=== PATIENT | female | born 1945 | race Caucasian/White ===

== ENCOUNTER 2017-01-12 13:24 | Inpatient (IN) | payer BC ==
--- NOTE | 2017-01-12 14:11 | PDOC ---
History of Present Illness - General History Source: Patient Exam Limitations: No Limitations - History of Present Illness Initial Comments: 01/12/17 14:18 The patient is a 71 year old female, who walked into the ER, with a significant past medical history of NIDDM, hypothyroid, gout, HTN, RA,afib, anemia, who presents to the emergency department with dizziness for about a week. She reports her dizziness is often made worse when she stands up and often alleviated when she is lying down and remaining still. She reports having an upper endoscopy 2 weeks ago with prep for colonoscopy and taking one laxative. Denies having these symptoms in the past. She denies recent fevers, chills, or headache. She denies recent nausea, vomit, diarrhea or constipation. Allergies: NKA Past surgical history: See HPI Social history: Nonsmoker. Denies EtOH use and drug use. PCP: Dr. Gamboa <Aldo Nelson - Last Filed: 01/12/17 15:02> <Isabelle Dobson - Last Filed: 01/12/17 15:27> - General Chief Complaint: Lightheaded Stated Complaint: DIZZY Time Seen by Provider: 01/12/17 13:25 Past History <Aldo Nelson - Last Filed: 01/12/17 15:02> - Past Medical History Anemia: No Asthma: No Cancer: Yes (skin cancer chin - removed last march 2013) Cardiac Disorders: No CVA: No COPD: No CHF: No Dementia: No Diabetes: Yes (TYPE II) GI Disorders: No Disorders: No HTN: Yes Hypercholesterolemia: No Liver Disease: No Seizures: No Thyroid Disease: Yes (hypo) - Surgical History Abdominal Surgery: No Appendectomy: No Cardiac Surgery: No Cholecystectomy: No Lung Surgery: No Neurologic Surgery: No Orthopedic Surgery: (BUNION / HAMMER TOE SX; BROKEN ANKLE (R)) - Immunization History Immunization Up to Date: Yes - Psycho/Social/Smoking Cessation Hx Anxiety: No Suicidal Ideation: No Smoking History: Unknown if ever smoked Have you smoked in the past 12 months: No If you are a former smoker, when did you quit?: 37 YEARS AGO Information on smoking cessation initiated: No Hx Alcohol Use: No Drug/Substance Use Hx: No Substance Use Type: None Hx Substance Use Treatment: No <Isabelle Dobson - Last Filed: 01/12/17 15:27> - Past Medical History Allergies/Adverse Reactions: Allergies Allergy/AdvReac Type Severity Reaction Status Date / Time No Known Allergies Allergy Verified 06/23/14 18:25 Home Medications: Ambulatory Orders Calcium Carbonate [Calcium] 600 mg PO DAILY 01/12/17 Folic Acid 1 mg PO DAILY 01/12/17 Furosemide [Lasix -] 40 mg PO DAILY 01/12/17 Levothyroxine [Synthroid -] 112 mcg PO DAILY 01/12/17 Losartan/Hydrochlorothiazide [Losartan-Hctz 100-25 mg Tab] 1 each PO DAILY 01/12 Metformin HCl [Metformin HCl ER] 1,000 mg PO BID 01/12/17 Methotrexate [Mexate -] 12.5 mg PO Q7D 01/12/17 Metoprolol Tartrate [Lopressor] 100 mg PO BID 01/12/17 Prednisone [Deltasone -] 2.5 mg PO ASDIR 01/12/17 Warfarin Sodium [Coumadin] 2.5 mg PO DAILY 01/12/17 Review of Systems - Review of Systems Able to Perform ROS?: Yes Constitutional: No: Symptoms Reported HEENTM: No: Symptoms Reported Respiratory: No: Symptoms reported Cardiac (ROS): No: Symptoms Reported ABD/GI: No: Symptoms Reported : No: Symptoms Reported Musculoskeletal: No: Symptoms Reported Integumentary: No: Symptoms Reported Neurological: Yes: Dizziness. No: Headache, Tingling, Tremors, Weakness, Ataxia Psychiatric: No: Anxiety, Depression <Aldo Nelson - Last Filed: 01/12/17 15:02> *Physical Exam - Vital Signs Last Vital Signs Temp Pulse Resp BP Pulse Ox 98 F 64 20 97/76 100 01/12/17 13:24 01/12/17 13:24 01/12/17 13:24 01/12/17 13:24 01/12/17 13:24 - Physical Exam General Appearance: Yes: Nourished, Appropriately Dressed HEENT: positive: EOMI, SHANIQUA, Normal ENT Inspection, Normal Voice, TMs Normal Neck: positive: Supple. negative: Tender Respiratory/Chest: positive: Lungs Clear, Normal Breath Sounds. negative: Respiratory Distress Cardiovascular: positive: Regular Rhythm, Regular Rate, Tachycardia Rectal Exam: positive: normal exam, normal rectal tone, other (+brown stool. ) Musculoskeletal: positive: Normal Inspection Extremity: positive: Normal Capillary Refill, Normal Inspection, Normal Range of Motion Integumentary: positive: Normal Color, Dry, Warm Neurologic: positive: platen builder up II-XII NML intact, Fully Oriented, Alert, Normal Mood/ Affect, Normal Response, Motor Strength 5/5 <Aldo Nelson - Last Filed: 01/12/17 15:02> - Vital Signs Last Vital Signs Temp Pulse Resp BP Pulse Ox 98 F 64 20 97/76 100 01/12/17 13:24 01/12/17 13:24 01/12/17 13:24 01/12/17 13:24 01/12/17 13:24 <Isabelle Dobson S - Last Filed: 01/12/17 15:27> Heart Score/ECG Review #1 ECG reviewed & interpreted by me at: 13:45 Atrial fibrillation at 140 bpm Lateral wall ischemia #2 ECG reviewed & interpreted by me at: 14:55 (EKG after 25mg IV push cardizem) Atrial fibrillation at 112 heart rate Improvement of the lateral wall ischemia <Aldo Nelson - Last Filed: 01/12/17 15:02> ED Treatment Course - LABORATORY CBC & Chemistry Diagram: 01/12/17 13:42 01/12/17 13:42 <Aldo Nelson - Last Filed: 01/12/17 15:02> - LABORATORY CBC & Chemistry Diagram: 01/12/17 13:42 01/12/17 13:42 - RADIOLOGY Radiology Studies Ordered: Category Date Time Status KEIRA [CHEST X-RAY PORTABLE*] [RAD] Stat Radiology 01/12/17 13:40 Ordered <Isabelle Dobson S - Last Filed: 01/12/17 15:27> Medical Decision Making - Critical Care Time Total Critical Care Time (minutes): 30 Critical Care Statement: The care of this patient involved high complexity decision making to prevent further life threatening deterioration of the patient 's condition and/or to evalute & treat vital organ system(s) failure or risk of failure. <Aldo Nelson - Last Filed: 01/12/17 15:02> *DC/Admit/Observation/Transfer - Attestations Scribe Attestion: 01/12/17 14:20 Documentation prepared by Aldo Nelson, acting as center medical director for Isabelle Dobson MD. <Aldo Nelson - Last Filed: 01/12/17 15:02> - Discharge Dispostion Admit: Yes <Isabelle Dobson - Last Filed: 01/12/17 15:27> Diagnosis at time of Disposition: Atrial fibrillation with rapid ventricular response, Postural lightheadedness
[2017-01-12 14:16] LABS: ALBUMIN 3.5 g/dl (3.5-5.0); BILIRUBIN,TOTAL 0.9 mg/dl (0.2-1.0); CALCIUM 8.9 mg/dl (8.4-10.2); CREATININE 3.3 mg/dl (0.6-1.3); TOT PROT 6.7 g/dl (6.4-8.3)
[2017-01-12] MEDS ORDERED: dilTIAZem HCL 50 MG/10 ML - 10 ML VIAL ONE (14:32)
[2017-01-12 14:33] LABS: NEUTROPHILS 78.1 % (42.8-82.8)
[2017-01-12 14:39] LABS: BASOPHIL 1.1 % (0-2.0); EOSINOPHIL 0.4 % (0-4.5); MCH 25.9 pg (25.7-33.7); MCHC 31.6 g/dl (32.0-36.0); MEAN CELL VOLUME 81.9 fl (80-96); MEAN PLT VOLUME 11.1 fl (7.5-11.1); PLATELET COUNT 225 K/MM3 (134-434); RDW 23.8 % (11.6-15.6); WHITE BLOOD COUNT 10.5 K/mm3 (4.0-10.0)
[2017-01-12 14:45] LABS: INR 1.21 (0.82-1.09); PROTHROMBIN TIME (PATIENT) 13.5 SEC (10.2-13.0)
[2017-01-12] MEDS ORDERED: dilTIAZem HCL 50 MG/10 ML - 10 ML VIAL IVPUSH ONE (14:47)
[2017-01-12] MEDS ORDERED: SODIUM CHLORIDE 500 ML IV STA (14:48)
[2017-01-12] MEDS ORDERED: dilTIAZem HCL 30 MG TABLET (FP) PO ONE ×2 (15:03→22:46)
[2017-01-12] MEDS ORDERED: METOPROLOL TARTRATE 25 MG TABLET (FP) PO ONE (15:04)
[2017-01-12] MEDS ORDERED: dilTIAZem HCL 30 MG TABLET (FP) ONE (15:13)
[2017-01-12] MEDS ORDERED: METOPROLOL SUCCINATE 25 MG TAB.SR.24H (FP) ONE (15:13)
[2017-01-12 15:14] LABS: TROPONIN I (DFP) 0.29 ng/ml (0.03-0.50)
[2017-01-12] MEDS ORDERED: ONDANSETRON 4 MG/2 ML VIAL IVPB PRN (15:29)
[2017-01-12] MEDS ORDERED: SODIUM CHLORIDE 1,000 ML IV SCH (15:30)
[2017-01-12] MEDS ORDERED: predniSONE 2.5 MG TABLET PO SCH (15:30)
[2017-01-12] MEDS ORDERED: SODIUM CHLORIDE 0.9% 1000 ML INFUS.BAG IV ONE (15:54)
[2017-01-12] MEDS ORDERED: HEPARIN NA (PORCINE) 5,000 UNITS/ML 1ML VIAL IVPUSH PRN ×2 (16:17)
[2017-01-12] MEDS ORDERED: HEPARIN INFUSION - 500 ML IVPB SCH (16:30)
[2017-01-12] MEDS ORDERED: ENOXAPARIN NA (PORCINE) 80 MG/0.8 ML DISP.SYRIN SQ SCH (16:30)
--- NOTE | 2017-01-12 17:28 | CON.CARD ---
Consult Consult Specialty:: Cardiology Referred by:: Dr. Dobson Reason for Consultation:: Rapid atrial fibrillation - History of Present Illness Chief Complaint: Dizziness and palpitations History of Present Illness: 71 yo female with DM type 2, hypothyroidism, HTN, chronic atrial fibrillation, who presented with ~ 1 week history of dizziness with changes in position and palpitations. Patient reports that was undergoing a prep for a pending colonoscopy ~ 4 days ago and was not drinking adequate fluids per son's report, but she was not taking her furosemide. In the ED, she was found to be in rapid atrial fibrillation with HR 140s and ST-T abnormalities in V3-6 which improved with rate control with IV push of diltiazem. Currently without symptoms. Patient was also found to be in acute renal failure with Cr 3.3. Patient's security system analyst is Dr. Flex Macario in the [place]. 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) Cardio/Vascular: Yes: AFIB, HTN Rheumatology: Yes: Rheumatoid Arthritis Endocrine: Yes: Diabetes Mellitus, Hypothyroidism - Past Surgical History Additional Surgical History: Left hip replacement - Alcohol/Substance Use Hx Alcohol Use: No - Smoking History Smoking history: Former smoker Have you smoked in the past 12 months: No Home Medications - Allergies Allergies/Adverse Reactions: Allergies Allergy/AdvReac Type Severity Reaction Status Date / Time No Known Allergies Allergy Verified 06/23/14 18:25 - Home Medications Home Medications: Ambulatory Orders Calcium Carbonate [Calcium] 600 mg PO DAILY 01/12/17 D3-2000 1,000 PO DAILY 01/12/17 Folic Acid 1 mg PO DAILY 01/12/17 Furosemide [Lasix -] 40 mg PO DAILY 01/12/17 Levothyroxine [Synthroid -] 112 mcg PO DAILY 01/12/17 Losartan Potassium 100 mg PO 01/12/17 Metformin HCl [Metformin HCl ER] 1,000 mg PO BID 01/12/17 Methotrexate [Mexate -] 12.5 mg PO Q7D 01/12/17 Metoprolol Tartrate [Lopressor] 100 mg PO BID 01/12/17 Prednisone [Deltasone -] 2.5 mg PO ASDIR 01/12/17 Warfarin Sodium [Coumadin] 2.5 mg PO DAILY 01/12/17 Family Disease History - Family Disease History Family History: Denies (No premature CAD or sudden cardiac ) Review of Systems - Review of Systems Constitutional: reports: No Symptoms Eyes: reports: No Symptoms HENT: reports: No Symptoms Neck: reports: No Symptoms Cardiovascular: reports: Palpitations. denies: Shortness of Breath Respiratory: reports: No Symptoms Gastrointestinal: reports: No Symptoms Genitourinary: reports: No Symptoms Musculoskeletal: reports: No Symptoms Neurological: reports: Dizziness Endocrine: reports: No Symptoms Hematology/Lymphatic: reports: No Symptoms Psychiatric: reports: No Symptoms Vital Signs: Vital Signs Temperature 98.3 F 01/12/17 15:20 Pulse Rate 103 H 01/12/17 15:27 Respiratory Rate 18 01/12/17 15:20 Blood Pressure 90/59 01/12/17 15:27 O2 Sat by Pulse Oximetry (%) 97 01/12/17 15:20 Constitutional: Yes: Well Nourished, No Distress Eyes: Yes: Conjunctiva Clear, EOM Intact HENT: Yes: Atraumatic, Normocephalic Respiratory: Yes: CTA Bilaterally Gastrointestinal: Yes: Normal Bowel Sounds, Soft. No: Tenderness Cardiovascular: Yes: Pulse Irregular JVD: No Carotid Bruit: No Heart Sounds: Yes: S1, S2 Murmur: No: Systolic Murmur Edema: No Peripheral Pulses WNL: Yes Neurological: Yes: Alert, Oriented ...Motor Strength: WNL Psychiatric: Yes: WNL - Other Data Labs, Other Data: INR, PTT INR 1.21 (0.82-1.09) 01/12/17 13:42 01/12/17 Imaging - Results Chest X-ray: Report Reviewed, Image Reviewed (01/12/17: No effusions) Assessment/Plan 71 yo female with DM type 2, hypothyroidism, HTN, chronic atrial fibrillation, who presented with ~ 1 week history of dizziness with changes in position and palpitations. She was admitted with rapid atrial fibrillation and acute renal failure. Suspect that her rapid afib and acute renal failure were exacerbated by dehydration from her colon prep and prior use of diuretic. RECS: Continue metoprolol tartrate 100 mg po bid. Add Cardizem CD 120 mg po daily for addition HR control as HR 100-110s currently. Patient to resume her coumadin as her colonoscopy will likely need to be rescheduled. Heparin gtt is unnecessary and will be discontinued. Monitor INR, goal INR 2-3. Monitor renal function with IV fluid hydration. If no improvement in renal function, would consider renal consultation. If patient remains rate controlled, she may be discharged tomorrow with follow- up with her security system analyst, Dr. Macario. Will follow. Please call with questions.
[2017-01-12] MEDS ORDERED: dilTIAZem HCL 30 MG TABLET (FP) PO SCH (18:00)
--- NOTE | 2017-01-12 18:35 | EKG ---
Test Reason : Blood Pressure : / mmHG Vent. Rate : 140 BPM Atrial Rate : 131 BPM P-R Int : 000 ms QRS Dur : 082 ms QT Int : 316 ms P-R-T Axes : 000 084 -88 degrees QTc Int : 482 ms ATRIAL FIBRILLATION WITH RAPID VENTRICULAR RESPONSE LOW VOLTAGE QRS ABNORMAL ECG WHEN COMPARED WITH ECG OF 24-JUN-2014 08:36, ATRIAL FIBRILLATION HAS REPLACED SINUS RHYTHM VENT. RATE HAS INCREASED BY [address] depression are now present In V4-6 Confirmed by TORY BUSCH MD ([id number]) on 01/12/2017 6:34:25 PM Referred By: DR WEBSTER Confirmed By:TORY BUSCH MD
[2017-01-12 20:28] LABS: PLATELET ESTIMATE ADEQUATE (NORMAL)
[2017-01-12 20:29] LABS: ANISOCYTOSIS 3+
[2017-01-12 20:30] LABS: ACANTHOCYTES 1+; BURR CELLS 2+; OVALOCYTES 2+; SPHEROCYTE 1+; TEAR DROP CELLS 2+
[2017-01-12 20:41] LABS: CALCIUM 8.3 mg/dl (8.4-10.2); CREATININE 3.3 mg/dl (0.6-1.3)
[2017-01-12] MEDS: METOPROLOL TARTRATE 50 MG TABLET (FP) PO SCH (21:40)
[2017-01-12] MEDS ORDERED: PATIENT'S OWN MEDICATION (NON-FORMULARY) (Metformin Hcl [Metformin Hcl Er] 1,000 MG) PO SCH (22:00)
[2017-01-12 22:32] LABS: TROPONIN I (DFP) 0.51 ng/ml (0.03-0.50)
--- NOTE | 2017-01-12 23:34 | HP ---
CHIEF COMPLAINT: Dizziness PCP: Dr. Gamboa HISTORY OF PRESENT ILLNESS: Pt. is a 71 y/o female with a PMH of Afib on warfarin, NIDDM, hypothyroidism, HTN, RA, and anemia, who presented to the ED today complaining of dizziness. Pt. states that she went to take a shower this morning when she felt very lightheaded and dizzy. She thought sitting down would help the dizziness. After resting she felt palpitations and " an odd sensation in my chest, but it wasn't pain". Pt. admits to lack of appetite and poor fluid intake. She states that she had a recent endoscopy which showed "an infection in her stomach." and she hasn't been hungry because of it. Pt. denies SOB, dyspnea, fainting, edema. Denies recent travel or sick contacts. ER course was notable for: (1) EKG findings: Afib with a rate of 140; ST depression V3-V6. (2) Na 126, Cl 96, BUN 38, Cr 3.3 (3) INR level sub-therapeutic Recent Travel: Denies 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) Bunion/hammer toe repair Social History: Smoking: Non-smoker (never smoked) Alcohol: Denies Drugs: Denies Allergies No Known Allergies Allergy (Verified 06/23/14 18:25) HOME MEDICATIONS: Home Medications Medication Instructions Recorded Calcium Carbonate [Calcium] 600 mg PO DAILY 01/12/17 D3-2000 1,000 PO DAILY 01/12/17 Folic Acid 1 mg PO DAILY 01/12/17 Furosemide [Lasix -] 40 mg PO DAILY 01/12/17 Levothyroxine [Synthroid -] 112 mcg PO DAILY 01/12/17 Losartan Potassium 100 mg PO 01/12/17 Metformin HCl [Metformin HCl ER] 1,000 mg PO BID 01/12/17 Methotrexate [Mexate -] 12.5 mg PO Q7D 01/12/17 Metoprolol Tartrate [Lopressor] 100 mg PO BID 01/12/17 Prednisone [Deltasone -] 2.5 mg PO ASDIR 01/12/17 Warfarin Sodium [Coumadin] 2.5 mg PO DAILY 01/12/17 REVIEW OF SYSTEMS CONSTITUTIONAL: Positive: loss of appetite Absent: fever, chills, diaphoresis, generalized weakness, malaise weight change HEENT: Absent: rhinorrhea, nasal congestion, throat pain, throat swelling, difficulty swallowing, mouth swelling, ear pain, eye pain, visual changes CARDIOVASCULAR: Positive: "odd sensation in my chest", palpitations, irregular heart rate, lightheadedness Absent: chest pain, syncope, palpitations, irregular heart rate, lightheadedness , peripheral edema RESPIRATORY: Absent: cough, shortness of breath, dyspnea with exertion, orthopnea, wheezing, stridor, hemoptysis GASTROINTESTINAL: Absent: abdominal pain, abdominal distension, nausea, vomiting, diarrhea, constipation, melena, hematochezia GENITOURINARY: Absent: dysuria, frequency, urgency, hesitancy, hematuria, flank pain, genital pain MUSCULOSKELETAL: Absent: myalgia, arthralgia, joint swelling, back pain, neck pain SKIN: Absent: rash, itching, pallor HEMATOLOGIC/IMMUNOLOGIC: Absent: easy bleeding, easy bruising, lymphadenopathy, frequent infections ENDOCRINE: Absent: unexplained weight gain, unexplained weight loss, heat intolerance, cold intolerance NEUROLOGIC: Positive: Dizziness Absent: headache, focal weakness or paresthesias, unsteady gait, seizure, mental status changes, bladder or bowel incontinence PSYCHIATRIC: Absent: anxiety, depression, suicidal or homicidal ideation, hallucinations. PHYSICAL EXAMINATION Vital Signs - 24 hr 01/12/17 01/12/17 01/12/17 17:19 17:20 19:49 Temperature 97.5 F L 97.5 F L Pulse Rate 98 H 98 H Respiratory 18 18 18 Rate Blood Pressure 92/64 92/64 O2 Sat by Pulse 97 97 97 Oximetry (%) 01/12/17 01/12/17 22:07 22:52 Temperature 97.8 F Pulse Rate 112 H 115 H Respiratory 19 18 Rate Blood Pressure 99/58 104/62 O2 Sat by Pulse 98 95 Oximetry (%) GENERAL: Awake, alert, fully oriented to person place and time, in no acute distress. Not using accessory muscles to breathe HEAD: Normal with no signs of trauma. EYES: Pupils equal, round and reactive to light, extraocular movements intact, sclera anicteric, conjunctiva clear. No lid lag. EARS, NOSE, THROAT: Ears normal, nares patent, oropharynx clear without exudates. Moist mucous membranes. NECK: Normal range of motion, supple without lymphadenopathy, JVD, or masses. LUNGS: Breath sounds equal, clear to auscultation bilaterally. No wheezes, and no crackles. No accessory muscle use. HEART: Irregular rate and rhythm, normal S1 and S2 without murmur, rub or gallop. ABDOMEN: Soft, nontender, not distended, normoactive bowel sounds, no guarding, no rebound, no masses. No hepatomegaly or splenomegaly. MUSCULOSKELETAL: Normal range of motion at all joints. No bony deformities or tenderness. No CVA tenderness. UPPER EXTREMITIES: 2+ pulses, warm, well-perfused. No cyanosis. No clubbing. Cap refill <2 seconds. No peripheral edema. LOWER EXTREMITIES: 2+ pulses, warm, well-perfused. No calf tenderness. No peripheral edema. NEUROLOGICAL: Cranial nerves II-XII intact. Normal speech. Normal gait. PSYCHIATRIC: Cooperative. Good eye contact. Appropriate mood and affect. SKIN: Warm, dry, normal turgor, no rashes or lesions noted. Laboratory Results - last 24 hr 3 01/12/17 01/12/17 01/12/17 01/12/17 13:42 13:42 13:42 14:53 WBC 10.5 H RBC 4.06 Hgb 10.5 L Hct 33.2 MCV 81.9 MCHC 31.6 L RDW 23.8 H Plt Count 225 MPV 11.1 Neutrophils % 78.1 Lymphocytes % 15.2 Monocytes % 5.2 Eosinophils % 0.4 Basophils % 1.1 Platelet Estimate Adequate Anisocytosis 3+ Macrocytosis 2+ Spherocytes 1+ Tear Drop Cells 2+ Ovalocytes 2+ Aldrich Cells 2+ Acanthocytes (Spur) 1+ Fragmented RBCs Y INR 1.21 Sodium 126 L Potassium 4.3 Chloride 95 L Carbon Dioxide 18 L Anion Gap 13 BUN 37 H Creatinine 3.3 H Creat Clearance w eGFR 13.70 Random Glucose 140 H Calcium 8.9 Total Bilirubin 0.9 AST 28 ALT 15 Alkaline Phosphatase 59 Creatine Kinase 49 Troponin I 0.29 Total Protein 6.7 Albumin 3.5 TSH 0.85 Urine Color Urine Appearance Urine pH Ur Specific [place] Urine Protein Urine Glucose (UA) Urine Ketones Urine Blood Urine Nitrite Urine Bilirubin Urine Urobilinogen Ur Leukocyte Esterase Ur Random Sodium Ur Random Potassium Ur Random Chloride Stool Occult Blood Blood Type Antibody Screen Spec Expiration Date 3 01/12/17 01/12/17 01/12/17 15:15 18:55 18:55 WBC RBC Hgb Hct MCV MCHC RDW Plt Count MPV Neutrophils % Lymphocytes % Monocytes % Eosinophils % Basophils % Platelet Estimate Anisocytosis Macrocytosis Spherocytes Tear Drop Cells Ovalocytes Noel Cells Acanthocytes (Spur) Fragmented RBCs INR Sodium 126 L Potassium 4.4 Chloride 96 L Carbon Dioxide 18 L Anion Gap 12 BUN 38 H Creatinine 3.3 H Creat Clearance w eGFR Random Glucose 116 H Calcium 8.3 L Total Bilirubin AST ALT Alkaline Phosphatase Creatine Kinase 48 Troponin I 0.51 H* Total Protein Albumin TSH Urine Color Urine Appearance Urine pH Ur Specific [place] Urine Protein Urine Glucose (UA) Urine Ketones Urine Blood Urine Nitrite Urine Bilirubin Urine Urobilinogen Ur Leukocyte Esterase Ur Random Sodium Ur Random Potassium Ur Random Chloride Stool Occult Blood Blood Type O POSITIVE Antibody Screen Negative Spec Expiration Date EKG findings: Afib with a rate of 140; ST depression V3-V6. Repeat EKG (#2) shows Afib with a rate of 117. ST depressions in V3-V6 have resolved, flattened T waves. Repeat EKG (#3) shows Afib with a rate of 124. Non-specific ST-T wave abnormalities in V3-V6. CXR: Obscured left heart boarder with increased lung markings, concerning for infectious process in the distribution of the inferior segment of lingula, or medial segment of the left lower lobe. No evidence of pneumothorax. No large pleural effusion is seen. Renal US: No hydronephrosis with a 2cm L cortial cyst ASSESSMENT/PLAN: Pt. is a 71 y/o female PMH of Afib on warfarin, NIDDM, hypothyroidism, HTN, RA, and anemia, who was found in Afib with a rate in the 140's, DUARTE, hyponatremia and hypochoremia. She is now placed in observation for management of her emergent condition. Problem List - Problem (1) Atrial fibrillation with rapid ventricular response Assessment/Plan: - Afib with a rate of 140's in the ED. Diltiazem 25mg IV push, Diltiazem 30mg PO , Metoprolol 25mg PO given in the ED. Rate control into the 100's-110's. - Sub-therapeutic INR: Heparin drip started in the ED. As recommended by cardiology, heparin drip d/c'd and increase warfarin to 4mg daily. - Cardiology consult appreciated; Start Dilitazem CD 120mg PO daily. - 2nd troponin elevated 0.51, demand ischemia vs ACS; third troponin ordered for 01:00. - Cardiology re-consulted. Still holding heparin drip given Cr. and lack of chest pain. Will re-evaluate after 3rd troponin - An additional dose of Dilitazem 30mg given for rate creeping upwards, 120s- 140s - Tele bed - Monitor HR; call for HR >120 - Low fat diet Code(s): I48.91 - UNSPECIFIED ATRIAL FIBRILLATION (2) DUARTE (acute kidney injury) Assessment/Plan: - Cr 3.3, baseline ~1.1 - IV fluids - Hold home lasix. - Renal consult Code(s): N17.9 - ACUTE KIDNEY FAILURE, UNSPECIFIED (3) Hyponatremia Assessment/Plan: - IV fluids NS @ rate of 75ml/hr - Renal consult Code(s): E87.1 - HYPO-OSMOLALITY AND HYPONATREMIA (4) Hypochloremia Assessment/Plan: - IV fluids NS @ rate of 75ml/hr - Renal consult Code(s): E87.8 - OTH DISORDERS OF ELECTROLYTE AND FLUID BALANCE, NEC (5) DM (diabetes mellitus) Assessment/Plan: - Hold home Metformin - Finger sticks with SSI as needed Code(s): E11.9 - TYPE 2 DIABETES MELLITUS WITHOUT COMPLICATIONS Qualifiers: Diabetes mellitus type: type 2 Diabetes mellitus complication status: without complication Diabetes mellitus snf insulin use: without snf use Qualified Code(s): E11.9 - Type 2 diabetes mellitus without complications (6) Hypothyroidism Assessment/Plan: - Continue home medication; Levothyroxine 112mcg daily Code(s): E03.9 - HYPOTHYROIDISM, UNSPECIFIED Qualifiers: Hypothyroidism type: unspecified Qualified Code(s): E03.9 - Hypothyroidism, unspecified (7) HTN (hypertension) Assessment/Plan: - Hold Hyzaar; Cr 3.3 - Continue Lopressor 100mg BID Code(s): I10 - ESSENTIAL (PRIMARY) HYPERTENSION Qualifiers: Hypertension type: essential hypertension Qualified Code(s): I10 - Essential (primary) hypertension (8) Rheumatoid arthritis Assessment/Plan: - Continue with Methotrexate 12.5mg Q Wednesdays - Continue Prednisone 2.5mg Q Tuesday and Code(s): M06.9 - RHEUMATOID ARTHRITIS, UNSPECIFIED Qualifiers: Rheumatoid arthritis location: hand Rheumatoid factor presence: unspecified presence Laterality: unspecified laterality Qualified Code(s): M06.9 - Rheumatoid arthritis, unspecified (9) Anemia Assessment/Plan: - Monitor; no home meds. Code(s): D64.9 - ANEMIA, UNSPECIFIED Qualifiers: Anemia type: unspecified type Qualified Code(s): D64.9 - Anemia, unspecified (10) DVT prophylaxis Assessment/Plan: Pt. is low risk for DVT as pt. is in obs. Continue with warfarin. Code(s): [id number] - Visit type - Emergency Visit Emergency Visit: Yes ED Registration Date: 01/12/17 Care time: The patient presented to the Emergency Department on the above date and was hospitalized for further evaluation of their emergent condition. - New Patient This patient is new to me today: Yes Date on this admission: 01/13/17 - Critical Care Critical Care patient: No
[2017-01-13] MEDS: SODIUM CHLORIDE 1,000 ML IV SCH (01:30)
[2017-01-13 02:40] LABS: URINE APPEARANCE CLEAR; URINE BILIRUBIN NEGATIVE (NEGATIVE); URINE BLOOD NEGATIVE (NEGATIVE); URINE COLOR LTYELLOW; URINE GLUCOSE (UA) 1+ (NEGATIVE); URINE KETONE NEGATIVE (NEGATIVE); URINE LEUK ESTERASE NEGATIVE (NEGATIVE); URINE NITRITE NEGATIVE (NEGATIVE); URINE PROTEIN NEGATIVE (NEGATIVE); URINE UROBILINOGEN NEGATIVE E.U./dl (0.2-1.0)
[2017-01-13 02:49] LABS: CHLORIDE,RANDOM URINE < 10 MMOL/L; SODIUM,RANDOM URINE 9 MMOL/L
[2017-01-13 02:59] LABS: TROPONIN I 0.25 ng/ml (0.00-0.05)
[2017-01-13] MEDS ORDERED: WARFARIN NA 2 MG TABLET (UD) PO ONE (03:11)
[2017-01-13] MEDS: LEVOTHYROXINE NA 112 MCG TABLET (FP) PO SCH (06:50)
--- NOTE | 2017-01-13 07:32 | PN ---
[id number] of breath at 1250 patient developed syncopal episode with chest pressure and shortness of breath OBJECTIVE:71 yo female with DM type 2, hypothyroidism, HTN, chronic atrial fibrillation and copd. patient was admitted from the emergency department for A. fib with RVR and history of present illness Vital Signs Period Temp Pulse Resp BP Sys/Angeles Pulse Ox Last 24 Hr 97.5 F-97.8 F 61-115 18-19 92-107/46-64 95-98 GENERAL: The patient is awake, alert, and fully oriented, in no acute distress. HEAD: Normal with no signs of trauma. EYES: PERRL, extraocular movements intact, sclera anicteric, conjunctiva clear. No ptosis. ENT: Ears normal, nares patent, oropharynx clear without exudates, moist mucous membranes. NECK: Trachea midline, full range of motion, supple. LUNGS: Breath sounds equal, clear to auscultation bilaterally, no wheezes, no crackles, no accessory muscle use. HEART: Regular rate and rhythm, S1, S2 without murmur, rub or gallop. ABDOMEN: Soft, nontender, nondistended, normoactive bowel sounds, no guarding, no rebound, no hepatosplenomegaly, no masses. EXTREMITIES: 2+ pulses, warm, well-perfused, no edema. NEUROLOGICAL: Cranial nerves II through XII grossly intact. Normal speech, gait not observed. PSYCH: Normal mood, normal affect. SKIN: Warm, dry, normal turgor, no rashes or lesions noted Laboratory Results - last 24 hr CBC WBC 11.0 K/mm3 (4.0-10.0) H 01/13/17 07:35 RBC 3.61 M/mm3 (3.60-5.2) 01/13/17 07:35 Hgb 9.1 GM/dl (10.7-15.3) L D 01/13/17 07:35 Hct 28.8 % (32.4-45.2) L 01/13/17 07:35 MCV 79.9 fl (80-96) L 01/13/17 07:35 MCHC 31.4 g/dl (32.0-36.0) L 01/13/17 07:35 RDW 23.3 % (11.6-15.6) H 01/13/17 07:35 Plt Count 182 K/MM3 (134-434) 01/13/17 07:35 MPV 11.0 fl (7.5-11.1) 01/13/17 07:35 Neutrophils % 79.8 % (42.8-82.8) 01/13/17 07:35 Lymphocytes % 11.6 % (8-40) D 01/13/17 07:35 Monocytes % 8.0 % (3.8-10.2) 01/13/17 07:35 Eosinophils % 0.2 % (0-4.5) 01/13/17 07:35 Basophils % 0.4 % (0-2.0) 01/13/17 07:35 Platelet Estimate Adequate (NORMAL) 01/12/17 13:42 Anisocytosis 3+ 01/12/17 13:42 Macrocytosis 2+ 01/12/17 13:42 Spherocytes 1+ 01/12/17 13:42 Tear Drop Cells 2+ 01/12/17 13:42 Ovalocytes 2+ 01/12/17 13:42 Noel Cells 2+ 01/12/17 13:42 Acanthocytes (Spur) 1+ 01/12/17 13:42 Fragmented RBCs Y 01/12/17 13:42 CMP Sodium 128 mmol/L (136-145) L 01/13/17 07:35 Potassium 4.5 mmol/L (3.5-5.1) 01/13/17 07:35 Chloride 91 mmol/L (98-107) L 01/13/17 07:35 Carbon Dioxide 17 mmol/L (22-28) L 01/13/17 07:35 Anion Gap 20 (8-16) H 01/13/17 07:35 BUN 42 mg/dl (7-18) H 01/13/17 07:35 Creatinine 3.3 mg/dl (0.6-1.3) H 01/13/17 07:35 Creat Clearance w eGFR 13.70 (>60) 01/13/17 07:35 POC Glucometer 203 UNITS (()) 01/13/17 13:00 Random Glucose 134 mg/dl (74-106) H 01/13/17 07:35 Calcium 8.5 mg/dl (8.4-10.2) 01/13/17 07:35 Magnesium 1.6 mg/dL (1.8-2.4) L 01/13/17 07:35 Total Bilirubin 0.9 mg/dl (0.2-1.0) 01/13/17 07:35 AST 24 U/L (10-42) 01/13/17 07:35 ALT 15 U/L (10-40) 01/13/17 07:35 Alkaline Phosphatase 58 U/L (32-92) 01/13/17 07:35 Creatine Kinase 56 IU/L (26-140) 01/13/17 07:35 Troponin I 0.59 ng/ml (0.03-0.50) H* 01/13/17 07:35 B-Natriuretic Peptide Cancelled 01/13/17 Unknown Total Protein 5.7 g/dl (6.4-8.3) L 01/13/17 07:35 Albumin 3.0 g/dl (3.5-5.0) L 01/13/17 07:35 TSH 0.85 uIU/ml (0.358-3.74) 01/12/17 14:53 Active Medications Generic Name Dose Route Start Last Admin Trade Name Freq PRN Reason Stop Dose Admin Acetaminophen 650 mg 01/12/17 15:29 Tylenol - PO Q6H PRN FEVER OR PAIN Calcium Carbonate 500 mg 01/13/17 10:00 Os-Serg 500mg - PO DAILY [facility] Diltiazem HCl 120 mg 01/12/17 17:30 01/12/17 17:53 Cardizem Cd - PO 120 mg DAILY [facility] Administration Folic Acid 1 mg 01/13/17 10:00 Folic Acid - PO DAILY [facility] Sodium Chloride 1,000 mls @ 75 mls/hr 01/13/17 01:30 01/13/17 01:30 Normal Saline - IV 75 mls/hr ASDIR BARBARA Administration Levothyroxine Sodium 112 mcg 01/13/17 07:00 01/13/17 06:50 Synthroid - PO 112 mcg DAILY@0700 [facility] Administration Methotrexate 12.5 mg 01/13/17 03:15 Mexate - PO Q7D [facility] Metoprolol Tartrate 100 mg 01/12/17 22:00 01/12/17 21:40 Lopressor - PO 100 mg BID BARBAR[facility] Administration Ondansetron HCl 4 mg 01/12/17 15:29 Zofran Injection IVPB Q6H PRN NAUSEA Prednisone 2.5 mg 01/13/17 03:03 Deltasone - PO ASDIR [facility]BAR[facility] Warfarin Sodium 4 mg 01/13/17 18:00 Coumadin - PO DAILY@1800 [facility] ASSESSMENT/PLAN: EKG findings: Afib with a rate of 140; ST depression V3-V6. Repeat EKG (#2) shows Afib with a rate of 117. ST depressions in V3-V6 have resolved, flattened T waves. Repeat EKG (#3) shows Afib with a rate of 124. Non-specific ST-T wave abnormalities in V3-V6. CXR: Obscured left heart boarder with increased lung markings, concerning for infectious process in the distribution of the inferior segment of lingula, or medial segment of the left lower lobe. No evidence of pneumothorax. No large pleural effusion is seen. Renal US: No hydronephrosis with a 2cm L cortial cyst chest xray ( 01/13/2017). no infiltrates and effusions noted ASSESSMENT/PLAN: 1) card: atrial fibrillation with RVR - Syncopal episode noted at 4 AM. troponin noted to be elevated EKG repeated patient in normal sinus rhythm. Elevated troponin likely secondary to demand ischemia, restart heparin drip, - 2nd syncopal episode at 1255, repeat EKG ordered sinus joleen, prolonged QT, nonspecific ST, no ischemic changes - Cardizem Lopressor on hold -case discussed with Dr Ojeda, cardiology, ill evaluate patient today 2) nephrology: DUARTE - Creatinine 3.3 unknown baseline, patient denies any history of kidney disease - duarte likely secondary to dehyration w/lasix use, pt does report starting colonscopy prep prior to admission. - Ultrasound of kidneys reviewed no hydronephrosis noted - Appreciate nephrology input 3) Endo nIDDM - continue to hold metformin fingersticks before meals and at bedtime with regular insulin coverage, pending hemoglobin A1c hypothyroidism - tSH WNL, continue levothyroxine f/e/n - ivf - low-sodium diet - Hypomagnesemia, replete magnesium ppx - on heparin gtt - zantac dispo: Case discussed with ntensivist , transfer patient to ICU at [facility] for closer monitoring family daughter (lc freire) regisitered nurse at [facility] made aware and agrees with plan Visit type - Emergency Visit Emergency Visit: Yes ED Registration Date: 01/14/17 Care time: The patient presented to the Emergency Department on the above date and was hospitalized for further evaluation of their emergent condition. - New Patient This patient is new to me today: No - Critical Care Critical Care patient: No - Discharge Referral Referred to [facility] Med P.C.: No
[2017-01-13 09:26] LABS: BASOPHIL 0.4 % (0-2.0); EOSINOPHIL 0.2 % (0-4.5); MCH 25.1 pg (25.7-33.7); MCHC 31.4 g/dl (32.0-36.0); MEAN CELL VOLUME 79.9 fl (80-96); NEUTROPHILS 79.8 % (42.8-82.8); PLATELET COUNT 182 K/MM3 (134-434); RDW 23.3 % (11.6-15.6)
[2017-01-13 09:36] LABS: INR 1.48 (0.82-1.09); PROTHROMBIN TIME (PATIENT) 16.4 SEC (10.2-13.0)
[2017-01-13] MEDS: FOLIC ACID 1 MG TABLET (FP) PO SCH (09:53)
[2017-01-13] MEDS: METOPROLOL TARTRATE 50 MG TABLET (FP) PO SCH (09:53)
[2017-01-13] MEDS: CALCIUM (OYSTER SHELL) 500 MG TABLET (FP) PO SCH (09:53)
[2017-01-13] MEDS ORDERED: WARFARIN NA 2.5 MG TABLET (FP) PO SCH (10:00)
[2017-01-13 10:55] LABS: TROPONIN I (DFP) 0.59 ng/ml (0.03-0.50)
[2017-01-13 11:06] LABS: BILIRUBIN,TOTAL 0.9 mg/dl (0.2-1.0); CALCIUM 8.5 mg/dl (8.4-10.2); CREATININE 3.3 mg/dl (0.6-1.3); MAGNESIUM 1.6 mg/dL (1.8-2.4); TOT PROT 5.7 g/dl (6.4-8.3)
[2017-01-13] MEDS ORDERED: MAGNESIUM SULFATE 2 GM in SODIUM CHLORIDE 100 ML IVPB ONE (11:07)
[2017-01-13] MEDS ORDERED: HEPARIN INFUSION - 500 ML IVPB SCH (11:15)
[2017-01-13] MEDS ORDERED: MAGNESIUM SULF 50% (8.12 MEQ/2 ML-1 GM VIAL) IVPB ONE (12:00)
[2017-01-13] MEDS ORDERED: SODIUM CHLORIDE 1,000 ML IV STA (13:23)
[2017-01-13] MEDS ORDERED: ALBUTEROL SO4 0.083% IH SOL 2.5 MG/3 ML VIAL.NEB. NEB PRN (13:57)
--- NOTE | 2017-01-13 14:03 | EKG ---
Test Reason : Blood Pressure : / mmHG Vent. Rate : 059 BPM Atrial Rate : 059 BPM P-R Int : 178 ms QRS Dur : 072 ms QT Int : 514 ms P-R-T Axes : 059 055 061 degrees QTc Int : 508 ms SINUS BRADYCARDIA with APCs IN A PATTERN OF BIGEMINY LOW VOLTAGE QRS NONSPECIFIC ST AND T WAVE ABNORMALITY PROLONGED QT WHEN COMPARED WITH ECG OF 13-JAN-2017 10:16, NO SIGNIFICANT CHANGE WAS FOUND Confirmed by MD RICHY, MAX ([id number]) on 01/13/2017 2:02:53 PM Referred By: JUAN WHITFIELD Confirmed By:MAX LOCKHART MD
--- NOTE | 2017-01-13 14:04 | EKG ---
Test Reason : Blood Pressure : / mmHG Vent. Rate : 065 BPM Atrial Rate : 065 BPM P-R Int : 172 ms QRS Dur : 070 ms QT Int : 464 ms P-R-T Axes : 086 073 075 degrees QTc Int : 482 ms NORMAL SINUS RHYTHM LOW VOLTAGE QRS NONSPECIFIC T WAVE ABNORMALITY PROLONGED QT WHEN COMPARED WITH ECG OF 12-JAN-2017 21:41, SINUS RHYTHM HAS REPLACED ATRIAL FIBRILLATION VENT. RATE HAS DECREASED BY 59 BPM Confirmed by MD LOCKHART MARJORY ([id number]) on 01/13/2017 2:04:01 PM Referred By: Confirmed By:MAX LOCKHART MD
--- NOTE | 2017-01-13 14:07 | EKG ---
Test Reason : Blood Pressure : / mmHG Vent. Rate : 124 BPM Atrial Rate : 122 BPM P-R Int : 000 ms QRS Dur : 074 ms QT Int : 354 ms P-R-T Axes : 000 058 -71 degrees QTc Int : 508 ms POOR DATA QUALITY, INTERPRETATION MAY BE ADVERSELY AFFECTED ATRIAL FIBRILLATION WITH RAPID VENTRICULAR RESPONSE LOW VOLTAGE QRS NONSPECIFIC ST AND T WAVE ABNORMALITY WHEN COMPARED WITH ECG OF 12-JAN-2017 14:52, COMPARED TO EKG NO SIGNIFICANT CHANGE IS FOUND Confirmed by MD RICHY, MAX ([id number]) on 01/13/2017 2:06:47 PM Referred By: Confirmed By:MAX LOCKHART MD
--- NOTE | 2017-01-13 14:07 | EKG ---
Test Reason : Blood Pressure : / mmHG Vent. Rate : 112 BPM Atrial Rate : 125 BPM P-R Int : 000 ms QRS Dur : 080 ms QT Int : 326 ms P-R-T Axes : 000 066 -60 degrees QTc Int : 444 ms ATRIAL FIBRILLATION WITH RAPID VENTRICULAR RESPONSE LOW VOLTAGE QRS NONSPECIFIC ST AND T WAVE ABNORMALITY WHEN COMPARED WITH ECG OF 12-JAN-2017 13:40, NONSPECIFIC T WAVE ABNORMALITY HAS REPLACED INVERTED T WAVES IN LATERAL LEADS Confirmed by MD RICHY, MAX ([id number]) on 01/13/2017 2:07:15 PM Referred By: DR WEBSTER Confirmed By:MAX LOCKHART MD
[2017-01-13] MEDS: RANITIDINE HCL 150 MG TABLET (FP) PO SCH (14:16)
[2017-01-13 14:39] LABS: CALCIUM 8.5 mg/dl (8.4-10.2); CREATININE 3.5 mg/dl (0.6-1.3)
[2017-01-13 14:49] LABS: TROPONIN I (DFP) 0.52 ng/ml (0.03-0.50)
--- NOTE | 2017-01-13 16:06 | PN ---
Progress Note, Physician History of Present Illness: Patient with syncopal episode early this AM (5AM) when she converted to SR She then had the AM cardizem and BB Later this AM, she had another episode -. was joleen to the 30s and had BP down to 70s -. spontaneously went up Transferred to ICU for closer monitoring Pt had no CP with the above episodes, but her trop have been checked many times- . have been fluctuating and daughter at bedside - Current Medication List Current Medications: Active Medications Acetaminophen (Tylenol -) 650 mg PO Q6H PRN PRN Reason: FEVER OR PAIN Albuterol Sulfate (Ventolin 0.083% Nebulizer Soln -) 1 amp NEB Q4H PRN PRN Reason: SHORT OF BREATH/WHEEZING Calcium Carbonate (Os-Serg 500mg -) 500 mg PO DAILY [facility] Last Admin: 01/13/17 09:53 Dose: 500 mg Diltiazem HCl (Cardizem Cd -) 120 mg PO DAILY [facility] Last Admin: 01/13/17 09:53 Dose: 120 mg Folic Acid (Folic Acid -) 1 mg PO DAILY [facility] Last Admin: 01/13/17 09:53 Dose: 1 mg Sodium Chloride (Normal Saline -) 1,000 mls @ 75 mls/hr IV ASDIR [facility] Last Admin: 01/13/17 01:30 Dose: 75 mls/hr Heparin Sodium/Dextrose (Heparin Infusion -) 500 mls @ 16 mls/hr IVPB TITR BARBARA ; 800 UNITS/HR PRN Reason: Protocol Last Admin: 01/13/17 11:49 Dose: 16 mls/hr Insulin Aspart (Novolog Vial Sliding Scale -) 1 vial SQ ACHS [facility] PRN Reason: Protocol Levothyroxine Sodium (Synthroid -) 112 mcg PO DAILY@0700 [facility] Last Admin: 01/13/17 06:50 Dose: 112 mcg Methotrexate (Mexate -) 12.5 mg PO Q7D [facility] Ondansetron HCl (Zofran Injection) 4 mg IVPB Q6H PRN PRN Reason: NAUSEA Prednisone (Deltasone -) 2.5 mg PO MoTh@1000 [facility] Ranitidine HCl (Zantac -) 150 mg PO DAILY [facility] Last Admin: 01/13/17 14:16 Dose: 150 mg Warfarin Sodium (Coumadin -) 4 mg PO DAILY@1800 [facility] - Objective Vital Signs: Vital Signs Temperature 97.8 F 01/13/17 13:20 Pulse Rate 62 01/13/17 13:20 Respiratory Rate 17 01/13/17 13:20 Blood Pressure 81/55 01/13/17 13:20 O2 Sat by Pulse Oximetry (%) 100 01/13/17 15:51 Constitutional: Yes: Obese Eyes: Yes: Conjunctiva Clear HENT: Yes: Atraumatic Neck: Yes: Supple Cardiovascular: Yes: Regular Rate and Rhythm, Murmur Respiratory: Yes: CTA Bilaterally. No: Rales, Rhonchi Gastrointestinal: Yes: Normal Bowel Sounds, Soft, Abdomen, Obese. No: Tenderness Extremities: Yes: Other (warm) Edema: No Peripheral Pulses WNL: Yes Neurological: Yes: Alert, Oriented Psychiatric: Yes: Alert, Oriented Labs: CBC, BMP 01/13/17 07:35 01/13/17 13:50 INR, PTT INR 1.48 (0.82-1.09) H 01/13/17 07:35 Assessment/Plan 71 yo female with DM type 2, hypothyroidism, HTN, chronic atrial fibrillation, who presented with ~ 1 week history of dizziness with changes in position and palpitations. She was admitted with rapid atrial fibrillation and acute renal failure. Suspected that her rapid afib and acute renal failure were exacerbated by dehydration from her colon prep and prior use of diuretic. Metoprolol tartrate 100 mg po bid and Cardizem CD 120 mg po daily added S/p syncopal episode while converting to SR Subsequent episode may have been because of both BB and CCB as she has had been in SR since 5 AM or so TSH normal Pt's INR was low, because she had been off the coumadin for a colonoscopy which was cancelled because of the snow Trop I have been fluctuating from 0.29 -> 0.51 -> 0.25 -> 0.59 -> 0.52 Above in the setting of BUN/CR of 37/33 on admission and 43/3.5 today Pt w/o CP and EKG w/o ischemic changes -> I doubt acute SD Echo this AM -. nl EF, mod DD, mod MR Rec: Hold BB and cardizem for now -. follow HR -. will add lower dose of BB as tolerated (based on HR) Cont IV heparin for now Cont coumadin -> monitor INR, goal INR 2-3. Monitor renal function with IV fluid hydration -. awaiting renal eval D/w pt and family at bedside
--- NOTE | 2017-01-13 16:39 | CONSULT ---
Consultation: REQUESTING PROVIDER: CONSULT REQUEST: We have been asked to medically evaluate this patient for ( specify). HISTORY OF PRESENT ILLNESS: 71 y/o F with past medical h/o NIDDM, Hypothyroid, HTN, RA, Afib on warfarin, Anemia sent from [facility] for syncope, afbi, subtheraputic inr, hyponatremia. Patient was admiteed in [place] on 2016 for syncopal episode and found to have a fib. Patient received Diltiazem 25mg IV push, Diltiazem 30mg PO, Metoprolol 25mg PO given in the ED. Patient gain had syncopal episode early this AM (5AM) when she converted to SR, She then had the AM cardizem and BB. Later this AM, she had another episode -. was joleen to the 30s and had BP down to 70s -. spontaneously went up. Transferred to [facility] for closer monitoring. Patient stopped her coumadin on 01/06/17 for colonoscopy. Patient also states she was not eating and drinking properly from 2 week. 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) Bunion/hammer toe repair Social History: Smoking: Non-smoker (never smoked) Alcohol: Denies Drugs: Denies REVIEW OF SYSTEMS: CONSTITUTIONAL: Absent: fever, chills, diaphoresis, generalized weakness, malaise, loss of appetite, weight change HEENT: Absent: rhinorrhea, nasal congestion, throat pain, throat swelling, difficulty swallowing, mouth swelling, ear pain, eye pain, visual changes CARDIOVASCULAR: Absent: chest pain, syncope, palpitations, irregular heart rate, lightheadedness , peripheral edema RESPIRATORY: Absent: cough, shortness of breath, dyspnea with exertion, orthopnea, wheezing, stridor, hemoptysis GASTROINTESTINAL: Absent: abdominal pain, abdominal distension, nausea, vomiting, diarrhea, constipation, melena, hematochezia GENITOURINARY: Absent: dysuria, frequency, urgency, hesitancy, hematuria, flank pain, genital pain MUSCULOSKELETAL: Absent: myalgia, arthralgia, back pain, neck pain SKIN: Absent: rash, itching, pallor HEMATOLOGIC/IMMUNOLOGIC: Absent: easy bleeding, easy bruising, lymphadenopathy, frequent infections ENDOCRINE: Absent: unexplained weight gain, unexplained weight loss, heat intolerance, cold intolerance NEUROLOGIC: Absent: headache, focal weakness or paresthesias, PSYCHIATRIC: Absent: anxiety, depression, PHYSICAL EXAMINATION Vital Signs - 24 hr 01/12/17 01/12/17 01/12/17 17:19 17:20 19:49 Temperature 97.5 F L 97.5 F L Pulse Rate 98 H 98 H Respiratory 18 18 18 Rate Blood Pressure 92/64 92/64 O2 Sat by Pulse 97 97 97 Oximetry (%) 01/12/17 01/12/17 01/12/17 22:07 22:52 23:24 Temperature 97.8 F Pulse Rate 112 H 115 H 106 H Respiratory 19 18 18 Rate Blood Pressure 99/58 104/62 95/61 O2 Sat by Pulse 98 95 95 Oximetry (%) 01/13/17 01/13/17 01/13/17 03:00 04:40 04:50 Temperature 97.6 F Pulse Rate 63 65 61 Respiratory 18 Rate Blood Pressure 95/46 107/56 95/46 O2 Sat by Pulse Oximetry (%) 01/13/17 01/13/17 01/13/17 05:00 06:00 06:02 Temperature Pulse Rate 61 63 Respiratory Rate Blood Pressure 94/46 95/46 O2 Sat by Pulse 95 Oximetry (%) 01/13/17 01/13/17 01/13/17 06:54 09:30 11:15 Temperature 97.8 F Pulse Rate 68 64 Respiratory 18 18 17 Rate Blood Pressure 122/60 110/50 O2 Sat by Pulse 95 Oximetry (%) 01/13/17 01/13/17 01/13/17 12:55 13:05 13:20 Temperature 97.8 F 97.8 F 97.8 F Pulse Rate 57 L 57 L 62 Respiratory 18 17 17 Rate Blood Pressure 117/50 117/50 81/55 O2 Sat by Pulse Oximetry (%) 01/13/17 15:51 Temperature Pulse Rate Respiratory Rate Blood Pressure O2 Sat by Pulse 100 Oximetry (%) GENERAL: Awake, alert, and fully oriented, in no acute distress. HEAD: Normal with no signs of trauma. EYES: Pupils equal, round and reactive to light, EARS, NOSE, THROAT: Ears normal, nares patent, oropharynx clear without exudates. dry mucous membranes. NECK: Normal range of motion, JVD, or masses. LUNGS: Breath sounds equal, clear to auscultation bilaterally. No wheezes, and no crackles. No accessory muscle use. HEART: s1s2 normal irregular ABDOMEN: Soft, nontender, not distended, normoactive bowel sounds, no guarding, no rebound, no masses. MUSCULOSKELETAL: Normal range of motion at all joints. No bony deformities or tenderness. No CVA tenderness. UPPER EXTREMITIES: 2+ pulses, warm, well-perfused. No cyanosis. No clubbing. Cap refill <2 seconds. No peripheral edema. LOWER EXTREMITIES: 2+ pulses, warm, well-perfused. No calf tenderness. No peripheral edema. NEUROLOGICAL: Cranial nerves II-XII intact. Normal speech. PSYCHIATRIC: Cooperative. Good eye contact. Appropriate mood and affect. SKIN: Warm, dry, normal turgor, Laboratory Results - last 24 hr 01/12/17 01/12/17 01/13/17 18:55 18:55 00:40 WBC RBC Hgb Hct MCV MCHC RDW Plt Count MPV Neutrophils % Lymphocytes % Monocytes % Eosinophils % Basophils % INR Sodium 126 L Potassium 4.4 Chloride 96 L Carbon Dioxide 18 L Anion Gap 12 BUN 38 H Creatinine 3.3 H Creat Clearance w eGFR POC Glucometer Random Glucose 116 H Calcium 8.3 L Magnesium Total Bilirubin AST ALT Alkaline Phosphatase Creatine Kinase 48 Troponin I 0.51 H* B-Natriuretic Peptide Total Protein Albumin Urine Color Ltyellow Urine Appearance Clear Urine pH 6.0 Ur Specific [place] 1.010 Urine Protein Negative Urine Glucose (UA) 1+ H Urine Ketones Negative Urine Blood Negative Urine Nitrite Negative Urine Bilirubin Negative Urine Urobilinogen Negative Ur Leukocyte Esterase Negative Ur Random Sodium Ur Random Potassium Ur Random Chloride 01/13/17 01/13/17 01/13/17 00:40 01:00 07:35 WBC 11.0 H RBC 3.61 Hgb 9.1 L D Hct 28.8 L MCV 79.9 L MCHC 31.4 L RDW 23.3 H Plt Count 182 MPV 11.0 Neutrophils % 79.8 Lymphocytes % 11.6 D Monocytes % 8.0 Eosinophils % 0.2 Basophils % 0.4 INR Sodium Potassium Chloride Carbon Dioxide Anion Gap BUN Creatinine Creat Clearance w eGFR POC Glucometer Random Glucose Calcium Magnesium Total Bilirubin AST ALT Alkaline Phosphatase Creatine Kinase 61 Troponin I 0.25 H B-Natriuretic Peptide 4530.29 H Total Protein Albumin Urine Color Urine Appearance Urine pH Ur Specific [place] Urine Protein Urine Glucose (UA) Urine Ketones Urine Blood Urine Nitrite Urine Bilirubin Urine Urobilinogen Ur Leukocyte Esterase Ur Random Sodium 9 Ur Random Potassium 33.0 Ur Random Chloride < 10 01/13/17 01/13/17 01/13/17 07:35 07:35 07:35 WBC RBC Hgb Hct MCV MCHC RDW Plt Count MPV Neutrophils % Lymphocytes % Monocytes % Eosinophils % Basophils % INR 1.48 H Sodium 128 L Potassium 4.5 Chloride 91 L Carbon Dioxide 17 L Anion Gap 20 H BUN 42 H Creatinine 3.3 H Creat Clearance w eGFR 13.70 POC Glucometer Random Glucose 134 H Calcium 8.5 Magnesium 1.6 L Total Bilirubin 0.9 AST 24 ALT 15 Alkaline Phosphatase 58 Creatine Kinase Cancelled 56 Troponin I Cancelled 0.59 H* B-Natriuretic Peptide Total Protein 5.7 L Albumin 3.0 L Urine Color Urine Appearance Urine pH Ur Specific [place] Urine Protein Urine Glucose (UA) Urine Ketones Urine Blood Urine Nitrite Urine Bilirubin Urine Urobilinogen Ur Leukocyte Esterase Ur Random Sodium Ur Random Potassium Ur Random Chloride 01/13/17 01/13/17 01/13/17 13:00 13:50 13:50 WBC RBC Hgb Hct MCV MCHC RDW Plt Count MPV Neutrophils % Lymphocytes % Monocytes % Eosinophils % Basophils % INR Sodium 129 L Potassium 4.6 Chloride 90 L Carbon Dioxide 16 L Anion Gap 23 H BUN 43 H Creatinine 3.5 H Creat Clearance w eGFR POC Glucometer 203 Random Glucose 191 H D Calcium 8.5 Magnesium Total Bilirubin AST ALT Alkaline Phosphatase Creatine Kinase 60 Troponin I 0.52 H* B-Natriuretic Peptide Total Protein Albumin Urine Color Urine Appearance Urine pH Ur Specific [place] Urine Protein Urine Glucose (UA) Urine Ketones Urine Blood Urine Nitrite Urine Bilirubin Urine Urobilinogen Ur Leukocyte Esterase Ur Random Sodium Ur Random Potassium Ur Random Chloride 01/13/17 Unknown WBC RBC Hgb Hct MCV MCHC RDW Plt Count MPV Neutrophils % Lymphocytes % Monocytes % Eosinophils % Basophils % INR Sodium Potassium Chloride Carbon Dioxide Anion Gap BUN Creatinine Creat Clearance w eGFR POC Glucometer Random Glucose Calcium Magnesium Total Bilirubin AST ALT Alkaline Phosphatase Creatine Kinase Troponin I B-Natriuretic Peptide Cancelled Total Protein Albumin Urine Color Urine Appearance Urine pH Ur Specific [place] Urine Protein Urine Glucose (UA) Urine Ketones Urine Blood Urine Nitrite Urine Bilirubin Urine Urobilinogen Ur Leukocyte Esterase Ur Random Sodium Ur Random Potassium Ur Random Chloride Active Medications Generic Name Dose Route Start Last Admin Trade Name Freq PRN Reason Stop Dose Admin Acetaminophen 650 mg 01/12/17 15:29 Tylenol - PO Q6H PRN FEVER OR PAIN Albuterol Sulfate 1 amp 01/13/17 13:57 Ventolin 0.083% Nebulizer Soln - NEB Q4H PRN SHORT OF BREATH/WHEEZING Calcium Carbonate 500 mg 01/13/17 10:00 01/13/17 09:53 Os-Serg 500mg - PO 500 mg DAILY BARBARA Administration Diltiazem HCl 120 mg 01/12/17 17:30 01/13/17 09:53 Cardizem Cd - PO 120 mg DAILY [facility] Administration Folic Acid 1 mg 01/13/17 10:00 01/13/17 09:53 Folic Acid - PO 1 mg DAILY BARBARA Administration Sodium Chloride 1,000 mls @ 75 mls/hr 01/13/17 01:30 01/13/17 01:30 Normal Saline - IV 75 mls/hr ASDIR [facility] Administration Heparin Sodium/Dextrose 500 mls @ 16 mls/hr 01/13/17 11:15 01/13/17 11:49 Heparin Infusion - IVPB 16 mls/hr TITR [facility]BARA Administration Protocol 800 UNITS/HR Insulin Aspart 1 vial 01/13/17 16:30 Novolog Vial Sliding Scale - SQ ACHS [facility] Protocol Levothyroxine Sodium 112 mcg 01/13/17 07:00 01/13/17 06:50 Synthroid - PO 112 mcg DAILY@0700 [facility] Administration Methotrexate 12.5 mg 01/19/17 10:00 Mexate - PO Q7D [facility] Ondansetron HCl 4 mg 01/12/17 15:29 Zofran Injection IVPB Q6H PRN NAUSEA Prednisone 2.5 mg 01/17/17 10:00 Deltasone - PO MoTh@1000 [facility] Ranitidine HCl 150 mg 01/13/17 14:00 01/13/17 14:16 Zantac - PO 150 mg DAILY [facility] Administration Warfarin Sodium 4 mg 01/13/17 18:00 Coumadin - PO DAILY@1800 [facility] ASSESSMENT/PLAN: 1) atrial fibrillation with syncope with elevated trop i - patient had syncope and found to have sinus joleen, so B # and cardiazem is on hold - monitor heart rate, if need beta ilene start with low dose - tropi can be elevated because of stress ischemia, patient is on heparin drip - subtherapeutic inr due to patoent was not taking it fro 01/06/17, patient coumadin increased from 2.5 to 4 and is on iv heparin, goal INR 2-3 - syncope could be due to dehydration, a fib, joleen. Patient on IV fluid, monitor vitals. - monitor intake out put - fall precautions - ECHO reviewed 2) DUARTE: probably pre renal. - Creatinine 3.3 - Ultrasound of kidneys reviewed no hydronephrosis noted - monitor cr - avoud nephro toxic drugs - iv fluid 75ml/hr 3 nIDDM - continue to hold metformin fingersticks before meals and at bedtime with regular insulin coverage, pending hemoglobin A1c hypothyroidism - tSH WNL, continue levothyroxine 4 Hyponatremia monitor Na on IV ns 75 ml/hr goal increase .5 to 1 meq/hr not more than 12 meq in 24 hour -Fluid ivf NS 75 ml/hr -electrolyte ; hyponatremia nutrition : regular diet ppx - on heparin gtt - zantac dispo: in icu Visit type - Emergency Visit Emergency Visit: Yes ED Registration Date: 01/12/17 Care time: The patient presented to the Emergency Department on the above date and was hospitalized for further evaluation of their emergent condition. - New Patient This patient is new to me today: Yes Date on this admission: 01/13/17 - Critical Care Critical Care patient: Yes Total Critical Care Time (in minutes): 45 Critical Care Statement: The care of this patient involved high complexity decision making to prevent further life threatening deterioration of the patient 's condition and/or to evalute & treat vital organ system(s) failure or risk of failure.
[2017-01-13 17:54] LABS: PH,URINE 5.5 (5.0-8.0); URINE APPEARANCE SL CLOUDY; URINE BILIRUBIN NEGATIVE (NEGATIVE); URINE COLOR YELLOW; URINE GLUCOSE (UA) TRACE (NEGATIVE); URINE KETONE NEGATIVE (NEGATIVE); URINE LEUK ESTERASE NEGATIVE (NEGATIVE); URINE NITRITE NEGATIVE (NEGATIVE); URINE PROTEIN TRACE (NEGATIVE); URINE UROBILINOGEN 0.2 E.U/dl E.U./dl (0.2-1.0)
[2017-01-13 17:55] LABS: URINE BLOOD 2+ (NEGATIVE)
[2017-01-13 18:04] LABS: URINE BACTERIA FEW /hpf (NONE SEEN); URINE MUCUS FEW
[2017-01-13 18:11] VITALS: BMI 31.6
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
[2017-01-13] MEDS: INSULIN SLIDING SCALE (NOVOLOG) 1 VIAL SQ SCH ×2 (18:21→22:19)
[2017-01-13] MEDS: WARFARIN NA 2 MG TABLET (UD) PO SCH (18:25)
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
[2017-01-13] MEDS: CHLORHEXIDINE GLUCONATE 4% CLEANSER FOR DECOLONIZATION TP SCH (22:17)
[2017-01-13] MEDS: MUPIROCIN 2% TOPICAL OINTMENT FOR DECOLONIZATION NS SCH (22:17)
[2017-01-14] MEDS: SODIUM CHLORIDE 1,000 ML IV SCH (01:45)
[2017-01-14] MEDS ORDERED: HEPARIN NA (PORCINE) 5,000 UNITS/ML 1ML VIAL ONE (03:43)
[2017-01-14 05:37] LABS: BASOPHIL 0.6 % (0-2.0); EOSINOPHIL 0.3 % (0-4.5); MCH 25.7 pg (25.7-33.7); MCHC 31.9 g/dl (32.0-36.0); MEAN CELL VOLUME 80.6 fl (80-96); MEAN PLT VOLUME 9.6 fl (7.5-11.1); NEUTROPHILS 84.7 % (42.8-82.8); PLATELET COUNT 198 K/MM3 (134-434); WHITE BLOOD COUNT 10.1 K/mm3 (4.0-10.0)
[2017-01-14 05:46] LABS: INR 2.03 (0.82-1.09); PROTHROMBIN TIME (PATIENT) 22.6 SEC (9.98-11.88)
[2017-01-14 05:48] LABS: ACTIVATED PTT 37.1 SECONDS (26.9-34.4)
[2017-01-14 06:00] LABS: ALBUMIN 2.8 g/dl (3.4-5.0); CALCIUM 7.8 mg/dL (8.5-10.1); CREATININE 3.2 mg/dL (0.55-1.02); MAGNESIUM 2.3 mg/dL (1.8-2.4); PHOSPHOROUS 5.3 mg/dL (2.5-4.9)
[2017-01-14 06:02] LABS: BILIRUBIN,TOTAL 0.7 mg/dL (0.2-1.0); TOT PROT 5.7 g/dl (6.4-8.2)
[2017-01-14] MEDS ORDERED: PT OWN MED DRAWER 7, Y5N ONE ×2 (06:33→09:50)
[2017-01-14] MEDS: INSULIN SLIDING SCALE (NOVOLOG) 1 VIAL SQ SCH ×4 (07:13→21:04)
[2017-01-14] MEDS ORDERED: BENZOCAINE/MENTH/CETYLPYRD CL 1 EACH LOZENGE MM PRN (08:16)
[2017-01-14] MEDS: LEVOTHYROXINE NA 112 MCG TABLET (FP) PO SCH (08:18)
[2017-01-14] MEDS ORDERED: SODIUM CHLORIDE 1,000 ML IV SCH ×3 (09:15→20:30)
[2017-01-14] MEDS ORDERED: HEPARIN NA (PORCINE) 5,000 UNITS/ML 1ML VIAL IVPUSH PRN ×2 (09:36)
[2017-01-14] MEDS: RANITIDINE HCL 150 MG TABLET (FP) PO SCH (10:00)
[2017-01-14] MEDS: FOLIC ACID 1 MG TABLET (FP) PO SCH (10:00)
--- NOTE | 2017-01-14 10:28 | PN ---
Progress Note, Physician History of Present Illness: Renal f/u Urine output since am about 100 cc/hr x2 Serum Cr beginning to improve and is now 3.2 No c/o CP, Dyspnea, palpitations or orthopnea No recurrence of dizziness or syncope Results of echocardiogram noted which showed normal LVEF with some diastolic dysfunction along with atrial enlargements and mild TR and Last TNI down to 0.52 Blood and UC pending - Current Medication List Current Medications: Active Medications Acetaminophen (Tylenol -) 650 mg PO Q6H PRN PRN Reason: FEVER OR PAIN Albuterol Sulfate (Ventolin 0.083% Nebulizer Soln -) 1 amp NEB Q4H PRN PRN Reason: SHORT OF BREATH/WHEEZING Benzocaine/Menthol (Cepacol Lozenge -) 1 each MM Q4H PRN PRN Reason: SORE THROAT Last Admin: 01/14/17 10:03 Dose: 1 each Calcium Carbonate (Os-Serg 500mg -) 500 mg PO DAILY [facility] Last Admin: 01/13/17 09:53 Dose: 500 mg Chlorhexidine Gluconate (Hibiclens For Decolonization -) 1 applic TP HS [facility] Last Admin: 01/13/17 22:17 Dose: 1 applic Diltiazem HCl (Cardizem Cd -) 120 mg PO DAILY [facility] Last Admin: 01/14/17 10:00 Dose: Not Given Folic Acid (Folic Acid -) 1 mg PO DAILY [facility] Last Admin: 01/14/17 10:00 Dose: 1 mg Heparin Sodium (Porcine) (Heparin -) 5,000 unit IVPUSH PRN PRN Heparin Sodium (Porcine) (Heparin -) 1,000 unit IVPUSH PRN PRN Heparin Sodium/Dextrose (Heparin Infusion -) 500 mls @ 16 mls/hr IVPB TITR [facility] ; 800 UNITS/HR PRN Reason: Protocol Last Admin: 01/13/17 11:49 Dose: 16 mls/hr Sodium Chloride (Normal Saline -) 1,000 mls @ 125 mls/hr IV ASDIR [facility] Last Admin: 01/14/17 10:01 Dose: 125 mls/hr Insulin Aspart (Novolog Vial Sliding Scale -) 1 vial SQ ACHS [facility] PRN Reason: Protocol Last Admin: 01/14/17 07:13 Dose: Not Given Levothyroxine Sodium (Synthroid -) 112 mcg PO DAILY@0700 [facility] Last Admin: 03/17/17 08:18 Dose: 112 mcg Methotrexate (Mexate -) 12.5 mg PO Q7D [facility] Mupirocin (Bactroban Ointment (For Decolonization) -) 1 applic NS BID [facility] Stop: 01/18/17 21:59 Last Admin: 01/13/17 22:17 Dose: 1 applic Ondansetron HCl (Zofran Injection) 4 mg IVPB Q6H PRN PRN Reason: NAUSEA Prednisone (Deltasone -) 2.5 mg PO MoTh@1000 [facility] Ranitidine HCl (Zantac -) 150 mg PO DAILY [facility] Last Admin: 01/14/17 10:00 Dose: 150 mg Warfarin Sodium (Coumadin -) 4 mg PO DAILY@1800 [facility] Last Admin: 01/13/17 18:25 Dose: 4 mg - Objective Vital Signs: Vital Signs Temperature 97.8 F 01/14/17 05:00 Pulse Rate 66 01/14/17 08:00 Respiratory Rate 18 01/14/17 09:00 Blood Pressure 116/58 01/14/17 08:00 O2 Sat by Pulse Oximetry (%) 97 01/14/17 09:00 Constitutional: Yes: No Distress Cardiovascular: Yes: Pulse Irregular, S1, S2 Respiratory: Yes: CTA Bilaterally Gastrointestinal: Yes: Soft. 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
[2017-01-14] MEDS: CALCIUM (OYSTER SHELL) 500 MG TABLET (FP) PO SCH (11:00)
[2017-01-14] MEDS: MUPIROCIN 2% TOPICAL OINTMENT FOR DECOLONIZATION NS SCH ×2 (11:00→21:03)
--- NOTE | 2017-01-14 11:13 | PN ---
Addendum entered and electronically signed by Lucius Douglas RES 01/14/17 11:30 : need to be seen by urology for the septated cyst, can be done outpatient Original Note: Physical Exam: SUBJECTIVE: Patient seen and examined, patient feels better. denies sob, chest pain, lightheadedness. Denies nausea, vomiting. No episode of syncope over night. Denies diarrhoea. Patient accepting orally. PAST MEDICAL HISTORY: NIDDM Hypothyroid HTN RA Afib on warfarin Anemia OBJECTIVE: GENERAL: Awake, alert, and fully oriented, in no acute distress. EARS, NOSE, THROAT: Ears normal, nares patent, oropharynx clear without exudates. dry mucous membranes. NECK: Normal range of motion, JVD, or masses. LUNGS: Breath sounds equal, clear to auscultation bilaterally. No wheezes, and no crackles. No accessory muscle use. HEART: s1s2 normal, irregular ABDOMEN: Soft, nontender, not distended, normoactive bowel sounds, no guarding, no rebound, no masses. MUSCULOSKELETAL: Normal range of motion at all joints. No bony deformities or tenderness. No CVA tenderness. UPPER EXTREMITIES: 2+ pulses, warm, well-perfused. No cyanosis. No clubbing. Cap refill <2 seconds. No peripheral edema. LOWER EXTREMITIES: 2+ pulses, warm, well-perfused. No calf tenderness. No peripheral edema. NEUROLOGICAL: Cranial nerves II-XII intact. Normal speech. PSYCHIATRIC: Cooperative. Good eye contact. Appropriate mood and affect. SKIN: Warm, dry, normal turgor, Active Medications Generic Name Dose Route Start Last Admin Trade Name Freq PRN Reason Stop Dose Admin Acetaminophen 650 mg 01/12/17 15:29 Tylenol - PO Q6H PRN FEVER OR PAIN Albuterol Sulfate 1 amp 01/13/17 13:57 Ventolin 0.083% Nebulizer Soln - NEB Q4H PRN SHORT OF BREATH/WHEEZING Benzocaine/Menthol 1 each 01/14/17 08:16 01/14/17 10:03 Cepacol Lozenge - MM 1 each Q4H PRN Administration SORE THROAT Calcium Carbonate 500 mg 01/13/17 10:00 01/13/17 09:53 Os-Serg 500mg - PO 500 mg DAILY [facility] Administration Chlorhexidine Gluconate 1 applic 01/13/17 22:00 01/13/17 22:17 Hibiclens For Decolonization - TP 1 applic HS [facility] Administration Diltiazem HCl 120 mg 01/12/17 17:30 01/14/17 10:00 Cardizem Cd - PO Not Given DAILY [facility] Folic Acid 1 mg 01/13/17 10:00 01/14/17 10:00 Folic Acid - PO 1 mg DAILY [facility] Administration Sodium Chloride 1,000 mls @ 125 mls/hr 01/14/17 10:34 Normal Saline - IV 01/14/17 20:30 ASDIR [facility] Sodium Chloride 1,000 mls @ 75 mls/hr 01/14/17 20:30 Normal Saline - IV ASDIR [facility] Insulin Aspart 1 vial 01/13/17 16:30 01/14/17 07:13 Novolog Vial Sliding Scale - SQ Not Given ACHS [facility] Protocol Levothyroxine Sodium 112 mcg 01/13/17 07:00 01/14/17 08:18 Synthroid - PO 112 mcg DAILY@0700 [facility] Administration Methotrexate 12.5 mg 01/19/17 10:00 Mexate - PO Q7D [facility] Mupirocin 1 applic 01/13/17 22:00 01/13/17 22:17 Bactroban Ointment (For Decolonization) - NS 01/18/17 21:59 1 applic BID [facility] Administration Ondansetron HCl 4 mg 01/12/17 15:29 Zofran Injection IVPB Q6H PRN NAUSEA Prednisone 2.5 mg 01/17/17 10:00 Deltasone - PO MoTh@1000 [facility] Ranitidine HCl 150 mg 01/13/17 14:00 01/14/17 10:00 Zantac - PO 150 mg DAILY [facility] Administration Warfarin Sodium 4 mg 01/13/17 18:00 01/13/17 18:25 Coumadin - PO 4 mg DAILY@1800 [facility] Administration CBCD WBC 10.1 K/mm3 (4.0-10.0) H D 01/14/17 05:10 RBC 3.66 M/mm3 (3.60-5.2) 01/14/17 05:10 Hgb 9.4 GM/dL (10.7-15.3) L D 01/14/17 05:10 Hct 29.5 % (32.4-45.2) L 01/14/17 05:10 MCV 80.6 fl (80-96) 01/14/17 05:10 MCHC 31.9 g/dl (32.0-36.0) L 01/14/17 05:10 RDW 24.0 % (11.6-15.6) H D 01/14/17 05:10 Plt Count 198 K/MM3 (134-434) 01/14/17 05:10 MPV 9.6 fl (7.5-11.1) D 01/14/17 05:10 CMP Sodium 130 mmol/L (136-145) L 01/14/17 05:10 Potassium 3.9 mmol/L (3.5-5.1) 01/14/17 05:10 Chloride 96 mmol/L (98-107) L 01/14/17 05:10 Carbon Dioxide 21 mmol/L (21-32) 01/14/17 05:10 Anion Gap 13 (8-16) 01/14/17 05:10 BUN 44 mg/dL (7-18) H D 01/14/17 05:10 Creatinine 3.2 mg/dL (0.55-1.02) H D 01/14/17 05:10 Creat Clearance w eGFR 14.20 (>60) 01/14/17 05:10 Random Glucose 130 mg/dL (74-106) H 01/14/17 05:10 Calcium 7.8 mg/dL (8.5-10.1) L D 01/14/17 05:10 Total Bilirubin 0.7 mg/dL (0.2-1.0) D 01/14/17 05:10 AST 21 U/L (15-37) D 01/14/17 05:10 ALT 15 U/L (12-78) D 01/14/17 05:10 Alkaline Phosphatase 71 U/L (45-117) 01/14/17 05:10 Total Protein 5.7 g/dl (6.4-8.2) L 01/14/17 05:10 Albumin 2.8 g/dl (3.4-5.0) L 01/14/17 05:10 CARDIAC ENZYMES Creatine Kinase 60 IU/L (26-140) 01/13/17 13:50 Troponin I 0.52 ng/ml (0.03-0.50) H* 01/13/17 13:50 ASSESSMENT/PLAN: 1) atrial fibrillation with syncope with elevated trop i - beta ilene and cardiazem are on hold as patient had joleen. Monitor HR - tropi can be elevated because of stress ischemia, trending down. - Heparin Drip stopped, INR 2.03, continue with coumadin INR goal: 2-3 -continue with IV fluid 125 ml/hr - monitor intake out put - fall precautions - repeat ekg - ECHO reviewed - cardiac monitoring - cardiology on case 2) DUARTE: probably pre renal. - Creatinine decreased to 3.2 - Ultrasound of kidneys reviewed no hydronephrosis noted - monitor cr - avoud nephro toxic drugs - iv fluid increased from 75ml/hr to 125 ml/hr - nephrology consult appreciated 3 NIDDM - diabetic diet - bgm - insulin sliding scale 4 hypothyroidism - tSH WNL, - continue levothyroxine 5 Hyponatremia improving on IV ns 125 ml/hr goal increase .5 to 1 meq/hr not more than 12 meq in 24 hour 6 RA on methotraxate and prednisone -Fluid ivf NS 125 ml/hr -electrolyte ; hyponatremia improving, monitor na nutrition : regular diet ppx - on heparin gtt - zantac dispo: transfer to tele Visit type - Emergency Visit Emergency Visit: Yes ED Registration Date: 01/14/17 Care time: The patient presented to the Emergency Department on the above date and was hospitalized for further evaluation of their emergent condition. - New Patient This patient is new to me today: No - Critical Care Critical Care patient: Yes Total Critical Care Time (in minutes): 45 Critical Care Statement: The care of this patient involved high complexity decision making to prevent further life threatening deterioration of the patient 's condition and/or to evalute & treat vital organ system(s) failure or risk of failure.
[2017-01-14] MEDS ORDERED: HEMOQUE TEST 1 EACH EACH ONE (11:33)
--- NOTE | 2017-01-14 11:45 | PN ---
Teaching Attending Note Name of Resident: Lucius Douglas ATTENDING PHYSICIAN STATEMENT I saw and evaluated the patient. I reviewed the resident's note and discussed the case with the resident. I agree with the resident's findings and plan as documented. SUBJECTIVE: Pt seen and examined in the ICU. No further syncopal episodes. No shortness of breath or chest pain. OBJECTIVE: Last Vital Signs Temp Pulse Resp BP Pulse Ox 97.8 F 66 18 116/58 97 01/14/17 05:00 01/14/17 08:00 01/14/17 09:00 01/14/17 08:00 01/14/17 09:00 Intake & Output 01/11/17 01/12/17 01/13/17 01/14/17 23:59 23:59 23:59 23:59 Intake Total 400 1840 743 Output Total 300 340 500 Balance 100 1500 243 Weight 166 lb 0.6 oz 172 lb 9.6 oz 172 lb 9 oz Gen: NAD at rest Heart: RRR Lung: decreased breath sounds at the bases Abd: soft, nontender Ext: no edema CBC, BMP 01/14/17 05:10 01/14/17 05:10 Active Medications Acetaminophen (Tylenol -) 650 mg PO Q6H PRN PRN Reason: FEVER OR PAIN Albuterol Sulfate (Ventolin 0.083% Nebulizer Soln -) 1 amp NEB Q4H PRN PRN Reason: SHORT OF BREATH/WHEEZING Benzocaine/Menthol (Cepacol Lozenge -) 1 each MM Q4H PRN PRN Reason: SORE THROAT Last Admin: 01/14/17 10:03 Dose: 1 each Calcium Carbonate (Os-Serg 500mg -) 500 mg PO DAILY [facility] Last Admin: 01/13/17 09:53 Dose: 500 mg Chlorhexidine Gluconate (Hibiclens For Decolonization -) 1 applic TP HS [facility] Last Admin: 01/13/17 22:17 Dose: 1 applic Diltiazem HCl (Cardizem Cd -) 120 mg PO DAILY [facility] Last Admin: 01/14/17 10:00 Dose: Not Given Folic Acid (Folic Acid -) 1 mg PO DAILY [facility] Last Admin: 01/14/17 10:00 Dose: 1 mg Sodium Chloride (Normal Saline -) 1,000 mls @ 125 mls/hr IV ASDIR [facility] Stop: 01/14/17 20:30 Sodium Chloride (Normal Saline -) 1,000 mls @ 75 mls/hr IV ASDIR [facility] Insulin Aspart (Novolog Vial Sliding Scale -) 1 vial SQ ACHS [facility] PRN Reason: Protocol Last Admin: 01/14/17 07:13 Dose: Not Given Levothyroxine Sodium (Synthroid -) 112 mcg PO DAILY@0700 [facility] Last Admin: 01/14/17 08:18 Dose: 112 mcg Methotrexate (Mexate -) 12.5 mg PO Q7D [facility] Mupirocin (Bactroban Ointment (For Decolonization) -) 1 applic NS BID [facility] Stop: 01/18/17 21:59 Last Admin: 01/13/17 22:17 Dose: 1 applic Ondansetron HCl (Zofran Injection) 4 mg IVPB Q6H PRN PRN Reason: NAUSEA Prednisone (Deltasone -) 2.5 mg PO MoTh@1000 [facility] Ranitidine HCl (Zantac -) 150 mg PO DAILY [facility] Last Admin: 01/14/17 10:00 Dose: 150 mg Warfarin Sodium (Coumadin -) 4 mg PO DAILY@1800 [facility] Last Admin: 01/13/17 18:25 Dose: 4 mg ASSESSMENT AND PLAN: Syncope Paroxysmal Atrial Fibrillation with RVR +Troponins Acute Kidney Injury HTN DM Hypothyroidism Rheumatoid Arthritis - resume rate controlling agents per cardiology - continue anticoagulation - IVF - monitor urine output, creatinine - cardiology, renal f/u - PO as tolerated - can monitor on telemetry
--- NOTE | 2017-01-14 16:32 | PN ---
Progress Note, Physician History of Present Illness: No new complaints. Feels better Ambulated - Current Medication List Current Medications: Active Medications Acetaminophen (Tylenol -) 650 mg PO Q6H PRN PRN Reason: FEVER OR PAIN Albuterol Sulfate (Ventolin 0.083% Nebulizer Soln -) 1 amp NEB Q4H PRN PRN Reason: SHORT OF BREATH/WHEEZING Benzocaine/Menthol (Cepacol Lozenge -) 1 each MM Q4H PRN PRN Reason: SORE THROAT Last Admin: 01/14/17 10:03 Dose: 1 each Calcium Carbonate (Os-Serg 500mg -) 500 mg PO DAILY [facility] Last Admin: 01/13/17 09:53 Dose: 500 mg Chlorhexidine Gluconate (Hibiclens For Decolonization -) 1 applic TP HS [facility] Last Admin: 01/13/17 22:17 Dose: 1 applic Diltiazem HCl (Cardizem Cd -) 120 mg PO DAILY [facility] Last Admin: 01/14/17 10:00 Dose: Not Given Folic Acid (Folic Acid -) 1 mg PO DAILY [facility] Last Admin: 01/14/17 10:00 Dose: 1 mg Sodium Chloride (Normal Saline -) 1,000 mls @ 125 mls/hr IV ASDIR [facility] Stop: 01/14/17 20:30 Sodium Chloride (Normal Saline -) 1,000 mls @ 75 mls/hr IV [facility] Insulin Aspart (Novolog Vial Sliding Scale -) 1 vial SQ ACHS [facility] PRN Reason: Protocol Last Admin: 01/14/17 07:13 Dose: Not Given Levothyroxine Sodium (Synthroid -) 112 mcg PO DAILY@0700 [facility] Last Admin: 01/14/17 08:18 Dose: 112 mcg Methotrexate (Mexate -) 12.5 mg PO Q7D [facility] Mupirocin (Bactroban Ointment (For Decolonization) -) 1 applic NS BID [facility] Stop: 01/18/17 21:59 Last Admin: 01/13/17 22:17 Dose: 1 applic Ondansetron HCl (Zofran Injection) 4 mg IVPB Q6H PRN PRN Reason: NAUSEA Prednisone (Deltasone -) 2.5 mg PO MoTh@1000 [facility] Ranitidine HCl (Zantac -) 150 mg PO DAILY [facility] Last Admin: 01/14/17 10:00 Dose: 150 mg Warfarin Sodium (Coumadin -) 4 mg PO DAILY@1800 [facility] Last Admin: 01/13/17 18:25 Dose: 4 mg - Objective Vital Signs: Vital Signs Temperature 97 F L 01/14/17 14:00 Pulse Rate 85 01/14/17 14:00 Respiratory Rate 17 01/14/17 14:00 Blood Pressure 133/59 01/14/17 14:00 O2 Sat by Pulse Oximetry (%) 99 01/14/17 14:05 Constitutional: Yes: No Distress Eyes: Yes: Conjunctiva Clear HENT: Yes: Atraumatic Neck: Yes: Supple Cardiovascular: Yes: Regular Rate and Rhythm, Pulse Irregular (ectopy) Respiratory: No: Rales, Rhonchi, Wheezes Gastrointestinal: Yes: Normal Bowel Sounds, Abdomen, Obese. No: Tenderness Extremities: Yes: Other (warm) Edema: No Peripheral Pulses WNL: Yes Neurological: Yes: Alert, Oriented Psychiatric: Yes: Alert, Oriented Labs: INR, PTT INR 2.03 (0.82-1.09) H 01/14/17 05:10 Assessment/Plan 71 yo female with DM type 2, hypothyroidism, HTN, chronic atrial fibrillation, who presented with ~ 1 week history of dizziness with changes in position and palpitations. She was admitted with rapid atrial fibrillation and acute renal failure. Suspected that her rapid afib and acute renal failure were exacerbated by dehydration from her colon prep and prior use of diuretic. Metoprolol tartrate 100 mg po bid and Cardizem CD 120 mg po daily added S/p syncopal episode while converting to SR Subsequent episode may have been because of both BB and CCB as she has had been in SR since 5 AM or so TSH normal Pt's INR was low, because she had been off the coumadin for a colonoscopy which was cancelled because of the snow Trop I have been fluctuating from 0.29 -> 0.51 -> 0.25 -> 0.59 -> 0.52 Above in the setting of BUN/CR of 37/33 on admission and 43/3.5 today Pt w/o CP and EKG w/o ischemic changes -> I doubt acute SC Echo yesterday AM -. nl EF, mod DD, mod MR No further events. Hr better 60-80s -. with short runs of afib Rec: Cont holding BB and cardizem for now -. follow HR -. consider adding low dose lopressor in AM D/c IV heparin . INR 2.03 Cont coumadin -> monitor INR, goal INR 2-3. Monitor renal function with IV fluid hydration Per IM/renal In future, will need outpt stress test and holter, depending on course Ok to transfer to tele D/w pt and family at bedside
--- NOTE | 2017-01-14 17:17 | PN ---
Physical Exam: SUBJECTIVE: Patient seen and examined in the ICU. Her family was at the bedside. Patient was sitting in chair, complaining of some neck pain. Denies chest pain or further dizziness. She was able to ambulate with PT without dizziness. now sitting in chair, about to eat her dinner c/o of "neck stiffness" OBJECTIVE: Vital Signs Period Temp Pulse Resp BP Sys/[place] Pulse Ox Last 24 Hr 97 F 71-85 17-18 110-133/55-62 99 GENERAL: The patient is awake, alert, and fully oriented, in no acute distress. HEAD: Normal with no signs of trauma. EYES: PERRL, extraocular movements intact, sclera anicteric, conjunctiva clear. No ptosis. ENT: Ears normal, nares patent, oropharynx clear without exudates, moist mucous membranes. NECK: Trachea midline, full range of motion, supple. LUNGS: Breath sounds diminished/equal, clear to auscultation bilaterally, no wheezes, no crackles, no accessory muscle use. HEART: Regular rate and rhythm, S1, S2 without murmur, rub or gallop. ABDOMEN: Soft, nontender, nondistended, normoactive bowel sounds, no guarding, no rebound, no hepatosplenomegaly, no masses. EXTREMITIES: 2+ pulses, warm, well-perfused, no edema. NEUROLOGICAL: Normal speech, ambulated with PT PSYCH: Normal mood, normal affect. SKIN: Warm, dry, normal turgor, no rashes or lesions noted Active Medications Generic Name Dose Route Start Last Admin Trade Name Freq PRN Reason Stop Dose Admin Acetaminophen 650 mg 01/12/17 15:29 Tylenol - PO Q6H PRN FEVER OR PAIN Albuterol Sulfate 1 amp 01/13/17 13:57 Ventolin 0.083% Nebulizer Soln - NEB Q4H PRN SHORT OF BREATH/WHEEZING Benzocaine/Menthol 1 each 01/14/17 08:16 01/14/17 10:03 Cepacol Lozenge - MM 1 each Q4H PRN Administration SORE THROAT Calcium Carbonate 500 mg 01/13/17 10:00 01/13/17 09:53 Os-Serg 500mg - PO 500 mg DAILY [facility] Administration Chlorhexidine Gluconate 1 applic 01/13/17 22:00 01/13/17 22:17 Hibiclens For Decolonization - TP 1 applic HS [facility] Administration Diltiazem HCl 120 mg 01/12/17 17:30 01/14/17 10:00 Cardizem Cd - PO Not Given DAILY [facility] Folic Acid 1 mg 01/13/17 10:00 01/14/17 10:00 Folic Acid - PO 1 mg DAILY [facility] Administration Sodium Chloride 1,000 mls @ 125 mls/hr 01/14/17 10:34 Normal Saline - IV 01/14/17 20:30 ASDIR [facility] Sodium Chloride 1,000 mls @ 75 mls/hr 01/14/17 20:30 Normal Saline - IV ASDIR [facility] Insulin Aspart 1 vial 01/13/17 16:30 01/14/17 07:13 Novolog Vial Sliding Scale - SQ Not Given ACHS [facility] Protocol Levothyroxine Sodium 112 mcg 01/13/17 07:00 01/14/17 08:18 Synthroid - PO 112 mcg DAILY@0700 [facility] Administration Methotrexate 12.5 mg 01/19/17 10:00 Mexate - PO Q7D [facility] Mupirocin 1 applic 01/13/17 22:00 01/13/17 22:17 Bactroban Ointment (For Decolonization) - NS 01/18/17 21:59 1 applic BID [facility] Administration Ondansetron HCl 4 mg 01/12/17 15:29 Zofran Injection IVPB Q6H PRN [facility] Prednisone 2.5 mg 01/17/17 10:00 Deltasone - PO MoTh@1000 [facility] Ranitidine HCl 150 mg 01/13/17 14:00 01/14/17 10:00 Zantac - PO 150 mg DAILY [facility] Administration Warfarin Sodium 4 mg 01/13/17 18:00 01/13/17 18:25 Coumadin - PO 4 mg DAILY@1800 [facility] Administration ASSESSMENT/PLAN: Patient is a 71 year old female with a past medical history of atrial fibrillation on Coumadin, NIDDM, hypothyroidism, hypertension, rheumatoid arthritis, and anemia. She presented to the ED on 01/12/2017 complaining of dizziness. On admission, patient reports episodes of lightheadedness and dizziness while showerin and aftger resting, felt heart palpitation. Denies recent travel or sick contacts. In ER EKG showed atrial fib with a rate of 140; ST depression V3-V6, hyponatrema (126), BUN/Creat (38/3.3) and subtherapeutic INR. Imaging: Chest Xray 01/13/2017: no acute infiltrates or pleural eff have developed, slight increase in int. markings, likely chronic. possible of mild degree of acute congestion cannot be excluded. Renal ultrasound 01/12/2017 - no hydronephrosis - kidneys unremarkable - 2cm left cortical cyst EKG 01/13/2017 - Sinus joleen @59 Cardiology: Atrial fibrillation with syncope Assessment/Plan: Troponins 0.29> 0.51> 0.25> 0.59> 0.52 On beta ilene and cardizem, currently holding secondary to bradycardia s/p heparin drip, bridged to coumadin, INR. 2.04 (target 2-3) Coumadin 4mg daily Monitor for further episodes of syncope, is walking with PT w/o dizziness, episodes of palpitations or lightheadness Fall Risk : Acute Kidney Injury Assessment/Plan: Creatinine improving, now 3.2/baseline 1.1 On NS @ 125cc/hr Renal ultrasound 01/12/2017 - no hydronephrosis - kidneys unremarkable - 2cm left cortical cyst BMP in a.m., trend creat. Nephrology consulted Endocrine: diabetes mellitus - chronic Assessment/Plan: On Novolog sliding scale diabetic diet Hypothyroidism - chronic Assessment/Plan: On Levothyroxine Rheumatoid Arthritis - chronic Assessment/Plan: On Prednisone and Methotrexate F.E.N. Fuids: NS @ 125/cc/hr Electrolytes: hyponatremia improving Nutrition: diabetic diet Prophylaxis: GI: Zantac daily DVT: Coumadin s/p heparin drip Disposition: Seen in the ICU, will be transferred to tele-monitoring. Full Code. Visit type - Emergency Visit Emergency Visit: Yes ED Registration Date: 01/14/17 Care time: The patient presented to the Emergency Department on the above date and was hospitalized for further evaluation of their emergent condition. - New Patient This patient is new to me today: Yes Date on this admission: 02/18/17 - Critical Care Critical Care patient: No - Discharge Referral Referred to [facility] No
[2017-01-14] MEDS ORDERED: LIDOCAINE 5% TOPICAL PATCH TP ONE (17:43)
[2017-01-14] MEDS ORDERED: INSULIN (NOVOLOG) ASPART 100 UNITS/ML 10ML VIAL ONE (17:56)
[2017-01-14] MEDS: WARFARIN NA 2 MG TABLET (UD) PO SCH (17:57)
[2017-01-14] MEDS: CHLORHEXIDINE GLUCONATE 4% CLEANSER FOR DECOLONIZATION TP SCH (21:04)
[2017-01-14] MEDS: ACETAMINOPHEN 325 MG TABLET (FP) PO PRN (22:43)
--- NOTE | 2017-01-15 01:39 | HOSP ---
Subjective - Review of Symptoms Subjective: 01/14/2017 10:30pm Nurse informed Dr. Luong that that patient was in SVT and heart rate was around 220's. Went to assess the patient with Dr. Luong. Patient complained of palpitation but no chest pain, sob, cough or any other symptoms. Physical Examination Vitals: BP-128/70mmHg; HR-220-232 bpm, T-98 F; Spo2- 97 % in 2L General: Elderly female, awake, alert, fully oriented, in no acute distress. HEENT: EOM intact, no pallor Chest: B/L lungs clear CVS: Tachycardic, S1, S2, no murmur Ext: No peripheral edema A/P Patient is a 71 year old female with a past medical history of atrial fibrillation on Coumadin, NIDDM, hypothyroidism, hypertension, rheumatoid arthritis, and anemia admitted for the evaluation of dizziness. # SVT After carotid massage, patient heart rate dropped to 105-110 bpm. Patient hadn't received PO cardizem 120mg all day, hence cardizem PO was given Heart rate improved Plan of care explained to the patient. Case seen and discussed with Dr. Luong. Physical Examination Vital Signs: Vital Signs Temperature 98.5 F 01/14/17 22:00 Pulse Rate 84 01/14/17 22:00 Respiratory Rate 25 H 01/14/17 22:00 Blood Pressure 129/67 01/14/17 22:00 O2 Sat by Pulse Oximetry (%) 98 01/14/17 22:00 Visit type - Emergency Visit Emergency Visit: Yes ED Registration Date: 01/14/17 Care time: The patient presented to the Emergency Department on the above date and was hospitalized for further evaluation of their emergent condition. - New Patient This patient is new to me today: Yes Date on this admission: 01/14/17 - Critical Care Critical Care patient: No
[2017-01-15] MEDS: INSULIN SLIDING SCALE (NOVOLOG) 1 VIAL SQ SCH ×4 (06:07→21:27)
[2017-01-15] MEDS: LEVOTHYROXINE NA 112 MCG TABLET (FP) PO SCH (06:09)
[2017-01-15] MEDS: ACETAMINOPHEN 325 MG TABLET (FP) PO PRN (06:09)
[2017-01-15] MEDS ORDERED: LIDOCAINE 5% TOPICAL PATCH TP ONE (06:30)
[2017-01-15 07:11] LABS: BASOPHIL 0.3 % (0-2.0); EOSINOPHIL 0.4 % (0-4.5); MCHC 32.7 g/dl (32.0-36.0); MEAN CELL VOLUME 79.7 fl (80-96); MEAN PLT VOLUME 9.2 fl (7.5-11.1); NEUTROPHILS 89.8 % (42.8-82.8); PLATELET COUNT 157 K/MM3 (134-434); RDW 23.2 % (11.6-15.6); WHITE BLOOD COUNT 7.9 K/mm3 (4.0-10.0)
[2017-01-15 07:27] LABS: INR 3.04 (0.82-1.09); PROTHROMBIN TIME (PATIENT) 34.2 SEC (9.98-11.88)
[2017-01-15] MEDS ORDERED: PT OWN MED DRAWER 7, Y5N ONE (09:18)
[2017-01-15 09:22] LABS: ALBUMIN 2.6 g/dl (3.4-5.0); CALCIUM 7.4 mg/dL (8.5-10.1); MAGNESIUM 1.9 mg/dL (1.8-2.4)
[2017-01-15 09:25] LABS: BILIRUBIN,TOTAL 0.8 mg/dL (0.2-1.0); CREATININE 2.2 mg/dL (0.55-1.02); PHOSPHOROUS 3.5 mg/dL (2.5-4.9); TOT PROT 5.5 g/dl (6.4-8.2)
[2017-01-15] MEDS: MUPIROCIN 2% TOPICAL OINTMENT FOR DECOLONIZATION NS SCH ×2 (09:44→21:25)
[2017-01-15] MEDS: CALCIUM (OYSTER SHELL) 500 MG TABLET (FP) PO SCH (09:45)
[2017-01-15] MEDS: RANITIDINE HCL 150 MG TABLET (FP) PO SCH (09:45)
[2017-01-15] MEDS: FOLIC ACID 1 MG TABLET (FP) PO SCH (09:45)
[2017-01-15] MEDS: KCL 10 MEQ IVPB 100 ML IVPB SCH ×3 (10:15→12:40)
--- NOTE | 2017-01-15 11:58 | PN ---
Progress Note, Physician History of Present Illness: Renal f/u Pt had some SVT treated with CCB since yesterday She is now out of the ICU C/O some weakness of the arms with pain in the shoulder for which lidoderm patches have been applied Serum Cr and serum Na continue to improve Hypokalemia present and so being given IV KCL Blood and UC no growth - Current Medication List Current Medications: Active Medications Acetaminophen (Tylenol -) 650 mg PO Q6H PRN PRN Reason: FEVER OR PAIN Last Admin: 01/15/17 06:09 Dose: 650 mg Albuterol Sulfate (Ventolin 0.083% Nebulizer Soln -) 1 amp NEB Q4H PRN PRN Reason: SHORT OF BREATH/WHEEZING Benzocaine/Menthol (Cepacol Lozenge -) 1 each MM Q4H PRN PRN Reason: SORE THROAT Last Admin: 01/14/17 10:03 Dose: 1 each Calcium Carbonate (Os-Serg 500mg -) 500 mg PO DAILY [facility] Last Admin: 01/15/17 09:45 Dose: 500 mg Chlorhexidine Gluconate (Hibiclens For Decolonization -) 1 applic TP HS [facility] Last Admin: 01/14/17 21:04 Dose: Not Given Diltiazem HCl (Cardizem Cd -) 120 mg PO DAILY [facility] Last Admin: 01/15/17 09:45 Dose: 120 mg Folic Acid (Folic Acid -) 1 mg PO DAILY [facility] Last Admin: 01/15/17 09:45 Dose: 1 mg Sodium Chloride (Normal Saline -) 1,000 mls @ 75 mls/hr IV ASDIR [facility] Last Admin: 01/14/17 21:02 Dose: 75 mls/hr Potassium Chloride (Potassium Chloride 10 Meq Premix Ivpb -) 100 mls @ 100 mls/ hr IVPB Q60M [facility] Stop: 01/15/17 12:59 Last Admin: 01/15/17 10:15 Dose: 100 mls/hr Insulin Aspart (Novolog Vial Sliding Scale -) 1 vial SQ ACHS [facility] PRN Reason: Protocol Last Admin: 01/15/17 06:07 Dose: Not Given Levothyroxine Sodium (Synthroid -) 112 mcg PO DAILY@0700 [facility] Last Admin: 01/15/17 06:09 Dose: 112 mcg Methotrexate (Mexate -) 12.5 mg PO Q7D [facility] Mupirocin (Bactroban Ointment (For Decolonization) -) 1 applic NS BID [facility] Stop: 01/18/17 21:59 Last Admin: 01/15/17 09:44 Dose: Not Given Ondansetron HCl (Zofran Injection) 4 mg IVPB Q6H PRN PRN Reason: NAUSEA Prednisone (Deltasone -) 2.5 mg PO MoTh@1000 [facility] Ranitidine HCl (Zantac -) 150 mg PO DAILY [facility] Last Admin: 01/15/17 09:45 Dose: 150 mg Warfarin Sodium (Coumadin -) 4 mg PO DAILY@1800 [facility] Last Admin: 01/14/17 17:57 Dose: 4 mg - Objective Vital Signs: Vital Signs Temperature 97.8 F 01/15/17 09:41 Pulse Rate 92 H 01/15/17 09:41 Respiratory Rate 20 01/15/17 09:41 Blood Pressure 135/68 01/15/17 09:41 O2 Sat by Pulse Oximetry (%) 99 01/15/17 09:00 Constitutional: Yes: Calm Cardiovascular: Yes: Pulse Irregular, S1, S2. No: JVD Respiratory: Yes: CTA Bilaterally Gastrointestinal: Yes: Abdomen, Obese. No: Tenderness, Rebound Edema: No Labs: CBC, BMP 01/15/17 05:20 01/15/17 05:20 INR, PTT INR 3.04 (0.82-1.09) H D 01/15/17 05:20 Assessment/Plan Impression DUARTE and hyponatremia improving with IVF Hypokalemia Hematuria with castellano and septated cyst in the left Kidney S/P Syncope X3 A Fib NIDDM Hypothyroid, HTN RA Anemia worsening with hydration Plan Taper off the IVF D/C Castellano Evaluation for the pain of the shoulders and decreased ROM in this pt with RA as per primary care Consider Rheumatology evaluation Continue to hold the ARB and Furosemide Rpt labs in am Cardiology F/U She will need to be seen by urology for the septated cyst as an out patient once stabilized-can be done as an outpatient Once castellano out to repeat UA Dr Casanova
[2017-01-15] MEDS: SODIUM CHLORIDE 1,000 ML IV SCH (12:15)
--- NOTE | 2017-01-15 13:12 | CONSULT ---
Consult - text type - Consultation Consultation Note: CARDIOLOGY. NO CHEST PAIN. NO PALPITATIONS NOW. NO SYNCOPE. MEDICATIONS REVIEWED. APPEARS WELL AWAKE, ALERT HERAT RATE 88/MINUTE BLOOD PRESSURE 130/78. CLEAR LUNG THORNTON. S1 AND S2 NORMAL IRREGULAR RHYTHM. NO MURMUR/GALLOP AUDIBLE. TELEMETRY:TECHNICALLY LIMITED ATRIAL FIB VENTRICULAR RESPONSE 888/MINUTE. REPORT OF 01/14 SVT RATE 220/MINUTE. RHYTHM STRIPS NOT AVAILABLE FOR REVIEW. INR 3 WORKING DX: PAROXYSMAL ATRIAL FIBRILLATION DUE TO HYPERTENSIVE-PROBABLE ATHEROSCLEROTIC HEART DISEASE. ?UNDERLYING SICK SINUS TACHY-SABINO SYNDROME. DOUBT ACUTE MYOCARDIAL ISCHEMIA. ELEVATED "[id number]" SCORE INDICATIVE OF INCREASED RISK SYSTEMIC/CEREBRAL EMBOLI PRESENT THERAPY WILL BE IN-ADEQUTE TO CONTROL THE VENTRICULAR RESPONSE. PERMANENT PACEMAKER WOULD BE REQUIRED FOR HIGH DEGREE AV BLOCK/SYMPTOMATIC BRADYCARDIA OR IF REQUIRED FOR SAFE ADMINISTRATION OF A-V JAVAN BLOCKING AGENTS. REC: RE-START BETA BLOCKERS LOPRESSOR 25 MG BID WITH FURTHER DOSE ADJUST DICTATED BY TOLERANCE/RESPONSE. COUMADIN DOSE ADJUST REQUIRED TO TARGET INR 2-3. EVENT RECORDER/IMPLANTABLE LOOP RECORDER OUT PATIENT. NON INVASIVE ISCHEMIA EVALUATION OUT PATIENT. DIRECTED BY IM/RENAL.
[2017-01-15 14:19] LABS: SMUDGE CELLS FEW
[2017-01-15 14:20] LABS: ANISOCYTOSIS 2+; HYPOCHROMIA 2+; MICROCYTOSIS 2+; PLATELET COMMENT2 NO CLOTTING DETECTED; PLATELET ESTIMATE ADEQUATE (NORMAL); POIKILOCYTOSIS 1+; POLYCHROMASIA 1+
--- NOTE | 2017-01-15 15:01 | PN ---
Physical Exam: SUBJECTIVE: Patient seen and examined. Overnights events reviewed - Had cartotid massage and given cardizem when she went into SVT OBJECTIVE: As per cardiology recommendations, will start patient on Lopressor 25mg BID Also will adjust Coumadin to 2mg from 4mg, pt INR is at goal (2-3) Potassium repleted with 3 K riders Vital Signs Period Temp Pulse Resp BP Sys/[place] Pulse Ox Last 24 Hr 97.6 F-98.9 F 72-92 20-25 106-157/51-68 98-99 GENERAL: The patient is awake, alert, and fully oriented, in no acute distress. HEAD: Normal with no signs of trauma. EYES: PERRL, extraocular movements intact, sclera anicteric, conjunctiva clear. No ptosis. ENT: Ears normal, nares patent, oropharynx clear without exudates, moist mucous membranes. NECK: Trachea midline, full range of motion, supple. LUNGS: Breath sounds diminished/equal, clear to auscultation bilaterally, no wheezes, no crackles, no accessory muscle use. ABDOMEN: Soft, nontender, nondistended, normoactive bowel sounds, no guarding, no rebound, no hepatosplenomegaly, no masses. EXTREMITIES: 2+ pulses, warm, well-perfused, no edema. NEUROLOGICAL: Normal speech, ambulated with PT PSYCH: Normal mood, normal affect. SKIN: Warm, dry, normal turgor, no rashes or lesions noted Laboratory Results - last 24 hr 01/14/17 01/14/17 01/14/17 11:41 17:32 21:00 WBC RBC Hgb Hct MCV MCHC RDW Plt Count MPV Neutrophils % Lymphocytes % Monocytes % Eosinophils % Basophils % Nucleated RBCs Smudge Cells Platelet Estimate Platelet Comment Polychromasia Hypochromic-Microcytic Poikilocytosis Anisocytosis Microcytosis INR Sodium Potassium Chloride Carbon Dioxide Anion Gap BUN Creatinine Creat Clearance w eGFR POC Glucometer [phone] Random Glucose Calcium Phosphorus Magnesium Total Bilirubin AST ALT Alkaline Phosphatase Total Protein Albumin 01/15/17 01/15/17 01/15/17 05:20 05:20 05:20 WBC 7.9 RBC 3.23 L Hgb 8.4 L D Hct 25.8 L MCV 79.7 L MCHC 32.7 RDW 23.2 H Plt Count 157 D MPV 9.2 Neutrophils % 89.8 H Lymphocytes % 8.2 D Monocytes % 1.3 L Eosinophils % 0.4 Basophils % 0.3 Nucleated RBCs 1 H Smudge Cells Few Platelet Estimate Adequate Platelet Comment No clotting detected Polychromasia 1+ Hypochromic-Microcytic 2+ Poikilocytosis 1+ Anisocytosis 2+ Microcytosis 2+ INR 3.04 H D Sodium 134 L Potassium 3.2 L Chloride 100 Carbon Dioxide 19 L Anion Gap 15 BUN 30 H D Creatinine 2.2 H D Creat Clearance w eGFR 21.88 POC Glucometer Random Glucose 120 H Calcium 7.4 L Phosphorus 3.5 D Magnesium 1.9 Total Bilirubin 0.8 AST 19 ALT 14 Alkaline Phosphatase 77 Total Protein 5.5 L Albumin 2.6 L 01/15/17 01/15/17 06:00 12:06 WBC RBC Hgb Hct MCV MCHC RDW Plt Count MPV Neutrophils % Lymphocytes % Monocytes % Eosinophils % Basophils % Nucleated RBCs Smudge Cells Platelet Estimate Platelet Comment Polychromasia Hypochromic-Microcytic Poikilocytosis Anisocytosis Microcytosis INR Sodium Potassium Chloride Carbon Dioxide Anion Gap BUN Creatinine Creat Clearance w eGFR POC Glucometer 134 177 Random Glucose Calcium Phosphorus Magnesium Total Bilirubin AST ALT Alkaline Phosphatase Total Protein Albumin Active Medications Generic Name Dose Route Start Last Admin Trade Name Freq PRN Reason Stop Dose Admin Acetaminophen 650 mg 01/12/17 15:29 01/15/17 06:09 Tylenol - PO 650 mg Q6H PRN Administration FEVER OR PAIN Albuterol Sulfate 1 amp 01/13/17 13:57 Ventolin 0.083% Nebulizer Soln - NEB Q4H PRN SHORT OF BREATH/WHEEZING Benzocaine/Menthol 1 each 01/14/17 08:16 01/14/17 10:03 Cepacol Lozenge - MM 1 each Q4H PRN Administration SORE THROAT Calcium Carbonate 500 mg 01/13/17 10:00 01/15/17 09:45 Os-Serg 500mg - PO 500 mg DAILY [facility] Administration Chlorhexidine Gluconate 1 applic 01/13/17 22:00 01/14/17 21:04 Hibiclens For Decolonization - TP Not Given HS [facility] Diltiazem HCl 120 mg 01/12/17 17:30 01/15/17 09:45 Cardizem Cd - PO 120 mg DAILY [facility] Administration Folic Acid 1 mg 01/13/17 10:00 01/15/17 09:45 Folic Acid - PO 1 mg DAILY [facility] Administration Sodium Chloride 1,000 mls @ 40 mls/hr 01/15/17 12:02 Normal Saline - IV ASDIR [facility] Insulin Aspart 1 vial 01/13/17 16:30 01/15/17 06:07 Novolog Vial Sliding Scale - SQ Not Given ACHS [facility] Protocol Levothyroxine Sodium 112 mcg 01/13/17 07:00 01/15/17 06:09 Synthroid - PO 112 mcg DAILY@0700 [facility] Administration Methotrexate 12.5 mg 01/19/17 10:00 Mexate - PO Q7D [facility] Metoprolol Tartrate 25 mg 01/15/17 15:00 Lopressor - PO BID [facility] Mupirocin 1 applic 01/13/17 22:00 01/15/17 09:44 Bactroban Ointment (For Decolonization) - NS 01/18/17 21:59 Not Given BID [facility] Ondansetron HCl 4 mg 01/12/17 15:29 Zofran Injection IVPB Q6H PRN NAUSEA Prednisone 2.5 mg 01/17/17 10:00 Deltasone - PO MoTh@1000 [facility] Ranitidine HCl 150 mg 01/13/17 14:00 01/15/17 09:45 Zantac - PO 150 mg DAILY [facility] Administration Warfarin Sodium 2 mg 01/15/17 18:00 Coumadin - PO DAILY@1800 [facility] ASSESSMENT/PLAN: Patient is a 71 year old female with a past medical history of atrial fibrillation on Coumadin, NIDDM, hypothyroidism, hypertension, rheumatoid arthritis, and anemia. She presented to the ED on 01/12/2017 complaining of dizziness. On admission, patient reports episodes of lightheadedness and dizziness while showerin and aftger resting, felt heart palpitation. Denies recent travel or sick contacts. In ER EKG showed atrial fib with a rate of 140; ST depression V3-V6, hyponatrema (126), BUN/Creat (38/3.3) and subtherapeutic INR. Imaging: Chest Xray 01/13/2017: no acute infiltrates or pleural eff have developed, slight increase in int. markings, likely chronic. possible of mild degree of acute congestion cannot be excluded. Renal ultrasound 01/12/2017 - no hydronephrosis - kidneys unremarkable - 2cm left cortical cyst EKG 01/13/2017 - Sinus joleen @59 Cardiology: Atrial fibrillation with syncope Assessment/Plan: Troponins 0.29> 0.51> 0.25> 0.59> 0.52 Run of SVT overnight: carotid massage and Cardizem 120mg given by night MD. As per cardiology consult will start on Atenolol 25mg BID and monitor Cardizem 120mg restarted s/p heparin drip, bridged to coumadin, INR. 3.0, will give Coumadin 2mg tonight , monitor INR in a.m. Monitor for further episodes of syncope, is walked with PT yesterday w/o dizziness, episodes of palpitations or lightheadness Fall Risk : Acute Kidney Injury Assessment/Plan: Creatinine improving, now 2.2/baseline 1.1 On NS @ 40cc/hr Renal ultrasound 01/12/2017 - no hydronephrosis - kidneys unremarkable - 2cm left cortical cyst BMP in a.m., trend creat. Nephrology following Endocrine: diabetes mellitus - chronic Assessment/Plan: On Novolog sliding scale diabetic diet Hypothyroidism - chronic Assessment/Plan: On Levothyroxine Rheumatoid Arthritis - chronic Assessment/Plan: On Prednisone and Methotrexate f/u with rhemuatologist as outpatient F.E.N. Fuids: NS @ 40/cc/hr Electrolytes: HypoK repleted with 3 K riders Nutrition: diabetic diet Prophylaxis: GI: Zantac daily DVT: Coumadin as per INR. Disposition: Patient continues to require tele monitoring. Full Code. Visit type - Emergency Visit Emergency Visit: Yes ED Registration Date: 01/14/17 Care time: The patient presented to the Emergency Department on the above date and was hospitalized for further evaluation of their emergent condition. - New Patient This patient is new to me today: No - Critical Care Critical Care patient: No - Discharge Referral Referred to [facility] Med P.C.: No
[2017-01-15] MEDS: METOPROLOL TARTRATE 25 MG TABLET (FP) PO SCH ×2 (17:16→21:25)
[2017-01-15] MEDS: WARFARIN NA 2 MG TABLET (UD) PO SCH (17:19)
[2017-01-15] MEDS: CHLORHEXIDINE GLUCONATE 4% CLEANSER FOR DECOLONIZATION TP SCH (21:25)
[2017-01-16] MEDS: LEVOTHYROXINE NA 112 MCG TABLET (FP) PO SCH (06:35)
[2017-01-16] MEDS: INSULIN SLIDING SCALE (NOVOLOG) 1 VIAL SQ SCH ×4 (06:37→21:57)
[2017-01-16 08:12] LABS: BASOPHIL 0.6 % (0-2.0); EOSINOPHIL 1.2 % (0-4.5); MCH 26.2 pg (25.7-33.7); MCHC 32.6 g/dl (32.0-36.0); MEAN CELL VOLUME 80.2 fl (80-96); NEUTROPHILS 84.4 % (42.8-82.8); PLATELET COUNT 173 K/MM3 (134-434); RDW 23.3 % (11.6-15.6)
[2017-01-16 08:34] LABS: INR 2.62 (0.82-1.09); PROTHROMBIN TIME (PATIENT) 29.4 SEC (9.98-11.88)
[2017-01-16 08:39] LABS: ALBUMIN 2.6 g/dl (3.4-5.0); CALCIUM 7.7 mg/dL (8.5-10.1)
[2017-01-16 08:43] LABS: BILIRUBIN,TOTAL 0.9 mg/dL (0.2-1.0); CREATININE 1.5 mg/dL (0.55-1.02); TOT PROT 5.6 g/dl (6.4-8.2)
[2017-01-16] MEDS: RANITIDINE HCL 150 MG TABLET (FP) PO SCH (10:10)
[2017-01-16] MEDS: FOLIC ACID 1 MG TABLET (FP) PO SCH (10:10)
[2017-01-16] MEDS: CALCIUM (OYSTER SHELL) 500 MG TABLET (FP) PO SCH (10:10)
[2017-01-16] MEDS: METOPROLOL TARTRATE 25 MG TABLET (FP) PO SCH ×2 (10:10→21:57)
[2017-01-16] MEDS: MUPIROCIN 2% TOPICAL OINTMENT FOR DECOLONIZATION NS SCH ×2 (10:11→21:50)
--- NOTE | 2017-01-16 11:14 | EKG ---
Test Reason : Blood Pressure : / mmHG Vent. Rate : 069 BPM Atrial Rate : 069 BPM P-R Int : 162 ms QRS Dur : 082 ms QT Int : 446 ms P-R-T Axes : 067 055 096 degrees QTc Int : 477 ms NORMAL SINUS RHYTHM LOW VOLTAGE QRS NONSPECIFIC ST AND T WAVE ABNORMALITY PROLONGED QT ABNORMAL ECG WHEN COMPARED WITH ECG OF 13-JAN-2017 12:24, COMPARED TO EKG NO SIGNIFICANT CHANGE IS FOUND Confirmed by ANCELMO BLEVINS MD ([id number]) on 01/16/2017 11:13:37 AM Referred By: ENRIQUE KAUR Confirmed By:ANCELMO BLEVINS MD
--- NOTE | 2017-01-16 12:10 | CONSULT ---
Consult - text type - Consultation Consultation Note: NO CHEST PAIN. NO PALPITATIONS NOW. NO SYNCOPE. MEDICATIONS REVIEWED LOPRESSOR ADDED TO THERAPY APPEARS WELL AWAKE, ALERT HERAT RATE 68/MINUTE BLOOD PRESSURE 124/78. CLEAR LUNG THORNTON. S1 AND S2 NORMAL IRREGULAR RHYTHM. NO MURMUR/GALLOP AUDIBLE. NO SIGNIFICANT EDEMA TELEMETRY:TECHNICALLY LIMITED ?SINUS VENTRICULAR RATE 66/MINUTE. REPORT OF 01/14 SVT RATE 220/MINUTE. RHYTHM STRIPS NOT AVAILABLE FOR REVIEW. INR THERAPEUTIC. WORKING DX: PAROXYSMAL ATRIAL FIBRILLATION DUE TO HYPERTENSIVE-PROBABLE ATHEROSCLEROTIC HEART DISEASE. ?UNDERLYING SICK SINUS TACHY-SABINO SYNDROME. DOUBT ACUTE MYOCARDIAL ISCHEMIA. ELEVATED "[id number]" SCORE INDICATIVE OF INCREASED RISK SYSTEMIC/CEREBRAL EMBOLI PRESENT THERAPY WILL BE IN-ADEQUTE TO CONTROL THE VENTRICULAR RESPONSE. PERMANENT PACEMAKER WOULD BE REQUIRED FOR HIGH DEGREE AV BLOCK/SYMPTOMATIC BRADYCARDIA OR IF REQUIRED FOR SAFE ADMINISTRATION OF A-V JAVAN BLOCKING AGENTS. RENAL FUNCTION IMPROVING WITH HYDRATION. REC: DISCONTINUE IV FURTHER DOSE OF LOPRESSOR ADJUST DICTATED BY TOLERANCE/RESPONSE. (WOULD CONTINUE PRESENT DOSE AT THIS TIME.) COUMADIN DOSE ADJUST REQUIRED TO TARGET INR 2-3. EVENT RECORDER/IMPLANTABLE LOOP RECORDER OUT PATIENT. NON INVASIVE ISCHEMIA EVALUATION OUT PATIENT. DIRECTED BY IM/RENAL.
--- NOTE | 2017-01-16 12:41 | PN ---
Progress Note, Physician History of Present Illness: Renal f/u Pt is OOB in the chair and is in no distress HShe has less pain and increased mobility of the shoulders today On MTX and Prednisone for the RA - Current Medication List Current Medications: Active Medications Acetaminophen (Tylenol -) 650 mg PO Q6H PRN PRN Reason: FEVER OR PAIN Last Admin: 01/15/17 06:09 Dose: 650 mg Albuterol Sulfate (Ventolin 0.083% Nebulizer Soln -) 1 amp NEB Q4H PRN PRN Reason: SHORT OF BREATH/WHEEZING Benzocaine/Menthol (Cepacol Lozenge -) 1 each MM Q4H PRN PRN Reason: SORE THROAT Last Admin: 01/14/17 10:03 Dose: 1 each Calcium Carbonate (Os-Serg 500mg -) 500 mg PO DAILY [facility] Last Admin: 01/16/17 10:10 Dose: 500 mg Chlorhexidine Gluconate (Hibiclens For Decolonization -) 1 applic TP HS [facility] Last Admin: 01/15/17 21:25 Dose: Not Given Diltiazem HCl (Cardizem Cd -) 120 mg PO DAILY [facility] Last Admin: 01/16/17 10:10 Dose: 120 mg Folic Acid (Folic Acid -) 1 mg PO DAILY [facility] Last Admin: 01/16/17 10:10 Dose: 1 mg Sodium Chloride (Normal Saline -) 1,000 mls @ 40 mls/hr IV ASDIR [facility] Last Admin: 01/15/17 12:15 Dose: 40 mls/hr Insulin Aspart (Novolog Vial Sliding Scale -) 1 vial SQ ACHS [facility] PRN Reason: Protocol Last Admin: 01/16/17 12:29 Dose: Not Given Levothyroxine Sodium (Synthroid -) 112 mcg PO DAILY@0700 [facility] Last Admin: 01/16/17 06:35 Dose: 112 mcg Methotrexate (Mexate -) 12.5 mg PO Q7D [facility] Metoprolol Tartrate (Lopressor -) 25 mg PO BID [facility] Last Admin: 01/16/17 10:10 Dose: 25 mg Mupirocin (Bactroban Ointment (For Decolonization) -) 1 applic NS BID [facility] Stop: 01/18/17 21:59 Last Admin: 01/16/17 10:11 Dose: Not Given Ondansetron HCl (Zofran Injection) 4 mg IVPB Q6H PRN PRN Reason: NAUSEA Prednisone (Deltasone -) 2.5 mg PO MoTh@1000 [facility] Ranitidine HCl (Zantac -) 150 mg PO DAILY [facility] Last Admin: 01/16/17 10:10 Dose: 150 mg Warfarin Sodium (Coumadin -) 2 mg PO DAILY@1800 [facility] Last Admin: 01/15/17 17:19 Dose: 2 mg - Objective Vital Signs: Vital Signs Temperature 99.0 F 01/16/17 06:00 Pulse Rate 87 01/16/17 06:00 Respiratory Rate 18 01/16/17 06:00 Blood Pressure 116/70 01/16/17 06:00 O2 Sat by Pulse Oximetry (%) 98 01/15/17 21:00 Constitutional: Yes: Calm Cardiovascular: Yes: Pulse Irregular, Murmur, S1, S2. No: JVD Respiratory: Yes: CTA Bilaterally Gastrointestinal: Yes: Soft. No: Tenderness, Rebound Edema: LLE: Trace, RLE: Trace Labs: CBC, BMP 01/16/17 06:00 01/16/17 06:00 INR, PTT INR 2.62 (0.82-1.09) H 01/16/17 06:00 Assessment/Plan Impression DUARTE and hyponatremia improving with IVF S/P Hypokalemia Hematuria with castellano and septated cyst in the left Kidney S/P Syncope X3 A Fib NIDDM Hypothyroid, HTN RA with weakness and pain in both shoulders Anemia worsening with hydration Plan D/C IVF Continue to hold the ARB and Furosemide Rpt labs in am She will need to be seen by urology for the septated cyst as an out patient once stabilized-can be done as an outpatient Repeat UA now that castellano is out Dr Casanova
[2017-01-16] MEDS: SODIUM CHLORIDE 1,000 ML IV SCH (13:16)
--- NOTE | 2017-01-16 16:30 | PN ---
Physical Exam: SUBJECTIVE: Patient seen and examined. She denies any chest pain, shortness of breath, palpitations or any dizziness. States she feels well, eating breakfast. OBJECTIVE: cardiac monitor technician: sinus rhythm 77 Had run of SVT on 01/14 with rate of 220min/was given carotid massage and restarted on Cardizem 120mg INR therapeutic (@ 2.6, goal 2-3), will keep Coumadin 2mg and adjust based on tomorrows INR Discharge once cleared by cardiology/renal Outpatient urology for the septated cyst Vital Signs Period Temp Pulse Resp BP Sys/Angeles Pulse Ox Last 24 Hr 97.9 F-99.0 F 70-87 18-20 112-122/54-70 97-98 GENERAL: The patient is awake, alert, and fully oriented, in no acute distress. HEAD: Normal with no signs of trauma. EYES: PERRL, extraocular movements intact, sclera anicteric, conjunctiva clear. No ptosis. ENT: Ears normal, nares patent, oropharynx clear without exudates, moist mucous membranes. NECK: Trachea midline, full range of motion, supple. LUNGS: Breath sounds diminished/equal, clear to auscultation bilaterally, no wheezes, no crackles, no accessory muscle use. ABDOMEN: Soft, nontender, nondistended, normoactive bowel sounds, no guarding, no rebound, no hepatosplenomegaly, no masses. EXTREMITIES: 2+ pulses, warm, well-perfused, no edema. NEUROLOGICAL: Normal speech PSYCH: Normal mood, normal affect. SKIN: Warm, dry, normal turgor, no rashes or lesions noted Laboratory Results - last 24 hr 01/15/17 01/15/17 01/16/17 17:25 20:43 06:00 WBC 7.0 RBC 2.99 L Hgb 7.8 L Hct 24.0 L MCV 80.2 MCHC 32.6 RDW 23.3 H Plt Count 173 MPV 9.0 Neutrophils % 84.4 H Lymphocytes % 12.3 D Monocytes % 1.5 L Eosinophils % 1.2 D Basophils % 0.6 INR Sodium Potassium Chloride Carbon Dioxide Anion Gap BUN Creatinine Creat Clearance w eGFR POC Glucometer 160 153 Random Glucose Calcium Total Bilirubin AST ALT Alkaline Phosphatase Total Protein Albumin Stool Occult Blood 01/16/17 01/16/17 01/16/17 06:00 06:00 06:36 WBC RBC Hgb Hct MCV MCHC RDW Plt Count MPV Neutrophils % Lymphocytes % Monocytes % Eosinophils % Basophils % INR 2.62 H Sodium 134 L Potassium 3.6 Chloride 103 Carbon Dioxide 19 L Anion Gap 12 BUN 21 H D Creatinine 1.5 H D Creat Clearance w eGFR 34.04 POC Glucometer 110 Random Glucose 101 Calcium 7.7 L Total Bilirubin 0.9 AST 17 ALT 12 Alkaline Phosphatase 96 D Total Protein 5.6 L Albumin 2.6 L Stool Occult Blood 01/16/17 01/16/17 11:55 14:00 WBC RBC Hgb Hct MCV MCHC RDW Plt Count MPV Neutrophils % Lymphocytes % Monocytes % Eosinophils % Basophils % INR Sodium Potassium Chloride Carbon Dioxide Anion Gap BUN Creatinine Creat Clearance w eGFR POC Glucometer 124 Random Glucose Calcium Total Bilirubin AST ALT Alkaline Phosphatase Total Protein Albumin Stool Occult Blood Negative Active Medications Generic Name Dose Route Start Last Admin Trade Name Freq PRN Reason Stop Dose Admin Acetaminophen 650 mg 01/12/17 15:29 01/15/17 06:09 Tylenol - PO 650 mg Q6H PRN Administration FEVER OR PAIN Albuterol Sulfate 1 amp 01/13/17 13:57 Ventolin 0.083% Nebulizer Soln - NEB Q4H PRN SHORT OF BREATH/WHEEZING Benzocaine/Menthol 1 each 01/14/17 08:16 01/14/17 10:03 Cepacol Lozenge - MM 1 each Q4H PRN Administration SORE THROAT Calcium Carbonate 500 mg 01/13/17 10:00 01/16/17 10:10 Os-Serg 500mg - PO 500 mg DAILY [facility] Administration Chlorhexidine Gluconate 1 applic 01/13/17 22:00 01/15/17 21:25 Hibiclens For Decolonization - TP Not Given HS [facility] Diltiazem HCl 120 mg 01/12/17 17:30 01/16/17 10:10 Cardizem Cd - PO 120 mg DAILY [facility] Administration Folic Acid 1 mg 01/13/17 10:00 01/16/17 10:10 Folic Acid - PO 1 mg DAILY [facility] Administration Insulin Aspart 1 vial 01/13/17 16:30 01/16/17 12:29 Novolog Vial Sliding Scale - SQ Not Given ACHS [facility] Protocol Levothyroxine Sodium 112 mcg 01/13/17 07:00 01/16/17 06:35 Synthroid - PO 112 mcg DAILY@0700 [facility] Administration Methotrexate 12.5 mg 01/19/17 10:00 Mexate - PO Q7D [facility] Metoprolol Tartrate 25 mg 01/15/17 15:00 01/16/17 10:10 Lopressor - PO 25 mg BID [facility] Administration Mupirocin 1 applic 01/13/17 22:00 01/16/17 10:11 Bactroban Ointment (For Decolonization) - NS 01/18/17 21:59 Not Given BID [facility] Ondansetron HCl 4 mg 01/12/17 15:29 Zofran Injection IVPB Q6H PRN [facility] Prednisone 2.5 mg 01/17/17 10:00 Deltasone - PO MoTh@1000 [facility] Ranitidine HCl 150 mg 01/13/17 14:00 01/16/17 10:10 Zantac - PO 150 mg DAILY [facility] Administration Warfarin Sodium 2 mg 01/15/17 18:00 01/15/17 17:19 Coumadin - PO 2 mg DAILY@1800 [facility] Administration ASSESSMENT/PLAN: Patient is a 71 year old female with a past medical history of atrial fibrillation on Coumadin, NIDDM, hypothyroidism, hypertension, rheumatoid arthritis, and anemia. She presented to the ED on 01/12/2017 complaining of dizziness. On admission, patient reports episodes of lightheadedness and dizziness while showerin and aftger resting, felt heart palpitation. In ER EKG showed atrial fib with a rate of 140; ST depression V3-V6, hyponatrema (126), BUN/Creat (38/3.3) and subtherapeutic INR. Imaging: Chest Xray 01/13/2017: no acute infiltrates or pleural eff have developed, slight increase in int. markings, likely chronic. possible of mild degree of acute congestion cannot be excluded. Renal ultrasound 01/12/2017 - no hydronephrosis - kidneys unremarkable - 2cm left cortical cyst EKG 01/13/2017 - Sinus joleen @59 Cardiology: Atrial fibrillation with syncope - resolved Assessment/Plan: Troponins 0.29> 0.51> 0.25> 0.59> 0.52 on Atenolol 25mg BID and Cardizem 120mg Bridged to coumadin, INR. 2.6, will give give Coumadin 2mg tonight, monitor INR in a.m. Monitor for further episodes of syncope, Fall Risk : Acute Kidney Injury - improving Assessment/Plan: Creatinine improving, now 1.5/baseline 1.1 IVF stopped Renal ultrasound 01/12/2017 - no hydronephrosis - kidneys unremarkable - 2cm left cortical cyst BMP in a.m., trend creat. UA reordered by renal Nephrology following Endocrine: diabetes mellitus - chronic Assessment/Plan: On Novolog sliding scale diabetic diet Hypothyroidism - chronic Assessment/Plan: On Levothyroxine Rheumatoid Arthritis - chronic Assessment/Plan: On Prednisone and Methotrexate f/u with rhemuatologist as outpatient F.E.N. Fuids: toleration PO Electrolytes: HypoK : resolved Nutrition: diabetic diet Prophylaxis: GI: Zantac daily DVT: Coumadin as per INR. Disposition: Patient continues to require tele monitoring. On discharge will need to be seen by urology for the septated cyst. Will enter referral for urology. Full Code. Visit type - Emergency Visit Emergency Visit: Yes ED Registration Date: 01/14/17 Care time: The patient presented to the Emergency Department on the above date and was hospitalized for further evaluation of their emergent condition. - New Patient This patient is new to me today: No - Critical Care Critical Care patient: No - Discharge Referral Referred to [facility] Med P.C.: No
[2017-01-16] MEDS: WARFARIN NA 2 MG TABLET (UD) PO SCH (17:23)
[2017-01-16] MEDS: CHLORHEXIDINE GLUCONATE 4% CLEANSER FOR DECOLONIZATION TP SCH (21:50)
[2017-01-17] MEDS: INSULIN SLIDING SCALE (NOVOLOG) 1 VIAL SQ SCH ×4 (06:26→22:56)
[2017-01-17] MEDS: LEVOTHYROXINE NA 112 MCG TABLET (FP) PO SCH (06:30)
[2017-01-17 07:44] LABS: EOSINOPHIL 1.2 % (0-4.5); MCHC 32.6 g/dl (32.0-36.0); MEAN CELL VOLUME 79.9 fl (80-96); MEAN PLT VOLUME 9.1 fl (7.5-11.1); NEUTROPHILS 80.1 % (42.8-82.8); PLATELET COUNT 193 K/MM3 (134-434); RDW 23.3 % (11.6-15.6); WHITE BLOOD COUNT 7.7 K/mm3 (4.0-10.0)
[2017-01-17 08:11] LABS: INR 2.39 (0.82-1.09); PROTHROMBIN TIME (PATIENT) 26.8 SEC (9.98-11.88)
[2017-01-17 08:28] LABS: CREATININE 1.3 mg/dL (0.55-1.02)
[2017-01-17] MEDS: METOPROLOL TARTRATE 25 MG TABLET (FP) PO SCH ×2 (08:39→09:03)
[2017-01-17] MEDS: RANITIDINE HCL 150 MG TABLET (FP) PO SCH (09:02)
[2017-01-17] MEDS: FOLIC ACID 1 MG TABLET (FP) PO SCH (09:02)
[2017-01-17] MEDS: CALCIUM (OYSTER SHELL) 500 MG TABLET (FP) PO SCH (09:02)
[2017-01-17] MEDS: MUPIROCIN 2% TOPICAL OINTMENT FOR DECOLONIZATION NS SCH (09:03)
[2017-01-17] MEDS ORDERED: predniSONE 2.5 MG TABLET PO SCH (10:00)
[2017-01-17] MEDS ORDERED: METOPROLOL TARTRATE 50 MG TABLET (FP) ONE (10:59)
[2017-01-17] MEDS ORDERED: METOPROLOL TARTRATE 50 MG TABLET (FP) PO ONE (11:15)
--- NOTE | 2017-01-17 15:09 | PN ---
Physical Exam: SUBJECTIVE: Patient seen and examined. No complaints at present. Had an episode of afib with RVR 150-160s this am. Given dose of metoprolol 50 and daily dose increased from 25mg BID to 50mg BID with improvement in rate. At the time of RVR pt reports palpitations and rapid heart beat, but none at present. OBJECTIVE: Vital Signs - 24 hr 3 01/16/17 01/16/17 01/16/17 16:42 17:00 21:00 Temperature 97.6 F 98.0 F Pulse Rate 78 86 Respiratory 22 18 18 Rate Blood Pressure 120/48 144/73 O2 Sat by Pulse 98 Oximetry (%) 3 01/16/17 01/16/17 01/17/17 21:10 22:00 02:00 Temperature 97.7 F 98.8 F Pulse Rate 77 73 Respiratory 18 18 Rate Blood Pressure 130/73 135/67 O2 Sat by Pulse 98 Oximetry (%) 3 01/17/17 01/17/17 01/17/17 06:00 09:00 10:00 Temperature 98.7 F 98 F Pulse Rate 80 130 H Respiratory 18 18 Rate Blood Pressure 120/59 134/60 O2 Sat by Pulse 98 97 Oximetry (%) GENERAL: The patient is awake, alert, and fully oriented, in no acute distress. HEAD: Normal with no signs of trauma. EYES: PERRL, extraocular movements intact, sclera anicteric, conjunctiva clear. No ptosis. ENT: Ears normal, nares patent, oropharynx clear without exudates, moist mucous membranes. NECK: Trachea midline, full range of motion, supple. LUNGS: Breath sounds equal, clear to auscultation bilaterally, no wheezes, no crackles, no accessory muscle use. HEART: Irregular rate and rhythm, S1, S2 without murmur, rub or gallop. ABDOMEN: Soft, nontender, nondistended, normoactive bowel sounds, no guarding, no rebound, no hepatosplenomegaly, no masses. EXTREMITIES: 2+ pulses, warm, well-perfused, no edema. NEUROLOGICAL: Cranial nerves II through XII grossly intact. Normal speech, gait not observed. PSYCH: Normal mood, normal affect. SKIN: Warm, dry, normal turgor, no rashes or lesions noted Laboratory Results - last 24 hr 3 01/16/17 01/16/17 01/16/17 14:00 17:14 21:56 WBC RBC Hgb Hct MCV MCHC RDW Plt Count MPV Neutrophils % Lymphocytes % Monocytes % Eosinophils % Basophils % INR Sodium Potassium Chloride Carbon Dioxide Anion Gap BUN Creatinine POC Glucometer 152 122 Random Glucose Calcium Stool Occult Blood Negative 3 01/17/17 01/17/17 01/17/17 05:15 05:35 05:35 WBC 7.7 RBC 3.13 L Hgb 8.1 L Hct 25.0 L MCV 79.9 L MCHC 32.6 RDW 23.3 H Plt Count 193 MPV 9.1 Neutrophils % 80.1 Lymphocytes % 16.0 D Monocytes % 1.7 L Eosinophils % 1.2 Basophils % 1.0 INR Sodium 134 L Potassium 3.6 Chloride 103 Carbon Dioxide 19 L Anion Gap 12 BUN 17 Creatinine 1.3 H POC Glucometer 104 Random Glucose 94 Calcium 8.0 L Stool Occult Blood 3 01/17/17 01/17/17 05:35 11:17 WBC RBC Hgb Hct MCV MCHC RDW Plt Count MPV Neutrophils % Lymphocytes % Monocytes % Eosinophils % Basophils % INR 2.39 H Sodium Potassium Chloride Carbon Dioxide Anion Gap BUN Creatinine POC Glucometer 165 Random Glucose Calcium Stool Occult Blood Active Medications 3 Generic Name Dose Route Start Last Admin Trade Name Freq PRN Reason Stop Dose Admin Acetaminophen 650 mg 01/12/17 15:29 01/15/17 06:09 Tylenol - PO 650 mg Q6H PRN Administration FEVER OR PAIN Benzocaine/Menthol 1 each 01/14/17 08:16 01/14/17 10:03 Cepacol Lozenge - MM 1 each Q4H PRN Administration SORE THROAT Calcium Carbonate 500 mg 01/13/17 10:00 01/17/17 09:02 Os-Serg 500mg - PO 500 mg DAILY [facility] Administration Diltiazem HCl 120 mg 01/12/17 17:30 01/17/17 09:03 Cardizem Cd - PO Not Given DAILY [facility] Folic Acid 1 mg 01/13/17 10:00 01/17/17 09:02 Folic Acid - PO 1 mg DAILY [facility] Administration Insulin Aspart 1 vial 01/13/17 16:30 01/17/17 11:17 Novolog Vial Sliding Scale - SQ 2 units ACHS [facility] Administration Protocol Levothyroxine Sodium 112 mcg 01/13/17 07:00 01/17/17 06:30 Synthroid - PO 112 mcg DAILY@0700 [facility] Administration Methotrexate 12.5 mg 01/19/17 10:00 Mexate - PO Q7D [facility] Metoprolol Tartrate 50 mg 01/17/17 22:00 Lopressor - PO BID [facility] Prednisone 2.5 mg 01/17/17 10:00 01/17/17 09:02 Deltasone - PO 2.5 mg MoTh@1000 [facility] Administration Ranitidine HCl 150 mg 01/13/17 14:00 01/17/17 09:02 Zantac - PO 150 mg DAILY [facility] Administration Warfarin Sodium 2 mg 01/15/17 18:00 01/16/17 17:23 Coumadin - PO 2 mg DAILY@1800 [facility] Administration Imaging: Chest Xray 01/13/2017: no acute infiltrates or pleural eff have developed, slight increase in int. markings, likely chronic. possible of mild degree of acute congestion cannot be excluded. Renal ultrasound 01/12/2017 - no hydronephrosis - kidneys unremarkable - 2cm left cortical cyst Echo 01/13/17: LV normal in size, normal function Diazstolic dysfunction, Grade II Left atrium mildly dilated Borderline right atrial enlargement Mild mitral valve thickening. Mild mitral annular calcification, moderate mitral regurg mild tricuspid regurg, RV systolic pressure normal. mild aortic sclerosis, root sclerosis/calcification mild pulmonic valvular regurgitation Trivial pericardial effusion not hemodynamically significant ASSESSMENT/PLAN: 71yF with PMH atrial fibrillation on Coumadin, NIDDM, hypothyroidism, hypertension, rheumatoid arthritis, and anemia. She presented to the ED on 01/12 complaining of dizziness. On admission, patient reported episodes of lightheadedness and dizziness while showering and after resting, felt heart palpitation. In ER EKG showed atrial fib with a rate of 140; ST depression V3- V6, hyponatrema (126), BUN/Creat (38/3.3) and subtherapeutic INR. Pt was admitted for afib with RVR. Atrial fibrillation with RVR - Troponins 0.29> 0.51> 0.25> 0.59> 0.52 - rate poorly controlled, difficult management, cardiology input appreciated. - cont increased metoprolol 50 BID, cardizem 120mg - INR 2.39 Acute Kidney Injury - creatinine improving, cont to monitor - Will need f/u renal cyst as outpatient - renal consult appreciated. HTN - cont metoprolol and diltiazem, stable with same. DM - cont novolog SS, FSBS well controlled. - hold metformin Hypothyroidism - cont home levaquin Rheumatoid Arthritis - cont home Prednisone and Methotrexate - f/u with rhemuatologist as outpatient F.E.N. Fuids: tolerating PO, no IVF Electrolytes: lytes stable, repeat BMP Nutrition: diabetic diet Prophylaxis: GI: Zantac daily DVT: Coumadin as per INR. Disposition: Patient continues to require tele monitoring. On discharge will need to be seen by urology for the renal cyst. Full Code. Visit type - Emergency Visit Emergency Visit: Yes ED Registration Date: 01/14/17 Care time: The patient presented to the Emergency Department on the above date and was hospitalized for further evaluation of their emergent condition. - New Patient This patient is new to me today: No - Critical Care Critical Care patient: No - Discharge Referral Referred to [facility] Med P.C.: No
--- NOTE | 2017-01-17 16:47 | PN ---
Progress Note, Physician History of Present Illness: Pt seen and examined at bedside. She is awake and alert. She denies shortness of breath. - Current Medication List Current Medications: Active Medications Acetaminophen (Tylenol -) 650 mg PO Q6H PRN PRN Reason: FEVER OR PAIN Last Admin: 01/15/17 06:09 Dose: 650 mg Benzocaine/Menthol (Cepacol Lozenge -) 1 each MM Q4H PRN PRN Reason: SORE THROAT Last Admin: 01/14/17 10:03 Dose: 1 each Calcium Carbonate (Os-Serg 500mg -) 500 mg PO DAILY [facility] Last Admin: 01/17/17 09:02 Dose: 500 mg Diltiazem HCl (Cardizem Cd -) 120 mg PO DAILY [facility] Last Admin: 01/17/17 09:03 Dose: Not Given Folic Acid (Folic Acid -) 1 mg PO DAILY [facility] Last Admin: 01/17/17 09:02 Dose: 1 mg Insulin Aspart (Novolog Vial Sliding Scale -) 1 vial SQ ACHS [facility] PRN Reason: Protocol Last Admin: 01/17/17 11:17 Dose: 2 units Levothyroxine Sodium (Synthroid -) 112 mcg PO DAILY@0700 [facility] Last Admin: 01/17/17 06:30 Dose: 112 mcg Methotrexate (Mexate -) 12.5 mg PO Q7D [facility] Metoprolol Tartrate (Lopressor -) 50 mg PO BID [facility] Prednisone (Deltasone -) 2.5 mg PO MoTh@1000 [facility] Last Admin: 01/17/17 09:02 Dose: 2.5 mg Ranitidine HCl (Zantac -) 150 mg PO DAILY [facility] Last Admin: 01/17/17 09:02 Dose: 150 mg Warfarin Sodium (Coumadin -) 2 mg PO DAILY@1800 [facility] Last Admin: 01/16/17 17:23 Dose: 2 mg - Objective Vital Signs: Vital Signs Temperature 98 F 01/17/17 10:00 Pulse Rate 130 H 01/17/17 10:00 Respiratory Rate 18 01/17/17 10:00 Blood Pressure 134/60 01/17/17 10:00 O2 Sat by Pulse Oximetry (%) 97 01/17/17 09:00 Constitutional: Yes: Calm Eyes: Yes: Conjunctiva Clear HENT: Yes: Atraumatic Neck: Yes: Supple Cardiovascular: Yes: S1, S2 Respiratory: Yes: CTA Bilaterally Gastrointestinal: Yes: Abdomen, Obese Genitourinary: Yes: WNL, Urethral Discharge Edema: Yes Edema: LLE: 1+, RLE: 1+ Neurological: Yes: Oriented Psychiatric: Yes: Oriented Labs: CBC, BMP 01/17/17 05:35 01/17/17 05:35 INR, PTT INR 2.39 (0.82-1.09) H 01/17/17 05:35 Problem List - Problems (1) DUARTE (acute kidney injury) Code(s): N17.9 - ACUTE KIDNEY FAILURE, UNSPECIFIED (2) Anemia Code(s): D64.9 - ANEMIA, UNSPECIFIED Qualifiers: Anemia type: unspecified type Qualified Code(s): D64.9 - Anemia, unspecified (3) DM (diabetes mellitus) Code(s): E11.9 - TYPE 2 DIABETES MELLITUS WITHOUT COMPLICATIONS Qualifiers: Diabetes mellitus type: type 2 Diabetes mellitus complication status: without complication 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 use Qualified Code(s): E11.9 - Type 2 diabetes mellitus without complications (4) HTN (hypertension) Code(s): I10 - ESSENTIAL (PRIMARY) HYPERTENSION Qualifiers: Hypertension type: essential hypertension Qualified Code(s): I10 - Essential (primary) hypertension Assessment/Plan Current Medications Generic Name Dose Route Start Last Admin Trade Name Freq PRN Reason Stop Dose Admin Acetaminophen 650 mg 01/12/17 15:29 01/15/17 06:09 Tylenol - PO 650 mg Q6H PRN Administration FEVER OR PAIN Benzocaine/Menthol 1 each 01/14/17 08:16 01/14/17 10:03 Cepacol Lozenge - MM 1 each Q4H PRN Administration SORE THROAT Calcium Carbonate 500 mg 01/13/17 10:00 01/17/17 09:02 Os-Serg 500mg - PO 500 mg DAILY [facility] Administration Diltiazem HCl 120 mg 01/12/17 17:30 01/17/17 09:03 Cardizem Cd - PO Not Given DAILY [facility] Folic Acid 1 mg 01/13/17 10:00 01/17/17 09:02 Folic Acid - PO 1 mg DAILY [facility] Administration Insulin Aspart 1 vial 01/13/17 16:30 01/17/17 11:17 Novolog Vial Sliding Scale - SQ 2 units ACHS [facility] Administration Protocol Levothyroxine Sodium 112 mcg 01/13/17 07:00 01/17/17 06:30 Synthroid - PO 112 mcg DAILY@0700 [facility] Administration Methotrexate 12.5 mg 01/19/17 10:00 Mexate - PO Q7D [facility] Metoprolol Tartrate 50 mg 01/17/17 22:00 Lopressor - PO BID [facility] Prednisone 2.5 mg 01/17/17 10:00 01/17/17 09:02 Deltasone - PO 2.5 mg MoTh@1000 [facility] Administration Ranitidine HCl 150 mg 01/13/17 14:00 01/17/17 09:02 Zantac - PO 150 mg DAILY [facility] Administration Warfarin Sodium 2 mg 01/15/17 18:00 01/16/17 17:23 Coumadin - PO 2 mg DAILY@1800 [facility] Administration Impression 1. DUARTE 2. hyponatremia 3. hypokalemia 4. left kidney cyst 5. hematuria 6. A Fib 7. NIDDM 8. Hypothyroid 9. HTN 10. arthritis 11. anemia Plan - renal function is improving - repeat labs in am - renal cyst need to be followed up - cont current meds - will follow Dr Ugarte
[2017-01-17] MEDS: WARFARIN NA 2 MG TABLET (UD) PO SCH (18:12)
--- NOTE | 2017-01-17 19:46 | PN ---
Progress Note, Physician History of Present Illness: pt started going 130s earlier -. extra 50 lopressor -. lopressor incresaed fro tonight to 50 bid CONTI today, but has not been walking JESSE - Current Medication List Current Medications: Active Medications Acetaminophen (Tylenol -) 650 mg PO Q6H PRN PRN Reason: FEVER OR PAIN Last Admin: 01/15/17 06:09 Dose: 650 mg Benzocaine/Menthol (Cepacol Lozenge -) 1 each MM Q4H PRN PRN Reason: SORE THROAT Last Admin: 01/14/17 10:03 Dose: 1 each Calcium Carbonate (Os-Serg 500mg -) 500 mg PO DAILY [facility] Last Admin: 01/17/17 09:02 Dose: 500 mg Diltiazem HCl (Cardizem Cd -) 120 mg PO DAILY [facility] Last Admin: 01/17/17 09:03 Dose: Not Given Folic Acid (Folic Acid -) 1 mg PO DAILY [facility] Last Admin: 01/17/17 09:02 Dose: 1 mg Insulin Aspart (Novolog Vial Sliding Scale -) 1 vial SQ ACHS [facility] PRN Reason: Protocol Last Admin: 01/17/17 17:43 Dose: Not Given Levothyroxine Sodium (Synthroid -) 112 mcg PO DAILY@0700 [facility] Last Admin: 01/17/17 06:30 Dose: 112 mcg Methotrexate (Mexate -) 12.5 mg PO Q7D [facility] Metoprolol Tartrate (Lopressor -) 50 mg PO BID [facility] Prednisone (Deltasone -) 2.5 mg PO MoTh@1000 [facility] Last Admin: 01/17/17 09:02 Dose: 2.5 mg Ranitidine HCl (Zantac -) 150 mg PO DAILY [facility] Last Admin: 01/17/17 09:02 Dose: 150 mg Warfarin Sodium (Coumadin -) 2 mg PO DAILY@1800 [facility] Last Admin: 01/17/17 18:12 Dose: 2 mg - Objective Vital Signs: Vital Signs Temperature 97.8 F 01/17/17 18:00 Pulse Rate 125 H 01/17/17 18:00 Respiratory Rate 18 01/17/17 18:00 Blood Pressure 115/68 01/17/17 18:00 O2 Sat by Pulse Oximetry (%) 97 01/17/17 09:00 Constitutional: Yes: No Distress, Obese Eyes: Yes: Conjunctiva Clear HENT: Yes: Atraumatic Neck: Yes: Supple Cardiovascular: Yes: Pulse Irregular (and tachy) Respiratory: No: Rales, Wheezes Gastrointestinal: Yes: Normal Bowel Sounds, Abdomen, Obese. No: Tenderness Edema: Yes Edema: LLE: 1+, RLE: 1+ Peripheral Pulses WNL: Yes Neurological: Yes: Alert, Oriented Psychiatric: Yes: Alert, Oriented Labs: CBC, BMP 01/17/17 05:35 01/17/17 05:35 INR, PTT INR 2.39 (0.82-1.09) H 01/17/17 05:35 Assessment/Plan 71 yo female with DM type 2, hypothyroidism, HTN, chronic atrial fibrillation, who presented with ~ 1 week history of dizziness with changes in position and palpitations. She was admitted with rapid atrial fibrillation and acute renal failure. Suspected that her rapid afib and acute renal failure were exacerbated by dehydration from her colon prep and prior use of diuretic. Metoprolol tartrate 100 mg po bid and Cardizem CD 120 mg po daily added S/p syncopal episode while converting to SR Subsequent episode may have been because of both BB and CCB as she has had been in SR since 5 AM or so TSH normal Pt's INR was low, because she had been off the coumadin for a colonoscopy which was cancelled because of the snow Trop I have been fluctuating from 0.29 -> 0.51 -> 0.25 -> 0.59 -> 0.52 Above in the setting of BUN/CR of 37/33 on admission and 43/3.5 today Pt w/o CP and EKG w/o ischemic changes -> I doubt acute MT Echo this admission-. nl EF, mod DD, mod MR No further events. Hr better 60-80s -. with short runs of afib Pt is now back in rapid afib, on cardizem and lopresor Also seems to be becoming overloaded -. gained 15 lbs since 01/13 Rec: Cont lopressor at 50 bid Cont cardizem 120 May sandra additional BB vs dig, depending of BP Compression stocking CXR in AM -> consider IV lasix in AM Cont coumadin (INR 2.39) In future, will need outpt stress test and holter, depending on course D/w pt and family at bedside
[2017-01-17] MEDS: METOPROLOL TARTRATE 50 MG TABLET (FP) PO SCH (22:56)
[2017-01-18] MEDS: LEVOTHYROXINE NA 112 MCG TABLET (FP) PO SCH (06:21)
[2017-01-18] MEDS: INSULIN SLIDING SCALE (NOVOLOG) 1 VIAL SQ SCH ×4 (06:21→22:47)
[2017-01-18 07:18] LABS: MCH 26.2 pg (25.7-33.7); MCHC 32.5 g/dl (32.0-36.0); MEAN CELL VOLUME 80.6 fl (80-96); MEAN PLT VOLUME 8.3 fl (7.5-11.1); PLATELET COUNT 179 K/MM3 (134-434); RDW 23.4 % (11.6-15.6); WHITE BLOOD COUNT 4.7 K/mm3 (4.0-10.0)
[2017-01-18] MEDS: METOPROLOL TARTRATE 50 MG TABLET (FP) PO SCH ×2 (08:50→09:29)
[2017-01-18] MEDS: RANITIDINE HCL 150 MG TABLET (FP) PO SCH (09:29)
[2017-01-18] MEDS: CALCIUM (OYSTER SHELL) 500 MG TABLET (FP) PO SCH (09:29)
[2017-01-18] MEDS: FOLIC ACID 1 MG TABLET (FP) PO SCH (09:29)
[2017-01-18 10:20] LABS: ACANTHOCYTES 2+; ANISOCYTOSIS 2+; MICROCYTOSIS FEW
--- NOTE | 2017-01-18 12:16 | PN ---
Physical Exam: SUBJECTIVE: Patient seen and examined. She felt SOB this AM with palpitations. During eval, she felt her chest tightness disssipating. Event: Tele: - HR 170's this AM OBJECTIVE: Vital Signs Period Temp Pulse Resp BP Sys/Angeles Pulse Ox Last 24 Hr 97 F-98 F 116-130 18-20 115-150/68-90 97-98 PE Neuro: alert, awake, cn 2-12intact HEENT: R lazy eye Pulm: CTAB CV: s1 s2 irregular rate, rhythm no mrg Abd: abd fold adalberto, + odor, no itching, abd s, nd nt Ext: b/l +3 edema, warm BMP, INR PENDING CBCD WBC 4.7 K/mm3 (4.0-10.0) D 01/18/17 05:35 RBC 3.18 M/mm3 (3.60-5.2) L 01/18/17 05:35 Hgb 8.3 GM/dL (10.7-15.3) L 01/18/17 05:35 Hct 25.6 % (32.4-45.2) L 01/18/17 05:35 MCV 80.6 fl (80-96) 01/18/17 05:35 MCHC 32.5 g/dl (32.0-36.0) 01/18/17 05:35 RDW 23.4 % (11.6-15.6) H 01/18/17 05:35 Plt Count 179 K/MM3 (134-434) 01/18/17 05:35 MPV 8.3 fl (7.5-11.1) 01/18/17 05:35 Active Medications Generic Name Dose Route Start Last Admin Trade Name Freq PRN Reason Stop Dose Admin Acetaminophen 650 mg 01/12/17 15:29 01/15/17 06:09 Tylenol - PO 650 mg Q6H PRN Administration FEVER OR PAIN Benzocaine/Menthol 1 each 01/14/17 08:16 01/14/17 10:03 Cepacol Lozenge - MM 1 each Q4H PRN Administration SORE THROAT Calcium Carbonate 500 mg 01/13/17 10:00 01/18/17 09:29 Os-Serg 500mg - PO 500 mg DAILY [facility] Administration Diltiazem HCl 120 mg 01/12/17 17:30 01/18/17 09:30 Cardizem Cd - PO Not Given DAILY [facility] Folic Acid 1 mg 01/13/17 10:00 01/18/17 09:29 Folic Acid - PO 1 mg DAILY [facility] Administration Insulin Aspart 1 vial 01/13/17 16:30 01/18/17 11:51 Novolog Vial Sliding Scale - SQ Not Given ACHS [facility] Protocol Levothyroxine Sodium 112 mcg 01/13/17 07:00 01/18/17 06:21 Synthroid - PO 112 mcg DAILY@0700 [facility] Administration Methotrexate 12.5 mg 01/19/17 10:00 Mexate - PO Q7D [facility] Metoprolol Tartrate 50 mg 01/17/17 22:00 01/18/17 09:29 Lopressor - PO Not Given BID [facility] Prednisone 2.5 mg 01/17/17 10:00 01/17/17 09:02 Deltasone - PO 2.5 mg MoTh@1000 [facility] Administration Ranitidine HCl 150 mg 01/13/17 14:00 01/18/17 09:29 Zantac - PO 150 mg DAILY [facility] Administration Warfarin Sodium 2 mg 01/15/17 18:00 01/17/17 18:12 Coumadin - PO 2 mg DAILY@1800 [facility] Administration Imaging: Renal ultrasound 01/12/2017 - no hydronephrosis - kidneys unremarkable - 2cm left cortical cyst Echo 01/13/17: LV normal in size, normal function, Diastolic dysfunction, Grade II, mod MR, mild TR Assessment: 71 year old female PMHx A fib (on coumadin) DM II, hypothyroidism, HTN, RA, and anemia admitted with dizziness, lightheadedness, palpitations, found to be A fib with RVR. Plan: 1. Atrial fibrillation with RVR, uncontrolled - Metoprolol 50mg BID - Cardizem CD 120mg daily - Cardiology to decide bb vs dig - Coumadin 2mg HS - Daily INR - Cardiology seeing, will defer arrangements for pace maker if needed 2. Acute Kidney Injury - Likely pre renal, initially with decreased PO intake, vomiting while on lasix and ARB, now off IVF - Cr improving; will trend - Lasix and ARB on hold - Renal cyst f/u as outpt 3. Diastolic dysfunction, grade II - Weight unchanged from yesterday, up 6kg since 01/13 - CXR ordered; will f/u 4. HTN - BP stable this AM - Cont Metoprolol, cardizem 5. DM II - AM sugars stable - ISS, BGM ACHS - Hold Metformin 6 Hypothyroidism - Continue Synthroid 112mcg - TSH wnl 7. Rheumatoid Arthritis - Maintain home Prednisone and Methotrexate - f/u with rhemuatologist as outpatient 8. DVT ppx - on AC Visit type - Emergency Visit Emergency Visit: Yes ED Registration Date: 01/14/17 Care time: The patient presented to the Emergency Department on the above date and was hospitalized for further evaluation of their emergent condition. - New Patient This patient is new to me today: Yes Date on this admission: 01/18/17 - Critical Care Critical Care patient: No
[2017-01-18 13:12] LABS: CALCIUM 8.2 mg/dL (8.5-10.1); CREATININE 1.2 mg/dL (0.55-1.02); INR 2.3 (0.82-1.09); PROTHROMBIN TIME (PATIENT) 25.7 SEC (9.98-11.88)
[2017-01-18] MEDS ORDERED: FUROSEMIDE 40 MG/4 ML INJECTABLE VIAL IVPUSH ONE (13:34)
[2017-01-18] MEDS ORDERED: METOPROLOL TARTRATE 25 MG TABLET (FP) PO ONE (14:15)
[2017-01-18] MEDS ORDERED: METOPROLOL TARTRATE 50 MG TABLET (FP) PO SCH (14:16)
--- NOTE | 2017-01-18 14:17 | PN ---
Progress Note, Physician History of Present Illness: No chest pain or significant dyspnea currently. Patient was given furosemide 40 mg IV x1 this AM. - Current Medication List Current Medications: Active Medications Acetaminophen (Tylenol -) 650 mg PO Q6H PRN PRN Reason: FEVER OR PAIN Last Admin: 01/15/17 06:09 Dose: 650 mg Benzocaine/Menthol (Cepacol Lozenge -) 1 each MM Q4H PRN PRN Reason: SORE THROAT Last Admin: 01/14/17 10:03 Dose: 1 each Calcium Carbonate (Os-Serg 500mg -) 500 mg PO DAILY [facility] Last Admin: 01/18/17 09:29 Dose: 500 mg Diltiazem HCl (Cardizem Cd -) 120 mg PO DAILY [facility] Last Admin: 01/18/17 09:30 Dose: Not Given Folic Acid (Folic Acid -) 1 mg PO DAILY [facility] Last Admin: 01/18/17 09:29 Dose: 1 mg Insulin Aspart (Novolog Vial Sliding Scale -) 1 vial SQ ACHS [facility] PRN Reason: Protocol Last Admin: 01/18/17 11:51 Dose: Not Given Levothyroxine Sodium (Synthroid -) 112 mcg PO DAILY@0700 [facility] Last Admin: 01/18/17 06:21 Dose: 112 mcg Methotrexate (Mexate -) 12.5 mg PO Q7D [facility] Metoprolol Tartrate (Lopressor -) 50 mg PO BID [facility] Last Admin: 01/18/17 09:29 Dose: Not Given Metoprolol Tartrate (Lopressor -) 25 mg PO ONCE ONE Stop: 01/18/17 14:16 Nystatin (Nystop Powder -) 1 applic TP BID [facility] Prednisone (Deltasone -) 2.5 mg PO MoTh@1000 [facility] Last Admin: 01/17/17 09:02 Dose: 2.5 mg Ranitidine HCl (Zantac -) 150 mg PO DAILY [facility] Last Admin: 01/18/17 09:29 Dose: 150 mg Warfarin Sodium (Coumadin -) 2 mg PO DAILY@1800 [facility] Last Admin: 01/17/17 18:12 Dose: 2 mg - Objective Vital Signs: Vital Signs Temperature 98 F 01/18/17 10:00 Pulse Rate 120 H 01/18/17 10:00 Respiratory Rate 20 01/18/17 10:00 Blood Pressure 150/90 01/18/17 10:00 O2 Sat by Pulse Oximetry (%) 98 01/18/17 09:00 Constitutional: Yes: Well Nourished, No Distress Eyes: Yes: Conjunctiva Clear, EOM Intact HENT: Yes: Atraumatic, Normocephalic Cardiovascular: Yes: Tachycardia, Pulse Irregular. No: JVD, Murmur Respiratory: Yes: Diminished (at left base) Gastrointestinal: Yes: Normal Bowel Sounds, Soft Edema: Yes Edema: LLE: 1+, RLE: 1+ Labs: CBC, BMP 01/18/17 05:35 01/18/17 12:40 INR, PTT INR 2.30 (0.82-1.09) H 01/18/17 12:40 Assessment/Plan 71 yo female with DM type 2, hypothyroidism, HTN, chronic atrial fibrillation, who was admitted on 01/12/17 with ~ 1 week history of dizziness with changes in position and palpitations. She was admitted with rapid atrial fibrillation and acute renal failure. Suspect that her rapid afib and acute renal failure were exacerbated by dehydration from her colon prep and prior use of diuretic. Patient's renal failure improved with IV fluid hydration. Atrial fibrillation was rate controlled on metoprolol 100 mg po bid and cardizem CD 120 mg po daily initially and patient spontaneously reverted to sinus rhythm but also had syncopal episode on 01/13 (due to bradycardia?). However, patient again developed rapid atrial fibrillation on 01/14 and was restarted on AV mary alice blocking agents. Continues to be in rapid afib despite increase of metoprolol to 50 mg po bid. RECS: Will increase metoprolol to 75 mg po bid and continue continue Cardizem CD 120 mg po daily. HR 100-120s currently. If patient should develop symptomatic bradycardia again, may need to consider pacemaker for backup while on AV mary alice blocking agents for afib rate control. Continue coumadin 2mg po daily. INR 2.3 today. Given small pleural effusion on CXR and weight gain/mild leg edema, patient given furosemide 40 mg IV x1 today. Will give other dose tomorrow AM. Monitor lytes and renal function. Will follow. Call with questions.
--- NOTE | 2017-01-18 14:29 | PN ---
Progress Note, Physician History of Present Illness: Pt seen and examined at bedside. She complains of shortness of breath and lower extremity edema. - Current Medication List Current Medications: Active Medications Acetaminophen (Tylenol -) 650 mg PO Q6H PRN PRN Reason: FEVER OR PAIN Last Admin: 01/15/17 06:09 Dose: 650 mg Benzocaine/Menthol (Cepacol Lozenge -) 1 each MM Q4H PRN PRN Reason: SORE THROAT Last Admin: 01/14/17 10:03 Dose: 1 each Calcium Carbonate (Os-Serg 500mg -) 500 mg PO DAILY [facility] Last Admin: 01/18/17 09:29 Dose: 500 mg Diltiazem HCl (Cardizem Cd -) 120 mg PO DAILY [facility] Last Admin: 01/18/17 09:30 Dose: Not Given Folic Acid (Folic Acid -) 1 mg PO DAILY [facility] Last Admin: 01/18/17 09:29 Dose: 1 mg Furosemide (Lasix Injection -) 40 mg IVPUSH DAILY [facility] Stop: 01/19/17 23:59 Insulin Aspart (Novolog Vial Sliding Scale -) 1 vial SQ ACHS [facility] PRN Reason: Protocol Last Admin: 01/18/17 11:51 Dose: Not Given Levothyroxine Sodium (Synthroid -) 112 mcg PO DAILY@0700 [facility] Last Admin: 01/18/17 06:21 Dose: 112 mcg Methotrexate (Mexate -) 12.5 mg PO Q7D [facility] Metoprolol Tartrate (Lopressor -) 25 mg PO ONCE ONE Stop: 01/18/17 14:16 Last Admin: 01/18/17 14:25 Dose: 25 mg Metoprolol Tartrate (Lopressor -) 75 mg PO BID [facility] Nystatin (Nystop Powder -) 1 applic TP BID [facility] Prednisone (Deltasone -) 2.5 mg PO MoTh@1000 [facility] Last Admin: 01/17/17 09:02 Dose: 2.5 mg Ranitidine HCl (Zantac -) 150 mg PO DAILY [facility] Last Admin: 01/18/17 09:29 Dose: 150 mg Warfarin Sodium (Coumadin -) 2 mg PO DAILY@1800 [facility] Last Admin: 01/17/17 18:12 Dose: 2 mg - Objective Vital Signs: Vital Signs Temperature 98.2 F 01/18/17 14:19 Pulse Rate 130 H 01/18/17 14:19 Respiratory Rate 18 01/18/17 14:19 Blood Pressure 137/75 01/18/17 14:19 O2 Sat by Pulse Oximetry (%) 98 01/18/17 09:00 Constitutional: Yes: Calm HENT: Yes: Atraumatic Cardiovascular: Yes: S1, S2 Respiratory: Yes: On Nasal O2, Rhonchi, SOB Gastrointestinal: Yes: Soft, Abdomen, Obese Genitourinary: Yes: WNL Musculoskeletal: Yes: WNL Edema: Yes Edema: LLE: 2+, RLE: 2+ Neurological: Yes: Oriented Psychiatric: Yes: Oriented Labs: CBC, BMP 01/18/17 05:35 01/18/17 12:40 INR, PTT INR 2.30 (0.82-1.09) H 01/18/17 12:40 Problem List - Problems (1) DUARTE (acute kidney injury) Code(s): N17.9 - ACUTE KIDNEY FAILURE, UNSPECIFIED (2) Anemia Code(s): D64.9 - ANEMIA, UNSPECIFIED Qualifiers: Qualified Code(s): D64.9 - Anemia, unspecified (3) DM (diabetes mellitus) Code(s): E11.9 - TYPE 2 DIABETES MELLITUS WITHOUT COMPLICATIONS Qualifiers: Qualified Code(s): E11.9 - Type 2 diabetes mellitus without complications (4) HTN (hypertension) Code(s): I10 - ESSENTIAL (PRIMARY) HYPERTENSION Qualifiers: Qualified Code(s): I10 - Essential (primary) hypertension Assessment/Plan Current Medications Generic Name Dose Route Start Last Admin Trade Name Freq PRN Reason Stop Dose Admin Acetaminophen 650 mg 01/12/17 15:29 01/15/17 06:09 Tylenol - PO 650 mg Q6H PRN Administration FEVER OR PAIN Benzocaine/Menthol 1 each 01/14/17 08:16 01/14/17 10:03 Cepacol Lozenge - MM 1 each Q4H PRN Administration SORE THROAT Calcium Carbonate 500 mg 01/13/17 10:00 01/18/17 09:29 Os-Serg 500mg - PO 500 mg DAILY [facility] Administration Diltiazem HCl 120 mg 01/12/17 17:30 01/18/17 09:30 Cardizem Cd - PO Not Given DAILY [facility] Folic Acid 1 mg 01/13/17 10:00 01/18/17 09:29 Folic Acid - PO 1 mg DAILY [facility] Administration Furosemide 40 mg 01/19/17 10:00 Lasix Injection - IVPUSH 01/19/17 23:59 DAILY [facility] Insulin Aspart 1 vial 01/13/17 16:30 01/18/17 11:51 Novolog Vial Sliding Scale - SQ Not Given [facility] Protocol Levothyroxine Sodium 112 mcg 01/13/17 07:00 01/18/17 06:21 Synthroid - PO 112 mcg DAILY@0700 [facility] Administration Methotrexate 12.5 mg 01/19/17 10:00 Mexate - PO Q7D [facility] Metoprolol Tartrate 25 mg 01/18/17 14:15 01/18/17 14:25 Lopressor - PO 01/18/17 14:16 25 mg ONCE ONE Administration Metoprolol Tartrate 75 mg 01/18/17 14:16 Lopressor - PO BID [facility] Nystatin 1 applic 01/18/17 12:45 Nystop Powder - TP BID [facility] Prednisone 2.5 mg 01/17/17 10:00 01/17/17 09:02 Deltasone - PO 2.5 mg MoTh@1000 [facility] Administration Ranitidine HCl 150 mg 01/13/17 14:00 01/18/17 09:29 Zantac - PO 150 mg DAILY [facility] Administration Warfarin Sodium 2 mg 01/15/17 18:00 01/17/17 18:12 Coumadin - PO 2 mg DAILY@1800 [facility] Administration Impression 1. DUARTE 2. hyponatremia 3. hypokalemia 4. left kidney cyst 5. hematuria 6. A Fib 7. NIDDM 8. Hypothyroid 9. HTN 10. arthritis 11. anemia Plan - will give dose of lasix - cxr reviewed - will also give a small dose of potassium - repeat labs in am - discussed with medical team - renal cyst need to be followed up - cont current meds - will follow Dr Ugarte
[2017-01-18] MEDS ORDERED: POTASSIUM CHLORIDE TABS 20 MEQ TABLET.ER (FP) PO ONE (14:45)
[2017-01-18] MEDS: NYSTATIN POWDER 100,000 UNITS/GM - 15 GM TOPICAL POWDER TP SCH ×2 (16:22→22:47)
[2017-01-18] MEDS: WARFARIN NA 2 MG TABLET (UD) PO SCH (17:18)
[2017-01-19] MEDS ORDERED: METOPROLOL TARTRATE 25 MG TABLET (FP) PO ONE (00:15)
[2017-01-19] MEDS: INSULIN SLIDING SCALE (NOVOLOG) 1 VIAL SQ SCH ×4 (06:18→21:05)
[2017-01-19] MEDS: LEVOTHYROXINE NA 112 MCG TABLET (FP) PO SCH (06:18)
[2017-01-19 07:37] LABS: INR 2.16 (0.82-1.09); PROTHROMBIN TIME (PATIENT) 24.1 SEC (9.98-11.88)
[2017-01-19 08:13] LABS: CREATININE 1.1 mg/dL (0.55-1.02)
[2017-01-19] MEDS ORDERED: PT OWN MED DRAWER 7, Y5N ONE ×2 (09:03→09:08)
[2017-01-19] MEDS: FOLIC ACID 1 MG TABLET (FP) PO SCH (09:05)
[2017-01-19] MEDS: RANITIDINE HCL 150 MG TABLET (FP) PO SCH (09:05)
[2017-01-19] MEDS: CALCIUM (OYSTER SHELL) 500 MG TABLET (FP) PO SCH (09:05)
[2017-01-19] MEDS: NYSTATIN POWDER 100,000 UNITS/GM - 15 GM TOPICAL POWDER TP SCH ×2 (09:06→20:55)
[2017-01-19] MEDS ORDERED: POTASSIUM CHLORIDE 40 MEQ/30 ML UNIT DOSE CUP PO ONE (09:07)
[2017-01-19] MEDS ORDERED: METHOTREXATE 2.5 MG TABLET PO SCH (10:00)
[2017-01-19] MEDS ORDERED: METOPROLOL TARTRATE 50 MG TABLET (FP) PO SCH (10:00)
[2017-01-19] MEDS ORDERED: FUROSEMIDE 40 MG/4 ML INJECTABLE VIAL IVPUSH SCH (10:00)
--- NOTE | 2017-01-19 12:14 | PN ---
Physical Exam: SUBJECTIVE: Patient seen and examined. She is oob to chair, she said she slept well for the first time last night. Events: HR 160's at rest, symptomatic: palpitations and SOB OBJECTIVE: Vital Signs Period Temp Pulse Resp BP Sys/Angeles Pulse Ox Last 24 Hr 97.4 F-99 F 81-147 18- 132-145/64-96 98-98 PE Neuro: alert, awake, cn 2-12intact Pulm: scattered basilar crackles, + NC CV: s1 s2 irregular rate, rhythm no mrg Abd: s, nd, nt, +bs Ext: b/l +2 edema- improved, warm CMP Sodium 137 mmol/L (136-145) 01/19/17 05:35 Potassium 3.2 mmol/L (3.5-5.1) L 01/19/17 05:35 Chloride 105 mmol/L (98-107) 01/19/17 05:35 Carbon Dioxide 19 mmol/L (21-32) L 01/19/17 05:35 Anion Gap 13 (8-16) 01/19/17 05:35 BUN 13 mg/dL (7-18) 01/19/17 05:35 Creatinine 1.1 mg/dL (0.55-1.02) H 01/19/17 05:35 Creat Clearance w eGFR 34.04 (>60) 01/16/17 06:00 Calcium 8.0 mg/dL (8.5-10.1) L 01/19/17 05:35 Total Bilirubin 0.9 mg/dL (0.2-1.0) 01/16/17 06:00 AST 17 U/L (15-37) 01/16/17 06:00 ALT 12 U/L (12-78) 01/16/17 06:00 Alkaline Phosphatase 96 U/L (45-117) D 01/16/17 06:00 Total Protein 5.6 g/dl (6.4-8.2) L 01/16/17 06:00 Albumin 2.6 g/dl (3.4-5.0) L 01/16/17 06:00 Active Medications Generic Name Dose Route Start Last Admin Trade Name Freq PRN Reason Stop Dose Admin Acetaminophen 650 mg 01/12/17 15:29 01/15/17 06:09 Tylenol - PO 650 mg Q6H PRN Administration FEVER OR PAIN Benzocaine/Menthol 1 each 01/14/17 08:16 01/14/17 10:03 Cepacol Lozenge - MM 1 each Q4H PRN Administration SORE THROAT Calcium Carbonate 500 mg 01/13/17 10:00 01/19/17 09:05 Os-Serg 500mg - PO 500 mg DAILY [facility] Administration Diltiazem HCl 120 mg 01/12/17 17:30 01/19/17 09:05 Cardizem Cd - PO 120 mg DAILY [facility] Administration Folic Acid 1 mg 01/13/17 10:00 01/19/17 09:05 Folic Acid - PO 1 mg DAILY [facility] Administration Furosemide 40 mg 01/19/17 10:00 01/19/17 09:06 Lasix Injection - IVPUSH 01/19/17 23:59 40 mg DAILY [facility] Administration Insulin Aspart 1 vial 01/13/17 16:30 01/19/17 06:18 Novolog Vial Sliding Scale - SQ Not Given ACHS [facility] Protocol Levothyroxine Sodium 112 mcg 01/13/17 07:00 01/19/17 06:18 Synthroid - PO 112 mcg DAILY@0700 [facility] Administration Methotrexate 12.5 mg 01/19/17 10:00 01/19/17 09:05 Mexate - PO 12.5 mg Q7D [facility] Administration Metoprolol Tartrate 100 mg 01/19/17 10:00 01/19/17 09:06 Lopressor - PO 100 mg BID [facility] Administration Nystatin 1 applic 01/18/17 12:45 01/19/17 09:06 Nystop Powder - TP 1 applic BID [facility] Administration Prednisone 2.5 mg 01/17/17 10:00 01/17/17 09:02 Deltasone - PO 2.5 mg MoTh@1000 [facility] Administration Ranitidine HCl 150 mg 01/13/17 14:00 01/19/17 09:05 Zantac - PO 150 mg DAILY [facility] Administration Warfarin Sodium 2 mg 01/15/17 18:00 01/18/17 17:18 Coumadin - PO 2 mg DAILY@1800 [facility] Administration Imaging: Renal ultrasound 01/12/2017 - no hydronephrosis - kidneys unremarkable - 2cm left cortical cyst Echo 01/13/17: LV normal in size, normal function, Diastolic dysfunction, Grade II, mod MR, mild TR Assessment: 71 year old female PMHx A fib (on coumadin) DM II, hypothyroidism, HTN, RA, and anemia admitted with dizziness, lightheadedness, palpitations, found to be A fib with RVR. Plan: 1. Atrial fibrillation with RVR, uncontrolled - Increase metoprolol 100mg BID; monitor rhythm and HR - Cardizem CD 120mg daily - Coumadin 2mg HS - Daily INR - Pacemaker, holter, stress to be done as outpt 2. Acute Kidney Injury - Improved, cr wnl - Lasix 40mg IV x1 today and yesterday - Renal cyst f/u as outpt 3. Diastolic dysfunction, grade II - Weight down ~4lbs today 4. HTN - Stable - Cont Metoprolol, Cardizem 5. DM II - ISS, BGM ACHS - Hold home Metformin 6 Hypothyroidism - Continue Synthroid 112mcg - TSH wnl 7. Rheumatoid Arthritis - Maintain home Prednisone and Methotrexate - f/u with Rhemuatologist as outpatient 8. DVT ppx - On AC 9. Isabel - Nystatin to abdominal folds Visit type - Emergency Visit Emergency Visit: Yes ED Registration Date: 01/14/17 Care time: The patient presented to the Emergency Department on the above date and was hospitalized for further evaluation of their emergent condition. - New Patient This patient is new to me today: No - Critical Care Critical Care patient: No
--- NOTE | 2017-01-19 14:31 | PN ---
Progress Note, Physician History of Present Illness: No chest pain or significant dyspnea currently. - Current Medication List Current Medications: Active Medications Acetaminophen (Tylenol -) 650 mg PO Q6H PRN PRN Reason: FEVER OR PAIN Last Admin: 01/15/17 06:09 Dose: 650 mg Benzocaine/Menthol (Cepacol Lozenge -) 1 each MM Q4H PRN PRN Reason: SORE THROAT Last Admin: 01/14/17 10:03 Dose: 1 each Calcium Carbonate (Os-Serg 500mg -) 500 mg PO DAILY [facility] Last Admin: 01/19/17 09:05 Dose: 500 mg Folic Acid (Folic Acid -) 1 mg PO DAILY [facility] Last Admin: 01/19/17 09:05 Dose: 1 mg Furosemide (Lasix Injection -) 40 mg IVPUSH DAILY [facility] Stop: 01/19/17 23:59 Last Admin: 01/19/17 09:06 Dose: 40 mg Insulin Aspart (Novolog Vial Sliding Scale -) 1 vial SQ ACHS [facility] PRN Reason: Protocol Last Admin: 01/19/17 12:59 Dose: Not Given Levothyroxine Sodium (Synthroid -) 112 mcg PO DAILY@0700 [facility] Last Admin: 01/19/17 06:18 Dose: 112 mcg Methotrexate (Mexate -) 12.5 mg PO Q7D [facility] Last Admin: 01/19/17 09:05 Dose: 12.5 mg Metoprolol Tartrate (Lopressor -) 100 mg PO BID [facility] Last Admin: 01/19/17 09:06 Dose: 100 mg Nystatin (Nystop Powder -) 1 applic TP BID [facility] Last Admin: 01/19/17 09:06 Dose: 1 applic Prednisone (Deltasone -) 2.5 mg PO MoTh@1000 [facility] Last Admin: 01/17/17 09:02 Dose: 2.5 mg Ranitidine HCl (Zantac -) 150 mg PO DAILY [facility] Last Admin: 01/19/17 09:05 Dose: 150 mg Warfarin Sodium (Coumadin -) 2 mg PO DAILY@1800 [facility] Last Admin: 01/18/17 17:18 Dose: 2 mg - Objective Vital Signs: Vital Signs Temperature 97.9 F 01/19/17 08:37 Pulse Rate 147 H 01/19/17 08:37 Respiratory Rate 22 01/19/17 08:43 Blood Pressure 143/69 01/19/17 08:37 O2 Sat by Pulse Oximetry (%) 98 01/19/17 08:43 Constitutional: Yes: Well Nourished, No Distress Eyes: Yes: Conjunctiva Clear, EOM Intact HENT: Yes: Atraumatic, Normocephalic Cardiovascular: Yes: Tachycardia, Pulse Irregular. No: Murmur Respiratory: Yes: CTA Bilaterally Gastrointestinal: Yes: Normal Bowel Sounds, Soft Edema: LLE: Trace, RLE: Trace Neurological: Yes: Alert, Oriented, Cran Nerves II-XII Intact Psychiatric: Yes: WNL Labs: CBC, BMP 01/18/17 05:35 01/19/17 05:35 INR, PTT INR 2.16 (0.82-1.09) H 01/19/17 05:35 Assessment/Plan 71 yo female with DM type 2, hypothyroidism, HTN, chronic atrial fibrillation, who was admitted on 01/12/17 with ~ 1 week history of dizziness with changes in position and palpitations. She was admitted with rapid atrial fibrillation and acute renal failure. Suspect that her rapid afib and acute renal failure were exacerbated by dehydration from her colon prep and prior use of diuretic. Patient's renal failure improved with IV fluid hydration. Atrial fibrillation was rate controlled on metoprolol 100 mg po bid and cardizem CD 120 mg po daily initially and patient spontaneously reverted to sinus rhythm but also had syncopal episode on 01/13 (due to bradycardia?). However, patient again developed rapid atrial fibrillation on 01/14 and was restarted on AV mary alice blocking agents. Patient with HR 110-120s while on metoprolol 100 mg po bid. RECS: Will continue metoprolol 100 mg po bid. Will increase Cardizem CD to 240 mg po daily. If patient should develop symptomatic bradycardia again, may need to consider pacemaker for backup while on AV mary alice blocking agents for afib rate control. Continue coumadin 2mg po daily. INR 2.3 today. Patient given another furosemide 40 mg IV x1 this AM. Will give prn at this time given improvement in leg edema and decrease in weight. Monitor lytes and renal function. Will follow. Call with questions.
[2017-01-19] MEDS: WARFARIN NA 2 MG TABLET (UD) PO SCH (17:08)
[2017-01-19] MEDS ORDERED: POTASSIUM CHLORIDE TABS 20 MEQ TABLET.ER (FP) PO ONE (19:15)
--- NOTE | 2017-01-19 19:15 | PN ---
Progress Note, Physician History of Present Illness: Pt seen and examined at bedside. She feels that her breathing is starting to improve and that her lower extremity edema is a little better today. She denies chest pain. - Current Medication List Current Medications: Active Medications Acetaminophen (Tylenol -) 650 mg PO Q6H PRN PRN Reason: FEVER OR PAIN Last Admin: 01/15/17 06:09 Dose: 650 mg Atenolol (Tenormin -) 50 mg PO BID [facility] Benzocaine/Menthol (Cepacol Lozenge -) 1 each MM Q4H PRN PRN Reason: SORE THROAT Last Admin: 01/14/17 10:03 Dose: 1 each Calcium Carbonate (Os-Serg 500mg -) 500 mg PO DAILY [facility] Last Admin: 01/19/17 09:05 Dose: 500 mg Diltiazem HCl (Cardizem Cd -) 240 mg PO DAILY [facility] Folic Acid (Folic Acid -) 1 mg PO DAILY [facility] Last Admin: 01/19/17 09:05 Dose: 1 mg Furosemide (Lasix Injection -) 40 mg IVPUSH DAILY [facility] Stop: 01/19/17 23:59 Last Admin: 01/19/17 09:06 Dose: 40 mg Insulin Aspart (Novolog Vial Sliding Scale -) 1 vial SQ ACHS [facility] PRN Reason: Protocol Last Admin: 01/19/17 16:53 Dose: Not Given Levothyroxine Sodium (Synthroid -) 112 mcg PO DAILY@0700 [facility] Last Admin: 01/19/17 06:18 Dose: 112 mcg Methotrexate (Mexate -) 12.5 mg PO Q7D [facility] Last Admin: 01/19/17 09:05 Dose: 12.5 mg Nystatin (Nystop Powder -) 1 applic TP BID [facility] Last Admin: 01/19/17 09:06 Dose: 1 applic Prednisone (Deltasone -) 2.5 mg PO MoTh@1000 [facility] Last Admin: 01/17/17 09:02 Dose: 2.5 mg Ranitidine HCl (Zantac -) 150 mg PO DAILY [facility] Last Admin: 01/19/17 09:05 Dose: 150 mg Warfarin Sodium (Coumadin -) 2 mg PO DAILY@1800 [facility] Last Admin: 01/19/17 17:08 Dose: 2 mg - Objective Vital Signs: Vital Signs Temperature 97.3 F L 01/19/17 17:00 Pulse Rate 114 H 01/19/17 17:00 Respiratory Rate 20 01/19/17 17:00 Blood Pressure 133/80 01/19/17 17:00 O2 Sat by Pulse Oximetry (%) 98 01/19/17 08:43 Constitutional: Yes: Calm Eyes: Yes: Conjunctiva Clear HENT: Yes: Atraumatic Neck: Yes: Supple Cardiovascular: Yes: S1, S2 Respiratory: Yes: CTA Bilaterally, On Nasal O2 Gastrointestinal: Yes: Soft, Abdomen, Obese Genitourinary: Yes: WNL Musculoskeletal: Yes: WNL Edema: Yes Edema: LLE: 1+, RLE: 1+ Neurological: Yes: Oriented Psychiatric: Yes: Oriented Labs: CBC, BMP 01/18/17 05:35 01/19/17 05:35 INR, PTT INR 2.16 (0.82-1.09) H 01/19/17 05:35 Problem List - Problems (1) DUARTE (acute kidney injury) Code(s): N17.9 - ACUTE KIDNEY FAILURE, UNSPECIFIED (2) Anemia Code(s): D64.9 - ANEMIA, UNSPECIFIED Qualifiers: Anemia type: unspecified type Qualified Code(s): D64.9 - Anemia, unspecified (3) DM (diabetes mellitus) Code(s): E11.9 - TYPE 2 DIABETES MELLITUS WITHOUT COMPLICATIONS Qualifiers: Diabetes mellitus type: type 2 Diabetes mellitus complication status: without complication 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: without intermediate use Qualified Code(s): E11.9 - Type 2 diabetes mellitus without complications (4) HTN (hypertension) Code(s): I10 - ESSENTIAL (PRIMARY) HYPERTENSION Qualifiers: Hypertension type: essential hypertension Qualified Code(s): I10 - Essential (primary) hypertension Assessment/Plan Current Medications Generic Name Dose Route Start Last Admin Trade Name Freq PRN Reason Stop Dose Admin Acetaminophen 650 mg 01/12/17 15:29 01/15/17 06:09 Tylenol - PO 650 mg Q6H PRN Administration FEVER OR PAIN Atenolol 50 mg 01/19/17 22:00 Tenormin - PO BID [facility] Benzocaine/Menthol 1 each 01/14/17 08:16 01/14/17 10:03 Cepacol Lozenge - MM 1 each Q4H PRN Administration SORE THROAT Calcium Carbonate 500 mg 01/13/17 10:00 01/19/17 09:05 Os-Serg 500mg - PO 500 mg DAILY [facility] Administration Diltiazem HCl 240 mg 01/20/17 10:00 Cardizem Cd - PO DAILY [facility] Folic Acid 1 mg 01/13/17 10:00 01/19/17 09:05 Folic Acid - PO 1 mg DAILY [facility] Administration Furosemide 40 mg 01/19/17 10:00 01/19/17 09:06 Lasix Injection - IVPUSH 01/19/17 23:59 40 mg DAILY [facility] Administration Insulin Aspart 1 vial 01/13/17 16:30 01/19/17 16:53 Novolog Vial Sliding Scale - SQ Not Given ACHS [facility] Protocol Levothyroxine Sodium 112 mcg 01/13/17 07:00 01/19/17 06:18 Synthroid - PO 112 mcg DAILY@0700 [facility] Administration Methotrexate 12.5 mg 01/19/17 10:00 01/19/17 09:05 Mexate - PO 12.5 mg Q7D [facility] Administration Nystatin 1 applic 01/18/17 12:45 01/19/17 09:06 Nystop Powder - TP 1 applic BID [facility] Administration Prednisone 2.5 mg 01/17/17 10:00 01/17/17 09:02 Deltasone - PO 2.5 mg MoTh@1000 [facility] Administration Ranitidine HCl 150 mg 01/13/17 14:00 01/19/17 09:05 Zantac - PO 150 mg DAILY [facility] Administration Warfarin Sodium 2 mg 01/15/17 18:00 01/19/17 17:08 Coumadin - PO 2 mg DAILY@1800 [facility] Administration Impression 1. DUARTE 2. hyponatremia 3. hypokalemia 4. left kidney cyst 5. hematuria 6. A Fib 7. NIDDM 8. Hypothyroid 9. HTN 10. arthritis 11. anemia Plan - continue with lasix - repeat labs in am - check mag level - will replace potassium - renal cyst need to be followed up - cont current meds - will follow Dr Ugarte
[2017-01-19] MEDS ORDERED: BENZOCAINE/MENTH/CETYLPYRD CL 1 EACH LOZENGE MM PRN (19:29)
[2017-01-19] MEDS ORDERED: ACETAMINOPHEN 325 MG TABLET (FP) PO PRN (19:29)
[2017-01-19] MEDS ORDERED: MAGNESIUM SULFATE 2 GM in SODIUM CHLORIDE 100 ML IVPB ONE (19:29)
[2017-01-19] MEDS: ATENOLOL 50 MG TABLET (FP) PO SCH (20:54)
[2017-01-20] MEDS: LEVOTHYROXINE NA 112 MCG TABLET (FP) PO SCH (06:20)
[2017-01-20] MEDS: INSULIN SLIDING SCALE (NOVOLOG) 1 VIAL SQ SCH ×4 (06:20→22:26)
[2017-01-20] MEDS: NYSTATIN POWDER 100,000 UNITS/GM - 15 GM TOPICAL POWDER TP SCH ×3 (06:21→22:26)
[2017-01-20] MEDS: ATENOLOL 50 MG TABLET (FP) PO SCH ×3 (06:21→22:26)
[2017-01-20 07:51] LABS: INR 1.99 (0.82-1.09); PROTHROMBIN TIME (PATIENT) 22.2 SEC (9.98-11.88)
[2017-01-20 08:30] LABS: CREATININE 1.1 mg/dL (0.55-1.02); MAGNESIUM 1.5 mg/dL (1.8-2.4)
[2017-01-20] MEDS: CALCIUM (OYSTER SHELL) 500 MG TABLET (FP) PO SCH (09:33)
[2017-01-20] MEDS: predniSONE 5 MG TABLET (UD) PO SCH (09:35)
[2017-01-20] MEDS: FOLIC ACID 1 MG TABLET (FP) PO SCH (09:35)
[2017-01-20] MEDS ORDERED: MAGNESIUM SULF 50% (8.12 MEQ/2 ML-1 GM VIAL) IVPB ONE (10:35)
[2017-01-20] MEDS: RANITIDINE HCL 150 MG TABLET (FP) PO SCH (10:44)
--- NOTE | 2017-01-20 11:11 | PN ---
Physical Exam: SUBJECTIVE: Patient seen and examined on tele. She did wake up in the middle of the night with mild chest tightness, however this AM no SOB. at bedside. Events: - Rate improved this am, HR 160->130's - Metoprolol changed to atenolol OBJECTIVE: Vital Signs Period Temp Pulse Resp BP Sys/Angeles Pulse Ox Last 24 Hr 97 F-98 F 99-130 20-20 94-133/56-82 97-97 PE Neuro: alert, awake, cn 2-12intact Pulm: scattered crackles basilar, otherwise clear CV: s1 s2 irregular rate, rhythm no mrg Abd: s, nd, nt, +bs Ext: +1 b/l edema- unchanged from yesterday, warm, no le tenderness Laboratory Results - last 24 hr 01/20/17 01/20/17 05:35 06:18 INR Sodium 137 Potassium 4.2 D Chloride 106 Carbon Dioxide 21 Anion Gap 10 BUN 13 Creatinine 1.1 H POC Glucometer 117 Random Glucose 100 Calcium 8.0 L Magnesium 1.5 L D Current Medications Generic Name Dose Route Start Last Admin Trade Name Freq PRN Reason Stop Dose Admin Acetaminophen 650 mg 01/19/17 19:29 Tylenol - PO Q6H PRN FEVER OR PAIN Atenolol 50 mg 01/19/17 22:00 01/20/17 09:31 Tenormin - PO 50 mg BID [facility] Administration Benzocaine/Menthol 1 each 01/19/17 19:29 Cepacol Lozenge - MM Q4H PRN SORE THROAT Calcium Carbonate 500 mg 01/20/17 10:00 01/20/17 09:33 Os-Serg 500mg - PO 500 mg DAILY [facility] Administration Digoxin 0.125 mg 01/20/17 11:30 Lanoxin - PO DAILY [facility] Diltiazem HCl 240 mg 01/20/17 10:00 01/20/17 09:31 Cardizem Cd - PO 240 mg DAILY [facility] Administration Folic Acid 1 mg 01/20/17 10:00 01/20/17 09:35 Folic Acid - PO 1 mg DAILY [facility] Administration Insulin Aspart 1 vial 01/19/17 22:00 01/20/17 06:20 Novolog Vial Sliding Scale - SQ Not Given ACHS [facility] Protocol Levothyroxine Sodium 112 mcg 01/20/17 07:00 01/20/17 06:20 Synthroid - PO 112 mcg DAILY@0700 [facility] Administration Methotrexate 12.5 mg 01/26/17 10:00 Mexate - PO Q7D [facility] Metoprolol Tartrate 5 mg 01/20/17 11:27 Lopressor Injection - IVPUSH Q4H PRN TACHYCARDIA Nystatin 1 applic 01/18/17 12:45 01/20/17 09:32 Nystop Powder - TP 1 applic BID [facility] Administration Prednisone 2.5 mg 01/20/17 10:00 01/20/17 09:35 Deltasone - PO 2.5 mg MoTh@1000 [facility] Administration Ranitidine HCl 150 mg 01/20/17 10:00 Zantac - PO DAILY [facility] Warfarin Sodium 2 mg 01/15/17 18:00 01/19/17 17:08 Coumadin - PO 2 mg DAILY@1800 [facility] Administration Imaging: Renal ultrasound 01/12/2017 - no hydronephrosis - kidneys unremarkable - 2cm left cortical cyst Echo 01/13/17: LV normal in size, normal function, Diastolic dysfunction, Grade II, mod MR, mild TR Assessment: 71 year old female PMHx A fib (on coumadin) DM II, hypothyroidism, HTN, RA, and anemia admitted with dizziness, lightheadedness, palpitations, found to be A fib with RVR. Plan: 1. Atrial fibrillation with RVR, uncontrolled - Add digoxin 0.125 daily - Continue Atenolol 50mg BID - Continue Cardizem 240mg daily - Increase coumadin 4mg tonight, can send home on home dose of 2mg - Daily INR 2. Acute Kidney Injury - Cr stable - Renal cyst f/u as outpt 3. Diastolic dysfunction, grade II - Weight down ~4lbs today 4. HTN - Cont Atenolol 5. DM II - ISS, BGM ACHS - Hold home Metformin 6 Hypothyroidism - Continue Synthroid 112mcg - TSH wnl 7. Rheumatoid Arthritis - Maintain home Prednisone and Methotrexate - f/u with Rhemuatologist as outpatient 8. DVT ppx - On AC 9. Isabel - Nystatin to abdominal folds Dispo: - If HR controlled to 100-110 can go home on above regimen Visit type - Emergency Visit Emergency Visit: Yes ED Registration Date: 01/14/17 Care time: The patient presented to the Emergency Department on the above date and was hospitalized for further evaluation of their emergent condition. - New Patient This patient is new to me today: No - Critical Care Critical Care patient: No
[2017-01-20] MEDS ORDERED: METOPROLOL TARTRATE 5 MG/5 ML VIAL IVPUSH PRN ×2 (11:22→11:27)
--- NOTE | 2017-01-20 11:23 | PN ---
Progress Note, Physician History of Present Illness: No chest pain or dyspnea currently. No new complaints. - Current Medication List Current Medications: Active Medications Acetaminophen (Tylenol -) 650 mg PO Q6H PRN PRN Reason: FEVER OR PAIN Atenolol (Tenormin -) 50 mg PO BID [facility] Last Admin: 01/20/17 09:31 Dose: 50 mg Benzocaine/Menthol (Cepacol Lozenge -) 1 each MM Q4H PRN PRN Reason: SORE THROAT Calcium Carbonate (Os-Serg 500mg -) 500 mg PO DAILY [facility] Last Admin: 01/20/17 09:33 Dose: 500 mg Digoxin (Lanoxin -) 0.125 mg PO DAILY [facility] Diltiazem HCl (Cardizem Cd -) 240 mg PO DAILY [facility] Last Admin: 01/20/17 09:31 Dose: 240 mg Folic Acid (Folic Acid -) 1 mg PO DAILY [facility] Last Admin: 01/20/17 09:35 Dose: 1 mg Insulin Aspart (Novolog Vial Sliding Scale -) 1 vial SQ ACHS [facility] PRN Reason: Protocol Last Admin: 01/20/17 06:20 Dose: Not Given Levothyroxine Sodium (Synthroid -) 112 mcg PO DAILY@0700 [facility] Last Admin: 01/20/17 06:20 Dose: 112 mcg Methotrexate (Mexate -) 12.5 mg PO Q7D [facility] Nystatin (Nystop Powder -) 1 applic TP BID [facility] Last Admin: 01/20/17 09:32 Dose: 1 applic Prednisone (Deltasone -) 2.5 mg PO MoTh@1000 [facility] Last Admin: 01/20/17 09:35 Dose: 2.5 mg Ranitidine HCl (Zantac -) 150 mg PO DAILY [facility] Warfarin Sodium (Coumadin -) 2 mg PO DAILY@1800 [facility] Last Admin: 01/19/17 17:08 Dose: 2 mg - Objective Vital Signs: Vital Signs Temperature 98 F 01/20/17 07:18 Pulse Rate 117 H 01/20/17 07:18 Respiratory Rate 20 01/20/17 07:22 Blood Pressure 98/56 01/20/17 07:18 O2 Sat by Pulse Oximetry (%) 97 01/20/17 07:22 Constitutional: Yes: Well Nourished, No Distress, Obese Eyes: Yes: Conjunctiva Clear, EOM Intact HENT: Yes: Atraumatic, Normocephalic Cardiovascular: Yes: Tachycardia, Pulse Irregular. No: JVD, Murmur Respiratory: Yes: CTA Bilaterally Gastrointestinal: Yes: Normal Bowel Sounds, Soft Edema: No Edema: LLE: 1+, RLE: 1+ Neurological: Yes: Alert, Oriented, Cran Nerves II-XII Intact Labs: CBC, BMP 01/18/17 05:35 01/20/17 05:35 INR, PTT INR 1.99 (0.82-1.09) H 01/20/17 05:35 Assessment/Plan 71 yo female with DM type 2, hypothyroidism, HTN, chronic atrial fibrillation, who was admitted on 01/12/17 with ~ 1 week history of dizziness with changes in position and palpitations. She was admitted with rapid atrial fibrillation and acute renal failure. Suspect that her rapid afib and acute renal failure were exacerbated by dehydration from her colon prep and prior use of diuretic. Patient's renal failure improved with IV fluid hydration. Atrial fibrillation was rate controlled on metoprolol 100 mg po bid and cardizem CD 120 mg po daily initially and patient spontaneously reverted to sinus rhythm but also had syncopal episode on 01/13 (due to bradycardia?). However, patient again developed rapid atrial fibrillation on 01/14 and was restarted on AV mary alice blocking agents. Patient with HR 90-110s on current regimen. Likelihood of staying in sinus if patient was to be cardioverted less likely given recurrence during this hospitalization after converting to sinus spontaneously. RECS: Will continue atenolol 50 mg po bid and Cardizem CD to 240 mg po daily for afib rate control. Will add digoxin 0.125 mg po daily. May given metoprolol 5 mg IV q4 hours prn HR > 120. If patient should develop symptomatic bradycardia again, may need to consider pacemaker for backup while on AV mary alice blocking agents for afib rate control. Continue coumadin 2mg po daily. INR 2.3 today. Will follow. Call with questions.
[2017-01-20] MEDS: DIGOXIN 0.125 MG TABLET (FP) PO SCH (12:42)
[2017-01-20] MEDS ORDERED: MAGNESIUM SULF 50% (8.12 MEQ/2 ML-1 GM VIAL) ONE (12:43)
--- NOTE | 2017-01-20 12:46 | PN ---
Progress Note, Physician History of Present Illness: Pt seen and examined at bedside. She is awake and alert. She feels that her breathing is improving. She still complains of lower extremity edema. - Current Medication List Current Medications: Active Medications Acetaminophen (Tylenol -) 650 mg PO Q6H PRN PRN Reason: FEVER OR PAIN Atenolol (Tenormin -) 50 mg PO BID [facility] Last Admin: 01/20/17 09:31 Dose: 50 mg Benzocaine/Menthol (Cepacol Lozenge -) 1 each MM Q4H PRN PRN Reason: SORE THROAT Calcium Carbonate (Os-Serg 500mg -) 500 mg PO DAILY [facility] Last Admin: 01/20/17 09:33 Dose: 500 mg Digoxin (Lanoxin -) 0.125 mg PO DAILY [facility] Diltiazem HCl (Cardizem Cd -) 240 mg PO DAILY [facility] Last Admin: 01/20/17 09:31 Dose: 240 mg Folic Acid (Folic Acid -) 1 mg PO DAILY [facility] Last Admin: 01/20/17 09:35 Dose: 1 mg Insulin Aspart (Novolog Vial Sliding Scale -) 1 vial SQ ACHS [facility] PRN Reason: Protocol Last Admin: 01/20/17 06:20 Dose: Not Given Levothyroxine Sodium (Synthroid -) 112 mcg PO DAILY@0700 [facility] Last Admin: 01/20/17 06:20 Dose: 112 mcg Methotrexate (Mexate -) 12.5 mg PO Q7D [facility] Metoprolol Tartrate (Lopressor Injection -) 5 mg IVPUSH Q4H PRN PRN Reason: TACHYCARDIA Nystatin (Nystop Powder -) 1 applic TP BID [facility] Last Admin: 01/20/17 09:32 Dose: 1 applic Prednisone (Deltasone -) 2.5 mg PO MoTh@1000 [facility] Last Admin: 01/20/17 09:35 Dose: 2.5 mg Ranitidine HCl (Zantac -) 150 mg PO DAILY [facility] Warfarin Sodium (Coumadin -) 2 mg PO DAILY@1800 [facility] Last Admin: 01/19/17 17:08 Dose: 2 mg - Objective Vital Signs: Vital Signs Temperature 98 F 01/20/17 07:18 Pulse Rate 117 H 01/20/17 07:18 Respiratory Rate 20 01/20/17 07:22 Blood Pressure 98/56 01/20/17 07:18 O2 Sat by Pulse Oximetry (%) 97 01/20/17 07:22 Constitutional: Yes: Calm Eyes: Yes: Conjunctiva Clear HENT: Yes: Atraumatic Neck: Yes: Supple Cardiovascular: Yes: S1, S2 Respiratory: Yes: CTA Bilaterally Gastrointestinal: Yes: Soft, Abdomen, Obese Genitourinary: Yes: WNL Musculoskeletal: Yes: WNL Edema: Yes Edema: LLE: 1+, RLE: 1+ Neurological: Yes: Oriented Psychiatric: Yes: Oriented Labs: CBC, BMP 01/18/17 05:35 01/20/17 05:35 INR, PTT INR 1.99 (0.82-1.09) H 01/20/17 05:35 Problem List - Problems (1) DUARTE (acute kidney injury) Code(s): N17.9 - ACUTE KIDNEY FAILURE, UNSPECIFIED (2) Anemia Code(s): D64.9 - ANEMIA, UNSPECIFIED Qualifiers: Anemia type: unspecified type Qualified Code(s): D64.9 - Anemia, unspecified (3) DM (diabetes mellitus) Code(s): E11.9 - TYPE 2 DIABETES MELLITUS WITHOUT COMPLICATIONS Qualifiers: Diabetes mellitus type: type 2 Diabetes mellitus complication status: without complication Diabetes mellitus correction insulin use: without correction use Qualified Code(s): E11.9 - Type 2 diabetes mellitus without complications (4) HTN (hypertension) Code(s): I10 - ESSENTIAL (PRIMARY) HYPERTENSION Qualifiers: Hypertension type: essential hypertension Qualified Code(s): I10 - Essential (primary) hypertension Assessment/Plan Current Medications Generic Name Dose Route Start Last Admin Trade Name Freq PRN Reason Stop Dose Admin Acetaminophen 650 mg 01/19/17 19:29 Tylenol - PO Q6H PRN FEVER OR PAIN Atenolol 50 mg 01/19/17 22:00 01/20/17 09:31 Tenormin - PO 50 mg BID [facility] Administration Benzocaine/Menthol 1 each 01/19/17 19:29 Cepacol Lozenge - MM Q4H PRN SORE THROAT Calcium Carbonate 500 mg 01/20/17 10:00 01/20/17 09:33 Os-Serg 500mg - PO 500 mg DAILY [facility] Administration Digoxin 0.125 mg 01/20/17 11:30 Lanoxin - PO DAILY [facility] Diltiazem HCl 240 mg 01/20/17 10:00 01/20/17 09:31 Cardizem Cd - PO 240 mg DAILY [facility] Administration Folic Acid 1 mg 01/20/17 10:00 01/20/17 09:35 Folic Acid - PO 1 mg DAILY [facility] Administration Insulin Aspart 1 vial 01/19/17 22:00 01/20/17 06:20 Novolog Vial Sliding Scale - SQ Not Given ACHS [facility] Protocol Levothyroxine Sodium 112 mcg 01/20/17 07:00 01/20/17 06:20 Synthroid - PO 112 mcg DAILY@0700 [facility] Administration Methotrexate 12.5 mg 01/26/17 10:00 Mexate - PO Q7D [facility] Metoprolol Tartrate 5 mg 01/20/17 11:27 Lopressor Injection - IVPUSH Q4H PRN TACHYCARDIA Nystatin 1 applic 01/18/17 12:45 01/20/17 09:32 Nystop Powder - TP 1 applic BID [facility] Administration Prednisone 2.5 mg 01/20/17 10:00 01/20/17 09:35 Deltasone - PO 2.5 mg MoTh@1000 [facility] Administration Ranitidine HCl 150 mg 01/20/17 10:00 Zantac - PO DAILY [facility] Warfarin Sodium 2 mg 01/15/17 18:00 01/19/17 17:08 Coumadin - PO 2 mg DAILY@1800 [facility] Administration Laboratory Tests 01/20/17 05:35 Magnesium 1.5 L D Impression 1. DUARTE 2. hyponatremia 3. hypokalemia 4. left kidney cyst 5. hematuria 6. A Fib 7. NIDDM 8. Hypothyroid 9. HTN 10. arthritis 11. anemia Plan - will give a dose of lasix today - repeat labs in am - pt will likely need diuretics on discharge - replace mag - renal cyst need to be followed up - cont current meds - will follow Dr Ugarte
[2017-01-20] MEDS: FUROSEMIDE 40 MG TABLET (FP) PO SCH (13:12)
--- NOTE | 2017-01-20 15:28 | PN ---
Progress Note (short form) - Note Progress Note: Feels breathing is improved. No SOB. (?) mild chest tightness last night. No acute events documented. Intake & Output 01/17/17 01/18/17 01/19/17 01/20/17 23:59 23:59 23:59 23:59 Intake Total 210 250 320 40 Output Total 900 700 Balance -690 -450 320 40 Weight 187 lb 185 lb 6 oz 181 lb 1 oz 180 lb Last Vital Signs Temp Pulse Resp BP Pulse Ox 98.2 F 104 H 20 117/67 97 01/20/17 14:10 01/20/17 14:10 01/20/17 14:10 01/20/17 14:10 01/20/17 07:22 Active Medications Acetaminophen (Tylenol -) 650 mg PO Q6H PRN PRN Reason: FEVER OR PAIN Atenolol (Tenormin -) 50 mg PO BID [facility] Last Admin: 01/20/17 09:31 Dose: 50 mg Benzocaine/Menthol (Cepacol Lozenge -) 1 each MM Q4H PRN PRN Reason: SORE THROAT Calcium Carbonate (Os-Serg 500mg -) 500 mg PO DAILY [facility] Last Admin: 01/20/17 09:33 Dose: 500 mg Digoxin (Lanoxin -) 0.125 mg PO DAILY [facility] Last Admin: 01/20/17 12:42 Dose: 0.125 mg Diltiazem HCl (Cardizem Cd -) 240 mg PO DAILY [facility] Last Admin: 01/20/17 09:31 Dose: 240 mg Folic Acid (Folic Acid -) 1 mg PO DAILY [facility] Last Admin: 01/20/17 09:35 Dose: 1 mg Furosemide (Lasix -) 40 mg PO DAILY [facility] Insulin Aspart (Novolog Vial Sliding Scale -) 1 vial SQ ACHS [facility] PRN Reason: Protocol Last Admin: 01/20/17 06:20 Dose: Not Given Levothyroxine Sodium (Synthroid -) 112 mcg PO DAILY@0700 [facility] Last Admin: 01/20/17 06:20 Dose: 112 mcg Methotrexate (Mexate -) 12.5 mg PO Q7D [facility] Metoprolol Tartrate (Lopressor Injection -) 5 mg IVPUSH Q4H PRN PRN Reason: TACHYCARDIA Nystatin (Nystop Powder -) 1 applic TP BID [facility] Last Admin: 01/20/17 09:32 Dose: 1 applic Prednisone (Deltasone -) 2.5 mg PO MoTh@1000 [facility] Last Admin: 01/20/17 09:35 Dose: 2.5 mg Ranitidine HCl (Zantac -) 150 mg PO DAILY [facility] Last Admin: 01/20/17 10:44 Dose: 150 mg Warfarin Sodium (Coumadin -) 2 mg PO DAILY@1800 [facility] Last Admin: 01/19/17 17:08 Dose: 2 mg Gen: NAD at rest Heart: RRR Lung: decreased breath sounds at the bases Abd: soft, nontender Ext: (+) PP 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: Non-focal Laboratory Results - last 24 hr 01/19/17 01/19/17 01/20/17 15:43 21:02 05:35 INR 1.99 H Sodium Potassium Chloride Carbon Dioxide Anion Gap BUN Creatinine POC Glucometer 165 216 Random Glucose Calcium Magnesium 01/20/17 01/20/17 05:35 06:18 INR Sodium 137 Potassium 4.2 D Chloride 106 Carbon Dioxide 21 Anion Gap 10 BUN 13 Creatinine 1.1 H POC Glucometer 117 Random Glucose 100 Calcium 8.0 L Magnesium 1.5 L D ASSESSMENT AND PLAN: Syncope Paroxysmal Atrial Fibrillation with RVR +Troponins Acute Kidney Injury HTN DM Hypothyroidism Rheumatoid Arthritis - rate controlling agents per cardiology - Coumadin - Lasix - O2 only as needed - Continue home meds Dr Lay
[2017-01-20] MEDS: WARFARIN NA 2 MG TABLET (UD) PO SCH (17:57)
[2017-01-21] MEDS: INSULIN SLIDING SCALE (NOVOLOG) 1 VIAL SQ SCH ×4 (06:11→23:07)
[2017-01-21] MEDS: LEVOTHYROXINE NA 112 MCG TABLET (FP) PO SCH (06:13)
[2017-01-21 07:02] LABS: INR 1.83 (0.82-1.09); PROTHROMBIN TIME (PATIENT) 20.4 SEC (9.98-11.88)
[2017-01-21 07:37] LABS: CALCIUM 8.2 mg/dL (8.5-10.1); CREATININE 1.2 mg/dL (0.55-1.02); MAGNESIUM 1.9 mg/dL (1.8-2.4)
--- NOTE | 2017-01-21 07:39 | PN ---
[id number] 4d HR up to 138 overnight; 120s this morning. Vital Signs Period Temp Pulse Resp BP Sys/[place] Pulse Ox Last 24 Hr 97.2 F-98.4 F 98-138 20-20 100-130/60-87 99 GENERAL: The patient is awake, alert, and fully oriented, in no acute distress. HEAD: Normal with no signs of trauma. EYES: PERRL, extraocular movements intact, sclera anicteric, conjunctiva clear. No ptosis. ENT: Ears normal, nares patent, oropharynx clear without exudates, moist mucous membranes. NECK: Trachea midline, full range of motion, supple. LUNGS: Breath sounds equal, clear to auscultation bilaterally, no wheezes, no crackles, no accessory muscle use. HEART: Irregular rhythm, S1, S2 without murmur, rub or gallop. ABDOMEN: Soft, nontender, nondistended, normoactive bowel sounds, no guarding, no rebound, no hepatosplenomegaly, no masses. EXTREMITIES: 2+ pulses, warm, well-perfused. 1+ pitting edema bilaterally. NEUROLOGICAL: Cranial nerves II through XII grossly intact. Normal speech, gait not observed. PSYCH: Normal mood, normal affect. SKIN: Warm, dry, normal turgor, no rashes or lesions noted Laboratory Results - last 24 hr 01/20/17 01/20/17 01/20/17 05:35 05:35 17:02 INR 1.99 H Sodium 137 Potassium 4.2 D Chloride 106 Carbon Dioxide 21 Anion Gap 10 BUN 13 Creatinine 1.1 H POC Glucometer 205 Random Glucose 100 Calcium 8.0 L Magnesium 1.5 L D 01/20/17 01/21/17 01/21/17 22:20 05:35 05:40 INR 1.83 H Sodium Potassium Chloride Carbon Dioxide Anion Gap BUN Creatinine POC Glucometer 207 93 Random Glucose Calcium Magnesium Active Medications Generic Name Dose Route Start Last Admin Trade Name Freq PRN Reason Stop Dose Admin Acetaminophen 650 mg 01/19/17 19:29 Tylenol - PO Q6H PRN FEVER OR PAIN Atenolol 50 mg 01/19/17 22:00 01/20/17 22:26 Tenormin - PO 50 mg BID [facility] Administration Benzocaine/Menthol 1 each 01/19/17 19:29 Cepacol Lozenge - MM Q4H PRN SORE THROAT Calcium Carbonate 500 mg 01/20/17 10:00 01/20/17 09:33 Os-Serg 500mg - PO 500 mg DAILY [facility] Administration Digoxin 0.125 mg 01/20/17 11:30 01/20/17 12:42 Lanoxin - PO 0.125 mg DAILY [facility] Administration Diltiazem HCl 240 mg 01/20/17 10:00 01/20/17 09:31 Cardizem Cd - PO 240 mg DAILY [facility] Administration Folic Acid 1 mg 01/20/17 10:00 01/20/17 09:35 Folic Acid - PO 1 mg DAILY [facility] Administration Furosemide 40 mg 01/20/17 13:00 01/20/17 13:12 Lasix - PO 40 mg DAILY [facility] Administration Insulin Aspart 1 vial 01/19/17 22:00 01/21/17 06:11 Novolog Vial Sliding Scale - SQ Not Given ACHS [facility] Protocol Levothyroxine Sodium 112 mcg 01/20/17 07:00 01/21/17 06:13 Synthroid - PO 112 mcg DAILY@0700 [facility] Administration Methotrexate 12.5 mg 01/26/17 10:00 Mexate - PO Q7D [facility] Metoprolol Tartrate 5 mg 01/20/17 11:27 Lopressor Injection - IVPUSH Q4H PRN TACHYCARDIA Nystatin 1 applic 01/18/17 12:45 01/20/17 22:26 Nystop Powder - TP 1 applic BID [facility] Administration Prednisone 2.5 mg 01/20/17 10:00 01/20/17 09:35 Deltasone - PO 2.5 mg MoTh@1000 [facility] Administration Ranitidine HCl 150 mg 01/20/17 10:00 01/20/17 10:44 Zantac - PO 150 mg DAILY [facility] Administration Warfarin Sodium 4 mg 01/20/17 18:00 01/20/17 17:57 Coumadin - PO 4 mg DAILY@1800 [facility] Administration Imaging: Renal ultrasound 01/12/2017 - no hydronephrosis - kidneys unremarkable - 2cm left cortical cyst Echo 01/13/17: LV normal in size, normal function, Diastolic dysfunction, Grade II, mod MR, mild TR ASSESSMENT/PLAN: 71 year old female with a history of Afib (on Coumadin) NIDDM, hypothyroidism, HTN, RA, and anemia admitted [id number] Afib, symptomatic. 1. Atrial fibrillation with RVR, tachy-joleen syndrome -Continue digoxin 0.125 daily -Continue Atenolol 50mg BID -Continue Cardizem 240mg daily -Rate is still above goal; will discuss with cardiology -Continue Coumadin 4mg for mildly subtherapeutic INR; can dc on home dose 2mg -Daily INR 2. Acute Kidney Injury -Cr improved with hydration; stable at 1.1-1.2 -Needs to follow up renal cyst as outpatient 3. Diastolic dysfunction, grade II -Euvolemic 4. HTN -Cont Atenolol 5. DM II -Holding Metfomin while inpatient -ISS, FSACHS, Diabetic di 6. Hypothyroidism -Continue Synthroid 112mcg 7. Rheumatoid Arthritis -Continue home prednisone, methotrexate -F/u with rhemuatologist as outpatient 8. DVT ppx -Therapeutic AC 9. Isabel -Nystatin to abdominal folds Dispo: Needs to remain inpatient until HR controlled. 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 Moffett. Because of her brittle rate and multiple syncopal episodes, she is a candidate for atrial fibrillation ablation vs. pacemaker placement. He recommends EP evaluation at [facility] during this admission. Dr. Gaona can accept patient for transfer on Tuesday. Please call Dr. Moffett with questions at [phone] (this is a personal number). Visit type - Emergency Visit Emergency Visit: Yes ED Registration Date: 01/14/17 Care time: The patient presented to the Emergency Department on the above date and was hospitalized for further evaluation of their emergent condition. - New Patient This patient is new to me today: Yes Date on this admission: 01/14/17 - Critical Care Critical Care patient: No
--- NOTE | 2017-01-21 08:33 | PN ---
Progress Note, Physician History of Present Illness: Pt seen and examined at bedside. She is awake and alert. She feels that her breathing is improved. - Current Medication List Current Medications: Active Medications Acetaminophen (Tylenol -) 650 mg PO Q6H PRN PRN Reason: FEVER OR PAIN Atenolol (Tenormin -) 50 mg PO BID [facility] Last Admin: 01/20/17 22:26 Dose: 50 mg Benzocaine/Menthol (Cepacol Lozenge -) 1 each MM Q4H PRN PRN Reason: SORE THROAT Calcium Carbonate (Os-Serg 500mg -) 500 mg PO DAILY [facility] Last Admin: 01/20/17 09:33 Dose: 500 mg Digoxin (Lanoxin -) 0.125 mg PO DAILY [facility] Last Admin: 01/20/17 12:42 Dose: 0.125 mg Diltiazem HCl (Cardizem Cd -) 240 mg PO DAILY [facility] Last Admin: 01/20/17 09:31 Dose: 240 mg Folic Acid (Folic Acid -) 1 mg PO DAILY [facility] Last Admin: 01/20/17 09:35 Dose: 1 mg Furosemide (Lasix -) 40 mg PO DAILY [facility] Last Admin: 01/20/17 13:12 Dose: 40 mg Insulin Aspart (Novolog Vial Sliding Scale -) 1 vial SQ ACHS [facility] PRN Reason: Protocol Last Admin: 01/21/17 06:11 Dose: Not Given Levothyroxine Sodium (Synthroid -) 112 mcg PO DAILY@0700 [facility] Last Admin: 01/21/17 06:13 Dose: 112 mcg Methotrexate (Mexate -) 12.5 mg PO Q7D [facility] Metoprolol Tartrate (Lopressor Injection -) 5 mg IVPUSH Q4H PRN PRN Reason: TACHYCARDIA Nystatin (Nystop Powder -) 1 applic TP BID [facility] Last Admin: 01/20/17 22:26 Dose: 1 applic Prednisone (Deltasone -) 2.5 mg PO MoTh@1000 [facility] Last Admin: 01/20/17 09:35 Dose: 2.5 mg Ranitidine HCl (Zantac -) 150 mg PO DAILY [facility] Last Admin: 01/20/17 10:44 Dose: 150 mg Warfarin Sodium (Coumadin -) 4 mg PO DAILY@1800 [facility] Last Admin: 01/20/17 17:57 Dose: 4 mg - Objective Vital Signs: Vital Signs Temperature 97.8 F 01/21/17 06:00 Pulse Rate 98 H 01/21/17 06:00 Respiratory Rate 20 01/21/17 06:00 Blood Pressure 100/60 01/21/17 06:00 O2 Sat by Pulse Oximetry (%) 99 01/20/17 21:00 Constitutional: Yes: Calm Eyes: Yes: Conjunctiva Clear HENT: Yes: Atraumatic Neck: Yes: Supple Cardiovascular: Yes: S1, S2 Respiratory: Yes: CTA Bilaterally Gastrointestinal: Yes: Soft, Abdomen, Obese Genitourinary: Yes: WNL Musculoskeletal: Yes: WNL Edema: Yes Edema: LLE: 1+, RLE: 1+ Neurological: Yes: Oriented Psychiatric: Yes: Oriented Labs: CBC, BMP 01/18/17 05:35 01/21/17 05:35 INR, PTT INR 1.83 (0.82-1.09) H 01/21/17 05:35 Problem List - Problems (1) DUARTE (acute kidney injury) Code(s): N17.9 - ACUTE KIDNEY FAILURE, UNSPECIFIED (2) Anemia Code(s): D64.9 - ANEMIA, UNSPECIFIED Qualifiers: Anemia type: unspecified type Qualified Code(s): D64.9 - Anemia, unspecified (3) DM (diabetes mellitus) Code(s): E11.9 - TYPE 2 DIABETES MELLITUS WITHOUT COMPLICATIONS Qualifiers: Diabetes mellitus type: type 2 Diabetes mellitus complication status: without complication Diabetes mellitus skilled nursing insulin use: without intermodal truck driver use Qualified Code(s): E11.9 - Type 2 diabetes mellitus without complications (4) HTN (hypertension) Code(s): I10 - ESSENTIAL (PRIMARY) HYPERTENSION Qualifiers: Hypertension type: essential hypertension Qualified Code(s): I10 - Essential (primary) hypertension Assessment/Plan Current Medications Generic Name Dose Route Start Last Admin Trade Name Freq PRN Reason Stop Dose Admin Acetaminophen 650 mg 01/19/17 19:29 Tylenol - PO Q6H PRN FEVER OR PAIN Atenolol 50 mg 01/19/17 22:00 01/20/17 22:26 Tenormin - PO 50 mg BID [facility] Administration Benzocaine/Menthol 1 each 01/19/17 19:29 Cepacol Lozenge - MM Q4H PRN SORE THROAT Calcium Carbonate 500 mg 01/20/17 10:00 01/20/17 09:33 Os-Serg 500mg - PO 500 mg DAILY [facility] Administration Digoxin 0.125 mg 01/20/17 11:30 01/20/17 12:42 Lanoxin - PO 0.125 mg DAILY [facility] Administration Diltiazem HCl 240 mg 01/20/17 10:00 01/20/17 09:31 Cardizem Cd - PO 240 mg DAILY [facility] Administration Folic Acid 1 mg 01/20/17 10:00 01/20/17 09:35 Folic Acid - PO 1 mg DAILY [facility] Administration Furosemide 40 mg 01/20/17 13:00 01/20/17 13:12 Lasix - PO 40 mg DAILY [facility] Administration Insulin Aspart 1 vial 01/19/17 22:00 01/21/17 06:11 Novolog Vial Sliding Scale - SQ Not Given [facility] Protocol Levothyroxine Sodium 112 mcg 01/20/17 07:00 01/21/17 06:13 Synthroid - PO 112 mcg DAILY@0700 [facility] Administration Methotrexate 12.5 mg 01/26/17 10:00 Mexate - PO Q7D [facility] Metoprolol Tartrate 5 mg 01/20/17 11:27 Lopressor Injection - IVPUSH Q4H PRN TACHYCARDIA Nystatin 1 applic 01/18/17 12:45 01/20/17 22:26 Nystop Powder - TP 1 applic BID [facility] Administration Prednisone 2.5 mg 01/20/17 10:00 01/20/17 09:35 Deltasone - PO 2.5 mg MoTh@1000 [facility] Administration Ranitidine HCl 150 mg 01/20/17 10:00 01/20/17 10:44 Zantac - PO 150 mg DAILY [facility] Administration Warfarin Sodium 4 mg 01/20/17 18:00 01/20/17 17:57 Coumadin - PO 4 mg DAILY@1800 [facility] Administration Impression 1. DUARTE 2. hyponatremia 3. hypokalemia 4. left kidney cyst 5. hematuria 6. A Fib 7. NIDDM 8. Hypothyroid 9. HTN 10. arthritis 11. anemia Plan - cont with lasix today - replace potassium - will need outpt follow up - renal cyst need to be followed up - cont current meds - will follow Dr Ugarte
[2017-01-21] MEDS ORDERED: POTASSIUM CHLORIDE TABS 20 MEQ TABLET.ER (FP) PO ONE (08:45)
[2017-01-21] MEDS: DIGOXIN 0.125 MG TABLET (FP) PO SCH (09:24)
[2017-01-21] MEDS: FOLIC ACID 1 MG TABLET (FP) PO SCH (09:24)
[2017-01-21] MEDS: RANITIDINE HCL 150 MG TABLET (FP) PO SCH (09:24)
[2017-01-21] MEDS: CALCIUM (OYSTER SHELL) 500 MG TABLET (FP) PO SCH (09:24)
[2017-01-21] MEDS: NYSTATIN POWDER 100,000 UNITS/GM - 15 GM TOPICAL POWDER TP SCH ×2 (09:25→23:07)
[2017-01-21] MEDS: ATENOLOL 50 MG TABLET (FP) PO SCH ×2 (09:25→23:08)
[2017-01-21] MEDS: FUROSEMIDE 40 MG TABLET (FP) PO SCH (09:25)
--- NOTE | 2017-01-21 11:22 | PN ---
Progress Note, Physician History of Present Illness: PULMONARY ALERT,NAD,-SOB,-CP - Current Medication List Current Medications: Active Medications Acetaminophen (Tylenol -) 650 mg PO Q6H PRN PRN Reason: FEVER OR PAIN Atenolol (Tenormin -) 50 mg PO BID [facility] Last Admin: 01/21/17 09:25 Dose: 50 mg Benzocaine/Menthol (Cepacol Lozenge -) 1 each MM Q4H PRN PRN Reason: SORE THROAT Calcium Carbonate (Os-Serg 500mg -) 500 mg PO DAILY [facility] Last Admin: 01/21/17 09:24 Dose: 500 mg Digoxin (Lanoxin -) 0.125 mg PO DAILY [facility] Last Admin: 01/21/17 09:24 Dose: 0.125 mg Diltiazem HCl (Cardizem Cd -) 240 mg PO DAILY [facility] Last Admin: 01/21/17 09:24 Dose: 240 mg Folic Acid (Folic Acid -) 1 mg PO DAILY [facility] Last Admin: 01/21/17 09:24 Dose: 1 mg Furosemide (Lasix -) 40 mg PO DAILY [facility] Last Admin: 01/21/17 09:25 Dose: 40 mg Insulin Aspart (Novolog Vial Sliding Scale -) 1 vial SQ ACHS [facility] PRN Reason: Protocol Last Admin: 01/21/17 06:11 Dose: Not Given Levothyroxine Sodium (Synthroid -) 112 mcg PO DAILY@0700 [facility] Last Admin: 01/21/17 06:13 Dose: 112 mcg Methotrexate (Mexate -) 12.5 mg PO Q7D [facility] Metoprolol Tartrate (Lopressor Injection -) 5 mg IVPUSH Q4H PRN PRN Reason: TACHYCARDIA Nystatin (Nystop Powder -) 1 applic TP BID [facility] Last Admin: 01/21/17 09:25 Dose: 1 applic Prednisone (Deltasone -) 2.5 mg PO MoTh@1000 [facility] Last Admin: 01/20/17 09:35 Dose: 2.5 mg Ranitidine HCl (Zantac -) 150 mg PO DAILY [facility] Last Admin: 01/21/17 09:24 Dose: 150 mg Warfarin Sodium (Coumadin -) 4 mg PO DAILY@1800 [facility] Last Admin: 01/20/17 17:57 Dose: 4 mg - Objective Vital Signs: Vital Signs Temperature 97.8 F 01/21/17 06:00 Pulse Rate 122 H 01/21/17 09:24 Respiratory Rate 20 01/21/17 06:00 Blood Pressure 100/60 01/21/17 06:00 O2 Sat by Pulse Oximetry (%) 99 01/20/17 21:00 Constitutional: Yes: Well Nourished, Calm Eyes: Yes: WNL HENT: Yes: WNL Neck: Yes: WNL Cardiovascular: Yes: Pulse Irregular, S1, S2 Respiratory: Yes: Diminished Gastrointestinal: Yes: Normal Bowel Sounds, Soft Extremities: Yes: WNL Edema: Yes Labs: CBC, BMP 01/18/17 05:35 01/21/17 05:35 INR, PTT INR 1.83 (0.82-1.09) H 01/21/17 05:35 Problem List - Problems (1) DUARTE (acute kidney injury) Code(s): N17.9 - ACUTE KIDNEY FAILURE, UNSPECIFIED (2) Anemia Code(s): D64.9 - ANEMIA, UNSPECIFIED Qualifiers: Anemia type: unspecified type Qualified Code(s): D64.9 - Anemia, unspecified (3) Atrial fibrillation with rapid ventricular response Code(s): I48.91 - UNSPECIFIED ATRIAL FIBRILLATION (4) DM (diabetes mellitus) Code(s): E11.9 - TYPE 2 DIABETES MELLITUS WITHOUT COMPLICATIONS Qualifiers: Diabetes mellitus type: type 2 Diabetes mellitus complication status: without complication Diabetes mellitus halfway insulin use: without technician terminal and repeater use Qualified Code(s): E11.9 - Type 2 diabetes mellitus without complications (5) HTN (hypertension) Code(s): I10 - ESSENTIAL (PRIMARY) HYPERTENSION Qualifiers: Hypertension type: essential hypertension Qualified Code(s): I10 - Essential (primary) hypertension (6) Hypothyroidism Code(s): E03.9 - HYPOTHYROIDISM, UNSPECIFIED Qualifiers: Hypothyroidism type: unspecified Qualified Code(s): E03.9 - Hypothyroidism, unspecified Assessment/Plan ASSESSMENT AND PLAN: Syncope Paroxysmal Atrial Fibrillation with RVR +Troponins Acute Kidney Injury HTN DM Hypothyroidism Rheumatoid Arthritis - rate control as per cardiology - continue anticoagulation - monitor urine output, creatinine - monitor lytes,cbc DR HOWARD
[2017-01-21 11:33] LABS: BASOPHIL 0.2 % (0-2.0); EOSINOPHIL 3.4 % (0-4.5); MCH 25.9 pg (25.7-33.7); MCHC 31.9 g/dl (32.0-36.0); MEAN CELL VOLUME 81.2 fl (80-96); MEAN PLT VOLUME 8.5 fl (7.5-11.1); NEUTROPHILS 66.5 % (42.8-82.8); PLATELET COUNT 169 K/MM3 (134-434); RDW 23.5 % (11.6-15.6); WHITE BLOOD COUNT 5.3 K/mm3 (4.0-10.0)
--- NOTE | 2017-01-21 14:02 | PN ---
Progress Note, Physician Chief Complaint: Paroxysmal AFib. RVR History of Present Illness: No overnight events. No current complaints. Denies CP, SOB, or other CV symptoms. On rate control (Metoprolol was recently switched to Atenolol), Diltiazem and Digoxin (started yesterday) Tele: AFib at 95-115. No events. - Current Medication List Current Medications: Active Medications Acetaminophen (Tylenol -) 650 mg PO Q6H PRN PRN Reason: FEVER OR PAIN Atenolol (Tenormin -) 50 mg PO BID [facility] Last Admin: 01/21/17 09:25 Dose: 50 mg Benzocaine/Menthol (Cepacol Lozenge -) 1 each MM Q4H PRN PRN Reason: SORE THROAT Calcium Carbonate (Os-Serg 500mg -) 500 mg PO DAILY [facility] Last Admin: 01/21/17 09:24 Dose: 500 mg Digoxin (Lanoxin -) 0.125 mg PO DAILY [facility] Last Admin: 01/21/17 09:24 Dose: 0.125 mg Diltiazem HCl (Cardizem Cd -) 240 mg PO DAILY [facility] Last Admin: 01/21/17 09:24 Dose: 240 mg Folic Acid (Folic Acid -) 1 mg PO DAILY [facility] Last Admin: 01/21/17 09:24 Dose: 1 mg Furosemide (Lasix -) 40 mg PO DAILY [facility] Last Admin: 01/21/17 09:25 Dose: 40 mg Insulin Aspart (Novolog Vial Sliding Scale -) 1 vial SQ ACHS [facility] PRN Reason: Protocol Last Admin: 01/21/17 11:56 Dose: Not Given Levothyroxine Sodium (Synthroid -) 112 mcg PO DAILY@0700 [facility] Last Admin: 01/21/17 06:13 Dose: 112 mcg Methotrexate (Mexate -) 12.5 mg PO Q7D [facility] Metoprolol Tartrate (Lopressor Injection -) 5 mg IVPUSH Q4H PRN PRN Reason: TACHYCARDIA Nystatin (Nystop Powder -) 1 applic TP BID [facility] Last Admin: 01/21/17 09:25 Dose: 1 applic Prednisone (Deltasone -) 2.5 mg PO MoTh@1000 [facility] Last Admin: 01/20/17 09:35 Dose: 2.5 mg Ranitidine HCl (Zantac -) 150 mg PO DAILY [facility] Last Admin: 01/21/17 09:24 Dose: 150 mg Warfarin Sodium (Coumadin -) 4 mg PO DAILY@1800 [facility] Last Admin: 01/20/17 17:57 Dose: 4 mg - Objective Vital Signs: Vital Signs Temperature 97.8 F 01/21/17 10:00 Pulse Rate 109 H 01/21/17 10:00 Respiratory Rate 18 01/21/17 10:00 Blood Pressure 123/57 01/21/17 10:00 O2 Sat by Pulse Oximetry (%) 99 01/21/17 09:00 Constitutional: Yes: Well Nourished, No Distress, Calm Neck: Yes: WNL Cardiovascular: Yes: Pulse Irregular (Irregularly irregular). No: JVD, Gallop, Murmur Respiratory: Yes: CTA Bilaterally Gastrointestinal: Yes: Normal Bowel Sounds, Soft Extremities: Yes: WNL (Warm extremities) Edema: LLE: 1+, RLE: 1+ Neurological: Yes: Alert, Oriented Labs: CBC, BMP 01/21/17 07:35 01/21/17 05:35 INR, PTT INR 1.83 (0.82-1.09) H 01/21/17 05:35 - ....Imaging Chest X-ray: Report Reviewed EKG: Report Reviewed, Image Reviewed (01/14/17: NSR at 66. Normal axis. Non- specific ST-T changes.) Other: Other (Echo - 01/13/2107: Normal LV size and function. EF: 60 - 65%. Diastolic dysfunction. Mild LAE (4.4) No wma. Mor MR) Problem List - Problems (1) DUARTE (acute kidney injury) Code(s): N17.9 - ACUTE KIDNEY FAILURE, UNSPECIFIED (2) Anemia Code(s): D64.9 - ANEMIA, UNSPECIFIED Qualifiers: Anemia type: unspecified type Qualified Code(s): D64.9 - Anemia, unspecified (3) Atrial fibrillation with rapid ventricular response Code(s): I48.91 - UNSPECIFIED ATRIAL FIBRILLATION (4) HTN (hypertension) Code(s): I10 - ESSENTIAL (PRIMARY) HYPERTENSION Qualifiers: Hypertension type: essential hypertension Qualified Code(s): I10 - Essential (primary) hypertension Assessment/Plan 71 yo female with HTN, DM, hypothyroidism, persistent atrial fibrillation on rate control and systemic AC, who was admitted on 01/12/17 due to dizziness and palpitations. Patient was found to have Afib with RVR, DUARTE in the setting of dehydration likely secondary to prep for colonoscopy. Renal function improved after hydration. During the present admission patient had a syncopal episode in the setting of afib conversion to NSR (01/13) due to ?bradycardia (Tachy-Bill Syndrome?). AV mary alice blockers were restarted due to new episodes of Afib w RVR. Hemodynamically stable. No current complaints. Persistent AFib. 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 On Atenolol, Cardizem and Digoxin with better ventricular response. Patient with episodes of syncope in the setting of spontaneous conversion. RECS: Will continue current medications for rate control including Digoxin. Continue telemetry monitoring for now. Continue systemic AC for stroke prevention. Please consider EP evaluation for possible advanced therapies (Ablation) vs. 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 Case was discussed with EP service at [facility]. Patient is likely a good candidate for AFib ablation vs. PPM I discussed the indications, risk vs benefits and alternative treatment of possible advanced therapies for AFib (i.e. Ablation) with Mrs. Grimm and a closed friend of her family ([employer] RN). She is wiling to be evaluated by EP service after discussing the recommendations with her son and daughter. Please contact Dr. Gaona at [facility] (EP service - AFib Ablation program attending) if patient and her family agree. All recommendations were discussed with attending and team. Will follow. Call with questions.
[2017-01-21] MEDS: WARFARIN NA 2 MG TABLET (UD) PO SCH (17:29)
[2017-01-22] MEDS: INSULIN SLIDING SCALE (NOVOLOG) 1 VIAL SQ SCH ×4 (06:24→22:25)
[2017-01-22] MEDS: LEVOTHYROXINE NA 112 MCG TABLET (FP) PO SCH (06:27)
[2017-01-22 07:58] LABS: BASOPHIL 0.8 % (0-2.0); EOSINOPHIL 3.3 % (0-4.5); MCH 26.1 pg (25.7-33.7); MCHC 32.2 g/dl (32.0-36.0); MEAN CELL VOLUME 80.8 fl (80-96); MEAN PLT VOLUME 8.2 fl (7.5-11.1); NEUTROPHILS 68.5 % (42.8-82.8); PLATELET COUNT 199 K/MM3 (134-434); RDW 23.5 % (11.6-15.6); WHITE BLOOD COUNT 6.4 K/mm3 (4.0-10.0)
[2017-01-22 08:32] LABS: CALCIUM 8.1 mg/dL (8.5-10.1)
[2017-01-22] MEDS: FUROSEMIDE 40 MG TABLET (FP) PO SCH ×2 (09:52→14:07)
[2017-01-22] MEDS: RANITIDINE HCL 150 MG TABLET (FP) PO SCH (09:52)
[2017-01-22] MEDS: FOLIC ACID 1 MG TABLET (FP) PO SCH (09:52)
[2017-01-22] MEDS: ATENOLOL 50 MG TABLET (FP) PO SCH ×2 (09:52→22:22)
[2017-01-22] MEDS: CALCIUM (OYSTER SHELL) 500 MG TABLET (FP) PO SCH (09:52)
[2017-01-22] MEDS: DIGOXIN 0.125 MG TABLET (FP) PO SCH (09:53)
[2017-01-22] MEDS: NYSTATIN POWDER 100,000 UNITS/GM - 15 GM TOPICAL POWDER TP SCH ×2 (10:08→22:26)
[2017-01-22 10:13] LABS: PLATELET COMMENT2 NO CLOTTING DETECTED; PLATELET ESTIMATE ADEQUATE (NORMAL)
[2017-01-22 10:14] LABS: ANISOCYTOSIS 2+; HYPOCHROMIA 2+; MICROCYTOSIS 1+; OVALOCYTES 1+; POIKILOCYTOSIS 2+; POLYCHROMASIA 1+; SPHEROCYTE 1+
--- NOTE | 2017-01-22 11:13 | PN ---
Progress Note (short form) - Note Progress Note: RENAL Pt seen and examined very pleasant Last Vital Signs Temp Pulse Resp BP Pulse Ox 97.6 F 141 H 20 114/79 98 01/22/17 10:00 01/22/17 10:00 01/22/17 10:00 01/22/17 10:00 01/22/17 09:00 lungs clear cvs s1s2 rr abd soft ext +edema neuro a+ox3 CBC, BMP 01/22/17 05:35 01/22/17 05:35 Current Medications Generic Name Dose Route Start Last Admin Trade Name Freq PRN Reason Stop Dose Admin Acetaminophen 650 mg 01/19/17 19:29 Tylenol - PO Q6H PRN FEVER OR PAIN Atenolol 50 mg 01/19/17 22:00 01/22/17 09:52 Tenormin - PO 50 mg BID [facility] Administration Benzocaine/Menthol 1 each 01/19/17 19:29 Cepacol Lozenge - MM Q4H PRN SORE THROAT Calcium Carbonate 500 mg 01/20/17 10:00 01/22/17 09:52 Os-Serg 500mg - PO 500 mg DAILY [facility] Administration Digoxin 0.125 mg 01/20/17 11:30 01/22/17 09:53 Lanoxin - PO 0.125 mg DAILY [facility] Administration Diltiazem HCl 240 mg 01/20/17 10:00 01/22/17 09:52 Cardizem Cd - PO 240 mg DAILY [facility] Administration Folic Acid 1 mg 01/20/17 10:00 01/22/17 09:52 Folic Acid - PO 1 mg DAILY [facility] Administration Furosemide 40 mg 01/20/17 13:00 01/22/17 09:52 Lasix - PO 40 mg DAILY [facility] Administration Insulin Aspart 1 vial 01/19/17 22:00 01/22/17 06:24 Novolog Vial Sliding Scale - SQ Not Given ACHS [facility] Protocol Levothyroxine Sodium 112 mcg 01/20/17 07:00 01/22/17 06:27 Synthroid - PO 112 mcg DAILY@0700 [facility] Administration Methotrexate 12.5 mg 01/26/17 10:00 Mexate - PO Q7D [facility] Metoprolol Tartrate 5 mg 01/20/17 11:27 Lopressor Injection - IVPUSH Q4H PRN TACHYCARDIA Nystatin 1 applic 01/18/17 12:45 01/21/17 23:07 Nystop Powder - TP 1 applic BID [facility] Administration Prednisone 2.5 mg 01/20/17 10:00 01/20/17 09:35 Deltasone - PO 2.5 mg MoTh@1000 [facility] Administration Ranitidine HCl 150 mg 01/20/17 10:00 01/22/17 09:52 Zantac - PO 150 mg DAILY [facility] Administration Warfarin Sodium 4 mg 01/20/17 18:00 01/21/17 17:29 Coumadin - PO 4 mg DAILY@1800 [facility] Administration Impression 1. DUARTE 2. hyponatremia 3. hypokalemia 4. left kidney cyst 5. hematuria 6. A Fib 7. NIDDM 8. Hypothyroid 9. HTN 10. arthritis 11. anemia Plan - increase lasix given edema and monitor response - replace potassium - will need outpt follow up - renal cyst need to be followed up - cont current meds
--- NOTE | 2017-01-22 11:19 | PN ---
Progress Note, Physician History of Present Illness: no new complaints - Current Medication List Current Medications: Active Medications Acetaminophen (Tylenol -) 650 mg PO Q6H PRN PRN Reason: FEVER OR PAIN Atenolol (Tenormin -) 50 mg PO BID [facility] Last Admin: 01/22/17 09:52 Dose: 50 mg Benzocaine/Menthol (Cepacol Lozenge -) 1 each MM Q4H PRN PRN Reason: SORE THROAT Calcium Carbonate (Os-Serg 500mg -) 500 mg PO DAILY [facility] Last Admin: 01/22/17 09:52 Dose: 500 mg Digoxin (Lanoxin -) 0.125 mg PO DAILY [facility] Last Admin: 01/22/17 09:53 Dose: 0.125 mg Diltiazem HCl (Cardizem Cd -) 240 mg PO DAILY [facility] Last Admin: 01/22/17 09:52 Dose: 240 mg Folic Acid (Folic Acid -) 1 mg PO DAILY [facility] Last Admin: 01/22/17 09:52 Dose: 1 mg Furosemide (Lasix -) 40 mg PO DAILY [facility] Last Admin: 01/22/17 09:52 Dose: 40 mg Insulin Aspart (Novolog Vial Sliding Scale -) 1 vial SQ ACHS [facility] PRN Reason: Protocol Last Admin: 01/22/17 06:24 Dose: Not Given Levothyroxine Sodium (Synthroid -) 112 mcg PO DAILY@0700 [facility] Last Admin: 01/22/17 06:27 Dose: 112 mcg Methotrexate (Mexate -) 12.5 mg PO Q7D [facility] Metoprolol Tartrate (Lopressor Injection -) 5 mg IVPUSH Q4H PRN PRN Reason: TACHYCARDIA Nystatin (Nystop Powder -) 1 applic TP BID [facility] Last Admin: 01/21/17 23:07 Dose: 1 applic Prednisone (Deltasone -) 2.5 mg PO MoTh@1000 [facility] Last Admin: 01/20/17 09:35 Dose: 2.5 mg Ranitidine HCl (Zantac -) 150 mg PO DAILY [facility] Last Admin: 01/22/17 09:52 Dose: 150 mg Warfarin Sodium (Coumadin -) 4 mg PO DAILY@1800 [facility] Last Admin: 01/21/17 17:29 Dose: 4 mg - Objective Vital Signs: Vital Signs Temperature 97.6 F 01/22/17 10:00 Pulse Rate 141 H 01/22/17 10:00 Respiratory Rate 20 01/22/17 10:00 Blood Pressure 114/79 01/22/17 10:00 O2 Sat by Pulse Oximetry (%) 98 01/22/17 09:00 Constitutional: Yes: No Distress Eyes: Yes: Conjunctiva Clear HENT: Yes: Atraumatic Neck: Yes: Supple Cardiovascular: Yes: Pulse Irregular Respiratory: Yes: CTA Bilaterally Gastrointestinal: Yes: Normal Bowel Sounds Edema: Yes Peripheral Pulses WNL: Yes Neurological: Yes: Alert, Oriented Psychiatric: Yes: Alert, Oriented Labs: CBC, BMP 01/22/17 05:35 01/22/17 05:35 INR, PTT INR 1.83 (0.82-1.09) H 01/21/17 05:35 - ....Imaging Other: Other (afib up to 130s at times) Assessment/Plan 71 yo female with HTN, DM, hypothyroidism, persistent atrial fibrillation on rate control and systemic AC, who was admitted on 01/12/17 due to dizziness and palpitations. Patient was found to have Afib with RVR, DUARTE in the setting of dehydration likely secondary to prep for colonoscopy. Renal function improved after hydration. During the present admission patient had a syncopal episode in the setting of afib conversion to NSR (01/13) due to ?bradycardia (Tachy-Bill Syndrome?). AV mary alice blockers were restarted due to new episodes of Afib w RVR. Hemodynamically stable. No current complaints. Persistent AFib. 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 On Atenolol, Cardizem and Digoxin with better ventricular response. Patient with episodes of syncope in the setting of spontaneous conversion. HR still suboptimal INR 1.7 RECS: Will continue current medications for rate control including Digoxin. Continue telemetry monitoring for now. Continue systemic AC for stroke prevention. EP evaluation being considered for possible advanced therapies (Ablation) vs. 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 Case was discussed with EP service at [facility]. Patient is likely a good candidate for AFib ablation vs. PPM Dr Moffett discussed indications, risk vs benefits and alternative treatment of possible advanced therapies for AFib (i.e. Ablation) with Mrs. Grimm and a closed friend of her family ([employer] RN). She is wiling to be evaluated by EP service after discussing the recommendations with her son and daughter. Please contact Dr. Gaona at [facility] (EP service - AFib Ablation program attending) if patient and her family agree. Today, pt tells me she is agreeable REc: Cont current meds Tripp stockteresita Keep on tele Plan is for transfer om NOnday to EP eval [facility]
[2017-01-22] MEDS ORDERED: POTASSIUM CHLORIDE 40 MEQ/30 ML UNIT DOSE CUP PO ONE (11:45)
--- NOTE | 2017-01-22 11:50 | PN ---
Progress Note, Physician History of Present Illness: PULMONARY ALERT,NAD,-SOB,-CP - Current Medication List Current Medications: Active Medications Acetaminophen (Tylenol -) 650 mg PO Q6H PRN PRN Reason: FEVER OR PAIN Atenolol (Tenormin -) 50 mg PO BID [facility] Last Admin: 01/22/17 09:52 Dose: 50 mg Benzocaine/Menthol (Cepacol Lozenge -) 1 each MM Q4H PRN PRN Reason: SORE THROAT Calcium Carbonate (Os-Serg 500mg -) 500 mg PO DAILY [facility] Last Admin: 01/22/17 09:52 Dose: 500 mg Digoxin (Lanoxin -) 0.125 mg PO DAILY [facility] Last Admin: 01/22/17 09:53 Dose: 0.125 mg Diltiazem HCl (Cardizem Cd -) 240 mg PO DAILY [facility] Last Admin: 01/22/17 09:52 Dose: 240 mg Folic Acid (Folic Acid -) 1 mg PO DAILY [facility] Last Admin: 01/22/17 09:52 Dose: 1 mg Furosemide (Lasix -) 40 mg PO BID@0600,1400 [facility] Insulin Aspart (Novolog Vial Sliding Scale -) 1 vial SQ ACHS [facility] PRN Reason: Protocol Last Admin: 01/22/17 06:24 Dose: Not Given Levothyroxine Sodium (Synthroid -) 112 mcg PO DAILY@0700 [facility] Last Admin: 01/22/17 06:27 Dose: 112 mcg Methotrexate (Mexate -) 12.5 mg PO Q7D [facility] Metoprolol Tartrate (Lopressor Injection -) 5 mg IVPUSH Q4H PRN PRN Reason: TACHYCARDIA Nystatin (Nystop Powder -) 1 applic TP BID [facility] Last Admin: 01/21/17 23:07 Dose: 1 applic Prednisone (Deltasone -) 2.5 mg PO MoTh@1000 [facility] Last Admin: 01/20/17 09:35 Dose: 2.5 mg Ranitidine HCl (Zantac -) 150 mg PO DAILY [facility] Last Admin: 01/22/17 09:52 Dose: 150 mg Warfarin Sodium (Coumadin -) 4 mg PO DAILY@1800 [facility] Last Admin: 01/21/17 17:29 Dose: 4 mg - Objective Vital Signs: Vital Signs Temperature 97.6 F 01/22/17 10:00 Pulse Rate 141 H 01/22/17 10:00 Respiratory Rate 20 03/25/17 10:00 Blood Pressure 114/79 01/22/17 10:00 O2 Sat by Pulse Oximetry (%) 98 01/22/17 09:00 Constitutional: Yes: Well Nourished, Calm Eyes: Yes: WNL HENT: Yes: Nasal Congestion Neck: Yes: WNL Cardiovascular: Yes: Pulse Irregular, S1, S2 Respiratory: Yes: Diminished Gastrointestinal: Yes: Normal Bowel Sounds, Soft Extremities: Yes: WNL Edema: Yes Labs: CBC, BMP 01/22/17 05:35 01/22/17 05:35 INR, PTT INR 1.83 (0.82-1.09) H 01/21/17 05:35 Problem List - Problems (1) DUARTE (acute kidney injury) Code(s): N17.9 - ACUTE KIDNEY FAILURE, UNSPECIFIED (2) Anemia Code(s): D64.9 - ANEMIA, UNSPECIFIED Qualifiers: Anemia type: unspecified type Qualified Code(s): D64.9 - Anemia, unspecified (3) Atrial fibrillation with rapid ventricular response Code(s): I48.91 - UNSPECIFIED ATRIAL FIBRILLATION (4) DM (diabetes mellitus) Code(s): E11.9 - TYPE 2 DIABETES MELLITUS WITHOUT COMPLICATIONS Qualifiers: Diabetes mellitus type: type 2 Diabetes mellitus complication status: without complication Diabetes mellitus intermission coordinator insulin use: without intermission coordinator use Qualified Code(s): E11.9 - Type 2 diabetes mellitus without complications (5) HTN (hypertension) Code(s): I10 - ESSENTIAL (PRIMARY) HYPERTENSION Qualifiers: Hypertension type: essential hypertension Qualified Code(s): I10 - Essential (primary) hypertension (6) Hypothyroidism Code(s): E03.9 - HYPOTHYROIDISM, UNSPECIFIED Qualifiers: Hypothyroidism type: unspecified Qualified Code(s): E03.9 - Hypothyroidism, unspecified Assessment/Plan ASSESSMENT AND PLAN: Syncope Paroxysmal Atrial Fibrillation with RVR +Troponins Acute Kidney Injury HTN DM Hypothyroidism Rheumatoid Arthritis - rate control as per cardiology - continue anticoagulation - monitor urine output, creatinine - monitor lytes,cbc DR HOWARD
--- NOTE | 2017-01-22 12:08 | PN ---
Physical Exam: SUBJECTIVE: Patient seen and examined. She has no acute complaints. Denies SOB or dyspnea. Heart Rate better controlled this AM OBJECTIVE: Vital Signs Period Temp Pulse Resp BP Sys/Angeles Pulse Ox Last 24 Hr 97.5 F-98.3 F 85-141 20-20 114-125/46-79 98-99 PE Neuro: alert, awake, cn 2-12intact Pulm: CTAB CV: s1s2 irregular rate and rhythm no mrg Abd: s nt nd + bs Ext: + 2 b/l pitting edema, warm Laboratory Results - last 24 hr 01/22/17 01/22/17 01/22/17 05:35 05:35 05:52 WBC 6.4 RBC 3.20 L Hgb 8.3 L Hct 25.8 L MCV 80.8 MCHC 32.2 RDW 23.5 H Plt Count 199 MPV 8.2 Neutrophils % 68.5 Lymphocytes % 22.4 Monocytes % 5.0 Eosinophils % 3.3 Basophils % 0.8 D Differential Comment Slide scanned Platelet Estimate Adequate Platelet Comment No clotting detected Polychromasia 1+ Hypochromic-Microcytic 2+ Poikilocytosis 2+ Anisocytosis 2+ Microcytosis 1+ Spherocytes 1+ Ovalocytes 1+ Sodium 139 Potassium 3.4 L Chloride 106 Carbon Dioxide 21 Anion Gap 12 BUN 12 Creatinine 1.0 POC Glucometer 109 Random Glucose 94 Calcium 8.1 L Active Medications Generic Name Dose Route Start Last Admin Trade Name Freq PRN Reason Stop Dose Admin Acetaminophen 650 mg 01/19/17 19:29 Tylenol - PO Q6H PRN FEVER OR PAIN Atenolol 50 mg 01/19/17 22:00 01/22/17 09:52 Tenormin - PO 50 mg BID [facility] Administration Benzocaine/Menthol 1 each 01/19/17 19:29 Cepacol Lozenge - MM Q4H PRN SORE THROAT Calcium Carbonate 500 mg 01/20/17 10:00 01/22/17 09:52 Os-Serg 500mg - PO 500 mg DAILY [facility] Administration Digoxin 0.125 mg 01/20/17 11:30 01/22/17 09:53 Lanoxin - PO 0.125 mg DAILY [facility] Administration Diltiazem HCl 240 mg 01/20/17 10:00 01/22/17 09:52 Cardizem Cd - PO 240 mg DAILY [facility] Administration Folic Acid 1 mg 01/20/17 10:00 01/22/17 09:52 Folic Acid - PO 1 mg DAILY [facility] Administration Furosemide 40 mg 01/22/17 14:00 Lasix - PO BID@0600,1400 [facility] Insulin Aspart 1 vial 01/19/17 22:00 01/22/17 06:24 Novolog Vial Sliding Scale - SQ Not Given ACHS [facility] Protocol Levothyroxine Sodium 112 mcg 01/20/17 07:00 01/22/17 06:27 Synthroid - PO 112 mcg DAILY@0700 [facility] Administration Methotrexate 12.5 mg 01/26/17 10:00 Mexate - PO Q7D [facility] Metoprolol Tartrate 5 mg 01/20/17 11:27 Lopressor Injection - IVPUSH Q4H PRN TACHYCARDIA Nystatin 1 applic 01/18/17 12:45 01/21/17 23:07 Nystop Powder - TP 1 applic BID [facility] Administration Prednisone 2.5 mg 01/20/17 10:00 01/20/17 09:35 Deltasone - PO 2.5 mg MoTh@1000 [facility] Administration Ranitidine HCl 150 mg 01/20/17 10:00 01/22/17 09:52 Zantac - PO 150 mg DAILY [facility] Administration Warfarin Sodium 4 mg 01/20/17 18:00 01/21/17 17:29 Coumadin - PO 4 mg DAILY@1800 [facility] Administration Imaging: Renal ultrasound 01/12/2017 - no hydronephrosis - kidneys unremarkable - 2cm left cortical cyst Echo 01/13/17: LV normal in size, normal function, Diastolic dysfunction, Grade II, mod MR, mild TR 71 year old female with a history of Afib (on Coumadin) NIDDM, hypothyroidism, HTN, RA, and anemia admitted [id number] Afib, symptomatic. 1. Atrial fibrillation with RVR, tachy-joleen syndrome - Digoxin 0.125 daily - Atenolol 50mg BID - Cardizem 240mg daily - Will check INR and uptitrate as needed - Coumadin 4mg;(home dose 2mg) - Will go for EP study Tuesday at [facility] cardiology follow up 2. Diastolic dysfunction, grade II - Increase lasix 40mg BID 3. Acute Kidney Injury - Cr stable - Increase diuretics - Follow up renal cyst as outpt - Renal seeing 4. HTN - Cont Atenolol 5. DM II - ISS, BGM ACHS - Holding Metfomin while inpatient 6. Hypothyroidism - Synthroid 112mcg 7. Rheumatoid Arthritis - Continue home prednisone, methotrexate - F/u with rhemuatologist as outpatient 8. DVT ppx - On AC 9. Isabel - Nystatin to abdominal folds Visit type - Emergency Visit Emergency Visit: Yes ED Registration Date: 01/14/17 Care time: The patient presented to the Emergency Department on the above date and was hospitalized for further evaluation of their emergent condition. - New Patient This patient is new to me today: No - Critical Care Critical Care patient: No
[2017-01-22 12:51] LABS: INR 2.02 (0.82-1.09); PROTHROMBIN TIME (PATIENT) 22.5 SEC (9.98-11.88)
[2017-01-22] MEDS ORDERED: POTASSIUM CHLORIDE 40 MEQ/30 ML UNIT DOSE CUP ONE (13:57)
[2017-01-22] MEDS: WARFARIN NA 2 MG TABLET (UD) PO SCH (17:13)
[2017-01-22] MEDS ORDERED: INSULIN (NOVOLOG) ASPART 100 UNITS/ML 10ML VIAL ONE ×2 (17:18→21:59)
[2017-01-23] MEDS: INSULIN SLIDING SCALE (NOVOLOG) 1 VIAL SQ SCH ×4 (06:35→22:16)
[2017-01-23] MEDS: LEVOTHYROXINE NA 112 MCG TABLET (FP) PO SCH (06:36)
[2017-01-23] MEDS: FUROSEMIDE 40 MG TABLET (FP) PO SCH ×2 (06:36→14:34)
[2017-01-23 07:47] LABS: INR 2.29 (0.82-1.09); PROTHROMBIN TIME (PATIENT) 25.6 SEC (9.98-11.88)
[2017-01-23 08:05] LABS: MAGNESIUM 1.6 mg/dL (1.8-2.4)
[2017-01-23] MEDS ORDERED: WARFARIN NA 2 MG TABLET (UD) PO SCH (08:27)
[2017-01-23] MEDS: DIGOXIN 0.125 MG TABLET (FP) PO SCH (09:29)
[2017-01-23] MEDS: RANITIDINE HCL 150 MG TABLET (FP) PO SCH (09:29)
[2017-01-23] MEDS: FOLIC ACID 1 MG TABLET (FP) PO SCH (09:29)
[2017-01-23] MEDS: ATENOLOL 50 MG TABLET (FP) PO SCH ×2 (09:30→22:15)
[2017-01-23] MEDS: CALCIUM (OYSTER SHELL) 500 MG TABLET (FP) PO SCH (09:30)
[2017-01-23] MEDS: NYSTATIN POWDER 100,000 UNITS/GM - 15 GM TOPICAL POWDER TP SCH ×2 (09:30→22:15)
--- NOTE | 2017-01-23 10:37 | PN ---
Physical Exam: SUBJECTIVE: Patient seen and examined. She says her leg swelling is better with the stockings. She feels good. OBJECTIVE: Vital Signs Period Temp Pulse Resp BP Sys/Angeles Pulse Ox Last 24 Hr 97.5 F-98.8 F 91-112 20-20 100-114/55-73 98 PE Neuro: alert, awake, cn 2-12intact Pulm: CTAB CV: s1s2 irregular rate and rhythm no mrg Abd: s nt nd + bs Ext: + 1 b/l pitting edema, warm + mendy stockings Laboratory Results - last 24 hr 01/23/17 05:35 INR Sodium 141 Potassium 3.2 L Chloride 103 Carbon Dioxide 24 Anion Gap 14 BUN 9 D Creatinine 1.0 POC Glucometer Random Glucose 97 Calcium 8.0 L Magnesium 1.6 L Active Medications Generic Name Dose Route Start Last Admin Trade Name Freq PRN Reason Stop Dose Admin Acetaminophen 650 mg 01/19/17 19:29 Tylenol - PO Q6H PRN FEVER OR PAIN Atenolol 50 mg 01/19/17 22:00 01/23/17 09:30 Tenormin - PO 50 mg BID [facility] Administration Benzocaine/Menthol 1 each 01/19/17 19:29 Cepacol Lozenge - MM Q4H PRN SORE THROAT Calcium Carbonate 500 mg 01/20/17 10:00 01/23/17 09:30 Os-Serg 500mg - PO 500 mg DAILY [facility] Administration Digoxin 0.125 mg 01/20/17 11:30 01/23/17 09:29 Lanoxin - PO 0.125 mg DAILY [facility] Administration Diltiazem HCl 240 mg 01/20/17 10:00 01/23/17 09:29 Cardizem Cd - PO 240 mg DAILY [facility] Administration Folic Acid 1 mg 01/20/17 10:00 01/23/17 09:29 Folic Acid - PO 1 mg DAILY [facility] Administration Furosemide 40 mg 01/22/17 14:00 01/23/17 06:36 Lasix - PO 40 mg BID@0600,1400 [facility] Administration Insulin Aspart 1 vial 01/19/17 22:00 01/23/17 06:35 Novolog Vial Sliding Scale - SQ Not Given ACHS [facility] Protocol Levothyroxine Sodium 112 mcg 01/20/17 07:00 01/23/17 06:36 Synthroid - PO 112 mcg DAILY@0700 [facility] Administration Magnesium Sulfate 2 gm 01/23/17 10:33 Magnesium Sulfate IVPB 01/23/17 10:34 ONCE ONE Methotrexate 12.5 mg 01/26/17 10:00 Mexate - PO Q7D [facility] Metoprolol Tartrate 5 mg 01/20/17 11:27 Lopressor Injection - IVPUSH Q4H PRN TACHYCARDIA Nystatin 1 applic 01/18/17 12:45 01/23/17 09:30 Nystop Powder - TP 1 applic BID [facility] Administration Potassium Chloride 40 meq 01/23/17 10:33 Kcl Oral Solution - PO 01/23/17 10:34 ONCE ONE Prednisone 2.5 mg 01/20/17 10:00 01/20/17 09:35 Deltasone - PO 2.5 mg MoTh@1000 [facility] Administration Ranitidine HCl 150 mg 01/20/17 10:00 01/23/17 09:29 Zantac - PO 150 mg DAILY [facility] Administration Warfarin Sodium 2 mg 01/23/17 08:27 Coumadin - PO DAILY@1800 [facility] Imaging: - Renal ultrasound 01/12/2017 - no hydronephrosis - kidneys unremarkable - 2cm left cortical cyst - ECHO 01/13/17: LV normal in size, normal function, Diastolic dysfunction, Grade II, mod MR, mild TR Assessment: 71 year old female with a history of Afib (on Coumadin) NIDDM, hypothyroidism, HTN, RA, and anemia admitted [id number] Afib, symptomatic. Plan: 1. Atrial fibrillation with RVR, tachy-joleen syndrome - Digoxin 0.125 daily - Atenolol 50mg BID - Cardizem 240mg daily - Resume home dose coumadin 2mg HS - D/w Cardiology, will likely go at some point tomorrow for EP, for procedure Tuesday 2. Diastolic dysfunction, grade II - Continue Lasix 40mg BID - Will replace potassium today - Add Kur 40meq Daily starting tomorrow 3. Acute Kidney Injury - Follow cr, stable today - Continue lasix - Follow up renal cyst as outpt - Renal seeing 4. Hypokalemia - Replete 40meq x2 today q4hr apart 5. Hypomagnesemia - Replete 2mg mg x1 6. HTN - Cont Atenolol 7. DM II - ISS, BGM ACHS - Holding Metfomin while inpatient 8. Hypothyroidism - Synthroid 112mcg 9. Rheumatoid Arthritis - Continue home prednisone, methotrexate - F/u with rhemuatologist as outpatient 10. DVT ppx - On AC 11. Isabel - Nystatin to abdominal folds Dispo: - To [place] for EP study tomorrow, time TBD Visit type - Emergency Visit Emergency Visit: Yes ED Registration Date: 01/14/17 Care time: The patient presented to the Emergency Department on the above date and was hospitalized for further evaluation of their emergent condition. - New Patient This patient is new to me today: No - Critical Care Critical Care patient: No
--- NOTE | 2017-01-23 10:47 | PN ---
Progress Note, Physician History of Present Illness: No new complaints Increase urination on lasix bid - Current Medication List Current Medications: Active Medications Acetaminophen (Tylenol -) 650 mg PO Q6H PRN PRN Reason: FEVER OR PAIN Atenolol (Tenormin -) 50 mg PO BID [facility] Last Admin: 01/23/17 09:30 Dose: 50 mg Benzocaine/Menthol (Cepacol Lozenge -) 1 each MM Q4H PRN PRN Reason: SORE THROAT Calcium Carbonate (Os-Serg 500mg -) 500 mg PO DAILY [facility] Last Admin: 01/23/17 09:30 Dose: 500 mg Digoxin (Lanoxin -) 0.125 mg PO DAILY [facility] Last Admin: 01/23/17 09:29 Dose: 0.125 mg Diltiazem HCl (Cardizem Cd -) 240 mg PO DAILY [facility] Last Admin: 01/23/17 09:29 Dose: 240 mg Folic Acid (Folic Acid -) 1 mg PO DAILY [facility] Last Admin: 01/23/17 09:29 Dose: 1 mg Furosemide (Lasix -) 40 mg PO BID@0600,1400 [facility] Last Admin: 01/23/17 06:36 Dose: 40 mg Insulin Aspart (Novolog Vial Sliding Scale -) 1 vial SQ ACHS [facility] PRN Reason: Protocol Last Admin: 01/23/17 06:35 Dose: Not Given Levothyroxine Sodium (Synthroid -) 112 mcg PO DAILY@0700 [facility] Last Admin: 01/23/17 06:36 Dose: 112 mcg Magnesium Sulfate (Magnesium Sulfate) 2 gm IVPB ONCE ONE Stop: 01/23/17 10:34 Methotrexate (Mexate -) 12.5 mg PO Q7D [facility] Metoprolol Tartrate (Lopressor Injection -) 5 mg IVPUSH Q4H PRN PRN Reason: TACHYCARDIA Nystatin (Nystop Powder -) 1 applic TP BID [facility] Last Admin: 01/23/17 09:30 Dose: 1 applic Potassium Chloride (Kcl Oral Solution -) 40 meq PO ONCE ONE Stop: 01/23/17 10:34 Prednisone (Deltasone -) 2.5 mg PO MoTh@1000 [facility] Last Admin: 01/20/17 09:35 Dose: 2.5 mg Ranitidine HCl (Zantac -) 150 mg PO DAILY [facility] Last Admin: 01/23/17 09:29 Dose: 150 mg Warfarin Sodium (Coumadin -) 2 mg PO DAILY@1800 [facility] - Objective Vital Signs: Vital Signs Temperature 98.2 F 01/23/17 10:00 Pulse Rate 91 H 01/23/17 10:00 Respiratory Rate 20 01/23/17 10:00 Blood Pressure 117/69 01/23/17 10:00 O2 Sat by Pulse Oximetry (%) 98 01/23/17 09:00 Constitutional: Yes: No Distress Eyes: Yes: Conjunctiva Clear HENT: Yes: Atraumatic Neck: Yes: Supple Cardiovascular: Yes: Pulse Irregular Respiratory: Yes: CTA Bilaterally Gastrointestinal: Yes: Normal Bowel Sounds, Soft, Abdomen, Obese Extremities: Yes: Other (warm) Edema: Yes (better) Peripheral Pulses WNL: Yes Neurological: Yes: Alert, Oriented Psychiatric: Yes: Alert, Oriented Labs: CBC, BMP 01/22/17 05:35 01/23/17 05:35 INR, PTT INR 2.29 (0.82-1.09) H 01/23/17 05:35 - ....Imaging Other: Other (tele -. afib, 80s-90s) Assessment/Plan 71 yo female with HTN, DM, hypothyroidism, persistent atrial fibrillation on rate control and systemic AC, who was admitted on 01/12/17 due to dizziness and palpitations. Patient was found to have Afib with RVR, DUARTE in the setting of dehydration likely secondary to prep for colonoscopy. Renal function improved after hydration. During the present admission patient had a syncopal episode in the setting of afib conversion to NSR (01/13) due to ?bradycardia (Tachy-Bill Syndrome?). AV mary alice blockers were restarted due to new episodes of Afib w RVR. Hemodynamically stable. No current complaints. Persistent AFib. 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 On Atenolol, Cardizem and Digoxin with better ventricular response. Patient with episodes of syncope in the setting of spontaneous conversion. EP evaluation being considered for possible advanced therapies (Ablation) vs. 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 Case was discussed with EP service at [facility]. Patient is likely a good candidate for AFib ablation vs. PPM Dr Moffett discussed indications, risk vs benefits and alternative treatment of possible advanced therapies for AFib (i.e. Ablation) with Mrs. Grimm and a closed friend of her family ([employer] RN). She is wiling to be evaluated by EP service after discussing the recommendations with her son and daughter. Dr. Gaona at [facility] (EP service - AFib Ablation program attending) Patient is agreeable after speaking to me yesterday HR ok, but concerns for pause/syncope if CV at home, in light of recent history and being on BB, CCB and dig Low K and MG REc: Replete lytes Continue current meds, including bid lasix for now Reasonable to put on standing K Tripp stockteresita Keep on tele Plan is for transfer om Nonday to EP eval at [facility]. may feed pt as she likely won't have any procedures tomorrow D/W IM
[2017-01-23] MEDS ORDERED: POTASSIUM CHLORIDE 40 MEQ/30 ML UNIT DOSE CUP ONE (10:52)
[2017-01-23] MEDS ORDERED: POTASSIUM CHLORIDE TABS 20 MEQ TABLET.ER (FP) PO ONE ×2 (11:00→15:00)
[2017-01-23] MEDS ORDERED: MAGNESIUM SULF 50% (8.12 MEQ/2 ML-1 GM VIAL) IVPB ONE (11:00)
[2017-01-23] MEDS ORDERED: POTASSIUM CHLORIDE 40 MEQ/30 ML UNIT DOSE CUP PO ONE (11:00)
[2017-01-23] MEDS ORDERED: INSULIN (NOVOLOG) ASPART 100 UNITS/ML 10ML VIAL ONE ×2 (11:23→11:55)
--- NOTE | 2017-01-23 11:24 | PN ---
Progress Note, Physician History of Present Illness: PULMONARY ALERT,OOB -CHAIR,-SOB,-CP - Current Medication List Current Medications: Active Medications Acetaminophen (Tylenol -) 650 mg PO Q6H PRN PRN Reason: FEVER OR PAIN Atenolol (Tenormin -) [address] [facility] Last Admin: 01/23/17 09:30 Dose: 50 mg Benzocaine/Menthol (Cepacol Lozenge -) 1 each MM Q4H PRN PRN Reason: SORE THROAT Calcium Carbonate (Os-Serg 500mg -) [address] [facility] Last Admin: 01/23/17 09:30 Dose: 500 mg Digoxin (Lanoxin -) 0.[address] [facility] Last Admin: 01/23/17 09:29 Dose: 0.125 mg Diltiazem HCl (Cardizem Cd -) [address] [facility] Last Admin: 01/23/17 09:29 Dose: 240 mg Folic Acid (Folic Acid -) [address] [facility] Last Admin: 01/23/17 09:29 Dose: 1 mg Furosemide (Lasix -) 40 mg PO BID@0600,1400 [facility] Last Admin: 01/23/17 06:36 Dose: 40 mg Insulin Aspart (Novolog Vial Sliding Scale -) [address] [facility] PRN Reason: Protocol Last Admin: 01/23/17 11:17 Dose: 2 units Levothyroxine Sodium (Synthroid -) 112 mcg PO DAILY@0700 [facility] Last Admin: 01/23/17 06:36 Dose: 112 mcg Methotrexate (Mexate -) 12.[address] [facility] Metoprolol Tartrate (Lopressor Injection -) 5 mg IVPUSH Q4H PRN PRN Reason: TACHYCARDIA Nystatin (Nystop Powder -) [address] [facility] Last Admin: 01/23/17 09:30 Dose: 1 applic Potassium Chloride (K-Dur -) 40 meq PO ONCE ONE Stop: 01/23/17 15:01 Prednisone (Deltasone -) 2.5 mg PO MoTh@1000 [facility] Last Admin: 01/20/17 09:35 Dose: 2.5 mg Ranitidine HCl (Zantac -) [address] [facility] Last Admin: 01/23/17 09:29 Dose: 150 mg Warfarin Sodium (Coumadin -) 2 mg PO DAILY@1800 [facility] - Objective Vital Signs: Vital Signs Temperature 98.2 F 01/23/17 10:00 Pulse Rate 91 H 01/23/17 10:00 Respiratory Rate 20 01/23/17 10:00 Blood Pressure 117/69 01/23/17 10:00 O2 Sat by Pulse Oximetry (%) 98 01/23/17 09:00 Constitutional: Yes: Well Nourished, Calm Eyes: Yes: WNL HENT: Yes: WNL Neck: Yes: WNL Cardiovascular: Yes: Pulse Irregular, S1, S2 Respiratory: Yes: CTA Bilaterally Gastrointestinal: Yes: Normal Bowel Sounds, Soft Extremities: Yes: WNL Edema: Yes Labs: CBC, BMP 01/22/17 05:35 01/23/17 05:35 INR, PTT INR 2.29 (0.82-1.09) H 01/23/17 05:35 Problem List - Problems (1) DUARTE (acute kidney injury) Code(s): N17.9 - ACUTE KIDNEY FAILURE, UNSPECIFIED (2) Anemia Code(s): D64.9 - ANEMIA, UNSPECIFIED Qualifiers: Anemia type: unspecified type Qualified Code(s): D64.9 - Anemia, unspecified (3) Atrial fibrillation with rapid ventricular response Code(s): I48.91 - UNSPECIFIED ATRIAL FIBRILLATION (4) DM (diabetes mellitus) Code(s): E11.9 - TYPE 2 DIABETES MELLITUS WITHOUT COMPLICATIONS Qualifiers: Diabetes mellitus type: type 2 Diabetes mellitus complication status: without complication Diabetes mellitus long-term insulin use: without long-term use Qualified Code(s): E11.9 - Type 2 diabetes mellitus without complications (5) HTN (hypertension) Code(s): I10 - ESSENTIAL (PRIMARY) HYPERTENSION Qualifiers: Hypertension type: essential hypertension Qualified Code(s): I10 - Essential (primary) hypertension (6) Hypothyroidism Code(s): E03.9 - HYPOTHYROIDISM, UNSPECIFIED Qualifiers: Hypothyroidism type: unspecified Qualified Code(s): E03.9 - Hypothyroidism, unspecified Assessment/Plan ASSESSMENT AND PLAN: Syncope Paroxysmal Atrial Fibrillation with RVR +Troponins Acute Kidney Injury improved HTN DM Hypothyroidism Rheumatoid Arthritis - rate control as per cardiology - continue anticoagulation - monitor urine output, creatinine - monitor lytes,cbc DR HOWARD
--- NOTE | 2017-01-23 11:58 | PN ---
Progress Note (short form) - Note Progress Note: RENAL Pt seen and examined very pleasant feels better overall Last Vital Signs Temp Pulse Resp BP Pulse Ox 98.2 F 91 H 20 117/69 98 01/23/17 10:00 01/23/17 10:00 01/23/17 10:00 01/23/17 10:00 01/23/17 09:00 lungs clear cvs s1s2 rr abd soft ext +edema neuro a+ox3 CBC, BMP 01/22/17 05:35 01/23/17 05:35 Current Medications Generic Name Dose Route Start Last Admin Trade Name Freq PRN Reason Stop Dose Admin Acetaminophen 650 mg 01/19/17 19:29 Tylenol - PO Q6H PRN FEVER OR PAIN Atenolol 50 mg 01/19/17 22:00 01/23/17 09:30 Tenormin - PO 50 mg BID [facility] Administration Benzocaine/Menthol 1 each 01/19/17 19:29 Cepacol Lozenge - MM Q4H PRN SORE THROAT Calcium Carbonate 500 mg 01/20/17 10:00 01/23/17 09:30 Os-Serg 500mg - PO 500 mg DAILY [facility] Administration Digoxin 0.125 mg 01/20/17 11:30 01/23/17 09:29 Lanoxin - PO 0.125 mg DAILY [facility] Administration Diltiazem HCl 240 mg 01/20/17 10:00 01/23/17 09:29 Cardizem Cd - PO 240 mg DAILY [facility] Administration Folic Acid 1 mg 01/20/17 10:00 01/23/17 09:29 Folic Acid - PO 1 mg DAILY [facility] Administration Furosemide 40 mg 01/22/17 14:00 01/23/17 06:36 Lasix - PO 40 mg BID@0600,1400 [facility] Administration Insulin Aspart 1 vial 01/19/17 22:00 01/23/17 11:17 Novolog Vial Sliding Scale - SQ 2 units ACHS [facility] Administration Protocol Levothyroxine Sodium 112 mcg 01/20/17 07:00 01/23/17 06:36 Synthroid - PO 112 mcg DAILY@0700 [facility] Administration Methotrexate 12.5 mg 01/26/17 10:00 Mexate - PO Q7D [facility] Metoprolol Tartrate 5 mg 01/20/17 11:27 Lopressor Injection - IVPUSH Q4H PRN TACHYCARDIA Nystatin 1 applic 01/18/17 12:45 01/23/17 09:30 Nystop Powder - TP 1 applic BID [facility] Administration Potassium Chloride 40 meq 01/23/17 15:00 K-Dur - PO 01/23/17 15:01 ONCE ONE Prednisone 2.5 mg 01/20/17 10:00 01/20/17 09:35 Deltasone - PO 2.5 mg MoTh@1000 [facility] Administration Ranitidine HCl 150 mg 01/20/17 10:00 01/23/17 09:29 Zantac - PO 150 mg DAILY [facility] Administration Warfarin Sodium 2 mg 01/23/17 08:27 Coumadin - PO DAILY@1800 [facility] Impression 1. DUARTE 2. hyponatremia 3. hypokalemia 4. left kidney cyst 5. hematuria 6. A Fib 7. NIDDM 8. Hypothyroid 9. HTN 10. arthritis 11. anemia 12. hypomagnesemia Plan - increase lasix given edema and monitor response - replace potassium and monitor closely - will need outpt follow up - renal cyst need to be followed up - cont current meds MV
[2017-01-24] MEDS: INSULIN SLIDING SCALE (NOVOLOG) 1 VIAL SQ SCH ×4 (06:23→23:21)
[2017-01-24] MEDS: FUROSEMIDE 40 MG TABLET (FP) PO SCH ×2 (06:26→13:45)
[2017-01-24] MEDS: LEVOTHYROXINE NA 112 MCG TABLET (FP) PO SCH (06:26)
[2017-01-24 07:50] LABS: ALBUMIN 2.7 g/dl (3.4-5.0); BILIRUBIN,TOTAL 0.3 mg/dL (0.2-1.0); CALCIUM 8.1 mg/dL (8.5-10.1); TOT PROT 5.8 g/dl (6.4-8.2)
[2017-01-24 08:13] LABS: INR 2.05 (0.82-1.09); PROTHROMBIN TIME (PATIENT) 22.9 SEC (9.98-11.88)
[2017-01-24] MEDS: CALCIUM (OYSTER SHELL) 500 MG TABLET (FP) PO SCH (09:45)
[2017-01-24] MEDS: DIGOXIN 0.125 MG TABLET (FP) PO SCH (09:45)
[2017-01-24] MEDS: RANITIDINE HCL 150 MG TABLET (FP) PO SCH (09:46)
[2017-01-24] MEDS: FOLIC ACID 1 MG TABLET (FP) PO SCH (09:46)
[2017-01-24] MEDS: ATENOLOL 50 MG TABLET (FP) PO SCH ×2 (09:46→23:20)
[2017-01-24] MEDS: NYSTATIN POWDER 100,000 UNITS/GM - 15 GM TOPICAL POWDER TP SCH ×2 (09:47→23:21)
[2017-01-24] MEDS: predniSONE 5 MG TABLET (UD) PO SCH (09:47)
--- NOTE | 2017-01-24 11:10 | PN ---
Progress Note, Physician History of Present Illness: PULMNONARY ALERT,OOB-CHAIR,-SOB.PT TO BE TRANSFERRED TO [facility] FOR EP STUDIES POSSIBLE ABLATION,PPM - Current Medication List Current Medications: Active Medications Acetaminophen (Tylenol -) 650 mg PO Q6H PRN PRN Reason: FEVER OR PAIN Atenolol (Tenormin -) 50 mg PO BID [facility] Last Admin: 01/24/17 09:46 Dose: 50 mg Benzocaine/Menthol (Cepacol Lozenge -) 1 each MM Q4H PRN PRN Reason: SORE THROAT Calcium Carbonate (Os-Serg 500mg -) 500 mg PO DAILY [facility] Last Admin: 01/24/17 09:45 Dose: 500 mg Digoxin (Lanoxin -) 0.125 mg PO DAILY [facility] Last Admin: 01/24/17 09:45 Dose: 0.125 mg Diltiazem HCl (Cardizem Cd -) 240 mg PO DAILY [facility] Last Admin: 01/24/17 09:45 Dose: 240 mg Folic Acid (Folic Acid -) 1 mg PO DAILY [facility] Last Admin: 01/24/17 09:46 Dose: 1 mg Furosemide (Lasix -) 40 mg PO BID@0600,1400 [facility] Last Admin: 01/24/17 06:26 Dose: 40 mg Insulin Aspart (Novolog Vial Sliding Scale -) 1 vial SQ ACHS [facility] PRN Reason: Protocol Last Admin: 01/24/17 06:23 Dose: Not Given Levothyroxine Sodium (Synthroid -) 112 mcg PO DAILY@0700 [facility] Last Admin: 01/24/17 06:26 Dose: 112 mcg Methotrexate (Mexate -) 12.5 mg PO Q7D [facility] Metoprolol Tartrate (Lopressor Injection -) 5 mg IVPUSH Q4H PRN PRN Reason: TACHYCARDIA Nystatin (Nystop Powder -) 1 applic TP BID [facility] Last Admin: 01/24/17 09:47 Dose: 1 applic Prednisone (Deltasone -) 2.5 mg PO MoTh@1000 [facility] Last Admin: 01/24/17 09:47 Dose: 2.5 mg Ranitidine HCl (Zantac -) 150 mg PO DAILY [facility] Last Admin: 01/24/17 09:46 Dose: 150 mg Warfarin Sodium (Coumadin -) 4 mg PO DAILY@1800 [facility] - Objective Vital Signs: Vital Signs Temperature 98.0 F 01/24/17 02:03 Pulse Rate 90 01/24/17 09:45 Respiratory Rate 20 01/24/17 06:00 Blood Pressure 98/62 01/24/17 06:00 O2 Sat by Pulse Oximetry (%) 98 01/23/17 21:00 Constitutional: Yes: Well Nourished, Calm Eyes: Yes: WNL HENT: Yes: WNL Neck: Yes: WNL Cardiovascular: Yes: Tachycardia, Pulse Irregular, S1, S2 Gastrointestinal: Yes: Normal Bowel Sounds, Soft Extremities: Yes: WNL Edema: Yes Labs: CBC, BMP 01/24/17 05:32 INR, PTT INR 2.05 (0.82-1.09) H 01/24/17 05:32 Problem List - Problems (1) DUARTE (acute kidney injury) Code(s): N17.9 - ACUTE KIDNEY FAILURE, UNSPECIFIED (2) Anemia Code(s): D64.9 - ANEMIA, UNSPECIFIED Qualifiers: Anemia type: unspecified type Qualified Code(s): D64.9 - Anemia, unspecified (3) Atrial fibrillation with rapid ventricular response Code(s): I48.91 - UNSPECIFIED ATRIAL FIBRILLATION (4) DM (diabetes mellitus) Code(s): E11.9 - TYPE 2 DIABETES MELLITUS WITHOUT COMPLICATIONS Qualifiers: Diabetes mellitus type: type 2 Diabetes mellitus complication status: without complication Diabetes mellitus bed bug exterminator insulin use: without bed bug exterminator use Qualified Code(s): E11.9 - Type 2 diabetes mellitus without complications (5) HTN (hypertension) Code(s): I10 - ESSENTIAL (PRIMARY) HYPERTENSION Qualifiers: Hypertension type: essential hypertension Qualified Code(s): I10 - Essential (primary) hypertension (6) Hypothyroidism Code(s): E03.9 - HYPOTHYROIDISM, UNSPECIFIED Qualifiers: Hypothyroidism type: unspecified Qualified Code(s): E03.9 - Hypothyroidism, unspecified Assessment/Plan ASSESSMENT AND PLAN: Syncope Paroxysmal Atrial Fibrillation with RVR +Troponins Acute Kidney Injury improved HTN DM Hypothyroidism Rheumatoid Arthritis - rate control as per cardiology - continue anticoagulation - monitor urine output, creatinine - monitor lytes,cbc - transfer to [facility] today DR HOWARD
--- NOTE | 2017-01-24 14:05 | PN ---
Progress Note, Physician History of Present Illness: JESSE rash -. from teds likely Eating better - Current Medication List Current Medications: Active Medications Acetaminophen (Tylenol -) 650 mg PO Q6H PRN PRN Reason: FEVER OR PAIN Atenolol (Tenormin -) 50 mg PO BID [facility] Last Admin: 01/24/17 09:46 Dose: 50 mg Benzocaine/Menthol (Cepacol Lozenge -) 1 each MM Q4H PRN PRN Reason: SORE THROAT Calcium Carbonate (Os-Serg 500mg -) 500 mg PO DAILY [facility] Last Admin: 01/24/17 09:45 Dose: 500 mg Digoxin (Lanoxin -) 0.125 mg PO DAILY [facility] Last Admin: 01/24/17 09:45 Dose: 0.125 mg Diltiazem HCl (Cardizem Cd -) 240 mg PO DAILY [facility] Last Admin: 01/24/17 09:45 Dose: 240 mg Folic Acid (Folic Acid -) 1 mg PO DAILY [facility] Last Admin: 01/24/17 09:46 Dose: 1 mg Furosemide (Lasix -) 40 mg PO BID@0600,1400 [facility] Last Admin: 01/24/17 13:45 Dose: 40 mg Insulin Aspart (Novolog Vial Sliding Scale -) 1 vial SQ ACHS [facility] PRN Reason: Protocol Last Admin: 01/24/17 11:24 Dose: 2 units Levothyroxine Sodium (Synthroid -) 112 mcg PO DAILY@0700 [facility] Last Admin: 01/24/17 06:26 Dose: 112 mcg Methotrexate (Mexate -) 12.5 mg PO Q7D [facility] Metoprolol Tartrate (Lopressor Injection -) 5 mg IVPUSH Q4H PRN PRN Reason: TACHYCARDIA Nystatin (Nystop Powder -) 1 applic TP BID [facility] Last Admin: 01/24/17 09:47 Dose: 1 applic Prednisone (Deltasone -) 2.5 mg PO MoTh@1000 [facility] Last Admin: 01/24/17 09:47 Dose: 2.5 mg Ranitidine HCl (Zantac -) 150 mg PO DAILY [facility] Last Admin: 01/24/17 09:46 Dose: 150 mg Warfarin Sodium (Coumadin -) 4 mg PO DAILY@1800 [facility] - Objective Vital Signs: Vital Signs Temperature 98 F 01/24/17 10:00 Pulse Rate 112 H 01/24/17 10:00 Respiratory Rate 18 01/24/17 10:00 Blood Pressure 133/62 01/24/17 10:00 O2 Sat by Pulse Oximetry (%) 98 01/24/17 09:00 Constitutional: Yes: No Distress Eyes: Yes: Conjunctiva Clear HENT: Yes: Atraumatic Neck: Yes: Supple Cardiovascular: Yes: Pulse Irregular Respiratory: Yes: CTA Bilaterally Gastrointestinal: Yes: Normal Bowel Sounds, Soft, Abdomen, Obese. No: Tenderness Extremities: Yes: Other (rash -. from teds ?) Edema: Yes (tarce) Neurological: Yes: Alert, Oriented Psychiatric: Yes: Alert, Oriented Labs: CBC, BMP 01/22/17 05:35 01/24/17 05:32 INR, PTT INR 2.05 (0.82-1.09) H 01/24/17 05:32 - ....Imaging Other: Other (tele -. afib 90s-110s) Assessment/Plan 71 yo female with HTN, DM, hypothyroidism, persistent atrial fibrillation on rate control and systemic AC, who was admitted on 01/12/17 due to dizziness and palpitations. Patient was found to have Afib with RVR, DUARTE in the setting of dehydration likely secondary to prep for colonoscopy. Renal function improved after hydration. During the present admission patient had a syncopal episode in the setting of afib conversion to NSR (01/13) due to ?bradycardia (Tachy-Bill Syndrome?). AV mary alice blockers were restarted due to new episodes of Afib w RVR. Hemodynamically stable. No current complaints. Persistent AFib. 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 On Atenolol, Cardizem and Digoxin with better ventricular response. Patient with episodes of syncope in the setting of spontaneous conversion. EP evaluation being considered for possible advanced therapies (Ablation) vs. 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 Case was discussed with EP service at [facility]. Patient is likely a good candidate for AFib ablation vs. PPM Dr Moffett discussed indications, risk vs benefits and alternative treatment of possible advanced therapies for AFib (i.e. Ablation) with Mrs. Grimm and a closed friend of her family ([facility] [facility] RN). She is wiling to be evaluated by EP service after discussing the recommendations with her son and daughter. Dr. Gaona at [facility] (EP service - AFib Ablation program attending) Patient is agreeable after speaking to me HR ok, but concerns for pause/syncope if CV at home, in light of recent history and being on BB, CCB and dig Low K and MG -. repleteds Still ok Accepted by Dr Henrik Gaona -. papers filled REc: Continue current meds, including bid lasix for now Keep lytes wnl, now on standing K Keep on tele Plan is for transfer for EP eval at [facility]
--- NOTE | 2017-01-24 15:03 | PN ---
Physical Exam: SUBJECTIVE: Patient seen and examined. She got a rash from OTTO stockings, she denies sob or palpitations. OBJECTIVE: Vital Signs Period Temp Pulse Resp BP Sys/Angeles Pulse Ox Last 24 Hr 98 F-98.8 F 75-112 18-20 98-133/6-68 98-98 PE Neuro: alert, awake, cn 2-12 intact Pulm: CTAB CV: s1 s2 irregular rate and rhythm no mrg Abd: s nt nd + bs Ext: rash to b/l feet, dry, red papules, b/l LE +1 Laboratory Results - last 24 hr 01/24/17 01/24/17 01/24/17 05:32 05:34 11:23 INR Sodium 141 Potassium 3.7 Chloride 103 Carbon Dioxide 29 D Anion Gap 9 BUN 11 D Creatinine 1.0 Creat Clearance w eGFR 54.35 POC Glucometer 118 158 Random Glucose 102 Calcium 8.1 L Total Bilirubin 0.3 D AST 14 L ALT 13 Alkaline Phosphatase 98 Total Protein 5.8 L Albumin 2.7 L Active Medications Generic Name Dose Route Start Last Admin Trade Name Freq PRN Reason Stop Dose Admin Acetaminophen 650 mg 01/19/17 19:29 Tylenol - PO Q6H PRN FEVER OR PAIN Atenolol 50 mg 01/19/17 22:00 01/24/17 09:46 Tenormin - PO 50 mg BID [facility] Administration Benzocaine/Menthol 1 each 01/19/17 19:29 Cepacol Lozenge - MM Q4H PRN SORE THROAT Calcium Carbonate 500 mg 01/20/17 10:00 01/24/17 09:45 Os-Serg 500mg - PO 500 mg DAILY [facility] Administration Digoxin 0.125 mg 01/20/17 11:30 01/24/17 09:45 Lanoxin - PO 0.125 mg DAILY [facility] Administration Diltiazem HCl 240 mg 01/20/17 10:00 01/24/17 09:45 Cardizem Cd - PO 240 mg DAILY [facility] Administration Folic Acid 1 mg 01/20/17 10:00 01/24/17 09:46 Folic Acid - PO 1 mg DAILY [facility] Administration Furosemide 40 mg 01/22/17 14:00 01/24/17 13:45 Lasix - PO 40 mg BID@0600,1400 [facility] Administration Insulin Aspart 1 vial 01/19/17 22:00 01/24/17 11:24 Novolog Vial Sliding Scale - SQ 2 units ACHS [facility] Administration Protocol Levothyroxine Sodium 112 mcg 01/20/17 07:00 01/24/17 06:26 Synthroid - PO 112 mcg DAILY@0700 [facility] Administration Methotrexate 12.5 mg 01/26/17 10:00 Mexate - PO Q7D [facility] Metoprolol Tartrate 5 mg 01/20/17 11:27 Lopressor Injection - IVPUSH Q4H PRN TACHYCARDIA Nystatin 1 applic 01/18/17 12:45 01/24/17 09:47 Nystop Powder - TP 1 applic BID [facility] Administration Prednisone 2.5 mg 01/20/17 10:00 01/24/17 09:47 Deltasone - PO 2.5 mg MoTh@1000 [facility] Administration Ranitidine HCl 150 mg 01/20/17 10:00 01/24/17 09:46 Zantac - PO 150 mg DAILY [facility] Administration Warfarin Sodium 4 mg 01/24/17 18:00 Coumadin - PO DAILY@1800 [facility] Imaging: - Renal ultrasound 01/12/2017 - no hydronephrosis - kidneys unremarkable - 2cm left cortical cyst - ECHO 01/13/17: LV normal in size, normal function, Diastolic dysfunction, Grade II, mod MR, mild TR Assessment: 71 year old female with a history of Afib (on Coumadin) NIDDM, hypothyroidism, HTN, RA, and anemia admitted [id number] Afib, symptomatic. Plan: 1. Atrial fibrillation with RVR, tachy-joleen syndrome - Digoxin 0.125 daily - Atenolol 50mg BID - Cardizem 240mg daily - Increase coumadin 4mg HS - Transfer to [facility] for EP when bed available 2. Diastolic dysfunction, grade II - Decrease Lasix 40mg daily - Kur 40meq Daily 3. Acute Kidney Injury - Stable - Decrease lasix 40mg daily - Follow up renal cyst as outpt - Renal seeing 4. Hypomagnesemia - Check level in AM 5. HTN - Cont Atenolol 6. DM II - ISS, BGM ACHS - Holding Metfomin while inpatient 7. Hypothyroidism - Synthroid 112mcg 8. Rheumatoid Arthritis - Continue home prednisone, methotrexate - F/u with rhemuatologist as outpatient 9. DVT ppx - On AC 10. Isabel - Nystatin to abdominal folds Visit type - Emergency Visit Emergency Visit: Yes ED Registration Date: 01/14/17 Care time: The patient presented to the Emergency Department on the above date and was hospitalized for further evaluation of their emergent condition. - New Patient This patient is new to me today: No - Critical Care Critical Care patient: No
--- NOTE | 2017-01-24 15:26 | PN ---
Progress Note, Physician History of Present Illness: Pt seen and examined at bedside. She denies shortness of breath. She feels that her lower extremity edema is improving. - Current Medication List Current Medications: Active Medications Acetaminophen (Tylenol -) 650 mg PO Q6H PRN PRN Reason: FEVER OR PAIN Atenolol (Tenormin -) 50 mg PO BID [facility] Last Admin: 01/24/17 09:46 Dose: 50 mg Benzocaine/Menthol (Cepacol Lozenge -) 1 each MM Q4H PRN PRN Reason: SORE THROAT Calcium Carbonate (Os-Serg 500mg -) 500 mg PO DAILY [facility] Last Admin: 01/24/17 09:45 Dose: 500 mg Digoxin (Lanoxin -) 0.125 mg PO DAILY [facility] Last Admin: 01/24/17 09:45 Dose: 0.125 mg Diltiazem HCl (Cardizem Cd -) 240 mg PO DAILY [facility] Last Admin: 01/24/17 09:45 Dose: 240 mg Folic Acid (Folic Acid -) 1 mg PO DAILY [facility] Last Admin: 01/24/17 09:46 Dose: 1 mg Furosemide (Lasix -) 40 mg PO DAILY [facility] Insulin Aspart (Novolog Vial Sliding Scale -) 1 vial SQ ACHS [facility] PRN Reason: Protocol Last Admin: 01/24/17 11:24 Dose: 2 units Levothyroxine Sodium (Synthroid -) 112 mcg PO DAILY@0700 [facility] Last Admin: 01/24/17 06:26 Dose: 112 mcg Methotrexate (Mexate -) 12.5 mg PO Q7D [facility] Metoprolol Tartrate (Lopressor Injection -) 5 mg IVPUSH Q4H PRN PRN Reason: TACHYCARDIA Nystatin (Nystop Powder -) 1 applic TP BID [facility] Last Admin: 01/24/17 09:47 Dose: 1 applic Prednisone (Deltasone -) 2.5 mg PO MoTh@1000 [facility] Last Admin: 01/24/17 09:47 Dose: 2.5 mg Ranitidine HCl (Zantac -) 150 mg PO DAILY [facility] Last Admin: 01/24/17 09:46 Dose: 150 mg Warfarin Sodium (Coumadin -) 4 mg PO DAILY@1800 [facility] - Objective Vital Signs: Vital Signs Temperature 98 F 01/24/17 10:00 Pulse Rate 112 H 01/24/17 10:00 Respiratory Rate 18 01/24/17 10:00 Blood Pressure 133/62 01/24/17 10:00 O2 Sat by Pulse Oximetry (%) 98 01/24/17 09:00 Constitutional: Yes: Calm Eyes: Yes: Conjunctiva Clear HENT: Yes: Atraumatic Neck: Yes: Supple Cardiovascular: Yes: S1, S2 Respiratory: Yes: CTA Bilaterally Gastrointestinal: Yes: Soft Genitourinary: Yes: WNL Musculoskeletal: Yes: WNL Edema: Yes Edema: LLE: 1+, RLE: 1+ Neurological: Yes: Oriented Psychiatric: Yes: Oriented Labs: CBC, BMP 01/22/17 05:35 01/24/17 05:32 INR, PTT INR 2.05 (0.82-1.09) H 01/24/17 05:32 Problem List - Problems (1) DUARTE (acute kidney injury) Code(s): N17.9 - ACUTE KIDNEY FAILURE, UNSPECIFIED (2) Anemia Code(s): D64.9 - ANEMIA, UNSPECIFIED Qualifiers: Anemia type: unspecified type Qualified Code(s): D64.9 - Anemia, unspecified (3) DM (diabetes mellitus) Code(s): E11.9 - TYPE 2 DIABETES MELLITUS WITHOUT COMPLICATIONS Qualifiers: Diabetes mellitus type: type 2 Diabetes mellitus complication status: without complication Diabetes mellitus assisted insulin use: without assisted use Qualified Code(s): E11.9 - Type 2 diabetes mellitus without complications (4) HTN (hypertension) Code(s): I10 - ESSENTIAL (PRIMARY) HYPERTENSION Qualifiers: Hypertension type: essential hypertension Qualified Code(s): I10 - Essential (primary) hypertension Assessment/Plan Current Medications Generic Name Dose Route Start Last Admin Trade Name Freq PRN Reason Stop Dose Admin Acetaminophen 650 mg 01/19/17 19:29 Tylenol - PO Q6H PRN FEVER OR PAIN Atenolol 50 mg 01/19/17 22:00 01/24/17 09:46 Tenormin - PO 50 mg BID [facility] Administration Benzocaine/Menthol 1 each 01/19/17 19:29 Cepacol Lozenge - MM Q4H PRN SORE THROAT Calcium Carbonate 500 mg 01/20/17 10:00 01/24/17 09:45 Os-Serg 500mg - PO 500 mg DAILY [facility] Administration Digoxin 0.125 mg 01/20/17 11:30 01/24/17 09:45 Lanoxin - PO 0.125 mg DAILY [facility] Administration Diltiazem HCl 240 mg 01/20/17 10:00 01/24/17 09:45 Cardizem Cd - PO 240 mg DAILY [facility] Administration Folic Acid 1 mg 01/20/17 10:00 01/24/17 09:46 Folic Acid - PO 1 mg DAILY [facility] Administration Furosemide 40 mg 01/25/17 10:00 Lasix - PO DAILY [facility] Insulin Aspart 1 vial 01/19/17 22:00 01/24/17 11:24 Novolog Vial Sliding Scale - SQ 2 units ACHS [facility] Administration Protocol Levothyroxine Sodium 112 mcg 01/20/17 07:00 01/24/17 06:26 Synthroid - PO 112 mcg DAILY@0700 [facility] Administration Methotrexate 12.5 mg 01/26/17 10:00 Mexate - PO Q7D [facility] Metoprolol Tartrate 5 mg 01/20/17 11:27 Lopressor Injection - IVPUSH Q4H PRN TACHYCARDIA Nystatin 1 applic 01/18/17 12:45 01/24/17 09:47 Nystop Powder - TP 1 applic BID [facility] Administration Prednisone 2.5 mg 01/20/17 10:00 01/24/17 09:47 Deltasone - PO 2.5 mg MoTh@1000 [facility] Administration Ranitidine HCl 150 mg 01/20/17 10:00 01/24/17 09:46 Zantac - PO 150 mg DAILY [facility] Administration Warfarin Sodium 4 mg 01/24/17 18:00 Coumadin - PO DAILY@1800 [facility] Impression 1. DUARTE 2. hyponatremia 3. hypokalemia 4. left kidney cyst 5. hematuria 6. A Fib 7. NIDDM 8. Hypothyroid 9. HTN 10. arthritis 11. anemia Plan - renal function is stable - cont with lasix, volume is improving - monitor potassium and magnesium - discussed with medical team - will need outpt follow up - renal cyst need to be followed up, will need to see urology regularly - will follow Dr Ugarte
[2017-01-24] MEDS ORDERED: WARFARIN NA 2 MG TABLET (UD) PO SCH (18:00)
[2017-01-24] MEDS ORDERED: HYDROCORTISONE 1% TOPICAL CREAM 30 GM TUBE TP SCH (22:00)
[2017-01-25 00:36] VITALS: BP 106/65; PULSE 107; TEMP 97.8
[2017-01-25] MEDS ORDERED: FUROSEMIDE 40 MG TABLET (FP) PO SCH ×2 (06:00→10:00)
--- NOTE | 2017-01-25 09:59 | DS ---
Physical Exam: SUBJECTIVE: Patient seen and examined. see note from 01/24 OBJECTIVE: Vital Signs Period Temp Pulse Resp BP Sys/[place] Pulse Ox Last 24 Hr 97.8 F-98.5 F 93-112 18-22 106-133/48-65 99 PHYSICAL EXAM Last seen on 01/24/17 Laboratory Results - last 24 hr 01/24/17 01/24/17 01/24/17 11:23 15:42 23:11 POC Glucometer 158 109 206 HOSPITAL COURSE: Date of Admission:01/14/17 Date of Discharge: 01/25/17 Minutes to complete discharge: 35 Discharge Summary Reason For Visit: AFIB-ORTHOSTATIC DIZZINESS Current Active Problems DUARTE (acute kidney injury) (Acute) Anemia (Acute) Atrial fibrillation with rapid ventricular response (Acute) DM (diabetes mellitus) (Acute) DVT prophylaxis (Acute) HTN (hypertension) (Acute) Hypochloremia (Acute) Hypothyroidism (Acute) Orthostatic dizziness (Acute) Rheumatoid arthritis (Acute) Hospital Course: Initial Hospital Course: Briefly, this 71 year old female with a PMH of Afib on warfarin, NIDDM, hypothyroidism, HTN, RA, and anemia, presented to the ED complaining of dizziness for 1 week and associated palpitations. While taking a shower she felt very lightheaded and dizzy. She thought sitting down would help the dizziness. After resting she felt palpitations and " an odd sensation in my chest, but it wasn't pain". Pt. admitted to lack of appetite and poor fluid intake. She had a recent endoscopy which showed "an infection in her stomach." and she hasn't been hungry because of it. Her A fib has been difficult to control. PT was admitted for rapid afib with ARF. Subsequent Hospital Course/Transfer Summary: The following morning after admission, 01/13 5AM she had a syncopal episode while converting to SR, she was given cardizem and BB, later in the AM had another syncopal episode and became bradycardic and hypotensive and then went up on its own, likely due to CCB and BB. She had fluctuating trops, negative CP, no ischemic changes on EKG. Plan: 1. Atrial fibrillation with RVR, tachy-joleen syndrome - ECHO 01/13/17: LV normal in size, normal function, Diastolic dysfunction, Grade II, mod MR, mild TR - Digoxin 0.125 daily - Atenolol 50mg BID - Cardizem 240mg daily - Increase coumadin 4mg HS - Transfer to [facility] for EP when bed available 2. Diastolic dysfunction, grade II - On lasix 40mg BID - Kur 40meq Daily 3. Acute Kidney Injury - Stable - Decrease lasix 40mg daily on discharge, BID while inpt and with le edema - Renal ultrasound 01/12/2017 - no hydronephrosis - kidneys unremarkable - 2cm left cortical cyst 4. Hypomagnesemia - Repleted 5. HTN - Cont Atenolol 6. DM II - ISS, BGM ACHS - Holding Metfomin while inpatient 7. Hypothyroidism - Synthroid 112mcg - TSH wnl 8. Rheumatoid Arthritis - Continue home prednisone, methotrexate - F/u with rhemuatologist as outpatient 9. Isabel - Nystatin to abdominal folds Dispo: - Transfer to [facility] for EP - Meds as above - Follow up with Cardiology, pulm, renal (referrals enclosed) - Instructions Referrals: Amanda Ojeda MD [Staff Physician] - Jude Garrido MD [Staff Physician] - Disposition: TRANSFER ACUTE CARE/OTHER HOSP - Home Medications Comprehensive Discharge Medication List: Ambulatory Orders Calcium Carbonate [Calcium] 600 mg PO DAILY 01/12/17 D3-2000 1,000 PO DAILY 01/12/17 Furosemide [Lasix -] 40 mg PO DAILY 01/12/17 Levothyroxine [Synthroid -] 112 mcg PO DAILY 01/12/17 Metformin HCl [Metformin HCl ER] 1,000 mg PO BID 01/12/17 Methotrexate [Mexate -] 12.5 mg PO Q7D 01/12/17 Metoprolol Tartrate [Lopressor] 100 mg PO BID 01/12/17 Prednisone [Deltasone -] 2.5 mg PO ASDIR 01/12/17 RX: Folic Acid 1 mg PO DAILY 01/12/17 RX: Losartan Potassium 100 mg PO 01/12/17 Warfarin Sodium [Coumadin] 2.5 mg PO DAILY 01/12/17 This patient is new to me today: No Emergency Visit: Yes ED Registration Date: 01/14/17 Care time: The patient presented to the Emergency Department on the above date and was hospitalized for further evaluation of their emergent condition. Critical Care patient: No - Discharge Referral Referred to [facility] Med P.C.: No
[2017-01-26] MEDS ORDERED: METHOTREXATE 2.5 MG TABLET PO SCH (10:00)
== END 2017-01-25 01:07 | disposition short-term general hospital (02) | DRG 683 ==
LOC: FER 13:24 → FM/S 16:32 → JICU 01-13 14:53 → OBSVTOIN 01-14 10:28 → J4W 01-14 19:04
PROVIDERS: ADMIT Internal Medicine; ATTEND Nurse Practitioner Acute Care
DX: N17.9 Acute kidney failure, unspecified (principal); E87.1 Hypo-osmolality and hyponatremia; I47.1 Supraventricular tachycardia; I48.0 Paroxysmal atrial fibrillation; E11.9 Type 2 diabetes mellitus without complications; E03.9 Hypothyroidism, unspecified; I10 Essential (primary) hypertension; M06.9 Rheumatoid arthritis, unspecified; D64.9 Anemia, unspecified; I49.5 Sick sinus syndrome; E83.42 Hypomagnesemia; R55 Syncope and collapse; E87.6 Hypokalemia; R31.9 Hematuria, unspecified; N28.1 Cyst of kidney, acquired; M19.90 Unspecified osteoarthritis, unspecified site
CPT/HCPCS: 36415; 71010-TC; 71020-TC; 76775-TC; 80048; 80053; 81003; 81015; 82272; 82436; 82550; 82570; 83605; 83735; 83880; 84100; 84133; 84300; 84443; 84484; 85025; 85027; 85610; 85730; 86022; 86850; 86900; 86901; 87040; 87070; 87086; 87205; 87254; 87804; 93005; 93010; 93306-TC; 97116-GP; 97162-PG; 99285-25; G0378; J1644; J8610

== ENCOUNTER 2017-02-14 10:30 | Inpatient (IN) | payer BC ==
--- NOTE | 2017-02-14 10:35 | PDOC ---
History of Present Illness - General Chief Complaint: Nausea/Vomiting Stated Complaint: VOMITING, ABD PAIN Time Seen by Provider: 02/14/17 10:35 History Source: Patient, Old Records Exam Limitations: No Limitations - History of Present Illness Initial Comments: 02/14/17 11:45 71 y/o female with h/o HTN and atrial fibrillation s/p ablation last month; recent hospitalization for acute kidney injury and a-fib presents to the ED with c/o 2-day h/o nausea, vomiting and vague abdominal pain. The patinet states that she has not been able to tolerate fluids and has had bilious vomiting. She denies fevers, chills, complaints. The abdominal pain is mostly epigastric and is poorly characterized. She denies chest pain, SOB, palpitations. Past History - Past Medical History Allergies/Adverse Reactions: Allergies Allergy/AdvReac Type Severity Reaction Status Date / Time No Known Allergies Allergy Verified 02/14/17 10:33 Home Medications: Ambulatory Orders Amiodarone HCl 200 mg PO TID 02/14/17 Apixaban [Eliquis] 5 mg PO BID 02/14/17 Calcium Carbonate 600 mg PO DAILY 02/14/17 Esomeprazole Magnesium [Nexium 24Hr] 40 mg PO DAILY 02/14/17 Folic Acid 1 mg PO DAILY 02/14/17 Furosemide [Lasix -] 40 mg PO DAILY 02/14/17 Levothyroxine [Synthroid -] 112 mcg PO DAILY 02/14/17 Losartan Potassium 100 mg PO DAILY 02/14/17 Metformin HCl 1,000 mg PO BID 02/14/17 Methotrexate [Mexate -] 12.5 mg PO Q7D 02/14/17 Prednisone 2.5 mg PO ASDIR 02/14/17 Anemia: No Asthma: No Cancer: Yes (skin cancer chin - removed last march 2013) Cardiac Disorders: No CVA: No COPD: No CHF: No Dementia: No Diabetes: Yes (TYPE II) GI Disorders: No Disorders: No HTN: Yes Hypercholesterolemia: No Liver Disease: No Seizures: No Thyroid Disease: Yes (hypo) - Surgical History Abdominal Surgery: No Appendectomy: No Cardiac Surgery: No Cholecystectomy: No Lung Surgery: No Neurologic Surgery: No Orthopedic Surgery: (BUNION / HAMMER TOE SX; BROKEN ANKLE (R)) - Immunization History Immunization Up to Date: Yes - Psycho/Social/Smoking Cessation Hx Anxiety: No Suicidal Ideation: No Smoking History: Former smoker Have you smoked in the past 12 months: No If you are a former smoker, when did you quit?: 37 YEARS AGO Hx Alcohol Use: No Drug/Substance Use Hx: No Substance Use Type: None Hx Substance Use Treatment: No Review of Systems - Review of Systems Able to Perform ROS?: Yes Is the patient limited Kiswahili proficient: No Constitutional: No: Symptoms Reported HEENTM: No: Symptoms Reported Respiratory: No: Symptoms reported Cardiac (ROS): No: Symptoms Reported ABD/GI: Yes: See HPI : No: Symptoms Reported Musculoskeletal: No: Symptoms Reported Integumentary: No: Symptoms Reported Neurological: No: Symptoms reported *Physical Exam - Physical Exam Comments: 02/14/17 11:47 GENERAL: Well developed, well nourished. Awake and alert. No acute distress. HEENT: Normocephalic, atraumatic. PERRLA, EOMI. No conjunctival pallor. Sclera are non- icteric. Moist mucous membranes. Oropharynx is clear. NECK: Supple. Full ROM. No JVD. No lymphadenopathy. CARDIOVASCULAR: Irregularly irregular rate and rhythm, tachycardic. No murmurs, rubs, or gallops. Distal pulses are 2+ and symmetric. PULMONARY: No evidence of respiratory distress. Lungs clear to auscultation bilaterally. No wheezing, rales or rhonchi. ABDOMINAL: Soft. Non-tender. Non-distended. No rebound or guarding. No organomegaly. Normoactive bowel sounds. MUSCULOSKELETAL Normal range of motion at all joints. No bony deformities or tenderness. No CVA tenderness. EXTREMITIES: No cyanosis. No clubbing. Trace to +1 bipedal edema. No calf tenderness. SKIN: Warm and dry. Normal capillary refill. No rashes. No jaundice. NEUROLOGICAL: Alert, awake, appropriate. Cranial nerves 2-12 intact. Grossly non-focal exam. PSYCHIATRIC: Cooperative. Good eye contact. Appropriate mood and affect. ED Treatment Course - LABORATORY CBC & Chemistry Diagram: 02/14/17 10:58 02/14/17 10:58 Medical Decision Making - Medical Decision Making 02/14/17 11:48 71 y/o female with a-fib, CHF and HTN presents to the ED with 2-day h/o nausea, vomiting and vague abdominal pain; she was found to be markedly tachycardic to 160 and in atrial fibrillation. DDx includes but is not limited to: mesenteric ischemia, pancreatitis, gastritis, PUD, atypical presentation of ACS , dehydration, DUARTE, toxic/metabolic derangement. Plan: 1. EKG and Rate control 2. IVF hydration 3. Labs 4. Urine 5. CT abdomen/pelvis 6. anti-emetics 7. Observe and re-evaluate Addendum: EKG showed a-fib. Cardizem 20mg was given with a very transient decrease in the HR. Minutes after cardizem was given, the nurses witnessed the patient have a GTC seizure lasting approximately 1 minute that spontaneously resolved. FSG was 121. Ativan 2mg IV was given. CT head was ordered. The patient had hypotension into the 80's that responded to 500cc NS. 02/14/17 12:18 Addendum: I have re-evaluated the patient at this time. She has moments when she is awake, alert and speaking although she is post-ictal. CT scan was negative for acute process. The labs were reviewed and are recorded in the EMR. Her lactate is 6.6, WBC is 12.8, creatinine is 1.8. Blood cultures were drawn and Zosyn and Flagyl were ordered. The plan is to transfer the patient to [facility] ICU. I have endorsed the patient to Dr. Bajwa. The patient is currently pending transport. *DC/Admit/Observation/Transfer Diagnosis at time of Disposition: Atrial fibrillation with rapid ventricular response, Nausea and vomiting, Seizure - Discharge Dispostion Disposition: TRANSFER ACUTE CARE/OTHER HOSP Condition at time of disposition: Good Admit: Yes
[2017-02-14] MEDS ORDERED: dilTIAZem HCL 50 MG/10 ML - 10 ML VIAL ONE (10:54)
[2017-02-14 11:21] LABS: BASOPHIL 0.9 % (0-2.0); EOSINOPHIL 0.2 % (0-4.5); MCH 26.3 pg (25.7-33.7); MCHC 31.7 g/dl (32.0-36.0); MEAN CELL VOLUME 82.9 fl (80-96); MEAN PLT VOLUME 9.2 fl (7.5-11.1); NEUTROPHILS 83.1 % (42.8-82.8); PLATELET COUNT 267 K/MM3 (134-434); WHITE BLOOD COUNT 12.8 K/mm3 (4.0-10.8)
[2017-02-14 11:34] LABS: ALBUMIN 3.5 g/dl (3.5-5.0); BILIRUBIN,TOTAL 1.1 mg/dl (0.2-1.0); CALCIUM 9.2 mg/dl (8.4-10.2); COCKROFT - GAULT 33.677; CREATININE 1.8 mg/dl (0.6-1.3); TOT PROT 6.6 g/dl (6.4-8.3)
[2017-02-14 12:12] LABS: INR 2.55 (0.82-1.09)
[2017-02-14] MEDS ORDERED: METRONIDAZOLE 500 MG PREMIXED 100 ML IVPB ONE ×2 (12:14→12:21)
[2017-02-14] MEDS ORDERED: PIPERACILLIN/TAZOB 3.375 GM/50 ML PRE-DOCKED IV ONE (12:14)
[2017-02-14] MEDS ORDERED: PIPERACILLIN/TAZOBACTAM 3.375 GM VIAL IVPB ONE (12:21)
[2017-02-14 12:24] LABS: TROPONIN I (DFP) 0.39 ng/ml (0.03-0.50)
[2017-02-14] MEDS ORDERED: SODIUM CHLORIDE 500 ML IV ONE (12:41)
[2017-02-14] MEDS ORDERED: SODIUM CHLORIDE 1,000 ML IV ONE ×4 (12:41→15:54)
[2017-02-14 12:46] LABS: PLATELET ESTIMATE ADEQUATE (NORMAL)
[2017-02-14 12:47] LABS: ANISOCYTOSIS 2+; HYPOCHROMIA 1+; MICROCYTOSIS 1+; OVALOCYTES 2+; POLYCHROMASIA 1+; TEAR DROP CELLS OCC
[2017-02-14 12:51] LABS: SCHISTOCYTES OCC
[2017-02-14 12:52] LABS: POIKILOCYTOSIS 1+
[2017-02-14] MEDS ORDERED: dilTIAZem HCL 50 MG/10 ML - 10 ML VIAL IVPUSH ONE (14:40)
[2017-02-14 16:22] LABS: PH,URINE 5.5 (4.5-8); URINE APPEARANCE Clear; URINE BILIRUBIN 1+ (NEGATIVE); URINE GLUCOSE (UA) Negative (NEGATIVE); URINE KETONE Trace (NEGATIVE); URINE LEUK ESTERASE Negative (NEGATIVE); URINE NITRITE Negative (NEGATIVE); URINE UROBILINOGEN 1.0 E.U/dl (0.2-1.0)
[2017-02-14 16:30] LABS: URINE BLOOD 1+ (NEGATIVE); URINE COLOR YELLOW; URINE PROTEIN 2+ (NEGATIVE)
[2017-02-14] MEDS ORDERED: AMIODARONE HCL INJECTION 150 MG in DEXTROSE 5%-WATER - 97 ML IVPB ONE (16:35)
[2017-02-14] MEDS ORDERED: HEMOQUE TEST 1 EACH EACH ONE (18:14)
[2017-02-14 19:35] LABS: URINE BACTERIA FEW /hpf (NEGATIVE)
--- NOTE | 2017-02-14 20:52 | PN ---
Teaching Attending Note Name of Resident: Ridge Mo ATTENDING PHYSICIAN STATEMENT I saw and evaluated the patient. I reviewed the resident's note and discussed the case with the resident. I agree with the resident's findings and plan as documented. SUBJECTIVE: 71 year old female presents to the emergency department c/o 2-3 day history of epigastric abdominal pain associated with nausea and vomiting. She had recent endoscopy diagnosing H Pylori and now is on triple antibiotic therapy for that . In the emergency department was found to have rapid heart rate / AFib , received cardizem in ED followed by amiodarone and shortly after had episode of altered mental status reported as possible seizure. initial workup revealed Na of 125 and elevated lactic acid for which she was given NaCL 3L bolus . PAST MEDICAL HISTORY: NIDDM Hypothyroid HTN RA Afib on warfarin Anemia DUARTE Anemia Hyponatremia PAST SURGICAL HISTORY: Cystocele, rectocele repair Hip replacement (07/15) MOS procedure, skin CA of chin (04/12) Bunion/hammer toe repair Social History: Smoking: Non-smoker (never smoked) Alcohol: Denies Drugs: Denies Allergies No Known Allergies Allergy OBJECTIVE: Vital Signs Temperature 97.8 F 02/14/17 19:39 Pulse Rate 129 H 02/14/17 19:39 Respiratory Rate 24 02/14/17 19:39 Blood Pressure 129/58 02/14/17 19:39 O2 Sat by Pulse Oximetry (%) 98 02/14/17 19:20 ENERAL: Awake, alert, and fully oriented, in no acute distress. HEAD: Normal with no signs of trauma. EYES: Pupils equal, round and reactive to light, extraocular movements intact, sclera anicteric, conjunctiva clear. No lid lag. EARS, NOSE, THROAT: Ears normal, nares patent, oropharynx clear without exudates. Moist mucous membranes. NECK: Normal range of motion, supple without lymphadenopathy, JVD, or masses. LUNGS: Breath sounds equal, clear to auscultation bilaterally. No wheezes, and no crackles. No accessory muscle use. HEART: Regular rate and rhythm, normal S1 and S2 without murmur, rub or gallop. ABDOMEN: Soft, nontender, not distended, normoactive bowel sounds, no guarding, no rebound, no masses. No hepatomegaly or splenomegaly. MUSCULOSKELETAL: Normal range of motion at all joints. No bony deformities or tenderness. No CVA tenderness. UPPER EXTREMITIES: 2+ pulses, warm, well-perfused. No cyanosis. No clubbing. No peripheral edema. LOWER EXTREMITIES: 2+ pulses, warm, well-perfused. No calf tenderness. No peripheral edema. NEUROLOGICAL: Cranial nerves II-XII intact. Normal speech. Normal gait. PSYCHIATRIC: Cooperative. Good eye contact. Appropriate mood and affect. SKIN: Warm, dry, normal turgor, no rashes or lesions noted, normal capillary refill. Abnormal Lab Results 02/14/17 02/14/17 02/14/17 10:58 10:58 10:58 WBC 12.8 H Hgb 9.7 L Hct 30.5 L MCHC 31.7 L RDW 20.0 H D Neutrophils % 83.1 H INR 2.55 H D Sodium Potassium Chloride Carbon Dioxide BUN Creatinine Random Glucose Lactic Acid 6.673 H* Total Bilirubin AST Ur Specific [place] Urine Protein Urine Blood Urine Bilirubin 02/14/17 02/14/17 02/14/17 10:58 12:30 15:25 WBC Hgb Hct MCHC RDW Neutrophils % INR Sodium 125 L Potassium 3.4 L D Chloride 91 L Carbon Dioxide 18 L BUN 22 H D Creatinine 1.8 H D Random Glucose 155 H Lactic Acid 7.029 H* 4.891 H* Total Bilirubin 1.1 H D AST 45 H D Ur Specific [place] Urine Protein Urine Blood Urine Bilirubin 02/14/17 15:54 WBC Hgb Hct MCHC RDW Neutrophils % INR Sodium Potassium Chloride Carbon Dioxide BUN Creatinine Random Glucose Lactic Acid Total Bilirubin AST Ur Specific [place] >= 1.030 H Urine Protein 2+ H Urine Blood 1+ H Urine Bilirubin 1+ H ASSESSMENT AND PLAN: 1. Sepsis - possible source is cholecystitis. - s/p IVF 4 L - Monitor lactate level - blood cultures - broad spectrum AB - HIDA -GI eval 2. Uncontrolled AFIB - possibly secondary to sepsis and inability to tolerate po meds last three days - currently on cardizem drip, will titrate - restart amiodarone 3. H pylori gastritis - c/w PPI IV - will consider IV ab if cant tolerate PO 4. Hyponatremia- hypovolemic. likely secondary to diuretics and vomiting - hold lasix - she received 4 L of NS in ED, will repeat BMP and reevaluate the need for NaCL 5. Hypokalemia - 2/2 diuretics and vomiting - supplement 6. Elevated INR , possibly secondary to interaction with antibiotics . - monitor INR and LFT daily 7. DVT PPX - on eliquis
[2017-02-14] MEDS ORDERED: ACETAMINOPHEN 325 MG TABLET (FP) PO PRN (21:16)
[2017-02-14] MEDS ORDERED: ONDANSETRON 4 MG/2 ML VIAL IVPB PRN (21:16)
--- NOTE | 2017-02-14 21:26 | HP ---
CHIEF COMPLAINT: Nausea & Vomiting PCP: Dr. Gamboa HISTORY OF PRESENT ILLNESS: 71 year old female with PMH of DM, Hypothyroidism, RA, chronic anemia & Atrial fibrillation s/p recent ablation who presented to [place] ED with nausea & vomiting for 3 days. Patient had a recent endoscopy and was started on triple therapy for H Pylori 4 days ago. Patient states abdominal pain, nausea & vomiting started around that time. She has had very limited oral intake of food or liquids since then. She denies diarrhea, constipation, fever, chills, YUAN, visual changes, chest pain, SOB. In ED, patient was found to be in Atrial fibrillation with RVR at ~150. She had a lactic acid of 6, sodium of 125 and creatinine 1.8 (baseline is 1.0). Patient was given Cardizem and IVF were started as well. In ED, patient had episode of syncope (or possibly, but less likely, seizure) and was given Ativan. Patient was started on Zosyn/Metronidalze in [place] ED. 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) Bunion/hammer toe repair Social History: Smoking:NONE NOTED Alcohol:NONE NOTED Drugs:NONE NOTED Family History: NONCONTRIBUTORY Allergies No Known Allergies Allergy (Verified 02/14/17 10:33) HOME MEDICATIONS: Home Medications Medication Instructions Recorded Amiodarone HCl 200 mg PO TID 02/14/17 Apixaban [Eliquis] 5 mg PO BID 02/14/17 Calcium Carbonate 600 mg PO DAILY 02/14/17 Esomeprazole Magnesium [Nexium 40 mg PO DAILY 02/14/17 24Hr] Folic Acid 1 mg PO DAILY 02/14/17 Furosemide [Lasix -] 40 mg PO DAILY 02/14/17 Levothyroxine [Synthroid -] 112 mcg PO DAILY 02/14/17 Losartan Potassium 100 mg PO DAILY 02/14/17 Metformin HCl 1,000 mg PO BID 02/14/17 Methotrexate [Mexate -] 12.5 mg PO Q7D 02/14/17 Prednisone 2.5 mg PO ASDIR 02/14/17 REVIEW OF SYSTEMS CONSTITUTIONAL: Absent: fever, chills, diaphoresis, generalized weakness, malaise, loss of appetite, weight change HEENT: Absent: rhinorrhea, nasal congestion, throat pain, throat swelling, difficulty swallowing, mouth swelling, ear pain, eye pain, visual changes CARDIOVASCULAR: Absent: chest pain, syncope, palpitations, irregular heart rate, lightheadedness , peripheral edema RESPIRATORY: Absent: cough, shortness of breath, dyspnea with exertion, orthopnea, wheezing, stridor, hemoptysis GASTROINTESTINAL: Absent: abdominal pain, abdominal distension, nausea, vomiting, diarrhea, constipation, melena, hematochezia GENITOURINARY: Absent: dysuria, frequency, urgency, hesitancy, hematuria, flank pain, genital pain MUSCULOSKELETAL: Absent: myalgia, arthralgia, joint swelling, back pain, neck pain SKIN: Absent: rash, itching, pallor HEMATOLOGIC/IMMUNOLOGIC: Absent: easy bleeding, easy bruising, lymphadenopathy, frequent infections ENDOCRINE: Absent: unexplained weight gain, unexplained weight loss, heat intolerance, cold intolerance NEUROLOGIC: Absent: headache, focal weakness or paresthesias, dizziness, unsteady gait, seizure, mental status changes, bladder or bowel incontinence PSYCHIATRIC: Absent: anxiety, depression, suicidal or homicidal ideation, hallucinations. PHYSICAL EXAMINATION Vital Signs - 24 hr 02/14/17 02/14/17 02/14/17 10:30 11:00 11:30 Temperature 97.7 F Pulse Rate 71 128 H Pulse Rate [ 128 H Left Apical] Respiratory 18 20 Rate Blood Pressure 106/74 Blood Pressure 100/70 [Left Arm] O2 Sat by Pulse 100 99 99 Oximetry (%) 02/14/17 02/14/17 02/14/17 12:36 13:00 13:40 Temperature Pulse Rate Pulse Rate [ 122 H 136 H 107 H Left Apical] Respiratory 19 18 20 Rate Blood Pressure Blood Pressure 88/58 100/66 90/64 [Left Arm] O2 Sat by Pulse 99 99 99 Oximetry (%) 02/14/17 02/14/17 02/14/17 15:30 17:00 18:00 Temperature 98 F Pulse Rate Pulse Rate [ 121 H 126 H 129 H Left Apical] Respiratory 20 22 16 Rate Blood Pressure Blood Pressure 100/89 105/74 116/53 [Left Arm] O2 Sat by Pulse 97 96 97 Oximetry (%) 02/14/17 02/14/17 19:20 19:39 Temperature 97.8 F Pulse Rate 129 H Pulse Rate [ 127 H Left Apical] Respiratory 22 24 Rate Blood Pressure 129/58 Blood Pressure 113/92 [Left Arm] O2 Sat by Pulse 98 Oximetry (%) GENERAL: Awake, alert, and fully oriented, in no acute distress. HEAD: Normal with no signs of trauma. EYES: Pupils equal, round and reactive to light, extraocular movements intact, sclera anicteric, conjunctiva clear. No lid lag. EARS, NOSE, THROAT: Ears normal, nares patent, oropharynx clear without exudates. Moist mucous membranes. NECK: Normal range of motion, supple without lymphadenopathy, JVD, or masses. LUNGS: Breath sounds equal, clear to auscultation bilaterally. No wheezes, and no crackles. No accessory muscle use. HEART: Regular rate and rhythm, normal S1 and S2 without murmur, rub or gallop. ABDOMEN: Soft, nontender, not distended, normoactive bowel sounds, no guarding, no rebound, no masses. No hepatomegaly or splenomegaly. MUSCULOSKELETAL: Normal range of motion at all joints. No bony deformities or tenderness. No CVA tenderness. UPPER EXTREMITIES: 2+ pulses, warm, well-perfused. No cyanosis. No clubbing. No peripheral edema. LOWER EXTREMITIES: 2+ pulses, warm, well-perfused. No calf tenderness. No peripheral edema. NEUROLOGICAL: Cranial nerves II-XII intact. Normal speech. Normal gait. PSYCHIATRIC: Cooperative. Good eye contact. Appropriate mood and affect. SKIN: Warm, dry, normal turgor, no rashes or lesions noted, normal capillary refill. Laboratory Results - last 24 hr 02/14/17 02/14/17 02/14/17 10:58 10:58 10:58 WBC 12.8 H RBC 3.69 Hgb 9.7 L Hct 30.5 L MCV 82.9 MCHC 31.7 L RDW 20.0 H D Plt Count 267 D MPV 9.2 D Neutrophils % 83.1 H Lymphocytes % 10.0 Monocytes % 5.8 Eosinophils % 0.2 Basophils % 0.9 Differential Comment Slide scanned Platelet Estimate Adequate Platelet Comment Mod large plts Polychromasia 1+ Hypochromic-Microcytic 1+ Poikilocytosis 1+ Basophilic Stippling Occ Anisocytosis 2+ Microcytosis 1+ Macrocytosis 1+ Tear Drop Cells Occ Ovalocytes 2+ Schistocytes Occ INR 2.55 H D PTT (Actin FS) 34.0 Sodium Potassium Chloride Carbon Dioxide Anion Gap BUN Creatinine Creat Clearance w eGFR POC Glucometer Random Glucose Lactic Acid 6.673 H* Calcium Total Bilirubin AST ALT Alkaline Phosphatase Creatine Kinase Troponin I Total Protein Albumin Urine Color Urine Appearance Urine pH Ur Specific [place] Urine Protein Urine Glucose (UA) Urine Ketones Urine Blood Urine Nitrite Urine Bilirubin Urine Urobilinogen Ur Leukocyte Esterase Urine RBC Urine WBC Ur Epithelial Cells Urine Bacteria 02/14/17 02/14/17 02/14/17 10:58 10:58 11:16 WBC RBC Hgb Hct MCV MCHC RDW Plt Count MPV Neutrophils % Lymphocytes % Monocytes % Eosinophils % Basophils % Differential Comment Platelet Estimate Platelet Comment Polychromasia Hypochromic-Microcytic Poikilocytosis Basophilic Stippling Anisocytosis Microcytosis Macrocytosis Tear Drop Cells Ovalocytes Schistocytes INR PTT (Actin FS) Sodium 125 L Potassium 3.4 L D Chloride 91 L Carbon Dioxide 18 L Anion Gap 16 BUN 22 H D Creatinine 1.8 H D Creat Clearance w eGFR 27.58 POC Glucometer [id number] Random Glucose 155 H Lactic Acid Calcium 9.2 Total Bilirubin 1.1 H D AST 45 H D ALT 14 Alkaline Phosphatase 74 D Creatine Kinase 57 Troponin I 0.39 Total Protein 6.6 Albumin 3.5 Urine Color Urine Appearance Urine pH Ur Specific [place] Urine Protein Urine Glucose (UA) Urine Ketones Urine Blood Urine Nitrite Urine Bilirubin Urine Urobilinogen Ur Leukocyte Esterase Urine RBC Urine WBC Ur Epithelial Cells Urine Bacteria 02/14/17 02/14/17 02/14/17 12:30 15:25 15:54 WBC RBC Hgb Hct MCV MCHC RDW Plt Count MPV Neutrophils % Lymphocytes % Monocytes % Eosinophils % Basophils % Differential Comment Platelet Estimate Platelet Comment Polychromasia Hypochromic-Microcytic Poikilocytosis Basophilic Stippling Anisocytosis Microcytosis Macrocytosis Tear Drop Cells Ovalocytes Schistocytes INR PTT (Actin FS) Sodium Potassium Chloride Carbon Dioxide Anion Gap BUN Creatinine Creat Clearance w eGFR POC Glucometer Random Glucose Lactic Acid 7.029 H* 4.891 H* Calcium Total Bilirubin AST ALT Alkaline Phosphatase Creatine Kinase Troponin I Total Protein Albumin Urine Color Yellow Urine Appearance Clear Urine pH 5.5 Ur Specific [place] >= 1.030 H Urine Protein 2+ H Urine Glucose (UA) Negative Urine Ketones Trace Urine Blood 1+ H Urine Nitrite Negative Urine Bilirubin 1+ H Urine Urobilinogen 1.0 e.u/dl Ur Leukocyte Esterase Negative Urine RBC 2-4 Urine WBC 4-8 Ur Epithelial Cells Few Urine Bacteria Few CT Abdomen: IMPRESSION: Chronic calcific pericarditis. Pulmonary vascular congestion. Bilateral pleural effusions with associated bibasilar compressive atelectasis. Small amount of free fluid within the upper abdomen and pelvis bilaterally. Inspissated bile/sludge is seen within the gallbladder lumen. There is probable mild diffuse nonspecific gallbladder wall thickening. Correlation with sonography and possibly a nuclear medicine HIDA scan may be considered. Mild colonic diverticulosis. Mild L2 vertebral body compression fracture which is probably chronic or subacute. Correlate clinically ASSESSMENT/PLAN: 71 year old female with PMH of DM, Hypothyroidism, RA, chronic anemia & Atrial fibrillation s/p recent ablation who presented to [place] ED with nausea & vomiting for 3 days. Found to be in Atrial Fibrillation with RVR, lactic acidosis & hyponatremic. #Atrial Fibrillation w/ RVR -on Cardizem drip -will transition to oral meds once HR better controlled -INR 2.55, can start Heparin gtt for prophylaxis in AM -Troponin (-) x1, f/u in AM #Lactic Acidosis -IVF 3.5 L administered in ED -holding metformin -f/u lactate later tonight & in AM #Nausea & Vomiting, resolving -holding triple therapy for H Pylori, need to discuss other options with GI in AM as patient is clearly not tolerating current regimen -on Zosyn, Vancomycin in case of infectious etiology of GI symptoms -CT showed probable GB wall thickening, will need HIDA scan in AM -GI consult -Zofran PRN -PPI -f/u with blood & urine cultures in AM #Possible Seizure (more likely syncope related to rapid drop in BP) -can f/u with neuro if symptomatic or seizes again #Diabetes -ISS -BGM ACHS #Hypothyroidism -restart Synthroid in AM Prophylaxis -SCD, therapeutic INR -PPI Visit type - Emergency Visit Emergency Visit: Yes ED Registration Date: 02/14/17 Care time: The patient presented to the Emergency Department on the above date and was hospitalized for further evaluation of their emergent condition. - New Patient This patient is new to me today: Yes Date on this admission: 02/15/17 - Critical Care Critical Care patient: Yes Total Critical Care Time (in minutes): 45 Critical Care Statement: The care of this patient involved high complexity decision making to prevent further life threatening deterioration of the patient 's condition and/or to evalute & treat vital organ system(s) failure or risk of failure.
[2017-02-14] MEDS ORDERED: DILTIAZEM INJECTION 125 MG in DEXTROSE 5%-WATER - 100 ML IVPB SCH (21:30)
[2017-02-14] MEDS ORDERED: dilTIAZem HCL 125 MG/25 ML - 5 ML VIAL ONE (21:30)
[2017-02-14] MEDS ORDERED: VANCOMYCIN 500 MG/100 ML PRE-DOCKED IVPB SCH (21:30)
--- NOTE | 2017-02-14 21:35 | CONSULT ---
Consult Consult Specialty:: PULM/CCM Referred by:: Hospitalist Reason for Consultation:: Atrial Fib with RVR, abd pain, lactic acidosis, DUARTE - History of Present Illness Chief Complaint: abdominal pain, nausea, vomiting x 72hrs History of Present Illness: 71 y/o woman hx of HTN, DM, afib s/p recent ablation, recent dx with h. pylori started on triple therapy approx 4 days ago now presenting to ED with afib RVR, acute kidney injury, lactic acidosis. ED course complicated by seizure vs syncope shortly after cardizem push. Being transferred from [place] ED to [facility] ICU for rate control and further workup. Briefly pt has had abdominal pain on/off for years, underwent EGD recently and was ddx with H. pylori. Started on triple abx therapy after which she quickly developed nausea which progressed to frequent bouts of bilious emesis. She had decrease PO intake but cont to try to take most of her meds. She became progressively weak and unable to hold down even water prompting visit to ED. In ED pt was afebrile, normotensive, in afib RVR at 150, without resp distress and saturating well on NC. A bolus of 20mg cardizem given, with significant drop in HR, and then possible brief GTC sz vs syncopal episode. Given ativan 2mg. CT head negative for acute path. She was communicative after event per family though they did not directly witness event. Labs were notable for lactate of 6, which down trended to 4. A wbc of 12. Cr 1.8 (baseline 1.0), HCO3 18 and Na 125. CTAP performed given lactate out of concern for mesenteric ischemia but was non contrast study. Sludge noted in GB but no evidence of obstruction. Started on broad spectrum abx and transferred to ICU at [facility] by ambulance. CBC, BMP 02/14/17 10:58 02/14/17 10:58 - History Source History Provided By: Patient, Family Member Limitations to Obtaining History: No Limitations - Past Medical History CIRCUIT JUDGE: Yes: Other (motion sickness) Cardio/Vascular: Yes: AFIB, HTN Rheumatology: Yes: Rheumatoid Arthritis Endocrine: Yes: Diabetes Mellitus, Hypothyroidism Additional Medical History: recent atrial ablation at [facility]. recent EGD with Dx of H. Pylori, recently started on Triple therapy - Alcohol/Substance Use Hx Alcohol Use: No History of Substance Use: reports: None - Smoking History Smoking history: Former smoker Have you smoked in the past 12 months: No If you are a former smoker, when did you quit?: 37 YEARS AGO - Social History Usual Living Arrangement: With Spouse ADL: Independent History of Recent Travel: No Home Medications - Allergies Allergies/Adverse Reactions: Allergies Allergy/AdvReac Type Severity Reaction Status Date / Time No Known Allergies Allergy Verified 02/14/17 10:33 - Home Medications Home Medications: Ambulatory Orders Amiodarone HCl 200 mg PO TID 02/14/17 Apixaban [Eliquis] 5 mg PO BID 02/14/17 Calcium Carbonate 600 mg PO DAILY 02/14/17 Esomeprazole Magnesium [Nexium 24Hr] 40 mg PO DAILY 02/14/17 Folic Acid 1 mg PO DAILY 02/14/17 Furosemide [Lasix -] 40 mg PO DAILY 02/14/17 Levothyroxine [Synthroid -] 112 mcg PO DAILY 02/14/17 Losartan Potassium 100 mg PO DAILY 02/14/17 Metformin HCl 1,000 mg PO BID 02/14/17 Methotrexate [Mexate -] 12.5 mg PO Q7D 02/14/17 Prednisone 2.5 mg PO ASDIR 02/14/17 Family Disease History - Family Disease History Family History: Unremarkable Review of Systems - Review of Systems Constitutional: reports: Lethargy, Loss of Appetite, Malaise. denies: Night Sweats Eyes: reports: No Symptoms HENT: reports: No Symptoms Neck: reports: No Symptoms Cardiovascular: denies: Chest Pain, Shortness of Breath Respiratory: denies: Cough Gastrointestinal: reports: Abdominal Pain, Nausea, Vomiting. denies: Diarrhea, Melena, Vomiting Blood Genitourinary: reports: No Symptoms Breasts: reports: No Symptoms Reported Musculoskeletal: reports: No Symptoms Integumentary: reports: No Symptoms Neurological: reports: No Symptoms Endocrine: reports: No Symptoms Hematology/Lymphatic: reports: No Symptoms Psychiatric: reports: No Symptoms Physical Exam Vital Signs: Vital Signs Temperature 97.8 F 02/14/17 19:39 Pulse Rate 129 H 02/14/17 19:39 Respiratory Rate 24 02/14/17 19:39 Blood Pressure 129/58 02/14/17 19:39 O2 Sat by Pulse Oximetry (%) 98 02/14/17 19:20 Constitutional: Yes: Well Nourished, No Distress, Calm, Pallor Eyes: Yes: Conjunctiva Clear, EOM Intact, PERRL HENT: Yes: Atraumatic, Normocephalic Neck: Yes: Supple, Trachea Midline. No: Lymphadenopathy Cardiovascular: Yes: Tachycardia, Pulse Irregular, S1, S2. No: Murmur Respiratory: No: Accessory Muscle Use, Wheezes Gastrointestinal: Yes: Normal Bowel Sounds, Soft. No: Tenderness, Tenderness, Epigastrium, Tenderness, Rebound ...Rectal Exam: Yes: Deferred Renal/: Yes: WNL Breast(s): Yes: WNL Musculoskeletal: Yes: WNL Edema: Yes Edema: LUE: 1+, RUE: 1+, LLE: 1+, RLE: 1+ Peripheral Pulses WNL: Yes Integumentary: Yes: WNL Neurological: Yes: Alert, Oriented, Cran Nerves II-XII Intact. No: Aphasia, Seizure ...Motor Strength: WNL Psychiatric: Yes: WNL Labs: CBC, BMP 02/14/17 10:58 02/14/17 10:58 Lactate 6--> 4 Imaging - Results Chest X-ray: Image Reviewed (vascular congestion, no infiltrate, no large effusion.) Cat Scan: Report Reviewed (Small amt of free fluid in abd, some sludge in GB normal caliber CBD calcificed pericarditis), Image Reviewed, Other (CT Abdomen: IMPRESSION: Chronic calcific pericarditis. Pulmonary vascular congestion. Bilateral pleural effusions with associated bibasilar compressive atelectasis. Small amount of free fluid within the upper abdomen and pelvis bilaterally. Inspissated bile/sludge is seen within the gallbladder lumen. There is probable mild diffuse nonspecific gallbladder wall thickening. Correlation with sonography and possibly a nuclear medicine HIDA scan may be considered. Mild colonic diverticulosis. Mild L2 vertebral body compression fracture which is probably chronic or subacute. Correlate clinically) EKG: Report Reviewed, Image Reviewed (Afib RVR, R axis, no ischemic changes Rate 140.), Other Other: Image Reviewed Problem List - Problems (1) DUARTE (acute kidney injury) Code(s): N17.9 - ACUTE KIDNEY FAILURE, UNSPECIFIED (2) Atrial fibrillation with rapid ventricular response Code(s): I48.91 - UNSPECIFIED ATRIAL FIBRILLATION (3) Seizure Code(s): R56.9 - UNSPECIFIED CONVULSIONS (4) Dehydration Code(s): E86.0 - DEHYDRATION Assessment/Plan PULM/CCM Pt seen and examined in ICU A/ 71 y/o woman with DM, HTN, afib s/p ablation, h.pylori now with nausea/ vomiting x 3-4 days with paroxsymal atrial fibrilation, syncope vs sz, DUARTE and dehydration. She has a lactic acid level out of proportion to BP/volume status/ hypoperfusion which was concerning for mesenteric ischemia but abd exam quite benign. Maybe driven by metformin. She does not appear infected (cxr and ua clear), though GI coverage seems reasonable. Suspect sz was actually syncope after cardizem. Has hx of orthostatic hypotension. Minimal post ictal state. P/ -cardizem gtt for now, until can take PO -check trop/BNP -recheck lactate -start heparin gtt once INR < 2 -cont P/T, flagyl for GI coverage, f/u cxl -hold metformin -no indication for AE, if recurs start Keppra, neuro consult, and MRI -can follow up with outpt GI MD for alternate H.pylori rx -Glucose control with sliding scale -restart synthroid, if unable to take PO start IV at 50% -SCD for prophy unitl hep gtt -ppi Levi Luis ACNP [id number] 35min CCT
[2017-02-14] MEDS ORDERED: VANCOMYCIN 500 MG/100 ML PRE-DOCKED IVPB ONE (21:45)
[2017-02-14 21:50] VITALS: BMI 30.7
[2017-02-14] MEDS ORDERED: CHLORHEXIDINE GLUCONATE 4% CLEANSER FOR DECOLONIZATION TP SCH (22:00)
[2017-02-14 22:11] LABS: MCH 26.9 pg (25.7-33.7); MCHC 32.2 g/dl (32.0-36.0); MEAN CELL VOLUME 83.6 fl (80-96); PLATELET COUNT 243 K/MM3 (134-434); RDW 20.7 % (11.6-15.6); WHITE BLOOD COUNT 11.9 K/mm3 (4.0-10.0)
[2017-02-14 22:36] LABS: ALBUMIN 3.1 g/dl (3.4-5.0); BILIRUBIN,TOTAL 1.3 mg/dL (0.2-1.0); CALCIUM 8.2 mg/dL (8.5-10.1); COCKROFT - GAULT 34.7055; CREATININE 1.8 mg/dL (0.55-1.02); TOT PROT 6.3 g/dl (6.4-8.2)
[2017-02-14] MEDS: INSULIN SLIDING SCALE (NOVOLOG) 1 VIAL SQ SCH (22:53)
[2017-02-14] MEDS: MUPIROCIN 2% TOPICAL OINTMENT FOR DECOLONIZATION NS SCH (23:42)
[2017-02-15] MEDS ORDERED: PIPERACILLIN/TAZOB 3.375 GM/50 ML PRE-DOCKED IVPB ONE (02:00)
[2017-02-15] MEDS ORDERED: PIPERACILLIN/TAZOB 3.375 GM/50 ML PRE-DOCKED IVPB SCH (02:00)
[2017-02-15] MEDS: INSULIN SLIDING SCALE (NOVOLOG) 1 VIAL SQ SCH ×4 (06:12→22:09)
[2017-02-15 06:32] LABS: BASOPHIL 0.9 % (0-2.0); EOSINOPHIL 0.7 % (0-4.5); MCHC 32.9 g/dl (32.0-36.0); MEAN CELL VOLUME 82.1 fl (80-96); MEAN PLT VOLUME 9.4 fl (7.5-11.1); PLATELET COUNT 225 K/MM3 (134-434); RDW 20.8 % (11.6-15.6); WHITE BLOOD COUNT 9.1 K/mm3 (4.0-10.0)
[2017-02-15 06:45] LABS: INR 2.59 (0.82-1.09)
[2017-02-15 06:48] LABS: ALBUMIN 2.8 g/dl (3.4-5.0); CALCIUM 8.1 mg/dL (8.5-10.1); COCKROFT - GAULT 38.25; CREATININE 1.6 mg/dL (0.55-1.02); TOT PROT 5.9 g/dl (6.4-8.2)
--- NOTE | 2017-02-15 06:59 | PN ---
Physical Exam: SUBJECTIVE: Patient seen and examined. She states she feels very weak and tired. Denies chest pain, shortness of breath, dizziness or headaches. OBJECTIVE: Laying in the bed, alert and oriented x 3 Appears weak but in no acute distress Seizure precautions Vital Signs Period Temp Pulse Resp BP Sys/Angeles Pulse Ox Last 24 Hr 98 F-98.4 F 90-147 18-20 105-139/67-118 98 GENERAL: The patient is awake, alert, and fully oriented, in no acute distress. HEAD: Normal with no signs of trauma. EYES: PERRL, extraocular movements intact, sclera anicteric, conjunctiva clear. No ptosis. ENT: Ears normal, nares patent, oropharynx clear without exudates, moist mucous membranes. NECK: Trachea midline, full range of motion, supple. LUNGS: Breath sounds equal, clear to auscultation bilaterally, no wheezes, no crackles, no accessory muscle use. HEART: Atrial fibrillation @ 103 ABDOMEN: Soft, nontender, nondistended, normoactive bowel sounds, no guarding, no rebound, no hepatosplenomegaly, no masses. EXTREMITIES: no edema. NEUROLOGICAL: Normal speech, gait not observed. PSYCH: Normal mood, normal affect. SKIN: Warm, dry, normal turgor, no rashes or lesions noted Laboratory Results - last 24 hr 02/14/17 02/14/17 02/14/17 21:40 21:40 21:40 WBC 11.9 H D RBC 3.56 L Hgb 9.6 L D Hct 29.7 L D MCV 83.6 MCHC 32.2 RDW 20.7 H D Plt Count 243 D MPV 9.0 Neutrophils % Lymphocytes % Monocytes % Eosinophils % Basophils % INR Sodium 133 L Potassium 3.9 Chloride 97 L Carbon Dioxide 17 L D Anion Gap 19 H BUN 23 H D Creatinine 1.8 H D Creat Clearance w eGFR 27.58 Random Glucose 127 H D Lactic Acid 6.786 H* Calcium 8.2 L Total Bilirubin 1.3 H D AST 22 D ALT 16 D Alkaline Phosphatase 86 Troponin I B-Natriuretic Peptide Total Protein 6.3 L Albumin 3.1 L 02/14/17 02/14/17 02/15/17 21:40 21:40 05:15 WBC 9.1 RBC 3.41 L Hgb 9.2 L Hct 28.0 L MCV 82.1 MCHC 32.9 RDW 20.8 H Plt Count 225 MPV 9.4 Neutrophils % 75.0 Lymphocytes % 14.2 D Monocytes % 9.2 D Eosinophils % 0.7 Basophils % 0.9 INR Sodium Potassium Chloride Carbon Dioxide Anion Gap BUN Creatinine Creat Clearance w eGFR Random Glucose Lactic Acid Calcium Total Bilirubin AST ALT Alkaline Phosphatase Troponin I 0.15 H B-Natriuretic Peptide 1886.59 H Total Protein Albumin 02/15/17 05:15 WBC RBC Hgb Hct MCV MCHC RDW Plt Count MPV Neutrophils % Lymphocytes % Monocytes % Eosinophils % Basophils % INR 2.59 H Sodium Potassium Chloride Carbon Dioxide Anion Gap BUN Creatinine Creat Clearance w eGFR Random Glucose Lactic Acid Calcium Total Bilirubin AST ALT Alkaline Phosphatase Troponin I B-Natriuretic Peptide Total Protein Albumin Active Medications Generic Name Dose Route Start Last Admin Trade Name Freq PRN Reason Stop Dose Admin Acetaminophen 650 mg 02/14/17 21:16 Tylenol - PO Q6H PRN FEVER OR PAIN Chlorhexidine Gluconate 1 applic 02/14/17 22:00 02/14/17 22:53 Hibiclens For Decolonization - TP Not Given HS BARBARA Diltiazem HCl 125 mg/ Dextrose 125 mls @ 5 mls/hr 02/14/17 21:30 02/14/17 21:38 IVPB 5 mls/hr TITR BARBARA Administration Protocol 5 MG/HR Insulin Aspart 1 vial 02/14/17 22:00 02/15/17 06:12 Novolog Vial Sliding Scale - SQ 2 units ACHS BARBARA Administration Protocol Levothyroxine Sodium 112 mcg 02/15/17 07:00 02/15/17 06:12 Synthroid - PO 112 mcg DAILY@0700 BARBARA Administration Mupirocin 1 applic 02/14/17 22:00 02/14/17 23:42 Bactroban Ointment (For Decolonization) - NS 02/19/17 21:59 1 applic BID BARBARA Administration Ondansetron HCl 4 mg 02/14/17 21:16 Zofran Injection IVPB Q6H PRN NAUSEA Pantoprazole Sodium 40 mg 02/15/17 10:00 Protonix - PO DAILY BARBARA Piperacillin Sod/Tazobactam Sod 3.375 gm 02/15/17 02:00 Zosyn 3.375gm Ivpb (Pre-Docked) IVPB Q8H-IV BARBARA Protocol Vancomycin HCl 500 mg 02/14/17 21:30 Vancomycin (Pre-Docked) IVPB DAILY [facility] Protocol ASSESSMENT/PLAN: Patient is a 71 year old female with a significant past medical history of DM, Hypothyroidism, rheumatoid arthritis, chronic anemia, Atrial fibrillation s/p recent ablation who presented to [place] ED on 02/14/17 with complaints of nausea and vomiting for approximately 3 days. Patient had a recent endoscopy and was started on triple therapy for h pylori. She denies diarrhea, constipation, fever or chills. She was transferred to the ICU @ [facility] for closer monitoring. In the ED she was found to be in Afib with RVR @150. Her lactic acid in ED was noted to be 6, sodium level 125, creatinine 1.8. She was given Cardizem bolus in the ED. There was also a reported episode of syncope vs. seizure in the ED and Ativan was given. Imaging: CT Head 02/14/2017 (-) for acute pathology CT Abdomen 02/14/2017 (-) for obstruction or mesenteric ischemia/sludge noted in GB but no evidence of obstruction ID: Sepsis: SIRS - suspected infection - acute Assessment/Plan: HR > 128 irregular, WBC> 12.8, RR>20, lactic acidosis 6,7>2.7 NS 500cc iv bolus x 1 ordered, repeat lactic acid in 4 hours Started on Zosyn in ED, now also on Vanco ID consult for further IV antibiotic therapy Blood and urine cultures pending Neuro: Seizure vs Syncope - acute Assessment/Plan: secondary to hyponatremia? Hyponatremia improving @ 133, initially @ 125 CT scan negative If any further neurological events, will consult neuro and obtain MRI of brain : Acute Kidney Injury Assessment/Plan: baseline creat 1.0, currently 1.7 Normal saline @100cc/hr Monitor renal function Strict intake an output GI: Abdominal Pain Assessment/Plan: Will start on Flagyl Protonix daily, Reglan 10mg q6 CT Abdomen (-) for obstruction or mesenteric ischemia/sludge noted in GB but no evidence of obstruction Cardiology: Atrial Fib with RVR Assessment/Plan: on Cardizem drip troponins 0.35>0.15 Eliquis BID Endocrine: DM - chronic Asssessment/Plan: BGM, Novolog ac/hs Monitor BGMs F.E.N. Fluids: NS @100 Electrolytes: monitor Nutrition:clears Prophylaxis GI: Protonix DVT: Eliquis BID Visit type - Emergency Visit Emergency Visit: Yes ED Registration Date: 02/14/17 Care time: The patient presented to the Emergency Department on the above date and was hospitalized for further evaluation of their emergent condition. - New Patient This patient is new to me today: Yes Date on this admission: 02/15/17 - Critical Care Critical Care patient: Yes Total Critical Care Time (in minutes): 45 Critical Care Statement: The care of this patient involved high complexity decision making to prevent further life threatening deterioration of the patient 's condition and/or to evalute & treat vital organ system(s) failure or risk of failure. - Discharge Referral Referred to [facility] Med P.C.: No
[2017-02-15] MEDS ORDERED: LEVOTHYROXINE NA 112 MCG TABLET (FP) PO SCH (07:00)
[2017-02-15] MEDS ORDERED: SODIUM CHLORIDE 500 ML IV STA ×2 (07:35→17:33)
[2017-02-15] MEDS ORDERED: SODIUM CHLORIDE 1,000 ML IV SCH ×4 (08:30→19:49)
[2017-02-15] MEDS ORDERED: PT OWN MED DRAWER 7, Y5N ONE (09:07)
[2017-02-15] MEDS: MUPIROCIN 2% TOPICAL OINTMENT FOR DECOLONIZATION NS SCH (09:26)
[2017-02-15] MEDS ORDERED: APIXABAN 5 MG TABLET PO SCH (10:00)
[2017-02-15] MEDS ORDERED: PANTOPRAZOLE 40 MG TABLET (FP) PO SCH ×2 (10:00)
--- NOTE | 2017-02-15 10:41 | CON.CARD ---
Consult Consult Specialty:: Cardiology Referred by:: Dr Douglas Reason for Consultation:: atrial fibrillation - History of Present Illness Chief Complaint: vomiting History of Present Illness: 71 y.o. female with h/o NIDDM, hypothyroidism, HTN, RA on chronic steroids/MTX, interstitial lung disease/emphysema, H pylori gastritis diagnosed 12/2016 recently started on abx, Atrial fibrillation on Eliquis, anemia, syncope due to PAF and conversion pauses s/p PVI at [facility] by Dr Gaona 01/27/17 dcd on amiodarone, now admitted with nausea and vomiting post abx for h. pylori, lactic acidosis, poor po intake and atrial fibrillation with RVR. No chest pain , palpitations, dizziness, syncope, orthopnea, pnd or edema. Baseline exercise tolerance is good. Echo 01/13/17 normal EF, diastolic dysfunction, mod MR mild TR trace to mild PI. - History Source History Provided By: Patient, Medical Record Limitations to Obtaining History: No Limitations - Past Medical History [employer]: Yes: Other (motion sickness) Cardio/Vascular: Yes: AFIB, HTN ...: No Rheumatology: Yes: Rheumatoid Arthritis Endocrine: Yes: Diabetes Mellitus, Hypothyroidism Additional Medical History: recent atrial ablation at [facility]. recent EGD with Dx of H. Pylori, recently started on Triple therapy - Alcohol/Substance Use Hx Alcohol Use: No History of Substance Use: reports: None - Smoking History Smoking history: Former smoker Have you smoked in the past 12 months: No If you are a former smoker, when did you quit?: 37 YEARS AGO - Social History Usual Living Arrangement: With Spouse ADL: Independent History of Recent Travel: No Home Medications - Allergies Allergies/Adverse Reactions: Allergies Allergy/AdvReac Type Severity Reaction Status Date / Time No Known Allergies Allergy Verified 02/14/17 10:33 - Home Medications Home Medications: Ambulatory Orders Amiodarone HCl 200 mg PO TID 02/14/17 Apixaban [Eliquis] 5 mg PO BID 02/14/17 Calcium Carbonate 600 mg PO DAILY 02/14/17 Esomeprazole Magnesium [Nexium 24Hr] 40 mg PO DAILY 02/14/17 Folic Acid 1 mg PO DAILY 02/14/17 Furosemide [Lasix -] 40 mg PO DAILY 02/14/17 Levothyroxine [Synthroid -] 112 mcg PO DAILY 02/14/17 Losartan Potassium 100 mg PO DAILY 02/14/17 Metformin HCl 1,000 mg PO BID 02/14/17 Methotrexate [Mexate -] 12.5 mg PO Q7D 02/14/17 Prednisone 2.5 mg PO ASDIR 02/14/17 Review of Systems - Review of Systems Gastrointestinal: reports: Nausea, Vomiting Vital Signs: Vital Signs Temperature 97.7 F 02/15/17 08:00 Pulse Rate 104 H 02/15/17 08:00 Respiratory Rate 17 02/15/17 08:00 Blood Pressure 102/63 02/15/17 08:00 O2 Sat by Pulse Oximetry (%) 97 02/15/17 09:31 Constitutional: Yes: Well Nourished Eyes: Yes: WNL HENT: Yes: WNL Neck: Yes: WNL Respiratory: Yes: WNL Gastrointestinal: Yes: Normal Bowel Sounds, Soft, Abdomen, Obese Renal/: Yes: WNL Cardiovascular: Yes: Tachycardia, Pulse Irregular JVD: No Carotid Bruit: No PMI: Non-Displaced Heart Sounds: Yes: S1 Extremities: Yes: WNL Edema: No Peripheral Pulses WNL: Yes - Other Data Labs, Other Data: CBC, BMP 02/15/17 05:15 02/15/17 05:15 INR, PTT INR 2.59 (0.82-1.09) H 02/15/17 05:15 Troponin, BNP 02/14/17 02/14/17 21:40 21:40 Troponin I 0.15 H B-Natriuretic Peptide 1886.59 H Troponin, BNP 02/14/17 02/14/17 21:40 21:40 Troponin I 0.15 H B-Natriuretic Peptide 1886.59 H afib rvr Imaging - Results X-ray: Report Reviewed (chf, left effusion) Problem List - Problems (1) Atrial fibrillation with rapid ventricular response Assessment/Plan: CHADS2 score 3. Continue Eliquis 5 mg bid for stroke prevention. DC dilt drip, start 30 mg PO q6h continue amiodarone 200 tid for now. No need for rpt cardiac fraser. Rate control is reasonable post PVI. She is still in the 6 month "blanking period" post PVI. needs different h pylori regimen. Code(s): I48.91 - UNSPECIFIED ATRIAL FIBRILLATION
[2017-02-15] MEDS ORDERED: INSULIN (NOVOLOG) ASPART 100 UNITS/ML 10ML VIAL ONE (11:10)
[2017-02-15] MEDS: dilTIAZem HCL 30 MG TABLET (FP) PO SCH ×3 (11:59→23:12)
--- NOTE | 2017-02-15 12:18 | PN ---
Physical Exam: SUBJECTIVE: Patient seen and examined 71 y.o. female with h/o NIDDM, hypothyroidism, HTN, RA on chronic steroids/MTX, H pylori gastritis diagnosed 12/2016 recently started on abx, Atrial fibrillation on Eliquis, anemia, syncope due to PAF and conversion pauses s/p PVI at [facility] by Dr Gaona 01/27/17 dcd on amiodarone, now admitted with nausea and vomiting post abx for h. pylori, lactic acidosis, poor po intake and atrial fibrillation with RVR. denies chest pain, palpitations, dizziness, syncope, orthopnea, pnd or edema. Echo 01/13/17 normal EF, diastolic dysfunction, mod MR mild TR trace to mild PI. denies chest pain, sob, palpitations, lightheadidness, states nausea has improved. patient was on amiadarone drip in dobs, patient was on cardiazem drip over night. patient had recived 3.5 L IV fluid. will stop her cardiazem drip and start on po 30 q6h will give her IV fluid and will trend lactic acid. OBJECTIVE: Vital Signs Period Temp Pulse Resp BP Sys/Angeles Pulse Ox Last 24 Hr 97.6 F-98.4 F 89-147 17-20 102-139/62-118 97-98 PAST MEDICAL HISTORY: NIDDM Hypothyroid HTN RA Afib on warfarin Anemia OBJECTIVE: GENERAL: Awake, alert, and fully oriented, in no acute distress. EARS, NOSE, THROAT: Ears normal, nares patent, oropharynx clear without exudates. dry mucous membranes. NECK: Normal range of motion, LUNGS: Breath sounds equal, clear to auscultation bilaterally.b/l crackels present in base . No accessory muscle use. HEART: s1s2 normal, irregular ABDOMEN: Soft, nontender, not distended, normoactive bowel sounds, no guarding, no rebound, no masses. MUSCULOSKELETAL: Normal range of motion at all joints. No bony deformities or tenderness. No CVA tenderness. UPPER EXTREMITIES: 2+ pulses, warm, well-perfused. No cyanosis. No clubbing. Cap refill <2 seconds. No peripheral edema. LOWER EXTREMITIES: 2+ pulses, warm, well-perfused. No calf tenderness. No peripheral edema. PSYCHIATRIC: Cooperative. Good eye contact. Appropriate mood and affect. SKIN: Warm, dry, normal turgor, Laboratory Results - last 24 hr 02/14/17 02/14/17 02/14/17 21:40 21:40 21:40 WBC 11.9 H D RBC 3.56 L Hgb 9.6 L D Hct 29.7 L D MCV 83.6 MCHC 32.2 RDW 20.7 H D Plt Count 243 D MPV 9.0 Neutrophils % Lymphocytes % Monocytes % Eosinophils % Basophils % INR Sodium 133 L Potassium 3.9 Chloride 97 L Carbon Dioxide 17 L D Anion Gap 19 H BUN 23 H D Creatinine 1.8 H D Creat Clearance w eGFR 27.58 POC Glucometer Random Glucose 127 H D Lactic Acid 6.786 H* Calcium 8.2 L Total Bilirubin 1.3 H D AST 22 D ALT 16 D Alkaline Phosphatase 86 Troponin I B-Natriuretic Peptide Total Protein 6.3 L Albumin 3.1 L 02/14/17 02/14/17 02/15/17 21:40 21:40 05:15 WBC 9.1 RBC 3.41 L Hgb 9.2 L Hct 28.0 L MCV 82.1 MCHC 32.9 RDW 20.8 H Plt Count 225 MPV 9.4 Neutrophils % 75.0 Lymphocytes % 14.2 D Monocytes % 9.2 D Eosinophils % 0.7 Basophils % 0.9 INR Sodium Potassium Chloride Carbon Dioxide Anion Gap BUN Creatinine Creat Clearance w eGFR POC Glucometer Random Glucose Lactic Acid Calcium Total Bilirubin AST ALT Alkaline Phosphatase Troponin I 0.15 H B-Natriuretic Peptide 1886.59 H Total Protein Albumin 02/15/17 02/15/17 02/15/17 05:15 05:15 05:15 WBC RBC Hgb Hct MCV MCHC RDW Plt Count MPV Neutrophils % Lymphocytes % Monocytes % Eosinophils % Basophils % INR 2.59 H Sodium 132 L Potassium 3.8 Chloride 98 Carbon Dioxide 21 D Anion Gap 13 BUN 22 H Creatinine 1.6 H Creat Clearance w eGFR 31.60 POC Glucometer Random Glucose 136 H Lactic Acid 2.716 H* Calcium 8.1 L Total Bilirubin 1.0 D AST 19 ALT 15 Alkaline Phosphatase 81 Troponin I B-Natriuretic Peptide Total Protein 5.9 L Albumin 2.8 L 02/15/17 05:35 WBC RBC Hgb Hct MCV MCHC RDW Plt Count MPV Neutrophils % Lymphocytes % Monocytes % Eosinophils % Basophils % INR Sodium Potassium Chloride Carbon Dioxide Anion Gap BUN Creatinine Creat Clearance w eGFR POC Glucometer [id number] Random Glucose Lactic Acid Calcium Total Bilirubin AST ALT Alkaline Phosphatase Troponin I B-Natriuretic Peptide Total Protein Albumin Active Medications Generic Name Dose Route Start Last Admin Trade Name Freq PRN Reason Stop Dose Admin Acetaminophen 650 mg 02/14/17 21:16 Tylenol - PO Q6H PRN FEVER OR PAIN Amiodarone HCl 200 mg 02/15/17 14:00 Cordarone - PO TID BARBARA Apixaban 5 mg 02/15/17 10:00 02/15/17 09:26 Eliquis - PO 5 mg BID BARBARA Administration Chlorhexidine Gluconate 1 applic 02/14/17 22:00 02/14/17 22:53 Hibiclens For Decolonization - TP Not Given HS BARBARA Diltiazem HCl 30 mg 02/15/17 12:00 02/15/17 11:59 Cardizem - PO 30 mg Q6H BARBARA Administration Sodium Chloride 1,000 mls @ 100 mls/hr 02/15/17 10:15 02/15/17 11:17 Normal Saline - IV 100 mls/hr ASDIR BARBARA Administration Insulin Aspart 1 vial 02/14/17 22:00 02/15/17 11:16 Novolog Vial Sliding Scale - SQ 2 units ACHS BARBARA Administration Protocol Levothyroxine Sodium 112 mcg 02/15/17 07:00 02/15/17 06:12 Synthroid - PO 112 mcg DAILY@0700 BARBARA Administration Mupirocin 1 applic 02/14/17 22:00 02/15/17 09:26 Bactroban Ointment (For Decolonization) - NS 02/19/17 21:59 1 applic BID BARBARA Administration Ondansetron HCl 4 mg 02/14/17 21:16 Zofran Injection IVPB Q6H PRN NAUSEA Pantoprazole Sodium 40 mg 02/15/17 10:00 02/15/17 09:25 Protonix - PO 40 mg DAILY BARBARA Administration Piperacillin Sod/Tazobactam Sod 3.375 gm 02/15/17 02:00 Zosyn 3.375gm Ivpb (Pre-Docked) IVPB Q8H-IV BARBARA Protocol ASSESSMENT/PLAN: 1) atrial fibrillation Echo 01/13/17 normal EF, diastolic dysfunction, mod MR mild TR trace to mild PI. start her on po cardiazem 30 q6h continue with her amiadarone and eliquis monitor vitals monitor intake/ output cardiology on case 2) DUARTE: probably pre renal. creatnine decreased to 1.6 avoid nephrotoxic drugs monitor cr on IV fluid 100ml/hr 3 nIDDM on sliding scale bgm monitorning hold metformin 4)hypothyroidism -continue levothyroxine 112mcg 5) lacticacidosis could be from anabolic metabolism for low bp, or can be from metformin trending down continue Iv fluid BP improved 6) Hyponatremia improved from 125 to 132 on NS monitor na 7) Nausea & Vomiting, ( could be from triple therapy )resolving -holding triple therapy for H Pylori. -Zofran PRN -PPI - started on clear liquid -Fluid ivf NS 100 ml/hr -electrolyte ; hyponatremia nutrition : clear liquid, if tolerate advance ir in evening ppx - on heparin gtt - zantac dispo: transfer to tele Visit type - Emergency Visit Emergency Visit: Yes ED Registration Date: 02/14/17 Care time: The patient presented to the Emergency Department on the above date and was hospitalized for further evaluation of their emergent condition. - New Patient This patient is new to me today: Yes Date on this admission: 02/15/17 - Critical Care Critical Care patient: Yes Total Critical Care Time (in minutes): 45 Critical Care Statement: The care of this patient involved high complexity decision making to prevent further life threatening deterioration of the patient 's condition and/or to evalute & treat vital organ system(s) failure or risk of failure.
--- NOTE | 2017-02-15 12:19 | PN ---
Teaching Attending Note Name of Resident: Lucius Douglas ATTENDING PHYSICIAN STATEMENT I saw and evaluated the patient. I reviewed the resident's note and discussed the case with the resident. I agree with the resident's findings and plan as documented. SUBJECTIVE: Pt seen and examined in the ICU. Remains on cardizem gtt with better heart rate control. Denies chest pain, shortness of breath or palpitations. c/o nausea which she attributes to medications. OBJECTIVE: Last Vital Signs Temp Pulse Resp BP Pulse Ox 97.6 F 89 20 112/62 97 02/15/17 10:00 02/15/17 10:00 02/15/17 10:00 02/15/17 10:00 02/15/17 09:31 Intake & Output 02/12/17 02/13/17 02/14/17 02/15/17 23:59 23:59 23:59 23:59 Intake Total 3700 478 Output Total 300 300 Balance 3400 178 Weight 174 lb 2 oz 173 lb 15.115 oz Gen: NAD at rest Heart: irregularly irregular Lung: decreased breath sounds at the bases Abd: soft, nontender Ext: no edema CBC, BMP 02/15/17 05:15 02/15/17 05:15 Active Medications Acetaminophen (Tylenol -) 650 mg PO Q6H PRN PRN Reason: FEVER OR PAIN Amiodarone HCl (Cordarone -) 200 mg PO TID BARBARA Apixaban (Eliquis -) 5 mg PO BID [facility] Last Admin: 02/15/17 09:26 Dose: 5 mg Chlorhexidine Gluconate (Hibiclens For Decolonization -) 1 applic TP HS [facility] Last Admin: 02/14/17 22:53 Dose: Not Given Diltiazem HCl (Cardizem -) 30 mg PO Q6H [facility] Last Admin: 02/15/17 11:59 Dose: 30 mg Sodium Chloride (Normal Saline -) 1,000 mls @ 100 mls/hr IV ASDIR [facility] Last Admin: 02/15/17 11:17 Dose: 100 mls/hr Insulin Aspart (Novolog Vial Sliding Scale -) 1 vial SQ ACHS [facility] PRN Reason: Protocol Last Admin: 02/15/17 11:16 Dose: 2 units Levothyroxine Sodium (Synthroid -) 112 mcg PO DAILY@0700 [facility] Last Admin: 04/18/17 06:12 Dose: 112 mcg Mupirocin (Bactroban Ointment (For Decolonization) -) 1 applic NS BID [facility] Stop: 02/19/17 21:59 Last Admin: 02/15/17 09:26 Dose: 1 applic Ondansetron HCl (Zofran Injection) 4 mg IVPB Q6H PRN PRN Reason: NAUSEA Pantoprazole Sodium (Protonix -) 40 mg PO DAILY [facility] Last Admin: 02/15/17 09:25 Dose: 40 mg Piperacillin Sod/Tazobactam Sod (Zosyn 3.375gm Ivpb (Pre-Docked)) 3.375 gm IVPB Q8H-IV BARBARA PRN Reason: Protocol ASSESSMENT AND PLAN: Syncope Atrial Fibrillation with RVR Recent AVN ablation Acute Kidney Injury Lactic Acidosis HTN DM - start cardizem PO - continue amiodarone - titrate off cardizem gtt - received empiric antibiotics - can monitor off antibiotics for now - IVF - trend lactate - continue anticoagulation - protonix - can monitor on telemetry
--- NOTE | 2017-02-15 13:24 | EKG ---
Test Reason : Blood Pressure : / mmHG Vent. Rate : 139 BPM Atrial Rate : 144 BPM P-R Int : 000 ms QRS Dur : 102 ms QT Int : 246 ms P-R-T Axes : 000 101 247 degrees QTc Int : 374 ms ATRIAL FIBRILLATION WITH RAPID VENTRICULAR RESPONSE WITH PREMATURE VENTRICULAR OR ABERRANTLY CONDUCTED COMPLEXES RIGHTWARD AXIS LOW VOLTAGE QRS NONSPECIFIC ST AND T WAVE ABNORMALITY ABNORMAL ECG WHEN COMPARED WITH ECG OF 14-JAN-2017 11:34, ATRIAL FIBRILLATION HAS REPLACED SINUS RHYTHM VENT. RATE HAS INCREASED BY 70 BPM QRS DURATION HAS INCREASED NONSPECIFIC T WAVE ABNORMALITY NOW EVIDENT IN LATERAL LEADS CLINICAL CORRELATION IS RECOMMENDED Confirmed by SWEETIE GOODRICH, MAGALIE ([id number]) on 02/15/2017 1:24:38 PM Referred By: RIA GONSALEZ Confirmed By:MAGALIE PITT MD
[2017-02-15 13:37] LABS: TROPONIN I 0.2 ng/ml (0.00-0.05)
[2017-02-15] MEDS ORDERED: AMIODARONE HCL 200 MG TABLET (FP) PO SCH (14:00)
--- NOTE | 2017-02-15 16:55 | CONSULT ---
Consult Consult Specialty:: infectious diseases Reason for Consultation:: lactic acidosis - History of Present Illness History of Present Illness: 71 year old female with PMH of DM, Hypothyroidism, RA, chronic anemia & Atrial fibrillation s/p recent ablation who presented to [place] ED with nausea & vomiting for 3 days. Patient had a recent endoscopy and was started on triple therapy for H Pylori couple of days back. Patient states abdominal pain, nausea & vomiting started around that time. She has had very limited oral intake of food or liquids since then. She denies diarrhea, constipation, fever, chills, YUAN , visual changes, chest pain, SOB. patient had history of afib on previous admission and was stabilized and send to [facility] for ablation which was done and patient was in sinus rythm. patient then had the hpylori issues and became nauseous and was not able to eat and then became sicker and came to ed where she was found to be hypotensive and was give shilo 3 litres of iv fluid and was transferred to icu in [place]. patient was showing a septic picture In ED, patient was found to be in Atrial fibrillation with RVR at ~150. She had a lactic acid of 6, sodium of 125 and creatinine 1.8 (baseline is 1.0). Patient was given Cardizem and IVF were started as well. In ED, patient had episode of syncope (or possibly, but less likely, seizure) and was given Ativan. Patient was started on Zosyn/Metronidalze in [place] ED. was called in because of sepsis - History Source History Provided By: Patient, Medical Record Limitations to Obtaining History: No Limitations - Past Medical History [employer]SPORTATION: Yes: Other (motion sickness) Cardio/Vascular: Yes: AFIB, HTN ...: No Rheumatology: Yes: Rheumatoid Arthritis Endocrine: Yes: Diabetes Mellitus, Hypothyroidism Additional Medical History: recent atrial ablation at [facility]. recent EGD with Dx of H. Pylori, recently started on Triple therapy - Alcohol/Substance Use Hx Alcohol Use: No History of Substance Use: reports: None - Smoking History Smoking history: Former smoker Have you smoked in the past 12 months: No If you are a former smoker, when did you quit?: 37 YEARS AGO - Social History Usual Living Arrangement: With Spouse ADL: Independent History of Recent Travel: No Home Medications - Allergies Allergies/Adverse Reactions: Allergies Allergy/AdvReac Type Severity Reaction Status Date / Time No Known Allergies Allergy Verified 02/14/17 10:33 - Home Medications Home Medications: Ambulatory Orders Amiodarone HCl 200 mg PO TID 02/14/17 Apixaban [Eliquis] 5 mg PO BID 02/14/17 Calcium Carbonate 600 mg PO DAILY 02/14/17 Esomeprazole Magnesium [Nexium 24Hr] 40 mg PO DAILY 02/14/17 Folic Acid 1 mg PO DAILY 02/14/17 Furosemide [Lasix -] 40 mg PO DAILY 02/14/17 Levothyroxine [Synthroid -] 112 mcg PO DAILY 02/14/17 Losartan Potassium 100 mg PO DAILY 02/14/17 Metformin HCl 1,000 mg PO BID 02/14/17 Methotrexate [Mexate -] 12.5 mg PO Q7D 02/14/17 Prednisone 2.5 mg PO ASDIR 02/14/17 Review of Systems - Review of Systems Constitutional: reports: Loss of Appetite, Weakness, Other Eyes: reports: No Symptoms HENT: reports: No Symptoms Neck: reports: No Symptoms Cardiovascular: reports: Palpitations, Other Respiratory: reports: Cough, Other Gastrointestinal: reports: Nausea, Vomiting Genitourinary: reports: No Symptoms Musculoskeletal: reports: No Symptoms Integumentary: reports: No Symptoms Neurological: reports: No Symptoms Endocrine: reports: No Symptoms Hematology/Lymphatic: reports: No Symptoms Psychiatric: reports: No Symptoms Physical Exam Vital Signs: Vital Signs Temperature 97.4 F L 02/15/17 16:10 Pulse Rate 95 H 02/15/17 16:10 Respiratory Rate 21 02/15/17 16:10 Blood Pressure 109/57 02/15/17 16:10 O2 Sat by Pulse Oximetry (%) 97 02/15/17 09:31 Constitutional: Yes: Calm, Mild Distress Eyes: Yes: Conjunctiva Clear Neck: Yes: Supple, Trachea Midline Cardiovascular: Yes: Pulse Irregular, S1, S2 Respiratory: Yes: Regular, Rhonchi, Wheezes Gastrointestinal: Yes: Normal Bowel Sounds, Soft Musculoskeletal: Yes: WNL Extremities: Yes: WNL Integumentary: Yes: WNL Neurological: Yes: Alert, Oriented Psychiatric: Yes: Alert, Oriented Labs: CBC, BMP 02/15/17 05:15 02/15/17 05:15 Imaging - Results Chest X-ray: Report Reviewed, Image Reviewed Cat Scan: Report Reviewed, Image Reviewed Other: Report Reviewed, Other Assessment/Plan after loking at the patients history and her symptoms i have little doubt that patient had septicemia .and i think it was probably form gi tract because of her symptoms patient currently doing well and feels better. Also because pf the stress and her condition patient flipped into afib again Syncope Atrial Fibrillation with RVR Recent AVN ablation Acute Kidney Injury Lactic Acidosis HTN DM sepsis plan i am going to start her on zosyn for now will see all her cx report rest as per icu cardiology on case patient stable cc time 50 min
[2017-02-15] MEDS ORDERED: SODIUM CHLORIDE 1,000 ML IV STA (17:13)
[2017-02-15] MEDS: PIPERACILLIN/TAZOB 2.25 GM 50 ML IVPB SCH (17:43)
[2017-02-15] MEDS ORDERED: METRONIDAZOLE 500 MG PREMIXED 100 ML IVPB SCH (18:00)
[2017-02-15] MEDS ORDERED: ONDANSETRON 4 MG/2 ML VIAL IVPB PRN (19:49)
[2017-02-15] MEDS ORDERED: ACETAMINOPHEN 325 MG TABLET (FP) PO PRN (19:49)
[2017-02-15] MEDS: AMIODARONE HCL 200 MG TABLET (FP) PO SCH (21:39)
[2017-02-15] MEDS: APIXABAN 5 MG TABLET PO SCH (21:39)
[2017-02-16] MEDS: PIPERACILLIN/TAZOB 2.25 GM 50 ML IVPB SCH ×2 (01:15→10:13)
[2017-02-16 06:14] LABS: EOSINOPHIL 1.1 % (0-4.5); MCH 27.4 pg (25.7-33.7); MCHC 33.5 g/dl (32.0-36.0); MEAN CELL VOLUME 81.7 fl (80-96); MEAN PLT VOLUME 8.8 fl (7.5-11.1); NEUTROPHILS 77.9 % (42.8-82.8); PLATELET COUNT 241 K/MM3 (134-434); RDW 21.3 % (11.6-15.6)
[2017-02-16] MEDS: dilTIAZem HCL 30 MG TABLET (FP) PO SCH ×3 (06:39→17:52)
[2017-02-16] MEDS: AMIODARONE HCL 200 MG TABLET (FP) PO SCH ×3 (06:39→21:41)
[2017-02-16] MEDS: LEVOTHYROXINE NA 112 MCG TABLET (FP) PO SCH (06:40)
[2017-02-16 06:52] LABS: CALCIUM 8.1 mg/dL (8.5-10.1); COCKROFT - GAULT 61.251; CREATININE 1.1 mg/dL (0.55-1.02)
[2017-02-16] MEDS ORDERED: POTASSIUM CHLORIDE TABS 20 MEQ TABLET.ER (FP) PO ONE (07:13)
[2017-02-16] MEDS: INSULIN SLIDING SCALE (NOVOLOG) 1 VIAL SQ SCH ×4 (07:20→21:41)
[2017-02-16 09:28] LABS: HYPOCHROMIA 2+; POLYCHROMASIA 1+
[2017-02-16 09:29] LABS: MICROCYTOSIS FEW
--- NOTE | 2017-02-16 10:02 | PN ---
[id number] extremities. OBJECTIVE: Vital Signs Period Temp Pulse Resp BP Sys/Angeles Pulse Ox Last 24 Hr 97.3 F-98.6 F 95-115 15-26 97-128/49-78 97 GENERAL: The patient is awake, alert, and fully oriented, in no acute distress. HEAD: Normal with no signs of trauma. EYES: PERRL, extraocular movements intact, sclera anicteric, conjunctiva clear. No ptosis. ENT: Ears normal, nares patent, oropharynx clear without exudates, moist mucous membranes. NECK: Trachea midline, full range of motion, supple. LUNGS: Rales at bases, able to speak full sentences, no accessory muscle use. HEART: Irregular rhythm, S1, S2 without murmur, rub or gallop. ABDOMEN: Soft, nontender, nondistended, normoactive bowel sounds, no guarding, no rebound, no hepatosplenomegaly, no masses. EXTREMITIES: 2+ pulses throughout, well-perfused, +1 pitting edema in bilateral lower extremities. NEUROLOGICAL: Cranial nerves II through XII grossly intact. Normal speech, gait not observed. PSYCH: Normal mood, normal affect. SKIN: Warm, dry, normal turgor, no rashes or lesions noted Laboratory Results - last 24 hr 02/15/17 02/15/17 02/15/17 05:15 11:02 15:30 WBC RBC Hgb Hct MCV MCHC RDW Plt Count MPV Neutrophils % Lymphocytes % Monocytes % Eosinophils % Basophils % Polychromasia Hypochromic-Microcytic Microcytosis Macrocytosis Sodium Potassium Chloride Carbon Dioxide Anion Gap BUN Creatinine POC Glucometer [phone] Random Glucose Lactic Acid 3.292 H* Calcium Troponin I 0.20 H 02/15/17 02/15/17 02/15/17 16:03 21:45 21:52 WBC RBC Hgb Hct MCV MCHC RDW Plt Count MPV Neutrophils % Lymphocytes % Monocytes % Eosinophils % Basophils % Polychromasia Hypochromic-Microcytic Microcytosis Macrocytosis Sodium Potassium Chloride Carbon Dioxide Anion Gap BUN Creatinine POC Glucometer [phone] Random Glucose Lactic Acid 2.006 H* Calcium Troponin I 02/16/17 02/16/17 05:15 05:15 WBC 9.0 RBC 3.39 L Hgb 9.3 L Hct 27.7 L MCV 81.7 MCHC 33.5 RDW 21.3 H Plt Count 241 MPV 8.8 Neutrophils % 77.9 Lymphocytes % 10.7 D Monocytes % 9.3 Eosinophils % 1.1 Basophils % 1.0 Polychromasia 1+ Hypochromic-Microcytic 2+ Microcytosis Few Macrocytosis 1+ Sodium 132 L Potassium 3.4 L Chloride 99 Carbon Dioxide 23 Anion Gap 10 BUN 16 D Creatinine 1.1 H D POC Glucometer Random Glucose 122 H Lactic Acid Calcium 8.1 L Troponin I Active Medications Generic Name Dose Route Start Last Admin Trade Name Freq PRN Reason Stop Dose Admin Acetaminophen 650 mg 02/15/17 19:49 Tylenol - PO Q6H PRN FEVER OR PAIN Amiodarone HCl 200 mg 02/15/17 22:00 02/16/17 06:39 Cordarone - PO 200 mg TID BARBARA Administration Apixaban 5 mg 02/15/17 22:00 02/15/17 21:39 Eliquis - PO 5 mg BID BARBARA Administration Diltiazem HCl 30 mg 02/16/17 00:00 02/16/17 06:39 Cardizem - PO 30 mg Q6H BARBARA Administration Piperacillin Sod/Tazobactam Sod 50 mls @ 100 mls/hr 02/15/17 18:00 02/16/17 01: 15 Zosyn 2.25gm Ivpb (Pre-Docked) IVPB 100 mls/hr Q8H-IV BARBARA Administration Protocol Insulin Aspart 1 vial 02/15/17 22:00 02/16/17 07:20 Novolog Vial Sliding Scale - SQ Not Given ACHS BARBARA Protocol Levothyroxine Sodium 112 mcg 02/16/17 07:00 02/16/17 06:40 Synthroid - PO 112 mcg DAILY@0700 BARBARA Administration Pantoprazole Sodium 40 mg 02/16/17 10:00 Protonix - PO DAILY [facility] ASSESSMENT/PLAN: 71 year-old female withHTN, [id number] AFib s/p ablation 12/2016, IDDM, RA, and hypothyroidism admitted for AFib with RVR, lactic acidemia, DUARTE, and possible syncope/seizure following Cardizem administration. 1. AFib with RVR - Rate well-controlled on PO Amio and Cardizem - In "blanking period" s/p ablation - [id number] score 5 - being anticoagulated with Eliquis - Repeat EKG now that rate is controlled 2. [id number] diastolic CHF - CXR with mild pulmonary vascular congestion - Pt c/o SOB and has +1 pitting LE edema - + 1.2L positive in last 24 hours and up 7kg since admission - IV Lasix 40mg given x 1 today - Outpatient pulm consult for PFTs - possible interstital pattern on CXR 3. Nausea/Vomiting - Suspect secondary to triple therapy for H. pylori - hold for now, reconsider as outpatient - Resolved 4. Lactic Acidemia - Lactic acid 6.6 on presentation, now 2.0 after fluid resuscitation - Likely secondary to dehydration, N/V - Started on empiric Zosyn on admission, ID has scaled down to Ceftriaxone today - Consider observing off antibiotics as pt is afebrile with no leukocystosis 5. DUARTE - Creatinine 1.8 on admission, now 1.1 (baseline 1.0) with fluid resuscitation - Likely secondary to dehydration, N/V 6. Hyponatremia - Resolved; Na+ 125 in ED, is resolved with Na+ now 132 after volume given 7. NIDDM - Holding Metformin while inpatient - BGM and ISS Novolog - Diabetic diet ordered 8. Rheumatoid Arthritis - Has been restarted on home dose of weekly methotrexate - No need to restart home Prednisone dose as it is subtherapeutic dosing ( 2.5mg twice weekly) 9. Hypothyroidism - TSH a7.8 - Check Free T3/4 - Continue Synthroid 10. PPX - On Eliquis PO - On Protonix PO F/E/N -Fluids: PO intake adequate; pt +1200 mL today and up 7kg since admission - IV Lasix 40mg ordered x 1 -Electrolytes: Slightly hypokalemic - 40 mEq K+ PO given today -Nutrition: Diabetic Diet Dispo: Awaiting tele bed FULL CODE Visit type - Emergency Visit Emergency Visit: Yes ED Registration Date: 02/14/17 Care time: The patient presented to the Emergency Department on the above date and was hospitalized for further evaluation of their emergent condition. - New Patient This patient is new to me today: Yes Date on this admission: 02/14/17 - Critical Care Critical Care patient: No - Discharge Referral Referred to [facility] Med P.C.: No
[2017-02-16] MEDS ORDERED: PT OWN MED DRAWER 7, Y5N ONE (10:08)
[2017-02-16] MEDS: PANTOPRAZOLE 40 MG TABLET (FP) PO SCH (10:09)
[2017-02-16] MEDS: APIXABAN 5 MG TABLET PO SCH ×2 (10:09→21:47)
[2017-02-16] MEDS ORDERED: FUROSEMIDE 40 MG/4 ML INJECTABLE VIAL IVPUSH ONE (10:57)
--- NOTE | 2017-02-16 11:25 | PN ---
Physical Exam: SUBJECTIVE: Patient seen and examined complaint of mild congestion in chest and mild difficulty in breathi. on examinantion b/l rales present. will stop IV fluid and give her IV lasix 40. Follow cxr . will start her home dose of methotrexate. Denies chest pain, palpitation, nause, vomiting accepting soft diet, will change to regular diet. OBJECTIVE: Vital Signs Period Temp Pulse Resp BP Sys/Angeles Pulse Ox Last 24 Hr 97.3 F-98.6 F 95-115 15-26 97-141/49-78 97 GENERAL: Awake, alert, and fully oriented, in no acute distress. EARS, NOSE, THROAT: Ears normal, nares patent, oropharynx clear without exudates. dry mucous membranes. NECK: Normal range of motion, LUNGS: Breath sounds equal, clear to auscultation bilaterally.b/l crackels . No accessory muscle use. HEART: s1s2 normal, irregular ABDOMEN: Soft, nontender, not distended, normoactive bowel sounds, no guarding, no rebound, no masses. MUSCULOSKELETAL: Normal range of motion at all joints. No bony deformities or tenderness. No CVA tenderness. UPPER EXTREMITIES: 2+ pulses, warm, well-perfused. No cyanosis. No clubbing. Cap refill <2 seconds. No peripheral edema. LOWER EXTREMITIES: 2+ pulses, warm, well-perfused. No calf tenderness. No peripheral edema. PSYCHIATRIC: Cooperative. Good eye contact. Appropriate mood and affect. SKIN: Warm, dry, normal turgor, Laboratory Results - last 24 hr 02/15/17 02/15/17 02/15/17 05:15 11:02 15:30 WBC RBC Hgb Hct MCV MCHC RDW Plt Count MPV Neutrophils % Lymphocytes % Monocytes % Eosinophils % Basophils % Polychromasia Hypochromic-Microcytic Microcytosis Macrocytosis Sodium Potassium Chloride Carbon Dioxide Anion Gap BUN Creatinine POC Glucometer [phone] Random Glucose Lactic Acid 3.292 H* Calcium Troponin I 0.20 H 02/15/17 02/15/17 02/15/17 16:03 21:45 21:52 WBC RBC Hgb Hct MCV MCHC RDW Plt Count MPV Neutrophils % Lymphocytes % Monocytes % Eosinophils % Basophils % Polychromasia Hypochromic-Microcytic Microcytosis Macrocytosis Sodium Potassium Chloride Carbon Dioxide Anion Gap BUN Creatinine POC Glucometer 141.86139 [phone] Random Glucose Lactic Acid 2.006 H* Calcium Troponin I 02/16/17 02/16/17 05:15 05:15 WBC 9.0 RBC 3.39 L Hgb 9.3 L Hct 27.7 L MCV 81.7 MCHC 33.5 RDW 21.3 H Plt Count 241 MPV 8.8 Neutrophils % 77.9 Lymphocytes % 10.7 D Monocytes % 9.3 Eosinophils % 1.1 Basophils % 1.0 Polychromasia 1+ Hypochromic-Microcytic 2+ Microcytosis Few Macrocytosis 1+ Sodium 132 L Potassium 3.4 L Chloride 99 Carbon Dioxide 23 Anion Gap 10 BUN 16 D Creatinine 1.1 H D POC Glucometer Random Glucose 122 H Lactic Acid Calcium 8.1 L Troponin I Active Medications Generic Name Dose Route Start Last Admin Trade Name Freq PRN Reason Stop Dose Admin Acetaminophen 650 mg 02/15/17 19:49 Tylenol - PO Q6H PRN FEVER OR PAIN Amiodarone HCl 200 mg 02/15/17 22:00 02/16/17 06:39 Cordarone - PO 200 mg TID BARBARA Administration Apixaban 5 mg 02/15/17 22:00 02/16/17 10:09 Eliquis - PO 5 mg BID BARBARA Administration Diltiazem HCl 30 mg 02/16/17 00:00 02/16/17 06:39 Cardizem - PO 30 mg Q6H BARBARA Administration Furosemide 40 mg 02/16/17 10:57 Lasix Injection - IVPUSH 02/16/17 10:58 ONCE ONE Furosemide 40 mg 02/17/17 10:00 Lasix - PO DAILY [facility] Piperacillin Sod/Tazobactam Sod 50 mls @ 100 mls/hr 02/15/17 18:00 02/16/17 10: 13 Zosyn 2.25gm Ivpb (Pre-Docked) IVPB 100 mls/hr Q8H-IV ABRBARA Administration Protocol Insulin Aspart 1 vial 02/15/17 22:00 02/16/17 07:20 Novolog Vial Sliding Scale - SQ Not Given ACHS [facility] Protocol Levothyroxine Sodium 112 mcg 02/16/17 07:00 02/16/17 06:40 Synthroid - PO 112 mcg DAILY@0700 BARBARA Administration Methotrexate 12.5 mg 02/16/17 11:15 Mexate - PO Q7D BARBARA Pantoprazole Sodium 40 mg 02/16/17 10:00 02/16/17 10:09 Protonix - PO 40 mg DAILY BARBARA Administration ASSESSMENT/PLAN: 1) atrial fibrillation Echo 01/13/17 normal EF, diastolic dysfunction, mod MR mild TR trace to mild PI. continuw po cardiazem 30 q6h continue on amiadarone and eliquis monitor vitals monitor intake/ output cardiology on case started on home dose of lasix 40mg daily 2) DUARTE: probably pre renal. creatnine decreased to 1.2 from 1.6 avoid nephrotoxic drugs monitor cr 3 nIDDM on sliding scale bgm monitorning hold metformin 4)hypothyroidism -continue levothyroxine 112mcg 5) lacticacidosis could be from anabolic metabolism for low bp, afib, or can be from metformin trending down BP improved 6) Hyponatremia improved from 125 to 132 on NS monitor na 7) Nausea & Vomiting, ( could be from triple therapy )resolving -holding triple therapy for H Pylori. -Zofran PRN -PPI - started on regular diet -Fluid orally allowed -electrolyte ; hyponatremia nutrition : regular diet ppx - on eliquis - protonix 40mg daily dispo: transfer to tele Visit type - Emergency Visit Emergency Visit: Yes ED Registration Date: 02/14/17 Care time: The patient presented to the Emergency Department on the above date and was hospitalized for further evaluation of their emergent condition. - New Patient This patient is new to me today: No - Critical Care Critical Care patient: Yes Total Critical Care Time (in minutes): 45 Critical Care Statement: The care of this patient involved high complexity decision making to prevent further life threatening deterioration of the patient 's condition and/or to evalute & treat vital organ system(s) failure or risk of failure.
--- NOTE | 2017-02-16 11:38 | PN ---
Progress Note, Physician Chief Complaint: sob last night. tele afib @ [phone] History of Present Illness: 71 y.o. female with h/o NIDDM, hypothyroidism, HTN, RA on chronic steroids/MTX, interstitial lung disease/emphysema, H pylori gastritis diagnosed 12/2016 recently started on abx, Atrial fibrillation on Eliquis, anemia, syncope due to PAF and conversion pauses s/p PVI at [facility] by Dr Gaona 01/27/17 dcd on amiodarone, now admitted with nausea and vomiting post abx for h. pylori, lactic acidosis, poor po intake and atrial fibrillation with RVR. No chest pain , palpitations, dizziness, syncope, orthopnea, pnd or edema. Baseline exercise tolerance is good. Echo 01/13/17 normal EF, diastolic dysfunction, mod MR mild TR trace to mild PI. - Current Medication List Current Medications: Active Medications Acetaminophen (Tylenol -) 650 mg PO Q6H PRN PRN Reason: FEVER OR PAIN Amiodarone HCl (Cordarone -) 200 mg PO TID [facility] Last Admin: 02/16/17 06:39 Dose: 200 mg Apixaban (Eliquis -) 5 mg PO BID [facility] Last Admin: 02/16/17 10:09 Dose: 5 mg Diltiazem HCl (Cardizem -) 30 mg PO Q6H [facility] Last Admin: 02/16/17 11:31 Dose: 30 mg Furosemide (Lasix Injection -) 40 mg IVPUSH ONCE ONE Stop: 02/16/17 10:58 Last Admin: 02/16/17 11:30 Dose: 40 mg Furosemide (Lasix -) 40 mg PO DAILY [facility] Piperacillin Sod/Tazobactam Sod (Zosyn 2.25gm Ivpb (Pre-Docked)) 50 mls @ 100 mls/hr IVPB Q8H-IV BARBARA PRN Reason: Protocol Last Admin: 02/16/17 10:13 Dose: 100 mls/hr Insulin Aspart (Novolog Vial Sliding Scale -) 1 vial SQ ACHS BARBARA PRN Reason: Protocol Last Admin: 02/16/17 07:20 Dose: Not Given Levothyroxine Sodium (Synthroid -) 112 mcg PO DAILY@0700 [facility] Last Admin: 02/16/17 06:40 Dose: 112 mcg Methotrexate (Mexate -) 12.5 mg PO Q7D [facility] Pantoprazole Sodium (Protonix -) 40 mg PO DAILY [facility] Last Admin: 02/16/17 10:09 Dose: 40 mg - Objective Vital Signs: Vital Signs Temperature 97.4 F L 02/16/17 10:00 Pulse Rate 110 H 02/16/17 10:00 Respiratory Rate 02/16/17 10:00 Blood Pressure 141/72 02/16/17 10:00 O2 Sat by Pulse Oximetry (%) 97 02/15/17 20:39 Constitutional: Yes: No Distress Eyes: Yes: WNL HENT: Yes: WNL Neck: Yes: WNL Cardiovascular: Yes: Pulse Irregular, S1, S2 Respiratory: Yes: Rales (bilat bases) ...Rectal Exam: Yes: WNL, Deferred Genitourinary: Yes: WNL Extremities: Yes: WNL Edema: No Peripheral Pulses WNL: Yes Labs: CBC, BMP 02/16/17 05:15 02/16/17 05:15 INR, PTT INR 2.59 (0.82-1.09) H 02/15/17 05:15 Problem List - Problems (1) Atrial fibrillation with rapid ventricular response Assessment/Plan: CHADS2 score 3. Continue Eliquis 5 mg bid for stroke prevention. DC dilt drip, start 30 mg PO q6h continue amiodarone 200 tid for now. No need for rpt cardiac fraser. Rate control is reasonable post PVI. She is still in the 6 month "blanking period" post PVI. needs different h pylori regimen. Code(s): I48.91 - UNSPECIFIED ATRIAL FIBRILLATION (2) CHF exacerbation Assessment/Plan: Her rales may represent interstitial lung disease from rheumatoid arthritis. However, she has some evidence of fluid overload. Agree with lasix prn. check bnp. daily wts. Code(s): I50.9 - HEART FAILURE, UNSPECIFIED Qualifiers: Congestive heart failure type: diastolic Qualified Code(s): I50.33 - Acute on chronic diastolic (congestive) heart failure
--- NOTE | 2017-02-16 11:48 | PN ---
Teaching Attending Note Name of Resident: Lucius Douglas ATTENDING PHYSICIAN STATEMENT I saw and evaluated the patient. I reviewed the resident's note and discussed the case with the resident. I agree with the resident's findings and plan as documented. SUBJECTIVE: Pt seen and examined in the ICU. Episode of shortness of breath overnight. No fevers or chills. +nonproductive cough. OBJECTIVE: Last Vital Signs Temp Pulse Resp BP Pulse Ox 97.4 F L 110 H 20 141/72 97 02/16/17 10:00 02/16/17 10:00 02/16/17 10:00 02/16/17 10:00 02/15/17 20:39 Intake & Output 02/13/17 02/14/17 02/15/17 02/16/17 23:59 23:59 23:59 23:59 Intake Total 3700 1758 1200 Output Total 300 700 Balance 3400 1058 1200 Weight 174 lb 2 oz 173 lb 15.115 oz 187 lb 12.8 oz Gen: NAD in chair Heart: irregular, tachycardic Lung: basilar rales Abd: soft, nontender Ext: + edema CBC, BMP 02/16/17 05:15 02/16/17 05:15 Active Medications Acetaminophen (Tylenol -) 650 mg PO Q6H PRN PRN Reason: FEVER OR PAIN Amiodarone HCl (Cordarone -) 200 mg PO TID [facility] Last Admin: 02/16/17 06:39 Dose: 200 mg Apixaban (Eliquis -) 5 mg PO BID [facility] Last Admin: 02/16/17 10:09 Dose: 5 mg Diltiazem HCl (Cardizem -) 30 mg PO Q6H [facility] Last Admin: 02/16/17 11:31 Dose: 30 mg Furosemide (Lasix -) 40 mg PO DAILY [facility] Piperacillin Sod/Tazobactam Sod (Zosyn 2.25gm Ivpb (Pre-Docked)) 50 mls @ 100 mls/hr IVPB Q8H-IV [facility]BARA PRN Reason: Protocol Last Admin: 02/16/17 10:13 Dose: 100 mls/hr Insulin Aspart (Novolog Vial Sliding Scale -) 1 vial SQ ACHS BARBARA PRN Reason: Protocol Last Admin: 02/16/17 07:20 Dose: Not Given Levothyroxine Sodium (Synthroid -) 112 mcg PO DAILY@0700 [facility] Last Admin: 02/16/17 06:40 Dose: 112 mcg Methotrexate (Mexate -) 12.5 mg PO Q7D@1000 [facility] Pantoprazole Sodium (Protonix -) 40 mg PO DAILY [facility] Last Admin: 02/16/17 10:09 Dose: 40 mg ASSESSMENT AND PLAN: Syncope Atrial Fibrillation with RVR Recent AVN ablation Acute Kidney Injury improving Lactic Acidosis improving HTN DM - titrate PO cardizem - continue amiodarone - can monitor off antibiotics - f/u cultures - resume lasix - trend lactate - continue anticoagulation - protonix - can monitor on telemetry
--- NOTE | 2017-02-16 12:09 | PN ---
Progress Note, Physician History of Present Illness: patient looks much better feels good still with some cough weakness improving - Current Medication List Current Medications: Active Medications Acetaminophen (Tylenol -) 650 mg PO Q6H PRN PRN Reason: FEVER OR PAIN Amiodarone HCl (Cordarone -) 200 mg PO TID [facility] Last Admin: 02/16/17 06:39 Dose: 200 mg Apixaban (Eliquis -) 5 mg PO BID [facility] Last Admin: 02/16/17 10:09 Dose: 5 mg Diltiazem HCl (Cardizem -) 30 mg PO Q6H [facility] Last Admin: 02/16/17 11:31 Dose: 30 mg Furosemide (Lasix -) 40 mg PO DAILY [facility] Piperacillin Sod/Tazobactam Sod (Zosyn 2.25gm Ivpb (Pre-Docked)) 50 mls @ 100 mls/hr IVPB Q8H-IV [facility] PRN Reason: Protocol Last Admin: 02/16/17 10:13 Dose: 100 mls/hr Insulin Aspart (Novolog Vial Sliding Scale -) 1 vial SQ ACHS [facility] PRN Reason: Protocol Last Admin: 02/16/17 07:20 Dose: Not Given Levothyroxine Sodium (Synthroid -) 112 mcg PO DAILY@0700 [facility] Last Admin: 02/16/17 06:40 Dose: 112 mcg Methotrexate (Mexate -) 12.5 mg PO Q7D@1000 [facility] Pantoprazole Sodium (Protonix -) 40 mg PO DAILY [facility] Last Admin: 02/16/17 10:09 Dose: 40 mg - Objective Vital Signs: Vital Signs Temperature 97.4 F L 02/16/17 10:00 Pulse Rate 110 H 02/16/17 10:00 Respiratory Rate 20 02/16/17 10:00 Blood Pressure 141/72 02/16/17 10:00 O2 Sat by Pulse Oximetry (%) 97 02/15/17 20:39 Constitutional: Yes: No Distress, Calm Cardiovascular: Yes: Pulse Irregular, S1, S2 Respiratory: Yes: Regular, Rhonchi Gastrointestinal: Yes: Normal Bowel Sounds, Soft Musculoskeletal: Yes: WNL Extremities: Yes: WNL Neurological: Yes: Alert, Oriented Psychiatric: Yes: Alert, Oriented Labs: CBC, BMP 02/16/17 05:15 02/16/17 05:15 INR, PTT INR 2.59 (0.82-1.09) H 02/15/17 05:15 - ....Imaging Chest X-ray: Report Reviewed, Image Reviewed Assessment/Plan after loking at the patients history and her symptoms i have little doubt that patient had septicemia .and i think it was probably form gi tract because of her symptoms patient currently doing well and feels better. Also because pf the stress and her condition patient flipped into afib again Syncope Atrial Fibrillation with RVR Recent AVN ablation Acute Kidney Injury Lactic Acidosis HTN DM sepsis looks like the patient now is being diuresed because of fluid retention lactic acidosis has resolved now on oral amiodrone plan i am going to downgrade abx to ceftriaxone cx results negative rest as per icu cardiology on case patient stable if patient continues to improve will deescalate abx will have to make a plan for hpylori further treatment cc time 40 min
[2017-02-16 13:05] LABS: THYROID STIMULATING HORMONE 17.8 uIU/ml (0.358-3.74)
[2017-02-16] MEDS: METHOTREXATE 2.5 MG TABLET PO SCH (13:05)
--- NOTE | 2017-02-16 14:31 | EKG ---
Test Reason : Blood Pressure : / mmHG Vent. Rate : 139 BPM Atrial Rate : 068 BPM P-R Int : 000 ms QRS Dur : 100 ms QT Int : 346 ms P-R-T Axes : 000 090 266 degrees QTc Int : 526 ms ATRIAL FIBRILLATION WITH RAPID VENTRICULAR RESPONSE RIGHTWARD AXIS LOW VOLTAGE QRS NONSPECIFIC ST AND T WAVE ABNORMALITY ABNORMAL ECG WHEN COMPARED WITH ECG OF 14-FEB-2017 10:54, NONSPECIFIC T WAVE ABNORMALITY NO LONGER EVIDENT IN ANTERIOR LEADS Confirmed by JAQUAN JARAMILLO MD ([id number]) on 02/16/2017 2:30:58 PM Referred By: Confirmed By:JAQUAN JARAMILLO MD
[2017-02-16] MEDS: CEFTRIAXONE 50 ML IVPB SCH (14:52)
[2017-02-16] MEDS ORDERED: INSULIN (NOVOLOG) ASPART 100 UNITS/ML 10ML VIAL ONE (17:47)
[2017-02-16] MEDS: APIXABAN 2.5 MG TABLET PO SCH (21:50)
[2017-02-17] MEDS: dilTIAZem HCL 30 MG TABLET (FP) PO SCH ×2 (00:26→06:30)
[2017-02-17] MEDS ORDERED: PT OWN MED DRAWER 7, Y5N ONE (06:30)
[2017-02-17] MEDS: AMIODARONE HCL 200 MG TABLET (FP) PO SCH ×3 (06:30→21:48)
[2017-02-17] MEDS: LEVOTHYROXINE NA 112 MCG TABLET (FP) PO SCH (06:30)
[2017-02-17] MEDS: INSULIN SLIDING SCALE (NOVOLOG) 1 VIAL SQ SCH ×4 (06:32→21:48)
[2017-02-17 06:39] LABS: BASOPHIL 0.4 % (0-2.0); EOSINOPHIL 0.5 % (0-4.5); MCH 27.1 pg (25.7-33.7); MCHC 33.1 g/dl (32.0-36.0); MEAN CELL VOLUME 81.8 fl (80-96); MEAN PLT VOLUME 8.9 fl (7.5-11.1); PLATELET COUNT 256 K/MM3 (134-434); RDW 21.3 % (11.6-15.6)
[2017-02-17 07:00] LABS: ALBUMIN 2.9 g/dl (3.4-5.0); CALCIUM 8.1 mg/dL (8.5-10.1); COCKROFT - GAULT 66.3
[2017-02-17 07:02] LABS: BILIRUBIN,TOTAL 0.9 mg/dL (0.2-1.0)
[2017-02-17] MEDS ORDERED: ALBUTEROL SO4 2.5/IPRATROPIUM 0.5 INH SOL 3 ML VIAL.NEB. NEB ONE (09:26)
[2017-02-17] MEDS: APIXABAN 2.5 MG TABLET PO SCH ×2 (09:28→21:48)
[2017-02-17] MEDS: CEFTRIAXONE 50 ML IVPB SCH (09:29)
[2017-02-17] MEDS: PANTOPRAZOLE 40 MG TABLET (FP) PO SCH (09:29)
[2017-02-17] MEDS ORDERED: METOPROLOL TARTRATE 25 MG TABLET (FP) PO SCH (10:00)
[2017-02-17] MEDS ORDERED: FUROSEMIDE 40 MG TABLET (FP) PO SCH (10:00)
--- NOTE | 2017-02-17 10:24 | PN ---
Progress Note, Physician Chief Complaint: sob last night. tele afib @ 100 bpm History of Present Illness: 71 y.o. female with h/o NIDDM, hypothyroidism, HTN, RA on chronic steroids/MTX, interstitial lung disease/emphysema, H pylori gastritis diagnosed 12/2016 recently started on abx, Atrial fibrillation on Eliquis, anemia, syncope due to PAF and conversion pauses s/p PVI at [facility] by Dr Gaona 01/27/17 dcd on amiodarone, now admitted with nausea and vomiting post abx for h. pylori, lactic acidosis, poor po intake and atrial fibrillation with RVR. No chest pain , palpitations, dizziness, syncope, orthopnea, pnd or edema. Baseline exercise tolerance is good. Echo 01/13/17 normal EF, diastolic dysfunction, mod MR mild TR trace to mild PI. - Current Medication List Current Medications: Active Medications Acetaminophen (Tylenol -) 650 mg PO Q6H PRN PRN Reason: FEVER OR PAIN Amiodarone HCl (Cordarone -) 200 mg PO TID [facility] Last Admin: 02/17/17 06:30 Dose: 200 mg Apixaban (Eliquis -) 5 mg PO BID [facility] Last Admin: 02/17/17 09:28 Dose: 5 mg Diltiazem HCl (Cardizem -) 30 mg PO Q6H [facility] Last Admin: 02/17/17 06:30 Dose: 30 mg Furosemide (Lasix -) 40 mg PO DAILY [facility] Last Admin: 02/17/17 09:29 Dose: 40 mg Ceftriaxone Sodium (Rocephin 1gm Ivpb (Pre-Docked)) 50 mls @ 100 mls/hr IVPB DAILY [facility] Last Admin: 02/17/17 09:29 Dose: 100 mls/hr Insulin Aspart (Novolog Vial Sliding Scale -) 1 vial SQ ACHS [facility] PRN Reason: Protocol Last Admin: 02/17/17 06:32 Dose: 2 units Levothyroxine Sodium (Synthroid -) 112 mcg PO DAILY@0700 [facility] Last Admin: 02/17/17 06:30 Dose: 112 mcg Methotrexate (Mexate -) 12.5 mg PO Q7D@1000 [facility] Last Admin: 02/16/17 13:05 Dose: 12.5 mg Metoprolol Tartrate (Lopressor -) 25 mg PO DAILY [facility] Last Admin: 02/17/17 09:32 Dose: 25 mg Pantoprazole Sodium (Protonix -) 40 mg PO DAILY [facility] Last Admin: 02/17/17 09:29 Dose: 40 mg - Objective Vital Signs: Vital Signs Temperature 98 F 02/17/17 06:00 Pulse Rate 86 02/17/17 09:50 Respiratory Rate 17 02/17/17 08:00 Blood Pressure 130/78 02/17/17 08:00 O2 Sat by Pulse Oximetry (%) 95 02/17/17 09:50 Constitutional: Yes: Well Nourished, No Distress Eyes: Yes: WNL HENT: Yes: WNL Neck: Yes: WNL Cardiovascular: Yes: Tachycardia, Pulse Irregular Respiratory: Yes: Rales (bilat bases) Gastrointestinal: Yes: Normal Bowel Sounds, Soft Extremities: Yes: WNL Edema: No Peripheral Pulses WNL: Yes Labs: CBC, BMP 02/17/17 05:30 02/17/17 05:30 INR, PTT INR 2.59 (0.82-1.09) H 02/15/17 05:15 - ....Imaging Chest X-ray: Report Reviewed (chf) Problem List - Problems (1) Atrial fibrillation with rapid ventricular response Assessment/Plan: CHADS2 score 3. Continue Eliquis 5 mg bid for stroke prevention. Increase diltiazem to 60 q6h continue amiodarone 200 tid for now. No need for rpt cardiac fraser. Rate control is reasonable post PVI. She is still in the 6 month "blanking period" post PVI. needs different h pylori regimen. Code(s): I48.91 - UNSPECIFIED ATRIAL FIBRILLATION (2) CHF exacerbation Assessment/Plan: Her rales may represent interstitial lung disease from rheumatoid arthritis. She also is hypoalbuminemic and may have oncotic edema. Needs nutritional support. However, she has some evidence of fluid overload. Resume lasix 40 mg bid. daily wts. Code(s): I50.9 - HEART FAILURE, UNSPECIFIED Qualifiers: Congestive heart failure type: diastolic Qualified Code(s): I50.33 - Acute on chronic diastolic (congestive) heart failure
--- NOTE | 2017-02-17 12:31 | EKG ---
Test Reason : Blood Pressure : / mmHG Vent. Rate : 103 BPM Atrial Rate : 083 BPM P-R Int : 000 ms QRS Dur : 086 ms QT Int : 302 ms P-R-T Axes : 000 052 202 degrees QTc Int : 395 ms ATRIAL FIBRILLATION WITH RAPID VENTRICULAR RESPONSE LOW VOLTAGE QRS NONSPECIFIC T WAVE ABNORMALITY ABNORMAL ECG WHEN COMPARED WITH ECG OF 14-FEB-2017 22:09, NONSPECIFIC T WAVE ABNORMALITY NOW EVIDENT IN ANTERIOR LEADS Confirmed by KATY GOODRICH, RICH ([id number]) on 02/17/2017 12:30:31 PM Referred By: Xavier LINDSAY Confirmed By:RICH BURNS MD
--- NOTE | 2017-02-17 13:12 | PN ---
Physical Exam: SUBJECTIVE: Patient seen and examined sitting comfartably in bed b/l rales decreased increase lasix po 40 bid HR 100-114, will increase cardiazem to 60 mg q6h tsh 17, endo consult and repeat tsh OBJECTIVE: Vital Signs Period Temp Pulse Resp BP Sys/Angeles Pulse Ox Last 24 Hr 97.6 F-98.1 F 83-114 17-26 102-133/53-92 95-99 GENERAL: Awake, alert, and fully oriented, in no acute distress. EARS, NOSE, THROAT: Ears normal, nares patent, oropharynx clear without exudates. dry mucous membranes. NECK: Normal range of motion, LUNGS: Breath sounds equal, clear to auscultation bilaterally.b/l crackels . No accessory muscle use. HEART: s1s2 normal, irregular ABDOMEN: Soft, nontender, not distended, normoactive bowel sounds, no guarding, no rebound, no masses. MUSCULOSKELETAL: Normal range of motion at all joints. No bony deformities or tenderness. No CVA tenderness. UPPER EXTREMITIES: 2+ pulses, warm, well-perfused. No cyanosis. No clubbing. Cap refill <2 seconds. No peripheral edema. LOWER EXTREMITIES: 2+ pulses, warm, well-perfused. No calf tenderness. No peripheral edema. PSYCHIATRIC: Cooperative. Good eye contact. Appropriate mood and affect. SKIN: Warm, dry, normal turgor, Laboratory Results - last 24 hr 02/16/17 02/16/17 02/16/17 05:15 11:40 16:41 WBC RBC Hgb Hct MCV MCHC RDW Plt Count MPV Neutrophils % Lymphocytes % Monocytes % Eosinophils % Basophils % Sodium Potassium Chloride Carbon Dioxide Anion Gap BUN Creatinine Creat Clearance w eGFR POC Glucometer [phone] Random Glucose Calcium Total Bilirubin AST ALT Alkaline Phosphatase Total Protein Albumin TSH 17.80 H D Free T4 02/16/17 02/17/17 02/17/17 21:33 05:30 05:30 WBC 11.0 H RBC 3.35 L Hgb 9.1 L Hct 27.4 L MCV 81.8 MCHC 33.1 RDW 21.3 H Plt Count 256 MPV 8.9 Neutrophils % 82.0 Lymphocytes % 9.7 Monocytes % 7.4 Eosinophils % 0.5 Basophils % 0.4 Sodium 131 L Potassium 3.5 Chloride 99 Carbon Dioxide 21 Anion Gap 11 BUN 15 Creatinine 1.0 Creat Clearance w eGFR 54.35 POC Glucometer [phone] Random Glucose 143 H Calcium 8.1 L Total Bilirubin 0.9 AST 18 ALT 13 Alkaline Phosphatase 88 Total Protein 6.0 L Albumin 2.9 L TSH Free T4 02/17/17 02/17/17 02/17/17 05:30 06:31 12:14 WBC RBC Hgb Hct MCV MCHC RDW Plt Count MPV Neutrophils % Lymphocytes % Monocytes % Eosinophils % Basophils % Sodium Potassium Chloride Carbon Dioxide Anion Gap BUN Creatinine Creat Clearance w eGFR POC Glucometer [phone] Random Glucose Calcium Total Bilirubin AST ALT Alkaline Phosphatase Total Protein Albumin TSH Free T4 1.34 Active Medications Generic Name Dose Route Start Last Admin Trade Name Freq PRN Reason Stop Dose Admin Acetaminophen 650 mg 02/15/17 19:49 Tylenol - PO Q6H PRN FEVER OR PAIN Amiodarone HCl 200 mg 02/15/17 22:00 02/17/17 06:30 Cordarone - PO 200 mg TID [facility] Administration Apixaban 5 mg 02/16/17 22:00 02/17/17 09:28 Eliquis - PO 5 mg BID [facility] Administration Diltiazem HCl 60 mg 02/17/17 12:00 Cardizem - PO Q6HPO [facility] Furosemide 40 mg 02/17/17 14:00 Lasix - PO BIDLASIX [facility] Ceftriaxone Sodium 50 mls @ 100 mls/hr 02/16/17 15:00 02/17/17 09:29 Rocephin 1gm Ivpb (Pre-Docked) IVPB 100 mls/hr DAILY [facility] Administration Insulin Aspart 1 vial 02/15/17 22:00 02/17/17 12:21 Novolog Vial Sliding Scale - SQ 2 units ACHS [facility] Administration Protocol Levothyroxine Sodium 112 mcg 02/16/17 07:00 02/17/17 06:30 Synthroid - PO 112 mcg DAILY@0700 [facility] Administration Methotrexate 12.5 mg 02/16/17 13:00 02/16/17 13:05 Mexate - PO 12.5 mg Q7D@1000 [facility] Administration Pantoprazole Sodium 40 mg 02/16/17 10:00 02/17/17 09:29 Protonix - PO 40 mg DAILY [facility] Administration ASSESSMENT/PLAN: 1) atrial fibrillation Echo 01/13/17 normal EF, diastolic dysfunction, mod MR mild TR trace to mild PI. po cardiazem 60 q6h continue on amiadarone and eliquis monitor vitals monitor intake/ output cardiology on case lasix increased to 40 bid po 2) DUARTE: probably pre renal. creatnine decreased to 1.0 from 1.6 avoid nephrotoxic drugs monitor cr 3 nIDDM on sliding scale bgm monitorning hold metformin 4)hypothyroidism -continue levothyroxine 112mcg 5) lacticacidosis could be from anabolic metabolism for low bp, afib, or can be from metformin improved BP improved 6) Hyponatremia improved from 125 to 132 on NS monitor na 7) Nausea & Vomiting, ( could be from triple therapy )resolving -holding triple therapy for H Pylori. -Zofran PRN -PPI - started on regular diet -Fluid orally allowed -electrolyte ; hyponatremia nutrition : regular diet ppx - on eliquis - protonix 40mg daily dispo: transfer to tele Visit type - Emergency Visit Emergency Visit: Yes ED Registration Date: 02/14/17 Care time: The patient presented to the Emergency Department on the above date and was hospitalized for further evaluation of their emergent condition. - New Patient This patient is new to me today: No - Critical Care Critical Care patient: Yes Total Critical Care Time (in minutes): 45 Critical Care Statement: The care of this patient involved high complexity decision making to prevent further life threatening deterioration of the patient 's condition and/or to evalute & treat vital organ system(s) failure or risk of failure.
--- NOTE | 2017-02-17 13:30 | PN ---
Teaching Attending Note Name of Resident: Lucius Douglas ATTENDING PHYSICIAN STATEMENT I saw and evaluated the patient. I reviewed the resident's note and discussed the case with the resident. I agree with the resident's findings and plan as documented. SUBJECTIVE: Pt seen and examined in the ICU. Dyspnea improving but still feels congested. No fevers or chills. OBJECTIVE: Last Vital Signs Temp Pulse Resp BP Pulse Ox 97.7 F 83 20 107/92 95 02/17/17 10:00 02/17/17 12:00 02/17/17 12:00 02/17/17 12:00 02/17/17 09:50 Intake & Output 02/14/17 02/15/17 02/16/17 02/17/17 23:59 23:59 23:59 23:59 Intake Total 3700 1758 1700 400 Output Total 300 700 600 Balance 3400 1058 1100 400 Weight 174 lb 2 oz 173 lb 15.115 oz 187 lb 12.8 oz 186 lb 11.704 oz Gen: mildly tachypneic with exertion Heart: irregular Lung: scattered rhonchi Abd: soft, nontender Ext: + edema CBC, BMP 02/17/17 05:30 02/17/17 05:30 Active Medications Acetaminophen (Tylenol -) 650 mg PO Q6H PRN PRN Reason: FEVER OR PAIN Amiodarone HCl (Cordarone -) 200 mg PO TID [facility] Last Admin: 02/17/17 13:15 Dose: 200 mg Apixaban (Eliquis -) 5 mg PO BID [facility] Last Admin: 02/17/17 09:28 Dose: 5 mg Diltiazem HCl (Cardizem -) 60 mg PO Q6HPO [facility] Furosemide (Lasix -) 40 mg PO BIDLASIX [facility] Ceftriaxone Sodium (Rocephin 1gm Ivpb (Pre-Docked)) 50 mls @ 100 mls/hr IVPB DAILY [facility] Last Admin: 02/17/17 09:29 Dose: 100 mls/hr Insulin Aspart (Novolog Vial Sliding Scale -) 1 vial SQ ACHS [facility] PRN Reason: Protocol Last Admin: 02/17/17 12:21 Dose: 2 units Levothyroxine Sodium (Synthroid -) 112 mcg PO DAILY@0700 [facility] Last Admin: 02/17/17 06:30 Dose: 112 mcg Methotrexate (Mexate -) 12.5 mg PO Q7D@1000 [facility] Last Admin: 02/16/17 13:05 Dose: 12.5 mg Pantoprazole Sodium (Protonix -) 40 mg PO DAILY [facility] Last Admin: 02/17/17 09:29 Dose: 40 mg ASSESSMENT AND PLAN: Syncope Atrial Fibrillation with RVR Recent AVN ablation Acute Kidney Injury improving Lactic Acidosis improving HTN DM - titrate PO cardizem - continue amiodarone - can monitor off antibiotics - f/u cultures - continue lasix - trend lactate - continue anticoagulation - protonix - can monitor on telemetry
[2017-02-17] MEDS: FUROSEMIDE 40 MG TABLET (FP) PO SCH (14:01)
--- NOTE | 2017-02-17 14:38 | CONSULT ---
Consult Consult Specialty:: Endocrinology Referred by:: Dr Douglas Reason for Consultation:: Hypothyroidism - History of Present Illness Chief Complaint: Nausea, vomiting History of Present Illness: This is a 71 year old female with h/o DM for a few years, Hypothyroidism for 20 years, RA, chronic anemia & Atrial fibrillation s/p recent ablation who presented to [facility] with nausea & vomiting for 3 days. Patient had a recent endoscopy and was started on triple therapy for H Pylori 4 days ago. Pt was found to be in Atrial fibrillation with RVR at ~150 and treated with Cardizem. She had a lactic acid of 6, sodium of 125 and creatinine 1.8 ( baseline is 1.0). Patient had episode of syncope in the ER and was given Ativan. Pt currently on Amiodarone. Pt referred for management of hypothyroidism. TSH in the hospital is 17. Pt gives h/o of increase in dose of LT4 from 100 to 112 by her PCP about 6 months. Hasn't repeated TFT level as far as she can remember. Takes it regularly except for the few day she was sick prior to admission. 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 recent EGD with Dx of H. Pylori, recently started on Triple therapy - Alcohol/Substance Use Hx Alcohol Use: No History of Substance Use: reports: None - Smoking History Smoking history: Former smoker Have you smoked in the past 12 months: No If you are a former smoker, when did you quit?: 37 YEARS AGO - Social History Usual Living Arrangement: With Spouse ADL: Independent History of Recent Travel: No Home Medications - Allergies Allergies/Adverse Reactions: Allergies Allergy/AdvReac Type Severity Reaction Status Date / Time No Known Allergies Allergy Verified 02/14/17 10:33 - Home Medications Home Medications: Ambulatory Orders Amiodarone HCl 200 mg PO TID 02/14/17 Apixaban [Eliquis] 5 mg PO BID 02/14/17 Calcium Carbonate 600 mg PO DAILY 02/14/17 Esomeprazole Magnesium [Nexium 24Hr] 40 mg PO DAILY 02/14/17 Folic Acid 1 mg PO DAILY 02/14/17 Furosemide [Lasix -] 40 mg PO DAILY 02/14/17 Levothyroxine [Synthroid -] 112 mcg PO DAILY 02/14/17 Losartan Potassium 100 mg PO DAILY 02/14/17 Metformin HCl 1,000 mg PO BID 02/14/17 Methotrexate [Mexate -] 12.5 mg PO Q7D 02/14/17 Prednisone 2.5 mg PO ASDIR 02/14/17 Family Disease History - Family Disease History Other Family History: No family h/o DM. Niece has hypothyroidism Review of Systems - Review of Systems Constitutional: reports: Loss of Appetite, Malaise Eyes: reports: No Symptoms HENT: reports: No Symptoms Neck: reports: No Symptoms Cardiovascular: reports: Palpitations Respiratory: reports: No Symptoms Gastrointestinal: reports: Nausea Genitourinary: reports: No Symptoms Musculoskeletal: reports: No Symptoms Neurological: reports: Headache Endocrine: reports: No Symptoms Physical Exam Vital Signs: Vital Signs Temperature 97.7 F 02/17/17 10:00 Pulse Rate 83 02/17/17 12:00 Respiratory Rate 20 02/17/17 12:00 Blood Pressure 107/92 02/17/17 12:00 O2 Sat by Pulse Oximetry (%) 95 02/17/17 09:50 Constitutional: Yes: No Distress, Calm Eyes: Yes: Conjunctiva Clear, EOM Intact HENT: Yes: Atraumatic, Normocephalic Neck: Yes: Supple, Trachea Midline Cardiovascular: Yes: Pulse Irregular Respiratory: Yes: Regular, CTA Bilaterally Gastrointestinal: Yes: Normal Bowel Sounds, Soft Musculoskeletal: Yes: WNL Extremities: Yes: WNL Neurological: Yes: Alert, Oriented Labs: CBC, BMP 02/17/17 05:30 02/17/17 05:30 Imaging - Results Chest X-ray: Report Reviewed Cat Scan: Report Reviewed ( Chronic calcific pericarditis, pul congestion) Problem List - Problems (1) Atrial fibrillation with rapid ventricular response Code(s): I48.91 - UNSPECIFIED ATRIAL FIBRILLATION (2) DM (diabetes mellitus) Code(s): E11.9 - TYPE 2 DIABETES MELLITUS WITHOUT COMPLICATIONS Qualifiers: Diabetes mellitus type: type 2 Diabetes mellitus complication status: without complication Diabetes mellitus intermediate teacher insulin use: without intermediate teacher use Qualified Code(s): E11.9 - Type 2 diabetes mellitus without complications (3) Hypothyroidism Code(s): E03.9 - HYPOTHYROIDISM, UNSPECIFIED Qualifiers: Hypothyroidism type: unspecified Qualified Code(s): E03.9 - Hypothyroidism, unspecified (4) Nausea and vomiting Code(s): R11.2 - NAUSEA WITH VOMITING, UNSPECIFIED Assessment/Plan AP Hypothyroidism: Chemically hypothyroid probably secondary to missing of doses and poor absorption because of GI symptoms TSH was 0.85 on 01/12/17 and now 17 Less likely from Amiodarone as it was started recently. Continur LT4 112 for now Repeat TFT will F/U Syncope Atrial Fibrillation with RVR Recent AVN ablation Acute Kidney Injury improving Lactic Acidosis improving HTN DM: Hold Metformin BGM with Novlog coverage as necessary Anticoagulation Lasix Amiodarone Diltiazem Iv Abx
[2017-02-17] MEDS: dilTIAZem HCL 60 MG TABLET (FP) PO SCH ×2 (15:18→17:14)
--- NOTE | 2017-02-17 16:38 | PN ---
Physical Exam: SUBJECTIVE: Patient seen and examined. She states SOB has improved, she is elevating her legs OBJECTIVE: Vital Signs Period Temp Pulse Resp BP Sys/Angeles Pulse Ox Last 24 Hr 97.7 F-98.1 F 83-114 17-23 102-133/53-92 95-99 PE Neuro: alert, awake, cn 2-12 intact Pulm: basilar crackles - improving CV: s1 s2 irregular rate and rhythm no mrg Abd: s nt nd + bs Ext: warm, dry, b/l LE +2 Laboratory Results - last 24 hr 02/17/17 02/17/17 02/17/17 05:30 05:30 05:30 WBC 11.0 H RBC 3.35 L Hgb 9.1 L Hct 27.4 L MCV 81.8 MCHC 33.1 RDW 21.3 H Plt Count 256 MPV 8.9 Neutrophils % 82.0 Lymphocytes % 9.7 Monocytes % 7.4 Eosinophils % 0.5 Basophils % 0.4 Sodium 131 L Potassium 3.5 Chloride 99 Carbon Dioxide 21 Anion Gap 11 BUN 15 Creatinine 1.0 Creat Clearance w eGFR 54.35 POC Glucometer Random Glucose 143 H Calcium 8.1 L Total Bilirubin 0.9 AST 18 ALT 13 Alkaline Phosphatase 88 Total Protein 6.0 L Albumin 2.9 L Free T4 1.34 Active Medications Generic Name Dose Route Start Last Admin Trade Name Freq PRN Reason Stop Dose Admin Acetaminophen 650 mg 02/15/17 19:49 Tylenol - PO Q6H PRN FEVER OR PAIN Amiodarone HCl 200 mg 02/15/17 22:00 02/17/17 13:15 Cordarone - PO 200 mg TID [facility] Administration Apixaban 5 mg 02/16/17 22:00 02/17/17 09:28 Eliquis - PO 5 mg BID [facility] Administration Diltiazem HCl 60 mg 02/17/17 12:00 02/17/17 15:18 Cardizem - PO Not Given Q6HPO [facility] Furosemide 40 mg 02/17/17 14:00 02/17/17 14:01 Lasix - PO 40 mg BIDLASIX [facility] Administration Ceftriaxone Sodium 50 mls @ 100 mls/hr 02/16/17 15:00 02/17/17 09:29 Rocephin 1gm Ivpb (Pre-Docked) IVPB 100 mls/hr DAILY [facility] Administration Insulin Aspart 1 vial 02/15/17 22:00 02/17/17 12:21 Novolog Vial Sliding Scale - SQ 2 units ACHS [facility] Administration Protocol Levothyroxine Sodium 112 mcg 02/16/17 07:00 02/17/17 06:30 Synthroid - PO 112 mcg DAILY@0700 [facility] Administration Methotrexate 12.5 mg 02/16/17 13:00 02/16/17 13:05 Mexate - PO 12.5 mg Q7D@1000 [facility] Administration Pantoprazole Sodium 40 mg 02/16/17 10:00 02/17/17 09:29 Protonix - PO 40 mg DAILY [facility] Administration Assessment: 71 year-old female withHTN, [id number] AFib s/p ablation , IDDM, RA, and hypothyroidism admitted for AFib with RVR, lactic acidemia , DUARTE, and possible syncope/seizure following Cardizem administration. Plan: 1. AFib with [id number] score 5/ s/p ablation - Stop Cardizem gtt, start PO 30mg q6h - Amiodarone 200mg TID 2. [id number] diastolic CHF - Start lasix 40mg po BID - Outpatient pulm consult for PFTs - possible interstital pattern on CXR from RA ? 3. Lactic Acidemia - Resolved - Zosyn discontinued 02/16 - Ceftriaxone daily; considering observing off; defer to ID 4. DUARTE - At baseline - Likely d/t dehydration/pre renal 5. Hyponatremia - Corrected 132 - Likely due to HF, lasix 6. DM II - Holding Metformin while inpatient - BGM and ISS ACHS 7. Rheumatoid Arthritis - Has been restarted on home dose of weekly methotrexate - No need to restart home Prednisone dose as it is subtherapeutic dosing ( 2.5mg twice weekly) 8. Hypothyroidism - Tsh 17 - Continue Synthroid - Endocrine seeing 9. PPX - On Eliquis PO - On Protonix PO Dispo: Awaiting tele bed FULL CODE Visit type - Emergency Visit Emergency Visit: Yes ED Registration Date: 02/14/17 Care time: The patient presented to the Emergency Department on the above date and was hospitalized for further evaluation of their emergent condition. - New Patient This patient is new to me today: No - Critical Care Critical Care patient: No
[2017-02-18] MEDS: dilTIAZem HCL 60 MG TABLET (FP) PO SCH ×4 (00:54→21:13)
[2017-02-18] MEDS: INSULIN SLIDING SCALE (NOVOLOG) 1 VIAL SQ SCH ×4 (06:04→21:14)
[2017-02-18] MEDS: FUROSEMIDE 40 MG TABLET (FP) PO SCH ×2 (06:04→13:48)
[2017-02-18] MEDS: LEVOTHYROXINE NA 112 MCG TABLET (FP) PO SCH (06:04)
[2017-02-18] MEDS: AMIODARONE HCL 200 MG TABLET (FP) PO SCH ×3 (06:04→21:14)
[2017-02-18] MEDS ORDERED: PT OWN MED DRAWER 7, Y5N ONE (08:05)
[2017-02-18 08:32] LABS: COCKROFT - GAULT 67.218
[2017-02-18 08:40] LABS: THYROID STIMULATING HORMONE 16.3 uIU/ml (0.358-3.74)
--- NOTE | 2017-02-18 09:04 | PN ---
Progress Note (short form) - Note Progress Note: C/O SOB when getting out of bed Vital Signs Period Temp Pulse Resp BP Sys/Angeles Pulse Ox Last 24 Hr 97.5 F-98.1 F 83-114 18-23 107-129/57-92 95-96 PE: AOx3 HEENT: PERRL, EOMI Neck: supple, No JVD Lungs: CTA Abd: Benign CVS: S1S2 irregular EXt: +edema Neuro: No focal deficit CMP Sodium 129 mmol/L (136-145) L 02/18/17 05:35 Potassium 3.3 mmol/L (3.5-5.1) L 02/18/17 05:35 Chloride 96 mmol/L (98-107) L 02/18/17 05:35 Carbon Dioxide 19 mmol/L (21-32) L 02/18/17 05:35 Anion Gap 14 (8-16) 02/18/17 05:35 BUN 20 mg/dL (7-18) H D 02/18/17 05:35 Creatinine 1.0 mg/dL (0.55-1.02) 02/18/17 05:35 Creat Clearance w eGFR 54.35 (>60) 02/17/17 05:30 POC Glucometer 136 UNITS (()) 02/18/17 06:03 Random Glucose 119 mg/dL (74-106) H 02/18/17 05:35 Lactic Acid 2.006 mmol/L (0.4-2.0) H* 02/15/17 21:45 Calcium 8.0 mg/dL (8.5-10.1) L 02/18/17 05:35 Total Bilirubin 0.9 mg/dL (0.2-1.0) 02/17/17 05:30 AST 18 U/L (15-37) 02/17/17 05:30 ALT 13 U/L (12-78) 02/17/17 05:30 Alkaline Phosphatase 88 U/L (45-117) 02/17/17 05:30 Creatine Kinase 57 IU/L (26-140) 02/14/17 10:58 Troponin I 0.20 ng/ml (0.00-0.05) H 02/15/17 05:15 B-Natriuretic Peptide 1886.59 pg/ml (5-125) H 02/14/17 21:40 Total Protein 6.0 g/dl (6.4-8.2) L 02/17/17 05:30 Albumin 2.9 g/dl (3.4-5.0) L 02/17/17 05:30 TSH 16.30 uIU/ml (0.358-3.74) H D 02/18/17 05:35 Free T4 1.34 ng/dl (0.76-1.46) 02/17/17 05:30 Free T3 1.1 pg/ml (2.0-4.4) L 02/17/17 05:30 Current Medications Generic Name Dose Route Start Last Admin Trade Name Freq PRN Reason Stop Dose Admin Acetaminophen 650 mg 02/15/17 19:49 Tylenol - PO Q6H PRN FEVER OR PAIN Amiodarone HCl 200 mg 02/15/17 22:00 02/18/17 06:04 Cordarone - PO 200 mg TID [facility] Administration Apixaban 5 mg 02/18/17 07:42 Eliquis - PO BID [facility] Diltiazem HCl 60 mg 02/17/17 12:00 02/18/17 06:04 Cardizem - PO 60 mg Q6HPO [facility] Administration Furosemide 40 mg 02/17/17 14:00 02/18/17 06:04 Lasix - PO 40 mg BIDLASIX [facility] Administration Ceftriaxone Sodium 50 mls @ 100 mls/hr 02/16/17 15:00 02/17/17 09:29 Rocephin 1gm Ivpb (Pre-Docked) IVPB 100 mls/hr DAILY [facility] Administration Insulin Aspart 1 vial 02/15/17 22:00 02/18/17 06:04 Novolog Vial Sliding Scale - SQ Not Given ACHS [facility] Protocol Levothyroxine Sodium 112 mcg 02/16/17 07:00 02/18/17 06:04 Synthroid - PO 112 mcg DAILY@0700 [facility] Administration Methotrexate 12.5 mg 02/16/17 13:00 02/16/17 13:05 Mexate - PO 12.5 mg Q7D@1000 [facility] Administration Pantoprazole Sodium 40 mg 02/16/17 10:00 02/17/17 09:29 Protonix - PO 40 mg DAILY [facility] Administration AP: HYPothyroidism AFIB DM: BGM QACHS Novolog SS coverage TSH pending Continue LT4 112 Amiodarone Methorexate Eliquis Will f/U Problem List - Problems (1) Atrial fibrillation with rapid ventricular response Code(s): I48.91 - UNSPECIFIED ATRIAL FIBRILLATION (2) DM (diabetes mellitus) Code(s): E11.9 - TYPE 2 DIABETES MELLITUS WITHOUT COMPLICATIONS Qualifiers: Diabetes mellitus type: type 2 Diabetes mellitus complication status: without complication Diabetes mellitus drying machine back tender insulin use: without drying machine back tender use Qualified Code(s): E11.9 - Type 2 diabetes mellitus without complications (3) Hypothyroidism Code(s): E03.9 - HYPOTHYROIDISM, UNSPECIFIED Qualifiers: Hypothyroidism type: unspecified Qualified Code(s): E03.9 - Hypothyroidism, unspecified (4) Nausea and vomiting Code(s): R11.2 - NAUSEA WITH VOMITING, UNSPECIFIED
[2017-02-18] MEDS: CEFTRIAXONE 50 ML IVPB SCH (09:06)
[2017-02-18] MEDS: PANTOPRAZOLE 40 MG TABLET (FP) PO SCH (09:07)
[2017-02-18] MEDS: APIXABAN 5 MG TABLET PO SCH ×2 (09:07→21:14)
--- NOTE | 2017-02-18 10:34 | PN ---
Progress Note, Physician Chief Complaint: sob last night. tele afib @ 100 bpm History of Present Illness: 71 y.o. female with h/o NIDDM, hypothyroidism, HTN, RA on chronic steroids/MTX, interstitial lung disease/emphysema, H pylori gastritis diagnosed 12/2016 recently started on abx, Atrial fibrillation on Eliquis, anemia, syncope due to PAF and conversion pauses s/p PVI at [facility] by Dr Gaona 01/27/17 dcd on amiodarone, now admitted with nausea and vomiting post abx for h. pylori, lactic acidosis, poor po intake and atrial fibrillation with RVR. No chest pain , palpitations, dizziness, syncope, orthopnea, pnd or edema. Baseline exercise tolerance is good. Echo 01/13/17 normal EF, diastolic dysfunction, mod MR mild TR trace to mild PI. - Current Medication List Current Medications: Active Medications Acetaminophen (Tylenol -) 650 mg PO Q6H PRN PRN Reason: FEVER OR PAIN Amiodarone HCl (Cordarone -) 200 mg PO TID [facility] Last Admin: 02/18/17 06:04 Dose: 200 mg Apixaban (Eliquis -) 5 mg PO BID [facility] Last Admin: 02/18/17 09:07 Dose: 5 mg Diltiazem HCl (Cardizem -) 60 mg PO Q6HPO [facility] Last Admin: 02/18/17 06:04 Dose: 60 mg Furosemide (Lasix -) 40 mg PO BIDLASIX [facility] Last Admin: 02/18/17 06:04 Dose: 40 mg Ceftriaxone Sodium (Rocephin 1gm Ivpb (Pre-Docked)) 50 mls @ 100 mls/hr IVPB DAILY [facility] Last Admin: 02/18/17 09:06 Dose: 100 mls/hr Insulin Aspart (Novolog Vial Sliding Scale -) 1 vial SQ ACHS [facility] PRN Reason: Protocol Last Admin: 02/18/17 06:04 Dose: Not Given Levothyroxine Sodium (Synthroid -) 112 mcg PO DAILY@0700 [facility] Last Admin: 02/18/17 06:04 Dose: 112 mcg Methotrexate (Mexate -) 12.5 mg PO Q7D@1000 [facility] Last Admin: 02/16/17 13:05 Dose: 12.5 mg Pantoprazole Sodium (Protonix -) 40 mg PO DAILY [facility] Last Admin: 02/18/17 09:07 Dose: 40 mg Potassium Chloride (Potassium Chloride Oral Liquid) 40 meq PO ONCE ONE Stop: 02/18/17 10:46 - Objective Vital Signs: Vital Signs Temperature 97.8 F 02/18/17 07:24 Pulse Rate 105 H 02/18/17 07:24 Respiratory Rate 20 02/18/17 07:27 Blood Pressure 124/58 02/18/17 07:24 O2 Sat by Pulse Oximetry (%) 96 02/17/17 21:00 Constitutional: Yes: Well Nourished, No Distress Eyes: Yes: WNL HENT: Yes: WNL Neck: Yes: WNL Cardiovascular: Yes: WNL, Tachycardia, Pulse Irregular Respiratory: Yes: WNL Edema: No Peripheral Pulses WNL: Yes Labs: CBC, BMP 02/17/17 05:30 02/18/17 05:35 INR, PTT INR 2.59 (0.82-1.09) H 02/15/17 05:15 Problem List - Problems (1) Atrial fibrillation with rapid ventricular response Assessment/Plan: CHADS2 score 3. Continue Eliquis 5 mg bid for stroke prevention. Increase diltiazem to 60 q6h Decrease amiodarone to 200 mg daily. No need for rpt cardiac fraser. Rate control is reasonable post PVI. She is still in the 6 month "blanking period" post PVI. needs different h pylori regimen. Her hypothyroidism may or may not reflect amiodarone. Would consider stopping metformin and changing her to another agent given recent CKD/DUARTE and lactic acidosis. Code(s): I48.91 - UNSPECIFIED ATRIAL FIBRILLATION (2) CHF exacerbation Assessment/Plan: Her rales may represent interstitial lung disease from rheumatoid arthritis. She also is hypoalbuminemic and may have oncotic edema. Needs nutritional support. However, she has some evidence of fluid overload. Resume lasix 40 mg bid. daily wts. Code(s): I50.9 - HEART FAILURE, UNSPECIFIED Qualifiers: Congestive heart failure type: diastolic Qualified Code(s): I50.33 - Acute on chronic diastolic (congestive) heart failure
[2017-02-18] MEDS ORDERED: POTASSIUM CHLORIDE ORAL LIQUID 20 MEQ/15 ML PO ONE (10:45)
--- NOTE | 2017-02-18 11:27 | PN ---
Progress Note, Physician History of Present Illness: says she does not feel too well some nausea transferred from icu to floor - Current Medication List Current Medications: Active Medications Acetaminophen (Tylenol -) 650 mg PO Q6H PRN PRN Reason: FEVER OR PAIN Amiodarone HCl (Cordarone -) 200 mg PO TID [facility] Last Admin: 02/18/17 06:04 Dose: 200 mg Apixaban (Eliquis -) 5 mg PO BID [facility] Last Admin: 02/18/17 09:07 Dose: 5 mg Diltiazem HCl (Cardizem -) 60 mg PO Q6HPO [facility] Last Admin: 02/18/17 06:04 Dose: 60 mg Furosemide (Lasix -) 40 mg PO BIDLASIX [facility] Last Admin: 02/18/17 06:04 Dose: 40 mg Insulin Aspart (Novolog Vial Sliding Scale -) 1 vial SQ ACHS [facility] PRN Reason: Protocol Last Admin: 02/18/17 06:04 Dose: Not Given Levothyroxine Sodium (Synthroid -) 112 mcg PO DAILY@0700 [facility] Last Admin: 02/18/17 06:04 Dose: 112 mcg Methotrexate (Mexate -) 12.5 mg PO Q7D@1000 [facility] Last Admin: 02/16/17 13:05 Dose: 12.5 mg Pantoprazole Sodium (Protonix -) 40 mg PO DAILY [facility] Last Admin: 02/18/17 09:07 Dose: 40 mg - Objective Vital Signs: Vital Signs Temperature 97.8 F 02/18/17 07:24 Pulse Rate 105 H 02/18/17 07:24 Respiratory Rate 20 02/18/17 07:27 Blood Pressure 124/58 02/18/17 07:24 O2 Sat by Pulse Oximetry (%) 96 02/17/17 21:00 Constitutional: Yes: Calm, Mild Distress Cardiovascular: Yes: Pulse Irregular, Murmur Respiratory: Yes: Regular, CTA Bilaterally Gastrointestinal: Yes: Normal Bowel Sounds, Soft Musculoskeletal: Yes: WNL Extremities: Yes: WNL Neurological: Yes: Alert, Oriented Psychiatric: Yes: Alert, Oriented Labs: CBC, BMP 02/17/17 05:30 02/18/17 05:35 INR, PTT INR 2.59 (0.82-1.09) H 02/15/17 05:15 Assessment/Plan Syncope Atrial Fibrillation with RVR Recent AVN ablation Acute Kidney Injury Lactic Acidosis HTN DM sepsis looks like the patient now is being diuresed because of fluid retention lactic acidosis has resolved now on oral amiodrone plan going to stop all abx will watch without abx for now wbc marginally up if wbc keeps climbing will restart it
--- NOTE | 2017-02-18 11:29 | PN ---
Progress Note, Physician History of Present Illness: patient stable still does not feel perfect some weakness - Current Medication List Current Medications: Active Medications Acetaminophen (Tylenol -) 650 mg PO Q6H PRN PRN Reason: FEVER OR PAIN Amiodarone HCl (Cordarone -) 200 mg PO TID [facility] Last Admin: 02/18/17 06:04 Dose: 200 mg Apixaban (Eliquis -) 5 mg PO BID [facility] Last Admin: 02/18/17 09:07 Dose: 5 mg Diltiazem HCl (Cardizem -) 60 mg PO Q6HPO [facility] Last Admin: 02/18/17 06:04 Dose: 60 mg Furosemide (Lasix -) 40 mg PO BIDLASIX [facility] Last Admin: 02/18/17 06:04 Dose: 40 mg Insulin Aspart (Novolog Vial Sliding Scale -) 1 vial SQ ACHS [facility] PRN Reason: Protocol Last Admin: 02/18/17 06:04 Dose: Not Given Levothyroxine Sodium (Synthroid -) 112 mcg PO DAILY@0700 [facility] Last Admin: 02/18/17 06:04 Dose: 112 mcg Methotrexate (Mexate -) 12.5 mg PO Q7D@1000 [facility] Last Admin: 02/16/17 13:05 Dose: 12.5 mg Pantoprazole Sodium (Protonix -) 40 mg PO DAILY [facility] Last Admin: 02/18/17 09:07 Dose: 40 mg - Objective Vital Signs: Vital Signs Temperature 97.8 F 02/18/17 07:24 Pulse Rate 105 H 02/18/17 07:24 Respiratory Rate 20 02/18/17 07:27 Blood Pressure 124/58 02/18/17 07:24 O2 Sat by Pulse Oximetry (%) 96 02/17/17 21:00 Constitutional: Yes: Calm, Mild Distress Cardiovascular: Yes: Pulse Irregular, Murmur Respiratory: Yes: Regular, CTA Bilaterally Gastrointestinal: Yes: Normal Bowel Sounds, Soft Musculoskeletal: Yes: WNL Extremities: Yes: WNL Neurological: Yes: Alert, Oriented Psychiatric: Yes: Alert, Oriented Labs: CBC, BMP 02/17/17 05:30 02/18/17 05:35 INR, PTT INR 2.59 (0.82-1.09) H 02/15/17 05:15 - ....Imaging Chest X-ray: Report Reviewed, Image Reviewed Assessment/Plan Syncope Atrial Fibrillation with RVR Recent AVN ablation Acute Kidney Injury Lactic Acidosis HTN DM sepsis plan continue ceftriaxone if patient is stable will stop it continues to improve lactic acidosis resolved cc time 40 min
--- NOTE | 2017-02-18 12:06 | PN ---
Progress Note, Physician History of Present Illness: pulmonary alert,feeling better,-congestion,-cp - Current Medication List Current Medications: Active Medications Acetaminophen (Tylenol -) 650 mg PO Q6H PRN PRN Reason: FEVER OR PAIN Amiodarone HCl (Cordarone -) 200 mg PO TID [facility] Last Admin: 02/18/17 06:04 Dose: 200 mg Apixaban (Eliquis -) 5 mg PO BID [facility] Last Admin: 02/18/17 09:07 Dose: 5 mg Diltiazem HCl (Cardizem -) 60 mg PO Q6HPO [facility] Last Admin: 02/18/17 11:58 Dose: 60 mg Furosemide (Lasix -) 40 mg PO BIDLASIX [facility] Last Admin: 02/18/17 06:04 Dose: 40 mg Insulin Aspart (Novolog Vial Sliding Scale -) 1 vial SQ ACHS [facility] PRN Reason: Protocol Last Admin: 02/18/17 11:59 Dose: Not Given Levothyroxine Sodium (Synthroid -) 112 mcg PO DAILY@0700 [facility] Last Admin: 02/18/17 06:04 Dose: 112 mcg Methotrexate (Mexate -) 12.5 mg PO Q7D@1000 [facility] Last Admin: 02/16/17 13:05 Dose: 12.5 mg Pantoprazole Sodium (Protonix -) 40 mg PO DAILY [facility] Last Admin: 02/18/17 09:07 Dose: 40 mg - Objective Vital Signs: Vital Signs Temperature 97.8 F 02/18/17 07:24 Pulse Rate 105 H 02/18/17 07:24 Respiratory Rate 20 02/18/17 07:27 Blood Pressure 124/58 02/18/17 07:24 O2 Sat by Pulse Oximetry (%) 96 02/17/17 21:00 Constitutional: Yes: Well Nourished, Calm Eyes: Yes: WNL HENT: Yes: WNL Neck: Yes: WNL Cardiovascular: Yes: Pulse Irregular, S1, S2 Respiratory: Yes: Rales (few bibasilar crackles) Gastrointestinal: Yes: Normal Bowel Sounds, Soft ...Rectal Exam: No: Guaiac Trace Extremities: Yes: WNL Edema: Yes Labs: CBC, BMP 02/17/17 05:30 02/18/17 05:35 INR, PTT INR 2.59 (0.82-1.09) H 02/15/17 05:15 Assessment/Plan ASSESSMENT AND PLAN: Syncope Atrial Fibrillation with RVR Recent AVN ablation Acute Kidney Injury improving Lactic Acidosis improving HTN DM - PO cardizem - continue amiodarone - lasix - trend lactate - continue anticoagulation - protonix DR HOWARD
--- NOTE | 2017-02-18 18:33 | PN ---
Physical Exam: SUBJECTIVE: Patient seen and examined. She feels well, sob is improving and no palpitations. OBJECTIVE: Vital Signs Period Temp Pulse Resp BP Sys/Angeles Pulse Ox Last 24 Hr 97.5 F-98.8 F 94-105 18-20 116-129/57-66 96 PE Neuro: alert, awake, cn 2-12 intact Pulm: mild basilar crackles- improved CV: s1 s2 irregular rate and rhythm no mrg Abd: s nt nd + bs Ext: warm, dry, b/l LE +1 Laboratory Results - last 24 hr 02/17/17 02/17/17 02/18/17 05:30 21:46 05:35 Sodium 129 L Potassium 3.3 L Chloride 96 L Carbon Dioxide 19 L Anion Gap 14 BUN 20 H D Creatinine 1.0 POC Glucometer 185 Random Glucose 119 H Calcium 8.0 L TSH 16.30 H D Free T3 1.1 L 02/18/17 02/18/17 02/18/17 06:03 11:53 15:58 Sodium Potassium Chloride Carbon Dioxide Anion Gap BUN Creatinine POC Glucometer 136 148 205 Random Glucose Calcium TSH Free T3 Active Medications Generic Name Dose Route Start Last Admin Trade Name Freq PRN Reason Stop Dose Admin Acetaminophen 650 mg 02/15/17 19:49 Tylenol - PO Q6H PRN FEVER OR PAIN Amiodarone HCl 200 mg 02/15/17 22:00 02/18/17 13:48 Cordarone - PO 200 mg TID [facility] Administration Apixaban 5 mg 02/18/17 07:42 02/18/17 09:07 Eliquis - PO 5 mg BID [facility] Administration Diltiazem HCl 60 mg 02/17/17 12:00 02/18/17 11:58 Cardizem - PO 60 mg Q6HPO [facility] Administration Furosemide 40 mg 02/17/17 14:00 02/18/17 13:48 Lasix - PO 40 mg BIDLASIX [facility] Administration Insulin Aspart 1 vial 02/15/17 22:00 02/18/17 16:46 Novolog Vial Sliding Scale - SQ 4 units ACHS [facility] Administration Protocol Levothyroxine Sodium 112 mcg 02/16/17 07:00 02/18/17 06:04 Synthroid - PO 112 mcg DAILY@0700 [facility] Administration Methotrexate 12.5 mg 02/16/17 13:00 02/16/17 13:05 Mexate - PO 12.5 mg Q7D@1000 [facility] Administration Pantoprazole Sodium 40 mg 02/16/17 10:00 02/18/17 09:07 Protonix - PO 40 mg DAILY [facility] Administration Assessment: 71 year-old female withHTN, [id number] AFib s/p ablation , IDDM, RA, and hypothyroidism admitted for AFib with RVR, lactic acidemia , DUARTE, and possible syncope/seizure following Cardizem administration. Plan: 1. AFib with RVR/[id number] score 5/ s/p ablation - Increase cardizem 60mg q6h - Amiodarone 200mg TID 2. [id number] diastolic CHF - Lasix 40mg po BID - Outpatient pulm consult for PFTs - possible interstitial pattern on CXR from RA? 3. Lactic Acidemia - Resolved - Zosyn discontinued 02/16, ceftriaxone stopped today - Observe off abx, monitor wbc 4. DUARTE - At baseline - Likely d/t dehydration/pre renal 5. Hyponatremia, ?hypervolemic - Likely due to HF - Continue lasix 6. DM II - Holding Metformin while inpatient - BGM and ISS ACHS 7. Rheumatoid Arthritis - Has been restarted on home dose of weekly methotrexate - No need to restart home Prednisone dose as it is subtherapeutic dosing ( 2.5mg twice weekly) 8. Hypothyroidism - Tsh 17 - Continue Synthroid - Endocrine seeing 9. PPX - On Eliquis PO - On Protonix PO 10. H Pylori - Defer to ID for new abx regimen Dispo: Awaiting tele bed FULL CODE Visit type - Emergency Visit Emergency Visit: Yes ED Registration Date: 02/14/17 Care time: The patient presented to the Emergency Department on the above date and was hospitalized for further evaluation of their emergent condition. - New Patient This patient is new to me today: No - Critical Care Critical Care patient: No
[2017-02-19] MEDS: dilTIAZem HCL 60 MG TABLET (FP) PO SCH ×4 (00:24→17:05)
[2017-02-19] MEDS: AMIODARONE HCL 200 MG TABLET (FP) PO SCH (05:05)
[2017-02-19] MEDS: FUROSEMIDE 40 MG TABLET (FP) PO SCH ×2 (05:05→14:21)
[2017-02-19] MEDS: LEVOTHYROXINE NA 112 MCG TABLET (FP) PO SCH (06:08)
[2017-02-19] MEDS: INSULIN SLIDING SCALE (NOVOLOG) 1 VIAL SQ SCH ×4 (06:08→21:05)
[2017-02-19 08:01] LABS: BASOPHIL 0.9 % (0-2.0); EOSINOPHIL 1.3 % (0-4.5); MCHC 33.1 g/dl (32.0-36.0); MEAN CELL VOLUME 81.6 fl (80-96); MEAN PLT VOLUME 8.6 fl (7.5-11.1); NEUTROPHILS 81.3 % (42.8-82.8); PLATELET COUNT 217 K/MM3 (134-434); RDW 20.7 % (11.6-15.6); WHITE BLOOD COUNT 8.8 K/mm3 (4.0-10.0)
[2017-02-19 08:46] LABS: ALBUMIN 2.6 g/dl (3.4-5.0); ANION GAP 13 (8-16); CALCIUM 7.7 mg/dL (8.5-10.1); CO2 21 mmol/L (21-32)
[2017-02-19 08:52] LABS: ALK PHOS 81 U/L (45-117); BILIRUBIN,TOTAL 0.8 mg/dL (0.2-1.0); CREATININE 0.8 mg/dL (0.55-1.02); GLUCOSE,RANDOM 98 mg/dL (74-106); SGOT/AST 17 U/L (15-37); SGPT/ALT 11 U/L (12-78); TOT PROT 5.6 g/dl (6.4-8.2)
[2017-02-19] MEDS ORDERED: PT OWN MED DRAWER 7, Y5N ONE (09:05)
--- NOTE | 2017-02-19 09:29 | PN ---
Progress Note, Physician History of Present Illness: pulmonary alert,feeling better,less sob,sitting up in bed. + wt gain - Current Medication List Current Medications: Active Medications Acetaminophen (Tylenol -) 650 mg PO Q6H PRN PRN Reason: FEVER OR PAIN Amiodarone HCl (Cordarone -) 200 mg PO TID [facility] Last Admin: 02/19/17 05:05 Dose: 200 mg Apixaban (Eliquis -) 5 mg PO BID [facility] Last Admin: 02/18/17 21:14 Dose: 5 mg Diltiazem HCl (Cardizem -) 60 mg PO Q6HPO [facility] Last Admin: 02/19/17 05:05 Dose: 60 mg Furosemide (Lasix -) 40 mg PO BIDLASIX [facility] Last Admin: 02/19/17 05:05 Dose: 40 mg Insulin Aspart (Novolog Vial Sliding Scale -) 1 vial SQ ACHS [facility] PRN Reason: Protocol Last Admin: 02/19/17 06:08 Dose: Not Given Levothyroxine Sodium (Synthroid -) 112 mcg PO DAILY@0700 [facility] Last Admin: 02/19/17 06:08 Dose: 112 mcg Methotrexate (Mexate -) 12.5 mg PO Q7D@1000 [facility] Last Admin: 02/16/17 13:05 Dose: 12.5 mg Pantoprazole Sodium (Protonix -) 40 mg PO DAILY [facility] Last Admin: 02/18/17 09:07 Dose: 40 mg - Objective Vital Signs: Vital Signs Temperature 98.3 F 02/19/17 05:55 Pulse Rate 119 H 02/19/17 05:55 Respiratory Rate 18 02/19/17 05:55 Blood Pressure 108/88 02/19/17 05:55 O2 Sat by Pulse Oximetry (%) 97 02/18/17 19:37 Constitutional: Yes: Well Nourished, Calm Eyes: Yes: WNL HENT: Yes: WNL Neck: Yes: WNL Cardiovascular: Yes: Pulse Irregular, S1, S2 Respiratory: Yes: Diminished Gastrointestinal: Yes: Normal Bowel Sounds, Soft Extremities: Yes: WNL Edema: Yes Labs: CBC, BMP 02/19/17 06:00 02/19/17 06:00 INR, PTT INR 2.59 (0.82-1.09) H 02/15/17 05:15 Assessment/Plan ASSESSMENT AND PLAN: Syncope Atrial Fibrillation with RVR Recent AVN ablation Acute Kidney Injury improving Lactic Acidosis improving HTN DM - PO cardizem - continue amiodarone - lasix ? IV - continue anticoagulation - protonix - chest x-ray today DR HOWARD
[2017-02-19] MEDS ORDERED: POTASSIUM CHLORIDE TABS 20 MEQ TABLET.ER (FP) PO ONE (09:58)
[2017-02-19] MEDS: PANTOPRAZOLE 40 MG TABLET (FP) PO SCH (10:40)
[2017-02-19] MEDS: APIXABAN 5 MG TABLET PO SCH ×2 (10:40→21:05)
--- NOTE | 2017-02-19 10:46 | PN ---
Progress Note (short form) - Note Progress Note: Subjective: The patient was seen and examined at the bedside, she reports feeling better today. She states she is able to walk to the bathroom but then becomes short of breath. Awaiting PT evaluation, discussed with patient the possibility of SNF Current Medications Generic Name Dose Route Start Last Admin Trade Name Freq PRN Reason Stop Dose Admin Acetaminophen 650 mg 02/15/17 19:49 Tylenol - PO Q6H PRN FEVER OR PAIN Amiodarone HCl 200 mg 02/15/17 22:00 02/19/17 05:05 Cordarone - PO 200 mg TID [facility] Administration Apixaban 5 mg 02/18/17 07:42 02/19/17 10:40 Eliquis - PO 5 mg BID [facility] Administration Diltiazem HCl 60 mg 02/17/17 12:00 02/19/17 05:05 Cardizem - PO 60 mg Q6HPO [facility] Administration Furosemide 40 mg 02/17/17 14:00 02/19/17 05:05 Lasix - PO 40 mg BIDLASIX [facility] Administration Insulin Aspart 1 vial 02/15/17 22:00 02/19/17 06:08 Novolog Vial Sliding Scale - SQ Not Given ACHS [facility] Protocol Levothyroxine Sodium 112 mcg 02/16/17 07:00 02/19/17 06:08 Synthroid - PO 112 mcg DAILY@0700 [facility] Administration Methotrexate 12.5 mg 02/16/17 13:00 02/16/17 13:05 Mexate - PO 12.5 mg Q7D@1000 [facility] Administration Pantoprazole Sodium 40 mg 02/16/17 10:00 02/19/17 10:40 Protonix - PO 40 mg DAILY [facility] Administration Objective: Vital Signs Period Temp Pulse Resp BP Sys/Angeles Pulse Ox Last 24 Hr 97.6 F-98.8 F 102-119 18-20 108-122/63-88 97 Physical Exam: General: NAD, A&Ox3 HEENT: B/l strabismus Lungs: Diminished breath sounds b/l. No adventitious sounds Heart: Irregular rate, S1S2 Abd: Soft, non-tender, non-distended. Normoactive bowel sounds Ext: B/l lower extremity edema. 2+ DP/PT bilaterally Neuro: No focal deficits CBCD WBC 8.8 K/mm3 (4.0-10.0) 02/19/17 06:00 RBC 2.99 M/mm3 (3.60-5.2) L 02/19/17 06:00 Hgb 8.1 GM/dL (10.7-15.3) L D 02/19/17 06:00 Hct 24.4 % (32.4-45.2) L 02/19/17 06:00 MCV 81.6 fl (80-96) 02/19/17 06:00 MCHC 33.1 g/dl (32.0-36.0) 02/19/17 06:00 RDW 20.7 % (11.6-15.6) H 02/19/17 06:00 Plt Count 217 K/MM3 (134-434) 02/19/17 06:00 MPV 8.6 fl (7.5-11.1) 02/19/17 06:00 CMP Sodium 130 mmol/L (136-145) L 02/19/17 06:00 Potassium 3.0 mmol/L (3.5-5.1) L 02/19/17 06:00 Chloride 96 mmol/L (98-107) L 02/19/17 06:00 Carbon Dioxide 21 mmol/L (21-32) 02/19/17 06:00 Anion Gap 13 (8-16) 02/19/17 06:00 BUN 17 mg/dL (7-18) 02/19/17 06:00 Creatinine 0.8 mg/dL (0.55-1.02) 02/19/17 06:00 Creat Clearance w eGFR > 60 (>60) 02/19/17 06:00 Random Glucose 98 mg/dL (74-106) 02/19/17 06:00 Calcium 7.7 mg/dL (8.5-10.1) L 02/19/17 06:00 Total Bilirubin 0.8 mg/dL (0.2-1.0) 02/19/17 06:00 AST 17 U/L (15-37) 02/19/17 06:00 ALT 11 U/L (12-78) L 02/19/17 06:00 Alkaline Phosphatase 81 U/L (45-117) 02/19/17 06:00 Total Protein 5.6 g/dl (6.4-8.2) L 02/19/17 06:00 Albumin 2.6 g/dl (3.4-5.0) L 02/19/17 06:00 CARDIAC ENZYMES Creatine Kinase 57 IU/L (26-140) 02/14/17 10:58 Troponin I 0.20 ng/ml (0.00-0.05) H 02/15/17 05:15 Microbiology 02/14/17 11:45 Blood - Peripheral Venous Blood Culture - Preliminary NO GROWTH OBTAINED AFTER 96 HOURS, INCUBATION TO CONTINUE FOR 1 DAYS. 02/14/17 12:15 Blood - Peripheral Venous Blood Culture - Preliminary NO GROWTH OBTAINED AFTER 96 HOURS, INCUBATION TO CONTINUE FOR 1 DAYS. 02/14/17 15:54 Urine - Urine - Catheterized Urine Culture - Final NO GROWTH OBTAINED Assessment: This is a 71 year old female with PMHx of HTN, A.fib s/p ablation 2016, IDDM, RA, hypothyroidism who presented to the ED with nausea and vomiting x3 days. Plan: 1) Cardiology: A.fib with RVR - [id number] score 5, s/p ablation - Continue Cardizem 60mg q6h - Continue decreased dose of Amiodarone 200mg daily - Continue Eliquis - Appreciate cardiology consult Acute on chronic diastolic heart failure - Lasix 40mg po bid - Daily weights - Rales may represent interstitial lung disease from RA, will need outpatient pulmonary follow-up 2) ID: Lactic acidemia - Resolved - Zosyn discontinued on 02/16 - Ceftiraxone discontinued on 02/18 - Continue to observe off antibiotics 3) GI: H.pylori - Discussed treatment with Dr. Goyal, who recommends holding off on starting treatment until the patient is evaluated by her pcp 4) : DUARTE - Resolved 5) Endocrine: DM - Continue to hold metformin while inpatient - BGM ACHS - ISS ACHS Hypothyroidism - TSH 16.3 - Continue Synthroid - Appreciate endocrine consult Rheumatoid arthritis - Continue Methotrexate - No need to restart home Prednisone dose as it is subtherapeutic dosing 6) F/E/N: - Hyponatremia hypervolemia: continue Lasix, Na slightly improved from yesterday - Hypokalemia: replete - Diabetic/low sodium diet 7) Prophylaxis: - On Eliquis - PT evaluation 8) Dispo: - Requires continued inpatient care CODE STATUS: FULL CODE Visit type - Emergency Visit Emergency Visit: Yes ED Registration Date: 02/14/17 Care time: The patient presented to the Emergency Department on the above date and was hospitalized for further evaluation of their emergent condition. - New Patient This patient is new to me today: Yes Date on this admission: 02/19/17 - Critical Care Critical Care patient: No
--- NOTE | 2017-02-19 12:52 | PN ---
Progress Note, Physician History of Present Illness: patient stable feels well no issues starting to feel better - Current Medication List Current Medications: Active Medications Acetaminophen (Tylenol -) 650 mg PO Q6H PRN PRN Reason: FEVER OR PAIN Amiodarone HCl (Cordarone -) 200 mg PO DAILY [facility] Apixaban (Eliquis -) 5 mg PO BID [facility] Last Admin: 02/19/17 10:40 Dose: 5 mg Diltiazem HCl (Cardizem -) 60 mg PO Q6HPO [facility] Last Admin: 02/19/17 12:07 Dose: 60 mg Furosemide (Lasix -) 40 mg PO BIDLASIX [facility] Last Admin: 02/19/17 05:05 Dose: 40 mg Insulin Aspart (Novolog Vial Sliding Scale -) 1 vial SQ ACHS [facility] PRN Reason: Protocol Last Admin: 02/19/17 12:07 Dose: 2 units Levothyroxine Sodium (Synthroid -) 112 mcg PO DAILY@0700 [facility] Last Admin: 02/19/17 06:08 Dose: 112 mcg Methotrexate (Mexate -) 12.5 mg PO Q7D@1000 [facility] Last Admin: 02/16/17 13:05 Dose: 12.5 mg Pantoprazole Sodium (Protonix -) 40 mg PO DAILY [facility] Last Admin: 02/19/17 10:40 Dose: 40 mg - Objective Vital Signs: Vital Signs Temperature 98.2 F 02/19/17 09:00 Pulse Rate 108 H 02/19/17 09:00 Respiratory Rate 18 02/19/17 09:00 Blood Pressure 118/72 02/19/17 09:00 O2 Sat by Pulse Oximetry (%) 96 02/19/17 09:00 Constitutional: Yes: No Distress, Calm HENT: Yes: Atraumatic Cardiovascular: Yes: Pulse Irregular Respiratory: Yes: Regular, CTA Bilaterally Gastrointestinal: Yes: Normal Bowel Sounds, Soft Musculoskeletal: Yes: WNL Extremities: Yes: WNL Neurological: Yes: Alert, Oriented Psychiatric: Yes: Alert, Oriented Labs: CBC, BMP 02/19/17 06:00 02/19/17 06:00 INR, PTT INR 2.59 (0.82-1.09) H 02/15/17 05:15 Assessment/Plan Syncope Atrial Fibrillation with RVR Recent AVN ablation Acute Kidney Injury Lactic Acidosis HTN DM sepsis plan stopped abx patient stable will continue to follow closely monitor counts
--- NOTE | 2017-02-19 15:20 | PN ---
Progress Note, Physician Chief Complaint: Dyspnea on exertion. Atrial Fibrillation History of Present Illness: This is a 71 y.o. female with h/o NIDDM, hypothyroidism, HTN, RA on chronic steroids/MTX, interstitial lung disease/emphysema, H pylori gastritis diagnosed 12/2016 recently started on abx, Atrial fibrillation on Eliquis, anemia, syncope due to PAF and conversion pauses s/p PVI at [facility] by Dr Gaona 01/27/17 dcd on amiodarone, now admitted with nausea and vomiting post abx for h. pylori, lactic acidosis, poor po intake and atrial fibrillation with RVR. No chest pain , palpitations, dizziness, syncope, orthopnea, pnd or edema. Baseline exercise tolerance is good. Echo 01/13/17 normal EF, diastolic dysfunction, mod MR mild TR trace to mild PI. 02/19/17 Still has CONTI ambulating across the hallway. HR 100 BPM. - Current Medication List Current Medications: Active Medications Acetaminophen (Tylenol -) 650 mg PO Q6H PRN PRN Reason: FEVER OR PAIN Amiodarone HCl (Cordarone -) 200 mg PO DAILY [facility] Apixaban (Eliquis -) 5 mg PO BID [facility] Last Admin: 02/19/17 10:40 Dose: 5 mg Diltiazem HCl (Cardizem -) 60 mg PO Q6HPO [facility] Last Admin: 02/19/17 12:07 Dose: 60 mg Furosemide (Lasix -) 40 mg PO BIDLASIX [facility] Last Admin: 02/19/17 14:21 Dose: 40 mg Insulin Aspart (Novolog Vial Sliding Scale -) 1 vial SQ ACHS [facility] PRN Reason: Protocol Last Admin: 02/19/17 12:07 Dose: 2 units Levothyroxine Sodium (Synthroid -) 112 mcg PO DAILY@0700 [facility] Last Admin: 02/19/17 06:08 Dose: 112 mcg Methotrexate (Mexate -) 12.5 mg PO Q7D@1000 [facility] Last Admin: 02/16/17 13:05 Dose: 12.5 mg Pantoprazole Sodium (Protonix -) 40 mg PO DAILY [facility] Last Admin: 02/19/17 10:40 Dose: 40 mg - Objective Vital Signs: Vital Signs Temperature 97.9 F 02/19/17 14:04 Pulse Rate 100 H 02/19/17 14:04 Respiratory Rate 20 02/19/17 14:04 Blood Pressure 121/68 02/19/17 14:04 O2 Sat by Pulse Oximetry (%) 96 02/19/17 09:00 Constitutional: Yes: Well Nourished Cardiovascular: Yes: WNL, Tachycardia, Pulse Irregular, JVD (No JVD), S1, S2 Respiratory: Yes: Other (CTA bialterally) Gastrointestinal: Yes: Soft Extremities: Yes: Other (Distal pulses intact) Edema: Yes (Trace bilateral LE edema) Neurological: Yes: Other (A+Ox3, grossly nonfocal) Labs: CBC, BMP 02/19/17 06:00 02/19/17 06:00 INR, PTT INR 2.59 (0.82-1.09) H 02/15/17 05:15 Assessment/Plan Problem List - Problems (1) Atrial fibrillation with rapid ventricular response Assessment/Plan: CHADS2 score 3. Continue Eliquis 5 mg bid for stroke prevention. HCT dropped from 27.4 to 24.4, would check stool guaiac Continue diltiazem to 60 q6h Continue amiodarone to 200 mg daily. 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 Continue Lasix 40 mg PO bid. Daily Wt's A BNP level may be helpful to decide if a more aggressive diuretic regimen is needed. Would replete K+ prior to giving a more aggressive diuretic regimen. Will follow with you.
[2017-02-20] MEDS: dilTIAZem HCL 60 MG TABLET (FP) PO SCH ×5 (00:24→23:49)
[2017-02-20] MEDS ORDERED: MAGNESIUM HYDROX 2400MG/30ML ORAL SUSPENSION 30 ML CUP PO ONE (03:00)
[2017-02-20] MEDS ORDERED: LACTULOSE 20 GM/30 ML UDC (FOR ORAL USE ONLY) PO ONE (03:01)
[2017-02-20] MEDS: FUROSEMIDE 40 MG TABLET (FP) PO SCH ×2 (05:33→13:41)
[2017-02-20] MEDS: LEVOTHYROXINE NA 112 MCG TABLET (FP) PO SCH (06:19)
[2017-02-20] MEDS: INSULIN SLIDING SCALE (NOVOLOG) 1 VIAL SQ SCH ×4 (06:19→22:02)
[2017-02-20] MEDS ORDERED: SENNOSIDES 8.6MG TABLET (FP) PO PRN (07:12)
[2017-02-20] MEDS ORDERED: DOCUSATE SODIUM 100 MG CAPSULE (FP) PO PRN (07:12)
[2017-02-20 08:16] LABS: MCH 27.2 pg (25.7-33.7); MCHC 33.2 g/dl (32.0-36.0); MEAN CELL VOLUME 81.9 fl (80-96); MEAN PLT VOLUME 8.5 fl (7.5-11.1); PLATELET COUNT 253 K/MM3 (134-434); WHITE BLOOD COUNT 8.5 K/mm3 (4.0-10.0)
[2017-02-20 08:34] LABS: ALBUMIN 2.9 g/dl (3.4-5.0)
[2017-02-20 08:40] LABS: BILIRUBIN,TOTAL 0.7 mg/dL (0.2-1.0); COCKROFT - GAULT 64.2175
--- NOTE | 2017-02-20 08:56 | PN ---
Progress Note (short form) - Note Progress Note: Subjective: The patient was seen and examined at the bedside, she reports having a bowel movement this morning. Stool appears dark in color, however Hgb stable 8.4 today, will send for occult blood. K 2.8, replete Ambulated 90ft with PT yesterday, report states SOB with ambulation, f/u pre/ post O2 Current Medications Generic Name Dose Route Start Last Admin Trade Name Freq PRN Reason Stop Dose Admin Acetaminophen 650 mg 02/15/17 19:49 Tylenol - PO Q6H PRN FEVER OR PAIN Amiodarone HCl 200 mg 02/20/17 10:00 Cordarone - PO DAILY [facility] Apixaban 5 mg 02/18/17 07:42 02/19/17 21:05 Eliquis - PO 5 mg BID [facility] Administration Diltiazem HCl 60 mg 02/17/17 12:00 02/20/17 05:33 Cardizem - PO 60 mg Q6HPO [facility] Administration Docusate Sodium 100 mg 02/20/17 07:12 Colace - PO Q8H PRN CONSTIPATION Furosemide 40 mg 02/17/17 14:00 02/20/17 05:33 Lasix - PO 40 mg BIDLASIX [facility] Administration Potassium Chloride 100 mls @ 100 mls/hr 02/20/17 09:00 Potassium Chloride 10 Meq Premix Ivpb - IVPB 02/20/17 11:59 Q60M [facility] Insulin Aspart 1 vial 02/15/17 22:00 02/20/17 06:19 Novolog Vial Sliding Scale - SQ Not Given ACHS [facility] Protocol Levothyroxine Sodium 112 mcg 02/16/17 07:00 02/20/17 06:19 Synthroid - PO 112 mcg DAILY@0700 [facility] Administration Methotrexate 12.5 mg 02/16/17 13:00 02/16/17 13:05 Mexate - PO 12.5 mg Q7D@1000 [facility] Administration Pantoprazole Sodium 40 mg 02/16/17 10:00 02/19/17 10:40 Protonix - PO 40 mg DAILY [facility] Administration Polyethylene Glycol 17 gm 02/20/17 10:00 Miralax (For Daily Use) - PO DAILY [facility] Potassium Chloride 40 meq 02/20/17 08:56 K-Dur - PO 02/20/17 08:57 ONCE ONE Senna 2 tab 02/20/17 07:12 Senna - PO HS PRN CONSTIPATION Objective: Vital Signs Period Temp Pulse Resp BP Sys/Angeles Pulse Ox Last 24 Hr 97.6 F-98.4 F 100-112 16-20 93-121/46-74 99 Physical Exam: General: NAD, A&Ox3 HEENT: B/l strabismus Lungs: CTA bilaterally Heart: Irregular rate, S1S2 Abd: Soft, non-tender, non-distended. Normoactive bowel sounds Ext: B/l lower extremity edema. 2+ DP/PT bilaterally Neuro: No focal deficits CBCD WBC 8.5 K/mm3 (4.0-10.0) 02/20/17 06:00 RBC 3.09 M/mm3 (3.60-5.2) L 02/20/17 06:00 Hgb 8.4 GM/dL (10.7-15.3) L 02/20/17 06:00 Hct 25.3 % (32.4-45.2) L 02/20/17 06:00 MCV 81.9 fl (80-96) 02/20/17 06:00 MCHC 33.2 g/dl (32.0-36.0) 02/20/17 06:00 RDW 21.0 % (11.6-15.6) H 02/20/17 06:00 Plt Count 253 K/MM3 (134-434) 02/20/17 06:00 MPV 8.5 fl (7.5-11.1) 02/20/17 06:00 CMP Sodium 130 mmol/L (136-145) L 02/20/17 06:00 Potassium 2.8 mmol/L (3.5-5.1) L* 02/20/17 06:00 Chloride 95 mmol/L (98-107) L 02/20/17 06:00 Carbon Dioxide 23 mmol/L (21-32) 02/20/17 06:00 Anion Gap 12 (8-16) 02/20/17 06:00 BUN 17 mg/dL (7-18) 02/20/17 06:00 Creatinine 1.0 mg/dL (0.55-1.02) D 02/20/17 06:00 Creat Clearance w eGFR 54.35 (>60) 02/20/17 06:00 Random Glucose 121 mg/dL (74-106) H D 02/20/17 06:00 Calcium 8.0 mg/dL (8.5-10.1) L 02/20/17 06:00 Total Bilirubin 0.7 mg/dL (0.2-1.0) 02/20/17 06:00 AST 18 U/L (15-37) 02/20/17 06:00 ALT 14 U/L (12-78) D 02/20/17 06:00 Alkaline Phosphatase 89 U/L (45-117) 02/20/17 06:00 Total Protein 6.0 g/dl (6.4-8.2) L 02/20/17 06:00 Albumin 2.9 g/dl (3.4-5.0) L 02/20/17 06:00 CARDIAC ENZYMES Creatine Kinase 57 IU/L (26-140) 02/14/17 10:58 Troponin I 0.20 ng/ml (0.00-0.05) H 02/15/17 05:15 Microbiology 02/14/17 11:45 Blood - Peripheral Venous Blood Culture - Final NO GROWTH AFTER 5 DAYS INCUBATION 02/14/17 12:15 Blood - Peripheral Venous Blood Culture - Final NO GROWTH AFTER 5 DAYS INCUBATION 02/14/17 15:54 Urine - Urine - Catheterized Urine Culture - Final NO GROWTH OBTAINED Assessment: This is a 71 year old female with PMHx of HTN, A.fib s/p ablation 2016, IDDM, RA, hypothyroidism who presented to the ED with nausea and vomiting x3 days. Plan: 1) Cardiology: A.fib with RVR - [id number] score 5, s/p ablation - Continue Cardizem 60mg q6h, unable to uptitrate today 2/2 hypotension - Continue decreased dose of Amiodarone 200mg daily - Continue Eliquis - Appreciate cardiology consult Acute on chronic diastolic heart failure - Lasix 40mg po bid - Daily weights - Rales may have represented interstitial lung disease from RA, will need outpatient pulmonary follow-up 2) ID: Lactic acidemia - Resolved - Zosyn discontinued on 02/16 - Ceftiraxone discontinued on 02/18 - Continue to observe off antibiotics 3) GI: H.pylori - Discussed treatment with Dr. Goyal, who recommends holding off on starting treatment until the patient is evaluated by her pcp 4) Heme: Anemia - Hgb dropped yesterday, but remains stable today - F/u stool for occult blood - Attempt to receive EGD records (12/2016) from Dr. Tyson Simental ([phone] ) to evaluate if ulcers were present. Request form faxed for their office 5) : DUARTE - Resolved 6) Endocrine: DM - Continue to hold metformin while inpatient - BGM ACHS - ISS ACHS Hypothyroidism - TSH 16.3 - Continue Synthroid - Appreciate endocrine consult Rheumatoid arthritis - Continue Methotrexate - No need to restart home Prednisone dose as it is subtherapeutic dosing 7) F/E/N: - Hyponatremia hypervolemia: continue Lasix, Na slightly improved from yesterday - Hypokalemia: replete - Diabetic/low sodium diet 8) Prophylaxis: - On Eliquis - PT: walked 90 feet, will need home PT with VNS - F/u pre/post O2, patient reports SOB on exertion 9) Dispo: - Requires continued inpatient care CODE STATUS: FULL CODE Visit type - Emergency Visit Emergency Visit: Yes ED Registration Date: 02/14/17 Care time: The patient presented to the Emergency Department on the above date and was hospitalized for further evaluation of their emergent condition. - New Patient This patient is new to me today: No - Critical Care Critical Care patient: No
[2017-02-20] MEDS ORDERED: POTASSIUM CHLORIDE TABS 20 MEQ TABLET.ER (FP) PO ONE (09:15)
[2017-02-20] MEDS: KCL 10 MEQ IVPB 100 ML IVPB SCH ×3 (09:28→12:05)
[2017-02-20] MEDS: APIXABAN 5 MG TABLET PO SCH (09:28)
[2017-02-20] MEDS: PANTOPRAZOLE 40 MG TABLET (FP) PO SCH (09:28)
[2017-02-20] MEDS: POLYETHYLENE GLYCOL 3350 119 GM BTL PO SCH ×2 (09:29→09:48)
[2017-02-20] MEDS: AMIODARONE HCL 200 MG TABLET (FP) PO SCH (09:29)
--- NOTE | 2017-02-20 10:17 | PN ---
Progress Note, Physician History of Present Illness: pulmonary alert,-sob at rest ,+lisa,-cp. - Current Medication List Current Medications: Active Medications Acetaminophen (Tylenol -) 650 mg PO Q6H PRN PRN Reason: FEVER OR PAIN Amiodarone HCl (Cordarone -) 200 mg PO DAILY [facility] B[facility]S AT [facility] Last Admin: 02/20/17 09:29 Dose: 200 mg Apixaban (Eliquis -) 5 mg PO BID [facility] B[facility]S AT [facility] Last Admin: 02/20/17 09:28 Dose: 5 mg Diltiazem HCl (Cardizem -) 60 mg PO Q6HPO [facility]S [facility] 234 BEDS AT [facility] Last Admin: 02/20/17 05:33 Dose: 60 mg Docusate Sodium (Colace -) 100 mg PO Q8H PRN PRN Reason: CONSTIPATION Furosemide (Lasix -) 40 mg PO BIDLASIX [facility]S [facility]CLUDE 234 BEDS AT [facility] Last Admin: 02/20/17 05:33 Dose: 40 mg Potassium Chloride (Potassium Chloride 10 Meq Premix Ivpb -) 100 mls @ 100 mls/ hr IVPB Q60M [facility]S [facility]CLUDE 234 BEDS AT [facility] Stop: 02/20/17 12:14 Last Admin: 02/20/17 09:28 Dose: 100 mls/hr Insulin Aspart (Novolog Vial Sliding Scale -) 1 vial SQ ACHS [facility] 234 B[facility]S AT [facility] PRN Reason: Protocol Last Admin: 02/20/17 06:19 Dose: Not Given Levothyroxine Sodium (Synthroid -) 112 mcg PO DAILY@0700 [facility] 234 BEDS AT [facility] Last Admin: 02/20/17 06:19 Dose: 112 mcg Methotrexate (Mexate -) 12.5 mg PO Q7D@1000 [facility] 234 BEDS AT [facility] Last Admin: 02/16/17 13:05 Dose: 12.5 mg Pantoprazole Sodium (Protonix -) 40 mg PO DAILY [facility] 234 BEDS AT [facility] Last Admin: 02/20/17 09:28 Dose: 40 mg Polyethylene Glycol (Miralax (For Daily Use) -) 17 gm PO DAILY [facility] 234 BEDS AT [facility] Last Admin: 02/20/17 09:48 Dose: Not Given Senna (Senna -) 2 tab PO HS PRN PRN Reason: CONSTIPATION - Objective Vital Signs: Vital Signs Temperature 98.1 F 02/20/17 05:41 Pulse Rate 104 H 02/20/17 05:41 Respiratory Rate 20 02/20/17 05:41 Blood Pressure 107/57 02/20/17 05:41 O2 Sat by Pulse Oximetry (%) 99 02/19/17 20:31 Constitutional: Yes: Well Nourished, Calm Eyes: Yes: WNL HENT: Yes: WNL Neck: Yes: WNL Cardiovascular: Yes: Regular Rate and Rhythm, S1, S2 Respiratory: Yes: Diminished, Rales (bibasilar rales) Gastrointestinal: Yes: Normal Bowel Sounds, Soft Extremities: Yes: WNL Edema: Yes Labs: CBC, BMP 02/20/17 06:00 02/20/17 06:00 INR, PTT INR 2.59 (0.82-1.09) H 02/15/17 05:15 Assessment/Plan ASSESSMENT AND PLAN: Syncope Atrial Fibrillation with RVR Recent AVN ablation Acute Kidney Injury improving Lactic Acidosis improving HTN DM - PO cardizem - continue amiodarone - lasix ? IV - continue anticoagulation - protonix - replete k - chest x-ray today - stool guiacs -monitor h+ h DR HOWARD
--- NOTE | 2017-02-20 12:59 | PN ---
Progress Note (short form) - Note Progress Note: Had black stools. Guaic positive Stll Has CONTI BGM stable Vital Signs Period Temp Pulse Resp BP Sys/Angeles Pulse Ox Last 24 Hr 97.6 F-98.4 F 100-114 16-20 93-121/46-74 98-99 PE: AOx3 HEENT: PERRL, EOMI Neck: supple, No JVD Lungs: CTA Abd: Benign CVS: S1S2 irregular EXt: +edema Neuro: No focal deficit CBC WBC 8.5 K/mm3 (4.0-10.0) 02/20/17 06:00 RBC 3.09 M/mm3 (3.60-5.2) L 02/20/17 06:00 Hgb 8.4 GM/dL (10.7-15.3) L 02/20/17 06:00 Hct 25.3 % (32.4-45.2) L 02/20/17 06:00 MCV 81.9 fl (80-96) 02/20/17 06:00 MCHC 33.2 g/dl (32.0-36.0) 02/20/17 06:00 RDW 21.0 % (11.6-15.6) H 02/20/17 06:00 Plt Count 253 K/MM3 (134-434) 02/20/17 06:00 MPV 8.5 fl (7.5-11.1) 02/20/17 06:00 Neutrophils % 81.3 % (42.8-82.8) 02/19/17 06:00 Lymphocytes % 14.6 % (8-40) D 02/19/17 06:00 Monocytes % 1.9 % (3.8-10.2) L 02/19/17 06:00 Eosinophils % 1.3 % (0-4.5) D 02/19/17 06:00 Basophils % 0.9 % (0-2.0) 02/19/17 06:00 Differential Comment Slide scanned 02/14/17 10:58 Platelet Estimate Adequate (NORMAL) 02/14/17 10:58 Platelet Comment Mod large plts 02/14/17 10:58 Polychromasia 1+ 02/16/17 05:15 Hypochromic-Microcytic 2+ 02/16/17 05:15 Poikilocytosis 1+ 02/14/17 10:58 Basophilic Stippling Occ 02/14/17 10:58 Anisocytosis 2+ 02/14/17 10:58 Microcytosis Few 02/16/17 05:15 Macrocytosis 1+ 02/16/17 05:15 Tear Drop Cells Occ 02/14/17 10:58 Ovalocytes 2+ 02/14/17 10:58 Schistocytes Occ 02/14/17 10:58 CMP Sodium 130 mmol/L (136-145) L 02/20/17 06:00 Potassium 2.8 mmol/L (3.5-5.1) L* 02/20/17 06:00 Chloride 95 mmol/L (98-107) L 02/20/17 06:00 Carbon Dioxide 23 mmol/L (21-32) 02/20/17 06:00 Anion Gap 12 (8-16) 02/20/17 06:00 BUN 17 mg/dL (7-18) 02/20/17 06:00 Creatinine 1.0 mg/dL (0.55-1.02) D 02/20/17 06:00 Creat Clearance w eGFR 54.35 (>60) 02/20/17 06:00 POC Glucometer 127 UNITS (()) 02/20/17 05:32 Random Glucose 121 mg/dL (74-106) H D 02/20/17 06:00 Lactic Acid 2.006 mmol/L (0.4-2.0) H* 02/15/17 21:45 Calcium 8.0 mg/dL (8.5-10.1) L 02/20/17 06:00 Total Bilirubin 0.7 mg/dL (0.2-1.0) 02/20/17 06:00 AST 18 U/L (15-37) 02/20/17 06:00 ALT 14 U/L (12-78) D 02/20/17 06:00 Alkaline Phosphatase 89 U/L (45-117) 02/20/17 06:00 Creatine Kinase 57 IU/L (26-140) 02/14/17 10:58 Troponin I 0.20 ng/ml (0.00-0.05) H 02/15/17 05:15 B-Natriuretic Peptide 1886.59 pg/ml (5-125) H 02/14/17 21:40 Total Protein 6.0 g/dl (6.4-8.2) L 02/20/17 06:00 Albumin 2.9 g/dl (3.4-5.0) L 02/20/17 06:00 TSH 16.30 uIU/ml (0.358-3.74) H D 02/18/17 05:35 Free T4 1.34 ng/dl (0.76-1.46) 02/17/17 05:30 Free T3 1.1 pg/ml (2.0-4.4) L 02/17/17 05:30 Current Medications Generic Name Dose Route Start Last Admin Trade Name Freq PRN Reason Stop Dose Admin Acetaminophen 650 mg 02/15/17 19:49 Tylenol - PO Q6H PRN FEVER OR PAIN Amiodarone HCl 200 mg 02/20/17 10:00 02/20/17 09:29 Cordarone - PO 200 mg DAILY [facility] Administration Apixaban 5 mg 02/18/17 07:42 02/20/17 09:28 Eliquis - PO 5 mg BID [facility] Administration Diltiazem HCl 60 mg 02/17/17 12:00 02/20/17 12:05 Cardizem - PO 60 mg Q6HPO [facility] Administration Docusate Sodium 100 mg 02/20/17 07:12 Colace - PO Q8H PRN CONSTIPATION Furosemide 40 mg 02/17/17 14:00 02/20/17 05:33 Lasix - PO 40 mg BIDLASIX [facility] Administration Pantoprazole Sodium 100 mls @ 200 mls/hr 02/20/17 22:00 Protonix 40mg Ivpb (Pre-Docked) IVPB BID [facility] Insulin Aspart 1 vial 02/15/17 22:00 02/20/17 12:01 Novolog Vial Sliding Scale - SQ Not Given ACHS [facility] Protocol Levothyroxine Sodium 112 mcg 02/16/17 07:00 02/20/17 06:19 Synthroid - PO 112 mcg DAILY@0700 BARBARA Administration Methotrexate 12.5 mg 02/16/17 13:00 02/16/17 13:05 Mexate - PO 12.5 mg Q7D@1000 BARBARA Administration Polyethylene Glycol 17 gm 02/20/17 10:00 02/20/17 09:48 Miralax (For Daily Use) - PO Not Given DAILY BARBARA Senna 2 tab 02/20/17 07:12 Senna - PO HS PRN CONSTIPATION AP: ? GI bleeding: black stools, gauic +, GI consulte HYPothyroidism:Due to malabsorption vs Amiodarone effect AFIB RA DM: BGM QACHS Novolog SS coverage TSH 16.3 down from 17 Continue LT4 112 Rpt TFT in one week to monitor trend. Will increase dose if TSH worsens. Amiodarone Methorexate Eliquis on hold Will f/U Problem List - Problems (1) Atrial fibrillation with rapid ventricular response Code(s): I48.91 - UNSPECIFIED ATRIAL FIBRILLATION (2) DM (diabetes mellitus) Code(s): E11.9 - TYPE 2 DIABETES MELLITUS WITHOUT COMPLICATIONS Qualifiers: Diabetes mellitus type: type 2 Diabetes mellitus complication status: without complication Diabetes mellitus fpc insulin use: without fpc use Qualified Code(s): E11.9 - Type 2 diabetes mellitus without complications (3) Hypothyroidism Code(s): E03.9 - HYPOTHYROIDISM, UNSPECIFIED Qualifiers: Hypothyroidism type: unspecified Qualified Code(s): E03.9 - Hypothyroidism, unspecified (4) Nausea and vomiting Code(s): R11.2 - NAUSEA WITH VOMITING, UNSPECIFIED
[2017-02-20 13:50] LABS: MCH 27.4 pg (25.7-33.7); MCHC 32.8 g/dl (32.0-36.0); MEAN CELL VOLUME 83.4 fl (80-96); MEAN PLT VOLUME 8.1 fl (7.5-11.1); PLATELET COUNT 243 K/MM3 (134-434); RDW 20.7 % (11.6-15.6)
--- NOTE | 2017-02-20 14:42 | PN ---
Progress Note, Physician Chief Complaint: Dyspnea on exertion. Atrial Fibrillation History of Present Illness: This is a 71 y.o. female with h/o NIDDM, hypothyroidism, HTN, RA on chronic steroids/MTX, interstitial lung disease/emphysema, H pylori gastritis diagnosed 12/2016 recently started on abx, Atrial fibrillation on Eliquis, anemia, syncope due to PAF and conversion pauses s/p PVI at [facility] by Dr Gaona 01/27/17 dcd on amiodarone, now admitted with nausea and vomiting post abx for h. pylori, lactic acidosis, poor po intake and atrial fibrillation with RVR. No chest pain , palpitations, dizziness, syncope, orthopnea, pnd or edema. Baseline exercise tolerance is good. Echo 01/13/17 normal EF, diastolic dysfunction, mod MR mild TR trace to mild PI. 02/19/17 Still has CONTI ambulating across the hallway. HR 100 BPM. 02/20/17 Found to have GUAIAC Positive stools, holding AC for now. - Current Medication List Current Medications: Active Medications Acetaminophen (Tylenol -) 650 mg PO Q6H PRN PRN Reason: FEVER OR PAIN Amiodarone HCl (Cordarone -) 200 mg PO DAILY [facility] Last Admin: 02/20/17 09:29 Dose: 200 mg Apixaban (Eliquis -) 5 mg PO BID [facility] Last Admin: 02/20/17 09:28 Dose: 5 mg Diltiazem HCl (Cardizem -) 60 mg PO Q6HPO [facility] Last Admin: 02/20/17 12:05 Dose: 60 mg Docusate Sodium (Colace -) 100 mg PO Q8H PRN PRN Reason: CONSTIPATION Furosemide (Lasix -) 40 mg PO BIDLASIX [facility] Last Admin: 02/20/17 13:41 Dose: 40 mg Pantoprazole Sodium (Protonix 40mg Ivpb (Pre-Docked)) 100 mls @ 200 mls/hr IVPB BID [facility] Insulin Aspart (Novolog Vial Sliding Scale -) 1 vial SQ ACHS [facility] PRN Reason: Protocol Last Admin: 02/20/17 12:01 Dose: Not Given Levothyroxine Sodium (Synthroid -) 112 mcg PO DAILY@0700 [facility] Last Admin: 02/20/17 06:19 Dose: 112 mcg Methotrexate (Mexate -) 12.5 mg PO Q7D@1000 [facility] Last Admin: 02/16/17 13:05 Dose: 12.5 mg Polyethylene Glycol (Miralax (For Daily Use) -) 17 gm PO DAILY [facility] Last Admin: 02/20/17 09:48 Dose: Not Given Senna (Senna -) 2 tab PO HS PRN PRN Reason: CONSTIPATION - Objective Vital Signs: Vital Signs Temperature 97.5 F L 02/20/17 14:00 Pulse Rate 101 H 02/20/17 14:00 Respiratory Rate 20 02/20/17 14:00 Blood Pressure 104/66 02/20/17 14:00 O2 Sat by Pulse Oximetry (%) 99 02/20/17 10:54 Constitutional: Yes: Other Additional Findings/Remarks: Constitutional: Yes: Well Nourished Cardiovascular: Yes: WNL, Tachycardia, Pulse Irregular, JVD (No JVD), S1, S2 Respiratory: Yes: Other (CTA bialterally) Gastrointestinal: Yes: Soft Extremities: Yes: Other (Distal pulses intact) Edema: Yes (Trace bilateral LE edema) Neurological: Yes: Other (A+Ox3, grossly nonfocal) Labs: CBC, BMP 02/20/17 13:41 02/20/17 06:00 INR, PTT INR 2.59 (0.82-1.09) H 02/15/17 05:15 Assessment/Plan Problem List - Problems (1) Atrial fibrillation with rapid ventricular response Assessment/Plan: S/P pulmonary vein isolation CHADS2 score 3. Noted to have GUAIAC POSITIVE stools. Holding Eliquis pending a GI evaluation. Follow HCT Continue diltiazem to 60 q6h Continue amiodarone to 200 mg daily. 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 Continue Lasix 40 mg PO bid. Daily Wt's A BNP level may be helpful to decide if a more aggressive diuretic regimen is needed. Would replete K+ prior to giving a more aggressive diuretic regimen. Will follow with you.
--- NOTE | 2017-02-20 15:51 | CON.GI ---
Consult Consult Specialty:: GASTROENTEROLOGY Reason for Consultation:: OCCULT BLOOD IN STOOL, ANEMIA - History of Present Illness Chief Complaint: THEY SAY I AM ANEMIC History of Present Illness: 71 YEAR OLD FEMALE ON ELIQUIS FOR AFIB NOW FOUND TO HAVE WORSENING ANEMIA AND OCCULT BLOOD IN DARK STOOL. SHE DENIES ANY ABDOMINAL PAIN TODAY OR YESTERDAY. SHE DID NOT TOLERATE AN H PYLORI (AMOX/CLAR) VERY WELL DUE TO ABDOMINAL PAIN. THE H PYLORI WAS FOUND AT A RECENT ENDOSCOPY (). SHE STATES THAT NO OTHER ABNORMALITY WAS SEEN. SHE DID NOT HAVE A COLONOSCOPY THAT WAS SCHEDULED DUE TO A SNOW STORM. SHE RECENT HAD CARDIAC ABLATION FOR AFIB WITH RVR THAT WAS SUCCESSFUL. THE ELIQUIS WAS STOPPED AND AND SHE HAS BEEN PLACED ON A CLEAR LIQUID DIET LATE TODAY. SHE ALSO HAS A HISTORY OF RHEUMATOID ARTHRITIS AND IS ON CHRONIC STEROIDS AND MTX. SHE ALSO HAS A HISTORY OF CHRONIC CONSTIPATION. THERE IS NO FAMILY HISTORY OF COLON CANCER. - History Source History Provided By: Patient, Family Member Limitations to Obtaining History: No Limitations - Past Medical History TECHNICAL BUYER: Yes: Other (motion sickness) Cardio/Vascular: Yes: AFIB, HTN ...: No Rheumatology: Yes: Rheumatoid Arthritis Endocrine: Yes: Diabetes Mellitus, Hypothyroidism Additional Medical History: recent atrial ablation at [facility]. recent EGD with Dx of H. Pylori, recently started on Triple therapy - Past Surgical History Additional Surgical History: SEE CARDIAC HISTORY - Alcohol/Substance Use Hx Alcohol Use: No History of Substance Use: reports: None - Smoking History Smoking history: Former smoker Have you smoked in the past 12 months: No If you are a former smoker, when did you quit?: 37 YEARS AGO - Social History Usual Living Arrangement: With Spouse ADL: Independent History of Recent Travel: No Home Medications - Allergies Allergies/Adverse Reactions: Allergies Allergy/AdvReac Type Severity Reaction Status Date / Time No Known Allergies Allergy Verified 02/14/17 10:33 - Home Medications Home Medications: Ambulatory Orders Amiodarone HCl 200 mg PO TID 02/14/17 Apixaban [Eliquis] 5 mg PO BID 02/14/17 Calcium Carbonate 600 mg PO DAILY 02/14/17 Esomeprazole Magnesium [Nexium 24Hr] 40 mg PO DAILY 02/14/17 Folic Acid 1 mg PO DAILY 02/14/17 Furosemide [Lasix -] 40 mg PO DAILY 02/14/17 Levothyroxine [Synthroid -] 112 mcg PO DAILY 02/14/17 Losartan Potassium 100 mg PO DAILY 02/14/17 Metformin HCl 1,000 mg PO BID 02/14/17 Methotrexate [Mexate -] 12.5 mg PO Q7D 02/14/17 Prednisone 2.5 mg PO ASDIR 02/14/17 Family Disease History - Family Disease History Family Disease History: CA: Father, Respiratory: Mother (LUNG CNACER) Other Family History: No family h/o DM. Niece has hypothyroidism Review of Systems - Review of Systems Constitutional: reports: No Symptoms Eyes: reports: No Symptoms HENT: reports: No Symptoms Cardiovascular: reports: Palpitations, Shortness of Breath (RESOLVING) Respiratory: reports: No Symptoms Gastrointestinal: reports: Constipation, Other (DARK STOOLS) Genitourinary: reports: No Symptoms Musculoskeletal: reports: No Symptoms Neurological: reports: No Symptoms Endocrine: reports: No Symptoms Psychiatric: reports: No Symptoms Physical Exam-GI Vital Signs: Vital Signs Temperature 97.5 F L 02/20/17 14:00 Pulse Rate 101 H 02/20/17 14:00 Respiratory Rate 20 02/20/17 14:00 Blood Pressure 104/66 02/20/17 14:00 O2 Sat by Pulse Oximetry (%) 99 02/20/17 10:54 Constitutional: Yes: Obese Eyes: Yes: Conjunctiva Clear HENT: Yes: Normocephalic Cardiovascular: Yes: Pulse Irregular Respiratory: Yes: Diminished (AT BASES) Gastrointestinal Inspection: Yes: WNL ...Auscultate: Yes: Normoactive Bowel Sounds ...Palpate: Yes: Soft, Other (NON TENDER NO MASSES) Musculoskeletal: Yes: WNL Extremities: Yes: WNL Neurological: Yes: Alert, Oriented Psychiatric: Yes: WNL Labs: CBC, BMP 02/20/17 13:41 02/20/17 06:00 INR, PTT INR 2.59 (0.82-1.09) H 02/15/17 05:15 Laboratory Tests 02/15/17 02/20/17 02/20/17 05:15 06:00 06:00 WBC 8.5 RBC 3.09 L Hgb 8.4 L Hct 25.3 L MCV 81.9 MCHC 33.2 RDW 21.0 H Plt Count 253 MPV 8.5 INR 2.59 H Sodium 130 L Potassium 2.8 L* Chloride 95 L Carbon Dioxide 23 Anion Gap 12 BUN 17 Creatinine 1.0 D Creat Clearance w eGFR 54.35 Random Glucose 121 H D Calcium 8.0 L Total Bilirubin 0.7 AST 18 ALT 14 D Alkaline Phosphatase 89 Total Protein 6.0 L Albumin 2.9 L Stool Occult Blood 02/20/17 02/20/17 08:48 13:41 WBC 9.0 RBC 3.02 L Hgb 8.3 L Hct 25.2 L MCV 83.4 MCHC 32.8 RDW 20.7 H Plt Count 243 MPV 8.1 INR Sodium Potassium Chloride Carbon Dioxide Anion Gap BUN Creatinine Creat Clearance w eGFR Random Glucose Calcium Total Bilirubin AST ALT Alkaline Phosphatase Total Protein Albumin Stool Occult Blood Positive Problem List - Problems (1) Acute blood loss anemia Assessment/Plan: ON ELIQUIS, FALLING H&H, GUAIAC POSITIVE STOOL CLEAR LIQUID DIET NPO P MN, HOLD ELIQUIS FOR EGD IN AM, PREP BOWEL TUESDAY FOR TUESDAY COLON RISKS AND BENEFITS EXPLAINED CORRECT LYTES NO ORAL KCL PROTONIX 40 MG IV BID DANIEL ECKERT MD (FOR [place]) Code(s): D62 - ACUTE POSTHEMORRHAGIC ANEMIA (2) Atrial fibrillation with rapid ventricular response Code(s): I48.91 - UNSPECIFIED ATRIAL FIBRILLATION (3) HTN (hypertension) Code(s): I10 - ESSENTIAL (PRIMARY) HYPERTENSION Qualifiers: Hypertension type: essential hypertension Qualified Code(s): I10 - Essential (primary) hypertension (4) Rheumatoid arthritis Code(s): M06.9 - RHEUMATOID ARTHRITIS, UNSPECIFIED Qualifiers: Rheumatoid arthritis location: hand Rheumatoid factor presence: unspecified presence Laterality: unspecified laterality Qualified Code(s): M06.9 - Rheumatoid arthritis, unspecified
[2017-02-20 16:20] LABS: INR 2.49 (0.82-1.09); PROTHROMBIN TIME (PATIENT) 27.9 SEC (9.98-11.88)
[2017-02-20] MEDS ORDERED: PHYTONADIONE 10 MG/1 ML AMP SQ ONE (17:43)
[2017-02-20] MEDS: PANTOPRAZOLE SODIUM 100 ML IVPB SCH (22:02)
[2017-02-21] MEDS: dilTIAZem HCL 60 MG TABLET (FP) PO SCH ×5 (06:38→22:44)
[2017-02-21] MEDS: INSULIN SLIDING SCALE (NOVOLOG) 1 VIAL SQ SCH ×4 (06:38→21:45)
[2017-02-21] MEDS: FUROSEMIDE 40 MG TABLET (FP) PO SCH ×2 (06:38→14:39)
[2017-02-21] MEDS: LEVOTHYROXINE NA 112 MCG TABLET (FP) PO SCH (06:39)
[2017-02-21] MEDS ORDERED: PT OWN MED DRAWER 7, Y5N ONE (07:59)
[2017-02-21 08:22] LABS: MCH 27.5 pg (25.7-33.7); MCHC 33.3 g/dl (32.0-36.0); MEAN CELL VOLUME 82.5 fl (80-96); MEAN PLT VOLUME 8.6 fl (7.5-11.1); PLATELET COUNT 252 K/MM3 (134-434); RDW 20.2 % (11.6-15.6); WHITE BLOOD COUNT 9.5 K/mm3 (4.0-10.0)
[2017-02-21 08:28] LABS: INR 1.95 (0.82-1.09); PROTHROMBIN TIME (PATIENT) 21.8 SEC (9.98-11.88)
[2017-02-21 08:38] LABS: CALCIUM 8.3 mg/dL (8.5-10.1)
[2017-02-21 08:41] LABS: COCKROFT - GAULT 64.2175
[2017-02-21] MEDS: POLYETHYLENE GLYCOL 3350 119 GM BTL PO SCH (09:22)
[2017-02-21] MEDS: AMIODARONE HCL 200 MG TABLET (FP) PO SCH (09:23)
[2017-02-21] MEDS: PANTOPRAZOLE SODIUM 100 ML IVPB SCH ×2 (09:23→21:45)
--- NOTE | 2017-02-21 10:12 | PN ---
Progress Note, Physician Chief Complaint: Afib with RVR History of Present Illness: 71 y.o. female with h/o NIDDM, hypothyroidism, HTN, RA on chronic steroids/MTX, interstitial lung disease/emphysema, H pylori gastritis diagnosed 12/2016 started on abx, Atrial fibrillation on Eliquis, anemia, syncope due to PAF and conversion pauses s/p PVI at [facility] by Dr Gaona 01/27/17 dcd on amiodarone, now admitted with nausea and vomiting post abx for h. pylori, lactic acidosis, poor po intake and atrial fibrillation with RVR. No chest pain, palpitations, dizziness, syncope, orthopnea, or pnd. Baseline exercise tolerance is good. Echo 01/13/17 normal EF, diastolic dysfunction, mod MR mild TR trace to mild PI. 02/20/17 Found to have GUAIAC Positive stools, holding AC for now. 02/21/17: Patient without complaints today. AC on hold for planned EGD for worsening anemia with +stool positive for blood - Current Medication List Current Medications: Active Medications Acetaminophen (Tylenol -) 650 mg PO Q6H PRN PRN Reason: FEVER OR PAIN Amiodarone HCl (Cordarone -) 200 mg PO DAILY [facility] Last Admin: 02/21/17 09:23 Dose: 200 mg Apixaban (Eliquis -) 5 mg PO BID [facility] Last Admin: 02/20/17 09:28 Dose: 5 mg Diltiazem HCl (Cardizem -) 60 mg PO Q6HPO [facility] Last Admin: 02/21/17 09:22 Dose: 60 mg Docusate Sodium (Colace -) 100 mg PO Q8H PRN PRN Reason: CONSTIPATION Furosemide (Lasix -) 40 mg PO BIDLASIX [facility] Last Admin: 02/21/17 06:38 Dose: Not Given Pantoprazole Sodium (Protonix 40mg Ivpb (Pre-Docked)) 100 mls @ 200 mls/hr IVPB BID [facility] Last Admin: 02/21/17 09:23 Dose: 200 mls/hr Insulin Aspart (Novolog Vial Sliding Scale -) 1 vial SQ ACHS [facility] PRN Reason: Protocol Last Admin: 02/21/17 06:38 Dose: Not Given Levothyroxine Sodium (Synthroid -) 112 mcg PO DAILY@0700 [facility] Last Admin: 02/21/17 06:39 Dose: Not Given Methotrexate (Mexate -) 12.5 mg PO Q7D@1000 [facility] Last Admin: 02/16/17 13:05 Dose: 12.5 mg Polyethylene Glycol (Miralax (For Daily Use) -) 17 gm PO DAILY [facility] Last Admin: 02/21/17 09:22 Dose: Not Given Senna (Senna -) 2 tab PO HS PRN PRN Reason: CONSTIPATION - Objective Vital Signs: Vital Signs Temperature 97.5 F L 02/21/17 02:03 Pulse Rate 102 H 02/21/17 06:00 Respiratory Rate 18 02/21/17 06:00 Blood Pressure 123/50 02/21/17 06:00 O2 Sat by Pulse Oximetry (%) 99 02/20/17 21:00 Constitutional: Yes: Well Nourished, No Distress HENT: Yes: WNL Neck: Yes: Supple Cardiovascular: Yes: Pulse Irregular, S1, S2 Gastrointestinal: Yes: Soft. No: Distention, Tenderness Edema: Yes Edema: LLE: 2+, RLE: 2+ Peripheral Pulses WNL: Yes Labs: CBC, BMP 02/21/17 06:18 02/21/17 06:18 INR, PTT INR 1.95 (0.82-1.09) H 02/21/17 06:18 - ....Imaging Chest X-ray: Report Reviewed, Image Reviewed EKG: Report Reviewed, Image Reviewed Other: Image Reviewed (tele reviewed: afib with VR around 100bpm) Problem List - Problems (1) Anemia Code(s): D64.9 - ANEMIA, UNSPECIFIED Qualifiers: Anemia type: unspecified type Qualified Code(s): D64.9 - Anemia, unspecified (2) Atrial fibrillation with rapid ventricular response Code(s): I48.91 - UNSPECIFIED ATRIAL FIBRILLATION (3) CHF exacerbation Code(s): I50.9 - HEART FAILURE, UNSPECIFIED Qualifiers: Congestive heart failure type: diastolic Qualified Code(s): I50.33 - Acute on chronic diastolic (congestive) heart failure (4) HTN (hypertension) Code(s): I10 - ESSENTIAL (PRIMARY) HYPERTENSION Qualifiers: Hypertension type: essential hypertension Qualified Code(s): I10 - Essential (primary) hypertension Assessment/Plan (1) Atrial fibrillation with rapid ventricular response Assessment/Plan: S/P pulmonary vein isolation on 3/30/17 CHADS2 score 3. Noted to have GUAIAC POSITIVE stools. Anticoagulation is on hold pending a GI evaluation. Planned for EGD today. Continue diltiazem to 60 q6h as ventricular rates around 100bpm on tele in afib. HR also contributed by anemia. Will continue amiodarone to 200 mg daily at this time but rn long term care if does not convert to sinus than will dc as an outpatient. 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 Continue Lasix 40 mg PO bid as still volume up Daily Wt's Please check BNP level Will follow with you.
--- NOTE | 2017-02-21 10:47 | PN ---
Physical Exam: SUBJECTIVE: Patient seen and examined on tele. She still has dark black stools. Denies SOB at this time. OBJECTIVE: Vital Signs Period Temp Pulse Resp BP Sys/[place] Pulse Ox Last 24 Hr 97.5 F-98.2 F 100-114 18-20 91-125/50-72 98-100 PE Neuro: alert, awake, cn 2-12 intact Pulm: CTAB CV: s1 s2 irregular rate and rhythm no mrg Abd: s nt nd + bs Ext: warm, dry, b/l edema L>R +2 CBCD WBC 9.5 K/mm3 (4.0-10.0) 02/21/17 06:18 RBC 2.97 M/mm3 (3.60-5.2) L 02/21/17 06:18 Hgb 8.2 GM/dL (10.7-15.3) L 02/21/17 06:18 Hct 24.5 % (32.4-45.2) L 02/21/17 06:18 MCV 82.5 fl (80-96) 02/21/17 06:18 MCHC 33.3 g/dl (32.0-36.0) 02/21/17 06:18 RDW 20.2 % (11.6-15.6) H 02/21/17 06:18 Plt Count 252 K/MM3 (134-434) 02/21/17 06:18 MPV 8.6 fl (7.5-11.1) 02/21/17 06:18 CMP Sodium 131 mmol/L (136-145) L 02/21/17 06:18 Potassium 3.5 mmol/L (3.5-5.1) D 02/21/17 06:18 Chloride 95 mmol/L (98-107) L 02/21/17 06:18 Carbon Dioxide 23 mmol/L (21-32) 02/21/17 06:18 Anion Gap 13 (8-16) 02/21/17 06:18 BUN 13 mg/dL (7-18) D 02/21/17 06:18 Creatinine 1.0 mg/dL (0.55-1.02) 02/21/17 06:18 Creat Clearance w eGFR 54.35 (>60) 02/20/17 06:00 Calcium 8.3 mg/dL (8.5-10.1) L 02/21/17 06:18 Total Bilirubin 0.7 mg/dL (0.2-1.0) 02/20/17 06:00 AST 18 U/L (15-37) 02/20/17 06:00 ALT 14 U/L (12-78) D 02/20/17 06:00 Alkaline Phosphatase 89 U/L (45-117) 02/20/17 06:00 Total Protein 6.0 g/dl (6.4-8.2) L 02/20/17 06:00 Albumin 2.9 g/dl (3.4-5.0) L 02/20/17 06:00 Active Medications Generic Name Dose Route Start Last Admin Trade Name Freq PRN Reason Stop Dose Admin Acetaminophen 650 mg 02/15/17 19:49 Tylenol - PO Q6H PRN FEVER OR PAIN Amiodarone HCl 200 mg 02/20/17 10:00 02/21/17 09:23 Cordarone - PO 200 mg DAILY [facility] Administration Apixaban 5 mg 02/18/17 07:42 02/20/17 09:28 Eliquis - PO 5 mg BID [facility] Administration Diltiazem HCl 60 mg 02/17/17 12:00 02/21/17 09:22 Cardizem - PO 60 mg Q6HPO [facility] Administration Docusate Sodium 100 mg 02/20/17 07:12 Colace - PO Q8H PRN CONSTIP[facility] Furosemide 40 mg 02/17/17 14:00 02/21/17 06:38 Lasix - PO Not Given BIDLASIX [facility] Pantoprazole Sodium 100 mls @ 200 mls/hr 02/20/17 22:00 02/21/17 09:23 Protonix 40mg Ivpb (Pre-Docked) IVPB 200 mls/hr BID [facility] Administration Insulin Aspart 1 vial 02/15/17 22:00 02/21/17 06:38 Novolog Vial Sliding Scale - SQ Not Given ACHS [facility] Protocol Levothyroxine Sodium 112 mcg 02/16/17 07:00 02/21/17 06:39 Synthroid - PO Not Given DAILY@0700 [facility] Methotrexate 12.5 mg 02/16/17 13:00 02/16/17 13:05 Mexate - PO 12.5 mg Q7D@1000 [facility] Administration Polyethylene Glycol 17 gm 02/20/17 10:00 04/24/17 09:22 Miralax (For Daily Use) - PO Not Given DAILY [facility] Senna 2 tab 02/20/17 07:12 Senna - PO HS PRN CONSTIPATION Assessment: 71 year old female with PMHx of HTN, A.fib s/p ablation 12/2016, IDDM , RA, hypothyroidism admitted with nausea and vomiting x3 days, found to have AFib with RVR and lactic acidemia. Plan: 1. A.fib with RVR - Continue Cardizem 60mg q6h - Amiodarone 200mg qd, if does not convert to sinus cardiology plans to stop - Eliquis on hold 2. GI bleed - For EGD today - Colonoscopy tomorrow - GI seeing - Will re call Dr. Tyson Simental ([phone]) for EGD records (12/2016) today 3. Acute blood loss anemia - Likely d/t GI bleed above - Slight hgb drop today 4. Acute on chronic diastolic heart failure - Lasix 40mg po bid - Daily weights - Rales may have represented interstitial lung disease from RA, will need outpatient pulmonary follow-up 5. Hyponatremia hypervolemia - Continue Lasix 40mg BID - Will check BNP to eval for diuretic aggressiveness 6. DUARTE - Resolved 7. DM II - BGM, ISS ACHS - Hold metformin while inpatient 8. Hypothyroidism - TSH 16.3, repeat in 1 week - Continue current Synthroid 112mcg 8. H.pylori - Plan per ID: hold off treatment until the patient is evaluated by her pcp 9. Rheumatoid arthritis - Continue Methotrexate - No need to restart home Prednisone dose as it is subtherapeutic dosing 10. Lactic acidemia - Resolved - Stable off abx; s/p zosyn, ceftriaxone 11. Ppx: - DVT: hold Eliquis Visit type - Emergency Visit Emergency Visit: Yes ED Registration Date: 02/14/17 Care time: The patient presented to the Emergency Department on the above date and was hospitalized for further evaluation of their emergent condition. - New Patient This patient is new to me today: No - Critical Care Critical Care patient: No - Discharge Referral Referred to [facility] Med P.C.: No
--- NOTE | 2017-02-21 11:04 | PN ---
Progress Note (short form) - Note Progress Note: GI Procedure Note: EGD canceled by anesthesiology because of tachycardia ( 115bpm). The flood nurse informs me that Brianna had gotten her last Diltiazem dosing just before being sent down for the EGD. I spoke with Stacia SonCONSTRUCTION EQUIPMENT MECHANIC HELPER who will have the cardiology team discuss the case with anesthesia to determine whether and when endoscopy can be undertaken. The Hb is decreasing and black stools are described. I will keep Brianna NPO on the chance that the EGD can be done later today. Will repeat CBC as wel to determine whether or not to transfuse Brianna.
[2017-02-21] MEDS ORDERED: KCL 10 MEQ IVPB 100 ML IVPB SCH (11:30)
--- NOTE | 2017-02-21 11:51 | PN ---
Progress Note, Physician History of Present Illness: pulmonary alert,feeling better,less dyspneic - Current Medication List Current Medications: Active Medications Acetaminophen (Tylenol -) 650 mg PO Q6H PRN PRN Reason: FEVER OR PAIN Amiodarone HCl (Cordarone -) 200 mg PO DAILY [facility] Last Admin: 02/21/17 09:23 Dose: 200 mg Apixaban (Eliquis -) 5 mg PO BID [facility] Last Admin: 02/20/17 09:28 Dose: 5 mg Diltiazem HCl (Cardizem -) 60 mg PO Q6HPO [facility] Last Admin: 02/21/17 09:22 Dose: 60 mg Docusate Sodium (Colace -) 100 mg PO Q8H PRN PRN Reason: CONSTIPATION Furosemide (Lasix -) 40 mg PO BIDLASIX [facility] Last Admin: 02/21/17 06:38 Dose: Not Given Pantoprazole Sodium (Protonix 40mg Ivpb (Pre-Docked)) 100 mls @ 200 mls/hr IVPB BID [facility] Last Admin: 02/21/17 09:23 Dose: 200 mls/hr Potassium Chloride (Potassium Chloride 10 Meq Premix Ivpb -) 100 mls @ 100 mls/ hr IVPB Q60M [facility] Stop: 02/21/17 12:29 Insulin Aspart (Novolog Vial Sliding Scale -) 1 vial SQ ACHS [facility] PRN Reason: Protocol Last Admin: 02/21/17 06:38 Dose: Not Given Levothyroxine Sodium (Synthroid -) 112 mcg PO DAILY@0700 [facility] Last Admin: 02/21/17 06:39 Dose: Not Given Methotrexate (Mexate -) 12.5 mg PO Q7D@1000 [facility] Last Admin: 02/16/17 13:05 Dose: 12.5 mg Polyethylene Glycol (Miralax (For Daily Use) -) 17 gm PO DAILY [facility] Last Admin: 02/21/17 09:22 Dose: Not Given Senna (Senna -) 2 tab PO HS PRN PRN Reason: CONSTIPATION - Objective Vital Signs: Vital Signs Temperature 98.2 F 02/21/17 10:00 Pulse Rate 100 H 02/21/17 10:00 Respiratory Rate 18 02/21/17 10:00 Blood Pressure 125/56 02/21/17 10:00 O2 Sat by Pulse Oximetry (%) 100 02/21/17 09:00 Constitutional: Yes: Well Nourished, Calm Eyes: Yes: WNL, Other HENT: Yes: WNL Neck: Yes: WNL Cardiovascular: Yes: Pulse Irregular, S1, S2 Respiratory: Yes: Diminished, Rales (few bibasilar crackles) Gastrointestinal: Yes: Normal Bowel Sounds, Soft Extremities: Yes: WNL Edema: Yes Edema: LLE: 3+, RLE: 3+ Labs: CBC, BMP 02/21/17 06:18 INR, PTT INR 1.95 (0.82-1.09) H 02/21/17 06:18 Assessment/Plan ASSESSMENT AND PLAN: Syncope Atrial Fibrillation with RVR Recent AVN ablation Acute Kidney Injury improving Lactic Acidosis improving HTN DM R/O GI BLEED - PO cardizem - continue amiodarone - lasix ? IV - continue anticoagulation - protonix - replete k - stool guiacs -monitor h+ h - GI w/u in progress DR HOWARD
[2017-02-21 11:52] LABS: BASOPHIL 2.4 % (0-2.0); EOSINOPHIL 1.6 % (0-4.5); MCH 26.3 pg (25.7-33.7); MCHC 31.9 g/dl (32.0-36.0); MEAN CELL VOLUME 82.5 fl (80-96); MEAN PLT VOLUME 7.7 fl (7.5-11.1); NEUTROPHILS 80.6 % (42.8-82.8); PLATELET COUNT 235 K/MM3 (134-434)
--- NOTE | 2017-02-21 12:41 | PN ---
Progress Note (short form) - Note Progress Note: GI Addendum: Unable to reschedule EGD for later today. I have proposed that Brianna undergo an enteroscopy and colonoscopy tomorrow. I have informed her of the potential for such complications as perfortion and hemorrhage and the need for a bowel prep today. She has granted informed consent. Have scheduled for tomorrow. I undertook this measure after being informed by Stacia Son NP that anesthesia and cardiology have discussed the case. A transfusion will also be given to help Brianna tolerate the prep and procedures.
[2017-02-21] MEDS ORDERED: POLYETHYLENE GLYCOL 3350 255 GM BTL PO ONE (13:00)
[2017-02-21] MEDS ORDERED: PHYTONADIONE 10 MG/1 ML AMP IM ONE (13:00)
[2017-02-21] MEDS ORDERED: FUROSEMIDE 40 MG/4 ML INJECTABLE VIAL IVPUSH ONE (16:00)
--- NOTE | 2017-02-21 19:24 | PN ---
Progress Note, Physician History of Present Illness: evaluated by gi patient for endoscopy no complaints was rtreanfused - Current Medication List Current Medications: Active Medications Acetaminophen (Tylenol -) 650 mg PO Q6H PRN PRN Reason: FEVER OR PAIN Amiodarone HCl (Cordarone -) 200 mg PO DAILY [facility] Last Admin: 02/21/17 09:23 Dose: 200 mg Apixaban (Eliquis -) 5 mg PO BID [facility] Last Admin: 02/20/17 09:28 Dose: 5 mg Diltiazem HCl (Cardizem -) 60 mg PO Q6HPO [facility] Last Admin: 02/21/17 17:36 Dose: 60 mg Docusate Sodium (Colace -) 100 mg PO Q8H PRN PRN Reason: CONSTIPATION Furosemide (Lasix -) 40 mg PO BIDLASIX [facility] Last Admin: 02/21/17 14:39 Dose: 40 mg Pantoprazole Sodium (Protonix 40mg Ivpb (Pre-Docked)) 100 mls @ 200 mls/hr IVPB BID [facility] Last Admin: 02/21/17 09:23 Dose: 200 mls/hr Insulin Aspart (Novolog Vial Sliding Scale -) 1 vial SQ ACHS [facility] PRN Reason: Protocol Last Admin: 02/21/17 17:37 Dose: 2 units Levothyroxine Sodium (Synthroid -) 112 mcg PO DAILY@0700 [facility] Last Admin: 02/21/17 06:39 Dose: Not Given Methotrexate (Mexate -) 12.5 mg PO Q7D@1000 [facility] Last Admin: 02/16/17 13:05 Dose: 12.5 mg Polyethylene Glycol (Miralax (For Daily Use) -) 17 gm PO DAILY [facility] Last Admin: 02/21/17 09:22 Dose: Not Given Senna (Senna -) 2 tab PO HS PRN PRN Reason: CONSTIPATION - Objective Vital Signs: Vital Signs Temperature 97.8 F 02/21/17 15:47 Pulse Rate 105 H 02/21/17 15:47 Respiratory Rate 18 02/21/17 15:47 Blood Pressure 130/83 02/21/17 15:47 O2 Sat by Pulse Oximetry (%) 100 02/21/17 09:00 Constitutional: Yes: No Distress, Calm Cardiovascular: Yes: Pulse Irregular Respiratory: Yes: Regular, CTA Bilaterally Gastrointestinal: Yes: Normal Bowel Sounds, Soft Musculoskeletal: Yes: WNL Extremities: Yes: WNL Neurological: Yes: Alert, Oriented Psychiatric: Yes: Alert, Oriented Labs: CBC, BMP 02/21/17 11:30 02/21/17 06:18 INR, PTT INR 1.95 (0.82-1.09) H 02/21/17 06:18 Assessment/Plan Syncope Atrial Fibrillation with RVR Recent AVN ablation Acute Kidney Injury Lactic Acidosis HTN DM sepsis plan stopped abx patient stable continue as per gi for endoscopy and colonoscopy rest as per primary team
[2017-02-22] MEDS: dilTIAZem HCL 60 MG TABLET (FP) PO SCH ×5 (00:42→17:34)
[2017-02-22] MEDS: LEVOTHYROXINE NA 112 MCG TABLET (FP) PO SCH (06:00)
[2017-02-22] MEDS: FUROSEMIDE 40 MG TABLET (FP) PO SCH ×2 (06:00→15:04)
[2017-02-22] MEDS: INSULIN SLIDING SCALE (NOVOLOG) 1 VIAL SQ SCH ×4 (06:18→21:20)
[2017-02-22 07:21] LABS: BASOPHIL 0.5 % (0-2.0); EOSINOPHIL 1.9 % (0-4.5); MCH 27.5 pg (25.7-33.7); MCHC 33.2 g/dl (32.0-36.0); MEAN PLT VOLUME 7.9 fl (7.5-11.1); PLATELET COUNT 199 K/MM3 (134-434); RDW 19.4 % (11.6-15.6); WHITE BLOOD COUNT 7.1 K/mm3 (4.0-10.0)
[2017-02-22 07:35] LABS: INR 1.41 (0.82-1.09); PROTHROMBIN TIME (PATIENT) 15.6 SEC (9.98-11.88)
--- NOTE | 2017-02-22 09:03 | PN ---
Progress Note (short form) - Note Progress Note: Events noted EGD cancelled yesterday b/o rapid AFib Scheduled for EGD, Colonoscopy today BGM stable Vital Signs Period Temp Pulse Resp BP Sys/Angeles Pulse Ox Last 24 Hr 97.4 F-98.2 F 94-110 18-20 105-131/56-96 98 PE: AOx3 HEENT: PERRL, EOMI Neck: supple, No JVD Lungs: CTA Abd: Benign CVS: S1S2 irregular EXt: +edema Neuro: No focal deficit CBC,CMP WBC 7.1 K/mm3 (4.0-10.0) 02/22/17 05:35 RBC 3.26 M/mm3 (3.60-5.2) L 02/22/17 05:35 Hgb 9.0 GM/dL (10.7-15.3) L 02/22/17 05:35 Hct 27.0 % (32.4-45.2) L 02/22/17 05:35 MCV 83.0 fl (80-96) 02/22/17 05:35 MCHC 33.2 g/dl (32.0-36.0) 02/22/17 05:35 RDW 19.4 % (11.6-15.6) H 02/22/17 05:35 Plt Count 199 K/MM3 (134-434) 02/22/17 05:35 MPV 7.9 fl (7.5-11.1) 02/22/17 05:35 Neutrophils % 76.0 % (42.8-82.8) 02/22/17 05:35 Lymphocytes % 14.8 % (8-40) D 02/22/17 05:35 Monocytes % 6.8 % (3.8-10.2) 02/22/17 05:35 Eosinophils % 1.9 % (0-4.5) 02/22/17 05:35 Basophils % 0.5 % (0-2.0) 02/22/17 05:35 Differential Comment Slide scanned 02/14/17 10:58 Platelet Estimate Adequate (NORMAL) 02/14/17 10:58 Platelet Comment Mod large plts 02/14/17 10:58 Polychromasia 1+ 02/16/17 05:15 Hypochromic-Microcytic 2+ 02/16/17 05:15 Poikilocytosis 1+ 02/14/17 10:58 Basophilic Stippling Occ 02/14/17 10:58 Anisocytosis 2+ 02/14/17 10:58 Microcytosis Few 02/16/17 05:15 Macrocytosis 1+ 02/16/17 05:15 Tear Drop Cells Occ 02/14/17 10:58 Ovalocytes 2+ 02/14/17 10:58 Schistocytes Occ 02/14/17 10:58 Sodium 131 mmol/L (136-145) L 02/21/17 06:18 Potassium 3.5 mmol/L (3.5-5.1) D 02/21/17 06:18 Chloride 95 mmol/L (98-107) L 02/21/17 06:18 Carbon Dioxide 23 mmol/L (21-32) 02/21/17 06:18 Anion Gap 13 (8-16) 02/21/17 06:18 BUN 13 mg/dL (7-18) D 02/21/17 06:18 Creatinine 1.0 mg/dL (0.55-1.02) 02/21/17 06:18 Creat Clearance w eGFR 54.35 (>60) 02/20/17 06:00 POC Glucometer 118 UNITS (()) 02/22/17 06:11 Random Glucose 112 mg/dL (74-106) H 02/21/17 06:18 Hemoglobin A1c % 7.7 % (4.8-6.0) H 02/21/17 06:18 Lactic Acid 2.006 mmol/L (0.4-2.0) H* 02/15/17 21:45 Calcium 8.3 mg/dL (8.5-10.1) L 02/21/17 06:18 Total Bilirubin 0.7 mg/dL (0.2-1.0) 02/20/17 06:00 AST 18 U/L (15-37) 02/20/17 06:00 ALT 14 U/L (12-78) D 02/20/17 06:00 Alkaline Phosphatase 89 U/L (45-117) 02/20/17 06:00 Creatine Kinase 57 IU/L (26-140) 02/14/17 10:58 Troponin I 0.20 ng/ml (0.00-0.05) H 02/15/17 05:15 B-Natriuretic Peptide 1886.59 pg/ml (5-125) H 02/14/17 21:40 Total Protein 6.0 g/dl (6.4-8.2) L 02/20/17 06:00 Albumin 2.9 g/dl (3.4-5.0) L 02/20/17 06:00 TSH 16.30 uIU/ml (0.358-3.74) H D 02/18/17 05:35 Free T4 1.34 ng/dl (0.76-1.46) 02/17/17 05:30 Free T3 1.1 pg/ml (2.0-4.4) L 02/17/17 05:30 CMP Sodium 131 mmol/L (136-145) L 02/21/17 06:18 Potassium 3.5 mmol/L (3.5-5.1) D 02/21/17 06:18 Chloride 95 mmol/L (98-107) L 02/21/17 06:18 Carbon Dioxide 23 mmol/L (21-32) 02/21/17 06:18 Anion Gap 13 (8-16) 02/21/17 06:18 BUN 13 mg/dL (7-18) D 02/21/17 06:18 Creatinine 1.0 mg/dL (0.55-1.02) 02/21/17 06:18 Creat Clearance w eGFR 54.35 (>60) 02/20/17 06:00 POC Glucometer 118 UNITS (()) 02/22/17 06:11 Random Glucose 112 mg/dL (74-106) H 02/21/17 06:18 Hemoglobin A1c % 7.7 % (4.8-6.0) H 02/21/17 06:18 Lactic Acid 2.006 mmol/L (0.4-2.0) H* 02/15/17 21:45 Calcium 8.3 mg/dL (8.5-10.1) L 02/21/17 06:18 Total Bilirubin 0.7 mg/dL (0.2-1.0) 02/20/17 06:00 AST 18 U/L (15-37) 02/20/17 06:00 ALT 14 U/L (12-78) D 02/20/17 06:00 Alkaline Phosphatase 89 U/L (45-117) 02/20/17 06:00 Creatine Kinase 57 IU/L (26-140) 02/14/17 10:58 Troponin I 0.20 ng/ml (0.00-0.05) H 02/15/17 05:15 B-Natriuretic Peptide 1886.59 pg/ml (5-125) H 02/14/17 21:40 Total Protein 6.0 g/dl (6.4-8.2) L 02/20/17 06:00 Albumin 2.9 g/dl (3.4-5.0) L 02/20/17 06:00 TSH 16.30 uIU/ml (0.358-3.74) H D 02/18/17 05:35 Free T4 1.34 ng/dl (0.76-1.46) 02/17/17 05:30 Free T3 1.1 pg/ml (2.0-4.4) L 02/17/17 05:30 Current Medications Generic Name Dose Route Start Last Admin Trade Name Freq PRN Reason Stop Dose Admin Acetaminophen 650 mg 02/15/17 19:49 Tylenol - PO Q6H PRN FEVER OR PAIN Amiodarone HCl 200 mg 02/20/17 10:00 02/21/17 09:23 Cordarone - PO 200 mg DAILY [facility] Administration Apixaban 5 mg 02/18/17 07:42 02/20/17 09:28 Eliquis - PO 5 mg BID [facility] Administration Diltiazem HCl 60 mg 02/17/17 12:00 02/22/17 06:00 Cardizem - PO 60 mg Q6HPO [facility] Administration Docusate Sodium 100 mg 02/20/17 07:12 Colace - PO Q8H PRN CONSTIPATION Furosemide 40 mg 02/17/17 14:00 02/22/17 06:00 Lasix - PO 40 mg BIDLASIX [facility] Administration Pantoprazole Sodium 100 mls @ 200 mls/hr 02/20/17 22:00 02/21/17 21:45 Protonix 40mg Ivpb (Pre-Docked) IVPB 200 mls/hr BID [facility] Administration Insulin Aspart 1 vial 02/15/17 22:00 02/22/17 06:18 Novolog Vial Sliding Scale - SQ Not Given ACHS [facility] Protocol Levothyroxine Sodium 112 mcg 02/16/17 07:00 02/22/17 06:00 Synthroid - PO 112 mcg DAILY@0700 [facility] Administration Methotrexate 12.5 mg 02/16/17 13:00 02/16/17 13:05 Mexate - PO 12.5 mg Q7D@1000 [facility] Administration Polyethylene Glycol 17 gm 02/20/17 10:00 02/21/17 09:22 Miralax (For Daily Use) - PO Not Given DAILY [facility] Senna 2 tab 02/20/17 07:12 Senna - PO HS PRN CONSTIPATION AP: GI bleeding: black stools, gauic +, For EGD, Colonoscopy today HYPothyroidism:Probably sec to malabsorption AFIB RA DM: BGM acceptable in hospital, A1c however 7.7. Will need to adjust antidiabetic medications after discharge BGM QACHS Novolog SS coverage TSH 16.3 down from 17 Continue LT4 112 for now. Rpt TFT in one week to monitor trend. Will increase dose if TSH worsens. Amiodarone Methorexate Eliquis on hold Will f/U Problem List - Problems (1) Atrial fibrillation with rapid ventricular response Code(s): I48.91 - UNSPECIFIED ATRIAL FIBRILLATION (2) DM (diabetes mellitus) Code(s): E11.9 - TYPE 2 DIABETES MELLITUS WITHOUT COMPLICATIONS Qualifiers: Diabetes mellitus type: type 2 Diabetes mellitus complication status: without complication Diabetes mellitus long term acute care registered nurse insulin use: without long term acute care registered nurse use Qualified Code(s): E11.9 - Type 2 diabetes mellitus without complications (3) Hypothyroidism Code(s): E03.9 - HYPOTHYROIDISM, UNSPECIFIED Qualifiers: Hypothyroidism type: unspecified Qualified Code(s): E03.9 - Hypothyroidism, unspecified (4) Nausea and vomiting Code(s): R11.2 - NAUSEA WITH VOMITING, UNSPECIFIED
[2017-02-22 09:11] LABS: ALBUMIN 2.7 g/dl (3.4-5.0); ANION GAP 13 (8-16); CALCIUM 8.2 mg/dL (8.5-10.1); CO2 21 mmol/L (21-32); COCKROFT - GAULT 74.375; CREATININE 0.9 mg/dL (0.55-1.02); GLUCOSE,RANDOM 93 mg/dL (74-106); MAGNESIUM 1.8 mg/dL (1.8-2.4); SGOT/AST 27 U/L (15-37); SGPT/ALT 17 U/L (12-78)
[2017-02-22 09:15] LABS: ALK PHOS 103 U/L (45-117); BILIRUBIN,TOTAL 1.2 mg/dL (0.2-1.0); TOT PROT 5.7 g/dl (6.4-8.2)
--- NOTE | 2017-02-22 09:35 | PN ---
Progress Note, Physician Chief Complaint: Afib with RVR Patient is without complaints today No dizziness or lightheaded. No palpitations History of Present Illness: 71 y.o. female with h/o NIDDM, hypothyroidism, HTN, RA on chronic steroids/MTX, interstitial lung disease/emphysema, H pylori gastritis diagnosed 12/2016 started on abx, Atrial fibrillation on Eliquis, anemia, syncope due to PAF and conversion pauses s/p PVI at [facility] by Dr Gaona 01/27/17 dcd on amiodarone, now admitted with nausea and vomiting post abx for h. pylori, lactic acidosis, poor po intake and atrial fibrillation with RVR. No chest pain, palpitations, dizziness, syncope, orthopnea, or pnd. Baseline exercise tolerance is good. Echo 01/13/17 normal EF, diastolic dysfunction, mod MR mild TR trace to mild PI. 02/20/17 Found to have GUAIAC Positive stools, holding AC for now. 02/21/17: Patient without complaints today. AC on hold for planned EGD for worsening anemia with +stool positive for blood EGD held due to elevated heart rates - Current Medication List Current Medications: Active Medications Acetaminophen (Tylenol -) 650 mg PO Q6H PRN PRN Reason: FEVER OR PAIN Diltiazem HCl (Cardizem -) 60 mg PO Q6HPO [facility] Last Admin: 02/22/17 06:00 Dose: 60 mg Diltiazem HCl (Cardizem -) 30 mg PO ONCE ONE Stop: 02/22/17 09:25 Docusate Sodium (Colace -) 100 mg PO Q8H PRN PRN Reason: CONSTIPATION Furosemide (Lasix -) 40 mg PO BIDLASIX [facility] Last Admin: 02/22/17 06:00 Dose: 40 mg Pantoprazole Sodium (Protonix 40mg Ivpb (Pre-Docked)) 100 mls @ 200 mls/hr IVPB BID [facility] Last Admin: 02/21/17 21:45 Dose: 200 mls/hr Insulin Aspart (Novolog Vial Sliding Scale -) 1 vial SQ ACHS [facility] PRN Reason: Protocol Last Admin: 02/22/17 06:18 Dose: Not Given Levothyroxine Sodium (Synthroid -) 112 mcg PO DAILY@0700 [facility] Last Admin: 02/22/17 06:00 Dose: 112 mcg Methotrexate (Mexate -) 12.5 mg PO Q7D@1000 [facility] Last Admin: 02/16/17 13:05 Dose: 12.5 mg Polyethylene Glycol (Miralax (For Daily Use) -) 17 gm PO DAILY [facility] Last Admin: 02/21/17 09:22 Dose: Not Given Senna (Senna -) 2 tab PO HS PRN PRN Reason: CONSTIPATION - Objective Vital Signs: Vital Signs Temperature 97.7 F 02/22/17 08:52 Pulse Rate 106 H 02/22/17 08:52 Respiratory Rate 20 02/22/17 08:52 Blood Pressure 125/65 02/22/17 08:52 O2 Sat by Pulse Oximetry (%) 98 02/21/17 21:00 Constitutional: Yes: No Distress Cardiovascular: Yes: Tachycardia, S1, S2. No: Regular Rate and Rhythm, JVD, Murmur Respiratory: Yes: CTA Bilaterally Gastrointestinal: Yes: Normal Bowel Sounds, Soft Edema: Yes Edema: LLE: 2+, RLE: 2+ Labs: CBC, BMP 02/22/17 05:35 02/22/17 05:35 INR, PTT INR 1.41 (0.82-1.09) H 02/22/17 05:35 - ....Imaging Chest X-ray: Report Reviewed EKG: Report Reviewed, Image Reviewed Problem List - Problems (1) Anemia Code(s): D64.9 - ANEMIA, UNSPECIFIED Qualifiers: Anemia type: unspecified type Qualified Code(s): D64.9 - Anemia, unspecified (2) Atrial fibrillation with rapid ventricular response Code(s): I48.91 - UNSPECIFIED ATRIAL FIBRILLATION (3) CHF exacerbation Code(s): I50.9 - HEART FAILURE, UNSPECIFIED Qualifiers: Congestive heart failure type: diastolic Qualified Code(s): I50.33 - Acute on chronic diastolic (congestive) heart failure (4) HTN (hypertension) Code(s): I10 - ESSENTIAL (PRIMARY) HYPERTENSION Qualifiers: Hypertension type: essential hypertension Qualified Code(s): I10 - Essential (primary) hypertension Assessment/Plan (1) Atrial fibrillation with rapid ventricular response Assessment/Plan: S/P pulmonary vein isolation on 01/27/17 CHADS2 score 3. Noted to have GUAIAC POSITIVE stools. Anticoagulation is on hold pending a GI evaluation and will restart Eliquis when possible Planned for EGD today. HR's have been elevated. History of difficult to control rates and last visit was on diltiazem, atenolol, and digoxin with conversion pauses which is why she went for afib ablation. Will give an extra dose of diltiazem 30mg now. If BP tolerates (should as tolerated high dose atenolol prior) than will change to 90mg q6. If rates still elevated than will add digoxin after that. Will stop amiodarone as back in afib despite being on amio and also with mildly elevated thyroid levels which is possibly related. Continue synthroid for hypothyroidism Please monitor lytes closely and replete K as needed for goal K > 4 I will attempt to contact Dr. Gaona later today to discuss director long term care plan after GI work up is complete. CONTI Multi factorial including anemia, interstitial lung disease from rheumatoid arthritis, and afib with elevated ventricular rates. Continue Lasix 40 mg PO bid as still volume up Daily Wt's Will follow with you.
[2017-02-22] MEDS ORDERED: dilTIAZem HCL 30 MG TABLET (FP) PO ONE (09:40)
[2017-02-22] MEDS: PANTOPRAZOLE SODIUM 100 ML IVPB SCH ×2 (09:55→21:21)
[2017-02-22] MEDS: POLYETHYLENE GLYCOL 3350 119 GM BTL PO SCH (09:56)
--- NOTE | 2017-02-22 12:51 | PN ---
Progress Note (short form) - Note Progress Note: EGD/Colonoscopy complete. Report left in procedural section of physical chart and to be scanned into Prelert. No bleeding or source of bleeding identified Patient gives h/o chronic anemia. Consider heme evaluation Resume coumadin in 2 days
[2017-02-22] MEDS ORDERED: POTASSIUM CHLORIDE ORAL LIQUID 20 MEQ/15 ML PO ONE (13:30)
--- NOTE | 2017-02-22 15:28 | PN ---
Physical Exam: SUBJECTIVE: Patient seen and examined this AM. She tolerated her colon prep, she would like to start eating. She denied palpitations or SOB. OBJECTIVE: Vital Signs Period Temp Pulse Resp BP Sys/Angeles Pulse Ox Last 24 Hr 97.4 F-98 F 82-110 14-20 99-131/59-96 95-99 PE Neuro: alert, awake, cn 2-12 intact Pulm: CTAB CV: s1 s2 irregular rate and rhythm no mrg Abd: s nt nd + bs Ext: warm, dry, b/l edema L>R +2 CBCD WBC 7.1 K/mm3 (4.0-10.0) 02/22/17 05:35 RBC 3.26 M/mm3 (3.60-5.2) L 02/22/17 05:35 Hgb 9.0 GM/dL (10.7-15.3) L 02/22/17 05:35 Hct 27.0 % (32.4-45.2) L 02/22/17 05:35 MCV 83.0 fl (80-96) 02/22/17 05:35 MCHC 33.2 g/dl (32.0-36.0) 02/22/17 05:35 RDW 19.4 % (11.6-15.6) H 02/22/17 05:35 Plt Count 199 K/MM3 (134-434) 02/22/17 05:35 MPV 7.9 fl (7.5-11.1) 02/22/17 05:35 CMP Sodium 133 mmol/L (136-145) L 02/22/17 05:35 Potassium 3.3 mmol/L (3.5-5.1) L 02/22/17 05:35 Chloride 99 mmol/L (98-107) 02/22/17 05:35 Carbon Dioxide 21 mmol/L (21-32) 02/22/17 05:35 Anion Gap 13 (8-16) 02/22/17 05:35 BUN 11 mg/dL (7-18) 02/22/17 05:35 Creatinine 0.9 mg/dL (0.55-1.02) 02/22/17 05:35 Creat Clearance w eGFR > 60 (>60) 02/22/17 05:35 Calcium 8.2 mg/dL (8.5-10.1) L 02/22/17 05:35 Total Bilirubin 1.2 mg/dL (0.2-1.0) H D 02/22/17 05:35 AST 27 U/L (15-37) D 02/22/17 05:35 ALT 17 U/L (12-78) D 02/22/17 05:35 Alkaline Phosphatase 103 U/L (45-117) 02/22/17 05:35 Total Protein 5.7 g/dl (6.4-8.2) L 02/22/17 05:35 Albumin 2.7 g/dl (3.4-5.0) L 02/22/17 05:35 02/22/17 05:35 INR 1.41 H Active Medications Generic Name Dose Route Start Last Admin Trade Name Freq PRN Reason Stop Dose Admin Acetaminophen 650 mg 02/15/17 19:49 Tylenol - PO Q6H PRN FEVER OR PAIN Diltiazem HCl 90 mg 02/22/17 15:24 Cardizem - PO Q6HPO [facility] Docusate Sodium 100 mg 02/20/17 07:12 Colace - PO Q8H PRN CONSTIPATION Furosemide 40 mg 02/17/17 14:00 02/22/17 15:04 Lasix - PO 40 mg BIDLASIX [facility] Administration Pantoprazole Sodium 100 mls @ 200 mls/hr 02/20/17 22:00 02/22/17 09:55 Protonix 40mg Ivpb (Pre-Docked) IVPB 200 mls/hr BID [facility] Administration Insulin Aspart 1 vial 02/15/17 22:00 02/22/17 15:02 Novolog Vial Sliding Scale - SQ Not Given ACHS [facility] Protocol Levothyroxine Sodium 112 mcg 02/16/17 07:00 02/22/17 06:00 Synthroid - PO 112 mcg DAILY@0700 [facility] Administration Methotrexate 12.5 mg 02/16/17 13:00 02/16/17 13:05 Mexate - PO 12.5 mg Q7D@1000 [facility] Administration Polyethylene Glycol 17 gm 02/20/17 10:00 02/22/17 09:56 Miralax (For Daily Use) - PO Not Given DAILY [facility] Senna 2 tab 02/20/17 07:12 Senna - PO HS PRN CONSTIPATION Assessment: 71 year old female with PMHx of HTN, A.fib s/p ablation 12/2016, IDDM , RA, hypothyroidism admitted with nausea and vomiting x3 days, found to have AFib with RVR and lactic acidemia. Plan: 1. A.fib with RVR - Increase Cardizem 60mg q6h - If uncontrolled HR persists will given evening dose of dig - Stop Amiodarone - Monitor BP closely - Eliquis on hold x2days - Discussed with cardiology 2. Acute blood loss anemia - Transfused 1uprbc 02/21 - Send folic acid, b12, ferritin now; r/o iron deficiency anemia - Etiology mulit factorial: hypothyroidism, meds (methortrexate), autoimmune dx , infection - Heme consulted 3. GI bleed - EGD/Colonoscopy done today, no bleeding or source of bleeding indentified - See above for further work up 4. Acute on chronic diastolic heart failure - Lasix 40mg po BID 5. Hyponatremia hypervolemia - BNP noted - Continue current lasix 40 BID 6. DUARTE - Resolved 7. DM II - BGM, ISS ACHS - Hold metformin while inpatient 8. Hypothyroidism - TSH 16.3, repeat in 1 week - Continue current Synthroid 112mcg 9. H.pylori - Plan per ID: hold off treatment until the patient is evaluated by her pcp 10. Rheumatoid arthritis - Continue Methotrexate - No need to restart home Prednisone dose as it is subtherapeutic dosing 11. Lactic acidemia - Resolved - Stable off abx; s/p zosyn, ceftriaxone 12. Ppx: - DVT: hold Eliquis Dispo: - May need transfer to [facility] for repeat ablation Visit type - Emergency Visit Emergency Visit: Yes ED Registration Date: 02/14/17 Care time: The patient presented to the Emergency Department on the above date and was hospitalized for further evaluation of their emergent condition. - New Patient This patient is new to me today: No - Critical Care Critical Care patient: No
--- NOTE | 2017-02-22 20:12 | CONSULT ---
Consult Referred by:: Stacia Montiel Reason for Consultation:: anemia - History of Present Illness Chief Complaint: Presented with 3 days of nausea, emesis, and inability to keep food down associated with triple thrapy for H. pylorii History of Present Illness: History of Long standing Rheumatoid arthritison prednisone and methotrexate. History of diabetes mellitus, hypothyroidism on replacement, atrial fibrillation with rapid ventricular response , cardiac ablation. History of chronic anemia with recent transfusion of one unit of packed cells. Received additionally 2 units of packed cells at the time of ablation. - History Source History Provided By: Patient, Medical Record Limitations to Obtaining History: No Limitations - Past Medical History Cardio/Vascular: Yes: AFIB, HTN Gastrointestinal: Yes: Other (H.Pylorii infection) Renal/: Yes: Renal Inusuff ...: No Heme/Onc: Yes: Anemia Rheumatology: Yes: Rheumatoid Arthritis Endocrine: Yes: Diabetes Mellitus, Hypothyroidism Additional Medical History: recent atrial ablation at [facility]. recent EGD with Dx of H. 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 History of Recent Travel: No Home Medications - Allergies Allergies/Adverse Reactions: Allergies Allergy/AdvReac Type Severity Reaction Status Date / Time No Known Allergies Allergy Verified 02/14/17 10:33 - Home Medications Home Medications: Ambulatory Orders Amiodarone HCl 200 mg PO TID 02/14/17 Apixaban [Eliquis] 5 mg PO BID 02/14/17 Calcium Carbonate 600 mg PO DAILY 02/14/17 Esomeprazole Magnesium [Nexium 24Hr] 40 mg PO DAILY 02/14/17 Folic Acid 1 mg PO DAILY 02/14/17 Furosemide [Lasix -] 40 mg PO DAILY 02/14/17 Levothyroxine [Synthroid -] 112 mcg PO DAILY 02/14/17 Losartan Potassium 100 mg PO DAILY 02/14/17 Metformin HCl 1,000 mg PO BID 02/14/17 Methotrexate [Mexate -] 12.5 mg PO Q7D 02/14/17 Prednisone 2.5 mg PO ASDIR 02/14/17 Family Disease History - Family Disease History Family Disease History: CA: Father, Respiratory: Mother (COPD/Emphysema) Other Family History: No family h/o DM. Niece has hypothyroidism; No definite history of malignancy or hematologic disorder Review of Systems - Review of Systems Constitutional: reports: Loss of Appetite, Other (aversion t meats) Eyes: reports: Other ("Lazy" eye) HENT: denies: Difficult Swallowing, Epistaxis, Throat Pain Neck: denies: Stiffness, Swollen Glands, Tenderness Cardiovascular: reports: Shortness of Breath. denies: Chest Pain Respiratory: reports: Exercise Intolerance, SOB, SOB on Exertion. denies: Hemoptysis, Wheezing Gastrointestinal: reports: Abdominal Pain, Nausea, Vomiting Genitourinary: denies: Dysuria, Flank Pain, Frequency Breasts: reports: No Symptoms Reported Musculoskeletal: reports: Joint Pain, Joint Swelling Integumentary: denies: Eczema, Erythema Neurological: reports: No Symptoms Endocrine: denies: Excessive Sweating, Intolerance to Cold, Intolerance to Heat Hematology/Lymphatic: denies: Easily Bruised, Excessive Bleeding, Swollen Glands Psychiatric: reports: No Symptoms Physical Exam Vital Signs: Vital Signs Temperature 97.9 F 02/22/17 18:00 Pulse Rate 102 H 02/22/17 18:00 Respiratory Rate 19 02/22/17 18:00 Blood Pressure 112/42 02/22/17 18:00 O2 Sat by Pulse Oximetry (%) 96 02/22/17 13:44 Constitutional: Yes: No Distress HENT: Yes: Other (right eye deviated laterally) Neck: Yes: Supple. No: Lymphadenopathy, Tenderness, Thyromegaly Cardiovascular: Yes: Regular Rate and Rhythm, Pulse Irregular Respiratory: Yes: WNL Gastrointestinal: Yes: Normal Bowel Sounds, Soft. No: Ascites, Hepatomegaly, Splenomegaly Renal/: No: Anuria, CVA Tenderness - Left Breast(s): Yes: WNL, Left, Right Musculoskeletal: Yes: Joint Stiffness, Joint Swelling, Muscle Pain Extremities: No: Cool Edema: No Integumentary: No: Bruising, Erythema, Rash Neurological: Yes: WNL ...Motor Strength: WNL Psychiatric: Yes: WNL Labs: CBC, BMP 02/22/17 05:35 02/22/17 05:35 Problem List - Problems (1) DUARTE (acute kidney injury) Assessment/Plan: DUARTE upon presentation in hospital . Improved . Code(s): N17.9 - ACUTE KIDNEY FAILURE, UNSPECIFIED (2) Anemia Assessment/Plan: Likely multifactorial anemia. Has received 2 units of packed cells at time of ablation and one unit at [facility]. This all in a short period of time. Had dark stool which was heme positive. To require 3 units of blood in such a short time frame, does suggest blood loss , but hemolysis to be excluded. Suspect one component of anemia is that secondary to blood loss. Has normal B-12, folate. TSH is elevated and hypothyroidism represents another component of anemia. Had DUARTE on admission , in addition to GI symptoms from H. Pylorii. Has R.A and has been on MTX--12. 5 mg /day. All of the above contributing to "chronic" anemia with acute component. Has reverse albumin /globulin ratio and protein studies to be done. No obvious splenomegaly, but will do liver-spleen sono. Will await work up. Code(s): D64.9 - ANEMIA, UNSPECIFIED Qualifiers: Anemia type: unspecified type Qualified Code(s): D64.9 - Anemia, unspecified
--- NOTE | 2017-02-22 20:42 | PN ---
Progress Note, Physician History of Present Illness: patient stable feels well had some blood in stools evaluated by gi - Current Medication List Current Medications: Active Medications Acetaminophen (Tylenol -) 650 mg PO Q6H PRN PRN Reason: FEVER OR PAIN Diltiazem HCl (Cardizem -) 90 mg PO Q6HPO [facility] Last Admin: 02/22/17 17:34 Dose: Not Given Docusate Sodium (Colace -) 100 mg PO Q8H PRN PRN Reason: CONSTIPATION Furosemide (Lasix -) 40 mg PO BIDLASIX [facility] Last Admin: 02/22/17 15:04 Dose: 40 mg Pantoprazole Sodium (Protonix 40mg Ivpb (Pre-Docked)) 100 mls @ 200 mls/hr IVPB BID [facility] Last Admin: 02/22/17 09:55 Dose: 200 mls/hr Insulin Aspart (Novolog Vial Sliding Scale -) 1 vial SQ ACHS [facility] PRN Reason: Protocol Last Admin: 02/22/17 17:34 Dose: 4 units Levothyroxine Sodium (Synthroid -) 112 mcg PO DAILY@0700 [facility] Last Admin: 02/22/17 06:00 Dose: 112 mcg Methotrexate (Mexate -) 12.5 mg PO Q7D@1000 [facility] Last Admin: 02/16/17 13:05 Dose: 12.5 mg Polyethylene Glycol (Miralax (For Daily Use) -) 17 gm PO DAILY [facility] Last Admin: 02/22/17 09:56 Dose: Not Given Senna (Senna -) 2 tab PO HS PRN PRN Reason: CONSTIPATION - Objective Vital Signs: Vital Signs Temperature 97.9 F 02/22/17 18:00 Pulse Rate 102 H 02/22/17 18:00 Respiratory Rate 19 02/22/17 18:00 Blood Pressure 112/42 02/22/17 18:00 O2 Sat by Pulse Oximetry (%) 96 02/22/17 13:44 Constitutional: Yes: No Distress, Calm Eyes: Yes: Conjunctiva Clear Neck: Yes: Supple Cardiovascular: Yes: Pulse Irregular, S1, S2 Respiratory: Yes: Regular, CTA Bilaterally Gastrointestinal: Yes: Normal Bowel Sounds, Soft Musculoskeletal: Yes: WNL Extremities: Yes: WNL Neurological: Yes: Alert, Oriented Psychiatric: Yes: Alert, Oriented Labs: CBC, BMP 02/22/17 05:35 02/22/17 05:35 INR, PTT INR 1.41 (0.82-1.09) H 02/22/17 05:35 Assessment/Plan Syncope Atrial Fibrillation with RVR Recent AVN ablation Acute Kidney Injury Lactic Acidosis HTN DM sepsis plan stable off of abx gi to evaluate i think patient will need scop done blood transfusions done patient looking better
--- NOTE | 2017-02-22 20:42 | PN ---
Progress Note, Physician History of Present Illness: gi findings noted hematology on case polyp excision done patient stable - Current Medication List Current Medications: Active Medications Acetaminophen (Tylenol -) 650 mg PO Q6H PRN PRN Reason: FEVER OR PAIN Diltiazem HCl (Cardizem -) 90 mg PO Q6HPO [facility] Last Admin: 02/22/17 17:34 Dose: Not Given Docusate Sodium (Colace -) 100 mg PO Q8H PRN PRN Reason: CONSTIPATION Furosemide (Lasix -) 40 mg PO BIDLASIX [facility] Last Admin: 02/22/17 15:04 Dose: 40 mg Pantoprazole Sodium (Protonix 40mg Ivpb (Pre-Docked)) 100 mls @ 200 mls/hr IVPB BID [facility] Last Admin: 02/22/17 09:55 Dose: 200 mls/hr Insulin Aspart (Novolog Vial Sliding Scale -) 1 vial SQ ACHS [facility] PRN Reason: Protocol Last Admin: 02/22/17 17:34 Dose: 4 units Levothyroxine Sodium (Synthroid -) 112 mcg PO DAILY@0700 [facility] Last Admin: 02/22/17 06:00 Dose: 112 mcg Methotrexate (Mexate -) 12.5 mg PO Q7D@1000 [facility] Last Admin: 02/16/17 13:05 Dose: 12.5 mg Polyethylene Glycol (Miralax (For Daily Use) -) 17 gm PO DAILY [facility] Last Admin: 02/22/17 09:56 Dose: Not Given Senna (Senna -) 2 tab PO HS PRN PRN Reason: CONSTIPATION - Objective Vital Signs: Vital Signs Temperature 97.9 F 02/22/17 18:00 Pulse Rate 102 H 02/22/17 18:00 Respiratory Rate 19 02/22/17 18:00 Blood Pressure 112/42 02/22/17 18:00 O2 Sat by Pulse Oximetry (%) 96 02/22/17 13:44 Constitutional: Yes: No Distress, Calm Cardiovascular: Yes: Pulse Irregular Respiratory: Yes: Regular, CTA Bilaterally Gastrointestinal: Yes: Normal Bowel Sounds, Soft Musculoskeletal: Yes: WNL Extremities: Yes: WNL Neurological: Yes: Alert, Oriented Psychiatric: Yes: Alert, Oriented Labs: CBC, BMP 02/22/17 05:35 02/22/17 05:35 INR, PTT INR 1.41 (0.82-1.09) H 02/22/17 05:35 Assessment/Plan Syncope Atrial Fibrillation with RVR Recent AVN ablation Acute Kidney Injury Lactic Acidosis HTN DM sepsis anemia plan clinically patient doing well hematology note noted patient continues to improve will await for tests and decide the final plan
[2017-02-23] MEDS: dilTIAZem HCL 60 MG TABLET (FP) PO SCH ×4 (00:23→18:01)
[2017-02-23] MEDS: INSULIN SLIDING SCALE (NOVOLOG) 1 VIAL SQ SCH ×4 (06:29→22:06)
[2017-02-23] MEDS: FUROSEMIDE 40 MG TABLET (FP) PO SCH ×2 (06:32→13:32)
[2017-02-23] MEDS: LEVOTHYROXINE NA 112 MCG TABLET (FP) PO SCH (06:32)
[2017-02-23 08:07] LABS: BASOPHIL 0.9 % (0-2.0); EOSINOPHIL 2.8 % (0-4.5); MCHC 32.4 g/dl (32.0-36.0); MEAN CELL VOLUME 83.4 fl (80-96); NEUTROPHILS 66.4 % (42.8-82.8); PLATELET COUNT 208 K/MM3 (134-434); RDW 20.4 % (11.6-15.6); WHITE BLOOD COUNT 5.8 K/mm3 (4.0-10.0)
[2017-02-23 08:38] LABS: INR 1.26 (0.82-1.09); PROTHROMBIN TIME (PATIENT) 13.9 SEC (9.98-11.88)
[2017-02-23 08:58] LABS: CALCIUM 8.7 mg/dL (8.5-10.1); MAGNESIUM 1.8 mg/dL (1.8-2.4)
[2017-02-23] MEDS: POLYETHYLENE GLYCOL 3350 119 GM BTL PO SCH (09:48)
[2017-02-23] MEDS: PANTOPRAZOLE SODIUM 100 ML IVPB SCH ×2 (09:48→22:04)
[2017-02-23] MEDS ORDERED: PT OWN MED DRAWER 7, Y5N ONE (10:11)
[2017-02-23] MEDS: METHOTREXATE 2.5 MG TABLET PO SCH (11:23)
--- NOTE | 2017-02-23 11:27 | PN ---
Progress Note, Physician History of Present Illness: PULMONARY ALERT,+C/O CONTI,-CP. COLONOSCOPY REPORT NOTED - Current Medication List Current Medications: Active Medications Acetaminophen (Tylenol -) 650 mg PO Q6H PRN PRN Reason: FEVER OR PAIN Diltiazem HCl (Cardizem -) 90 mg PO Q6HPO [facility] Last Admin: 02/23/17 06:33 Dose: 90 mg Docusate Sodium (Colace -) 100 mg PO Q8H PRN PRN Reason: CONSTIPATION Furosemide (Lasix -) 40 mg PO BIDLASIX [facility] Last Admin: 02/23/17 06:32 Dose: 40 mg Pantoprazole Sodium (Protonix 40mg Ivpb (Pre-Docked)) 100 mls @ 200 mls/hr IVPB BID [facility] Last Admin: 02/23/17 09:48 Dose: 200 mls/hr Insulin Aspart (Novolog Vial Sliding Scale -) 1 vial SQ ACHS [facility] PRN Reason: Protocol Last Admin: 02/23/17 06:29 Dose: Not Given Levothyroxine Sodium (Synthroid -) 112 mcg PO DAILY@0700 [facility] Last Admin: 02/23/17 06:32 Dose: 112 mcg Methotrexate (Mexate -) 12.5 mg PO Q7D@1000 [facility] Last Admin: 02/16/17 13:05 Dose: 12.5 mg Polyethylene Glycol (Miralax (For Daily Use) -) 17 gm PO DAILY [facility] Last Admin: 02/23/17 09:48 Dose: Not Given Senna (Senna -) 2 tab PO HS PRN PRN Reason: CONSTIPATION - Objective Vital Signs: Vital Signs Temperature 97.8 F 02/23/17 06:00 Pulse Rate 108 H 02/23/17 06:00 Respiratory Rate 20 02/23/17 06:00 Blood Pressure 112/58 02/23/17 06:00 O2 Sat by Pulse Oximetry (%) 97 02/22/17 21:00 Constitutional: Yes: Well Nourished, Calm Eyes: Yes: WNL HENT: Yes: WNL Neck: Yes: WNL Cardiovascular: Yes: Regular Rate and Rhythm, S1, S2 Respiratory: Yes: Diminished Gastrointestinal: Yes: Normal Bowel Sounds, Soft Extremities: Yes: WNL Edema: Yes Edema: LLE: 2+, RLE: 2+ Labs: CBC, BMP 02/23/17 05:40 02/23/17 05:40 INR, PTT INR 1.26 (0.82-1.09) H 02/23/17 05:40 Assessment/Plan ASSESSMENT AND PLAN: Syncope Atrial Fibrillation with RVR Recent AVN ablation Acute Kidney Injury improving Lactic Acidosis improving HTN DM R/O GI BLEED - PO cardizem - lasix ? IV - anticoagulation - protonix - stool guiacs -monitor h+ h - transfuse prn DR HOWARD
--- NOTE | 2017-02-23 12:10 | PATH ---
Surgical Pathology Report Patient Name: SARIKA AGUILERA [facility]. Rec. #: [id number] /Age/Gender: 1945 (Age: 71) / F Account: [id number] Location: [facility] R Taken: 02/22/2017 Received: 02/22/2017 Reported: 02/23/2017 Physicians: Mandeep Francisco D.O. Specimen(s) Received A: BX ANTRUM & BODY B: PROXIMAL TRANSVERSE COLON POLYP C: CECAL POLYPS # 1 D: CECAL POLYP #2 E: BX ASCENDING COLON POLYP F: DESCENDING COLON POLYP G: SIGMOID POLYP #1 Clinical History GI bleeding (melena) Gastritis, colon diverticula, colon polyps Final Diagnosis A. STOMACH, ANTRUM AND BODY, BIOPSY: GASTRIC ANTRAL AND OXYNTIC MUCOSA WITH MODERATE CHRONIC GASTRITIS. IMMUNOSTAIN FOR H. PYLORI IS NEGATIVE FOR ORGANISMS. B. COLON, PROXIMAL TRANSVERSE, POLYP, POLYPECTOMY: ADENOMATOUS POLYP WITH CAUTERY ARTIFACT. C. COLON, CECAL POLYPS, #1, POLYPECTOMY: TUBULAR ADENOMA. ADDITIONAL FRAGMENTS OF COLONIC MUCOSA WITH REACTIVE LYMPHOID AGGREGATES AND SURFACE HYPERPLASTIC CHANGE. D. COLON, CECAL POLYP #2, POLYPECTOMY: SERRATED ADENOMA. E. COLON, ASCENDING POLYP, BIOPSY: TUBULAR ADENOMA. F. COLON, DESCENDING, POLYP, POLYPECTOMY: SERRATED ADENOMA. G. COLON, SIGMOID, POLYP #1, POLYPECTOMY: SERRATED ADENOMA. Electronically Signed Carter Wolf M.D. Gross Description A. Received in formalin, labeled "biopsy antrum and body" are 2 gayle, irregular portions of soft tissue measuring 0.1 and 0.2 cm in greatest dimension. The specimens are submitted in toto in one cassette. B. Received in formalin, labeled "proximal transverse colon polyp" is a gayle, irregular portion of soft tissue measuring 0.2 cm in greatest dimension. The specimen is submitted in toto in one cassette. C. Received in formalin, labeled "cecal polyps #1 " are 3 gayle, irregular portions of soft tissue ranging from 0.2-0.4 cm in greatest dimension. The specimens are submitted in toto in one cassette. D. Received in formalin, labeled "cecal polyp #2" is a gayle, polypoid portion of soft tissue measuring 0.6 cm in greatest dimension. The specimen is submitted in toto in one cassette. E. Received in formalin, labeled "biopsy polyp ascending colon" is a gayle, irregular portion of soft tissue measuring 0.1 cm in greatest dimension. The specimen is submitted in toto in one cassette. F. Received in formalin, labeled "descending colon polyp" is a gayle, polypoid portion of soft tissue measuring 0.5 cm in greatest dimension. The specimen is submitted in toto in one cassette. G. Received in formalin, labeled "sigmoid polyp" is a gayle, polypoid portion of soft tissue measuring 0.6 cm in greatest dimension. The specimen is submitted in toto in one cassette. 02/22/2017 [facility]02/22/2017
--- NOTE | 2017-02-23 12:43 | PN ---
Progress Note, Physician History of Present Illness: stable no further bleeding patient for capsule - Current Medication List Current Medications: Active Medications Acetaminophen (Tylenol -) 650 mg PO Q6H PRN PRN Reason: FEVER OR PAIN Diltiazem HCl (Cardizem -) 90 mg PO Q6HPO [facility] Last Admin: 02/23/17 06:33 Dose: 90 mg Docusate Sodium (Colace -) 100 mg PO Q8H PRN PRN Reason: CONSTIPATION Furosemide (Lasix -) 40 mg PO BIDLASIX [facility] Last Admin: 02/23/17 06:32 Dose: 40 mg Pantoprazole Sodium (Protonix 40mg Ivpb (Pre-Docked)) 100 mls @ 200 mls/hr IVPB BID [facility] Last Admin: 02/23/17 09:48 Dose: 200 mls/hr Insulin Aspart (Novolog Vial Sliding Scale -) 1 vial SQ ACHS [facility] PRN Reason: Protocol Last Admin: 02/23/17 11:26 Dose: Not Given Levothyroxine Sodium (Synthroid -) 112 mcg PO DAILY@0700 [facility] Last Admin: 02/23/17 06:32 Dose: 112 mcg Methotrexate (Mexate -) 12.5 mg PO Q7D@1000 [facility] Last Admin: 02/23/17 11:23 Dose: 12.5 mg Polyethylene Glycol (Miralax (For Daily Use) -) 17 gm PO DAILY [facility] Last Admin: 02/23/17 09:48 Dose: Not Given Senna (Senna -) 2 tab PO HS PRN PRN Reason: CONSTIPATION - Objective Vital Signs: Vital Signs Temperature 97.8 F 02/23/17 10:00 Pulse Rate 102 H 02/23/17 10:00 Respiratory Rate 20 02/23/17 10:00 Blood Pressure 118/74 02/23/17 10:00 O2 Sat by Pulse Oximetry (%) 99 02/23/17 09:00 Constitutional: Yes: No Distress, Calm Neck: Yes: Supple Cardiovascular: Yes: Pulse Irregular Respiratory: Yes: Regular, CTA Bilaterally Gastrointestinal: Yes: Normal Bowel Sounds, Soft Musculoskeletal: Yes: WNL Extremities: Yes: WNL Neurological: Yes: Alert, Oriented Psychiatric: Yes: Alert, Oriented Labs: CBC, BMP 02/23/17 05:40 02/23/17 05:40 INR, PTT INR 1.26 (0.82-1.09) H 02/23/17 05:40 Assessment/Plan Syncope Atrial Fibrillation with RVR Recent AVN ablation Acute Kidney Injury Lactic Acidosis HTN DM sepsis anemia plan doing well await for upper gi result biopsy result awaited follow bleeding as per heamatology
--- NOTE | 2017-02-23 14:24 | PN ---
Progress Note, Physician Chief Complaint: No complaints today Tele: afib with VR around 100 History of Present Illness: 71 y.o. female with h/o NIDDM, hypothyroidism, HTN, RA on chronic steroids/MTX, interstitial lung disease/emphysema, H pylori gastritis diagnosed 12/2016 started on abx, Atrial fibrillation on Eliquis, anemia, syncope due to PAF and conversion pauses s/p PVI at [facility] by Dr Gaona 01/27/17 dcd on amiodarone, now admitted with nausea and vomiting post abx for h. pylori, lactic acidosis, poor po intake and atrial fibrillation with RVR. No chest pain, palpitations, dizziness, syncope, orthopnea, or pnd. Baseline exercise tolerance is good. Echo 01/13/17 normal EF, diastolic dysfunction, mod MR mild TR trace to mild PI. 02/20/17 Found to have GUAIAC Positive stools, holding AC for now. 02/21/17: Patient without complaints today. AC on hold for planned EGD for worsening anemia with +stool positive for blood EGD held due to elevated heart rates - Current Medication List Current Medications: Active Medications Acetaminophen (Tylenol -) 650 mg PO Q6H PRN PRN Reason: FEVER OR PAIN Diltiazem HCl (Cardizem -) 90 mg PO Q6HPO [facility] Last Admin: 02/23/17 12:55 Dose: 90 mg Docusate Sodium (Colace -) 100 mg PO Q8H PRN PRN Reason: CONSTIPATION Furosemide (Lasix -) 40 mg PO BIDLASIX [facility] Last Admin: 02/23/17 13:32 Dose: 40 mg Pantoprazole Sodium (Protonix 40mg Ivpb (Pre-Docked)) 100 mls @ 200 mls/hr IVPB BID [facility] Last Admin: 02/23/17 09:48 Dose: 200 mls/hr Insulin Aspart (Novolog Vial Sliding Scale -) 1 vial SQ ACHS [facility] PRN Reason: Protocol Last Admin: 02/23/17 11:26 Dose: Not Given Levothyroxine Sodium (Synthroid -) 112 mcg PO DAILY@0700 [facility] Last Admin: 02/23/17 06:32 Dose: 112 mcg Methotrexate (Mexate -) 12.5 mg PO Q7D@1000 [facility] Last Admin: 02/23/17 11:23 Dose: 12.5 mg Polyethylene Glycol (Miralax (For Daily Use) -) 17 gm PO DAILY [facility] Last Admin: 02/23/17 09:48 Dose: Not Given Senna (Senna -) 2 tab PO HS PRN PRN Reason: CONSTIPATION - Objective Vital Signs: Vital Signs Temperature 97.8 F 02/23/17 10:00 Pulse Rate 102 H 02/23/17 10:00 Respiratory Rate 20 02/23/17 10:00 Blood Pressure 118/74 02/23/17 10:00 O2 Sat by Pulse Oximetry (%) 99 02/23/17 09:00 Constitutional: Yes: No Distress Neck: Yes: Supple Cardiovascular: Yes: Pulse Irregular, S1, S2. No: Regular Rate and Rhythm, Murmur Respiratory: Yes: CTA Bilaterally Gastrointestinal: Yes: Normal Bowel Sounds, Soft Edema: Yes Edema: LLE: 2+, RLE: 2+ Labs: CBC, BMP 02/23/17 05:40 02/23/17 05:40 INR, PTT INR 1.26 (0.82-1.09) H 02/23/17 05:40 Problem List - Problems (1) Anemia Code(s): D64.9 - ANEMIA, UNSPECIFIED Qualifiers: Anemia type: unspecified type Qualified Code(s): D64.9 - Anemia, unspecified (2) Atrial fibrillation with rapid ventricular response Code(s): I48.91 - UNSPECIFIED ATRIAL FIBRILLATION (3) CHF exacerbation Code(s): I50.9 - HEART FAILURE, UNSPECIFIED Qualifiers: Congestive heart failure type: diastolic Qualified Code(s): I50.33 - Acute on chronic diastolic (congestive) heart failure (4) HTN (hypertension) Code(s): I10 - ESSENTIAL (PRIMARY) HYPERTENSION Qualifiers: Hypertension type: essential hypertension Qualified Code(s): I10 - Essential (primary) hypertension Assessment/Plan (1) Atrial fibrillation with rapid ventricular response Assessment/Plan: S/P pulmonary vein isolation on 01/27/17 and was previously on amiodarone which failed CHADS2 score 3. Noted to have GUAIAC POSITIVE stools. EGD on colonoscopy on 02/22/17. No source of bleeding. Would restart anticogulation as soon as possible as per GI post procedure. Patient was previously on eliquis. -Continue rate control with diltiazem 90mg q6 Would restart digoxin 0.125mg daily and give a dose tonight Continue synthroid for hypothyroidism Please monitor lytes closely and replete K as needed for goal K > 4 May need repeat ablation or cardioversion if unable to control rates. CONTI Multi factorial including anemia, interstitial lung disease from rheumatoid arthritis, and afib with elevated ventricular rates. Still volume up and not diuresing as quickly as I would like Would change furosemide to 40mg IV bid Daily Wt's and monitor lytes. Told patient to decrease fluid intake. Will follow with you.
--- NOTE | 2017-02-23 18:39 | PN ---
Physical Exam: SUBJECTIVE: Patient seen and examined. She feels fine, she has had no further bm. She is going for capsule today. OBJECTIVE: Vital Signs Period Temp Pulse Resp BP Sys/[place] Pulse Ox Last 24 Hr 97.5 F-97.8 F 101-116 20-20 109-120/58-74 97-99 PE Neuro: alert, awake, cn 2-12 intact Pulm: CTAB CV: s1 s2 irregular rate and rhythm no mrg Abd: s nt nd + bs Ext: warm, dry, b/l edema L>R +2 CBCD WBC 5.8 K/mm3 (4.0-10.0) 02/23/17 05:40 RBC 3.37 M/mm3 (3.60-5.2) L 02/23/17 05:40 Hgb 9.1 GM/dL (10.7-15.3) L 02/23/17 05:40 Hct 28.1 % (32.4-45.2) L 02/23/17 05:40 MCV 83.4 fl (80-96) 02/23/17 05:40 MCHC 32.4 g/dl (32.0-36.0) 02/23/17 05:40 RDW 20.4 % (11.6-15.6) H 02/23/17 05:40 Plt Count 208 K/MM3 (134-434) 02/23/17 05:40 MPV 8.0 fl (7.5-11.1) 02/23/17 05:40 CMP Sodium 133 mmol/L (136-145) L 02/23/17 05:40 Potassium 3.6 mmol/L (3.5-5.1) 02/23/17 05:40 Chloride 97 mmol/L (98-107) L 02/23/17 05:40 Carbon Dioxide 21 mmol/L (21-32) 02/23/17 05:40 Anion Gap 15 (8-16) 02/23/17 05:40 BUN 11 mg/dL (7-18) 02/23/17 05:40 Creatinine 1.0 mg/dL (0.55-1.02) 02/23/17 05:40 Creat Clearance w eGFR > 60 (>60) 02/22/17 05:35 Calcium 8.7 mg/dL (8.5-10.1) 02/23/17 05:40 Total Bilirubin 1.2 mg/dL (0.2-1.0) H D 02/22/17 05:35 AST 27 U/L (15-37) D 02/22/17 05:35 ALT 17 U/L (12-78) D 02/22/17 05:35 Alkaline Phosphatase 103 U/L (45-117) 02/22/17 05:35 Total Protein 5.7 g/dl (6.4-8.2) L 02/22/17 05:35 Albumin 2.7 g/dl (3.4-5.0) L 02/22/17 05:35 Laboratory Tests 02/22/17 02/22/17 02/22/17 18:11 18:11 18:11 Retic Count Haptoglobin INR Magnesium Iron Ferritin 50.899 LD Total Prot Electrophoresis Serum Total Protein Albumin Efuwv-8-Kvlrurdro Fdvwz-9-Hunftdmyq Beta Globulins Gamma Globulins Vitamin B12 1410 H Serum Folate 15 JONH M-Zackary JONH Comments 02/23/17 02/23/17 02/23/17 05:40 05:40 05:40 Retic Count 4.93 H Haptoglobin Pending INR Magnesium 1.8 Iron Ferritin LD Total 146 Prot Electrophoresis Serum Total Protein Albumin Avuak-9-Oltxbjupq Odlgt-2-Wztudeerd Beta Globulins Gamma Globulins Vitamin B12 Serum Folate JONH M-Zackary JONH Comments 02/23/17 02/23/17 05:40 05:40 Retic Count Haptoglobin INR 1.26 H Magnesium Iron Pending Ferritin LD Total Prot Electrophoresis Pending Serum Total Protein Pending Albumin Pending Qyhhq-6-Kftsszaij Pending Unhvz-3-Jdcuyagrq Pending Beta Globulins Pending Gamma Globulins Pending Vitamin B12 Serum Folate JONH M-Zackary Pending JONH Comments Pending Current Medications Generic Name Dose Route Start Last Admin Trade Name Freq PRN Reason Stop Dose Admin Acetaminophen 650 mg 02/15/17 19:49 Tylenol - PO Q6H PRN FEVER OR PAIN Diltiazem HCl 90 mg 02/22/17 15:24 02/23/17 18:01 Cardizem - PO 90 mg Q6HPO [facility] Administration Docusate Sodium 100 mg 02/20/17 07:12 Colace - PO Q8H PRN CONSTIPATION Furosemide 40 mg 02/17/17 14:00 02/23/17 13:32 Lasix - PO 40 mg BIDLASIX [facility] Administration Pantoprazole Sodium 100 mls @ 200 mls/hr 02/20/17 22:00 02/23/17 09:48 Protonix 40mg Ivpb (Pre-Docked) IVPB 200 mls/hr BID [facility] Administration Insulin Aspart 1 vial 02/15/17 22:00 02/23/17 16:13 Novolog Vial Sliding Scale - SQ Not Given ACHS [facility] Protocol Levothyroxine Sodium 112 mcg 02/16/17 07:00 02/23/17 06:32 Synthroid - PO 112 mcg DAILY@0700 [facility] Administration Methotrexate 12.5 mg 02/16/17 13:00 02/23/17 11:23 Mexate - PO 12.5 mg Q7D@1000 [facility] Administration Polyethylene Glycol 17 gm 02/20/17 10:00 02/23/17 09:48 Miralax (For Daily Use) - PO Not Given DAILY [facility] Senna 2 tab 02/20/17 07:12 Senna - PO HS PRN CONSTIPATION Assessment: 71 year old female with PMHx of HTN, A.fib s/p ablation 12/2016, IDDM , RA, hypothyroidism admitted with nausea and vomiting x3 days, found to have AFib with RVR and lactic acidemia. Plan: 1. A.fib with RVR - Continue increased dose Cardizem 90mg q6h - Start digoxin 0.125mg now, and daily - Restart eliquis tomorrow AM - Discussed with cardiology 2. Acute on chronic anemia - Etiology multi factorial: elevated THS, meds (methortrexate), autoimmune dx, infection - Immunofixations sent for reverse a/g ratio - Ferritin wnl - Transfused 1uprbc 02/21 3. GI bleed - For capsule today - EGD/Colonoscopy done today, no bleeding or source of bleeding identified - See above for further work up 4. Acute on chronic diastolic heart failure - Stop PO, start IV lasix 40mg BID 5. Hyponatremia hypervolemia - Stable, now on IV diuresis 6. DUARTE - Resolved 7. DM II - BGM, ISS ACHS - Hold metformin while inpatient 8. Hypothyroidism - TSH 16.3, repeat in 1 week - Continue current Synthroid 112mcg 9. H.pylori - Plan per ID: hold off treatment until the patient is evaluated by her pcp 10. Rheumatoid arthritis - Continue Methotrexate - No need to restart home Prednisone dose as it is subtherapeutic dosing 11. Lactic acidemia - Resolved - Stable off abx; s/p zosyn, ceftriaxone 12. Ppx: - DVT: hold Eliquis Visit type - Emergency Visit Emergency Visit: Yes ED Registration Date: 02/14/17 Care time: The patient presented to the Emergency Department on the above date and was hospitalized for further evaluation of their emergent condition. - New Patient This patient is new to me today: No - Critical Care Critical Care patient: No - Discharge Referral Referred to [facility] Med P.C.: No
[2017-02-23] MEDS ORDERED: DIGOXIN 0.125 MG TABLET (FP) PO ONE (19:15)
[2017-02-23] MEDS ORDERED: FUROSEMIDE 40 MG/4 ML INJECTABLE VIAL IVPUSH ONE (19:20)
[2017-02-23] MEDS ORDERED: FUROSEMIDE 40 MG/4 ML INJECTABLE VIAL ONE (21:53)
[2017-02-23] MEDS ORDERED: DIGOXIN 0.125 MG TABLET (FP) ONE (21:54)
--- NOTE | 2017-02-23 22:42 | PN ---
Progress Note (short form) - Note Progress Note: Patient seen and examined feels well Last Vital Signs Temp Pulse Resp BP Pulse Ox 97.8 F 108 H 20 118/64 98 02/24/17 05:44 02/24/17 05:44 02/24/17 05:44 02/24/17 05:44 02/23/17 21:00 Cor: RSR, No murmurs, No gallops Lungs: Clear to P&A Abd: Soft, Normal bowel sounds, No organomegaly Ext:No significant edema Abnormal Lab Results 02/23/17 02/23/17 02/23/17 05:40 05:40 05:40 RBC 3.37 L Hgb 9.1 L Hct 28.1 L RDW 20.4 H Retic Count 4.93 H Haptoglobin INR Sodium 133 L Chloride 97 L 02/23/17 02/23/17 05:40 05:40 RBC Hgb Hct RDW Retic Count Haptoglobin 268 H INR 1.26 H Sodium Chloride Active Medications Generic Name Dose Route Start Last Admin Trade Name Freq PRN Reason Stop Dose Admin Acetaminophen 650 mg 02/15/17 19:49 Tylenol - PO Q6H PRN FEVER OR PAIN Apixaban 5 mg 02/24/17 10:00 Eliquis - PO BID [facility] Digoxin 0.125 mg 02/24/17 10:00 Lanoxin - PO DAILY [facility] Diltiazem HCl 90 mg 02/22/17 15:24 02/24/17 00:21 Cardizem - PO 90 mg Q6HPO [facility] Administration Docusate Sodium 100 mg 02/20/17 07:12 Colace - PO Q8H PRN CONSTIPATION Furosemide 40 mg 02/24/17 06:00 Lasix Injection - IVPUSH BID@0600,1400 [facility] Pantoprazole Sodium 100 mls @ 200 mls/hr 02/20/17 22:00 02/23/17 22:04 Protonix 40mg Ivpb (Pre-Docked) IVPB 200 mls/hr BID [facility] Administration Insulin Aspart 1 vial 02/15/17 22:00 02/23/17 22:06 Novolog Vial Sliding Scale - SQ 2 units ACHS [facility] Administration Protocol Levothyroxine Sodium 112 mcg 02/16/17 07:00 02/23/17 06:32 Synthroid - PO 112 mcg DAILY@0700 [facility] Administration Methotrexate 12.5 mg 02/16/17 13:00 02/23/17 11:23 Mexate - PO 12.5 mg Q7D@1000 [facility] Administration Polyethylene Glycol 17 gm 02/20/17 10:00 02/23/17 09:48 Miralax (For Daily Use) - PO Not Given DAILY [facility] Potassium Chloride 20 meq 02/24/17 10:00 K-Dur - PO DAILY [facility] Senna 2 tab 02/20/17 07:12 Senna - PO HS PRN CONSTIPATION a/p 71 y/o patient with anemia normocytic but mcv has been dropping hence suspect iron deficiency egd/colonoscopy unrevealing u/s--fatty liver/ascites stool occult + ? capsule iron saturation pending hypothyroid with low ft3 b12/folate/ldh --nl protein studies pending
[2017-02-24] MEDS: dilTIAZem HCL 60 MG TABLET (FP) PO SCH ×4 (00:21→17:24)
[2017-02-24] MEDS: FUROSEMIDE 40 MG/4 ML INJECTABLE VIAL IVPUSH SCH ×2 (06:23→13:14)
[2017-02-24] MEDS: INSULIN SLIDING SCALE (NOVOLOG) 1 VIAL SQ SCH ×4 (06:23→21:42)
[2017-02-24] MEDS: LEVOTHYROXINE NA 112 MCG TABLET (FP) PO SCH (06:24)
[2017-02-24 07:48] LABS: BASOPHIL 0.8 % (0-2.0); MCH 27.1 pg (25.7-33.7); MCHC 32.7 g/dl (32.0-36.0); MEAN PLT VOLUME 8.1 fl (7.5-11.1); NEUTROPHILS 74.1 % (42.8-82.8); PLATELET COUNT 187 K/MM3 (134-434); RDW 20.2 % (11.6-15.6); WHITE BLOOD COUNT 6.2 K/mm3 (4.0-10.0)
[2017-02-24 08:27] LABS: ALBUMIN 2.5 g/dl (3.4-5.0); BILIRUBIN,TOTAL 0.6 mg/dL (0.2-1.0); CALCIUM 8.1 mg/dL (8.5-10.1); COCKROFT - GAULT 67.5155; TOT PROT 5.3 g/dl (6.4-8.2)
--- NOTE | 2017-02-24 08:57 | PN ---
Progress Note (short form) - Note Progress Note: Subjective: The patient was seen and examined at the bedside, she reports feeling better today. Current Medications Generic Name Dose Route Start Last Admin Trade Name Freq PRN Reason Stop Dose Admin Acetaminophen 650 mg 02/15/17 19:49 Tylenol - PO Q6H PRN FEVER OR PAIN Apixaban 5 mg 02/24/17 10:00 Eliquis - PO BID [facility] Digoxin 0.125 mg 02/24/17 10:00 Lanoxin - PO DAILY [facility] Diltiazem HCl 90 mg 02/22/17 15:24 02/24/17 06:24 Cardizem - PO 90 mg Q6HPO [facility] Administration Docusate Sodium 100 mg 02/20/17 07:12 Colace - PO Q8H PRN CONSTIPATION Furosemide 40 mg 02/24/17 06:00 02/24/17 06:23 Lasix Injection - IVPUSH 40 mg BID@0600,1400 [facility] Administration Pantoprazole Sodium 100 mls @ 200 mls/hr 02/20/17 22:00 02/23/17 22:04 Protonix 40mg Ivpb (Pre-Docked) IVPB 200 mls/hr BID [facility] Administration Insulin Aspart 1 vial 02/15/17 22:00 02/24/17 06:23 Novolog Vial Sliding Scale - SQ Not Given ACHS [facility] Protocol Levothyroxine Sodium 112 mcg 02/16/17 07:00 02/24/17 06:24 Synthroid - PO 112 mcg DAILY@0700 [facility] Administration Methotrexate 12.5 mg 02/16/17 13:00 02/23/17 11:23 Mexate - PO 12.5 mg Q7D@1000 [facility] Administration Polyethylene Glycol 17 gm 02/20/17 10:00 02/23/17 09:48 Miralax (For Daily Use) - PO Not Given DAILY [facility] Potassium Chloride 20 meq 02/24/17 10:00 K-Dur - PO DAILY [facility] Senna 2 tab 02/20/17 07:12 Senna - PO HS PRN CONSTIPATION Objective: Vital Signs Period Temp Pulse Resp BP Sys/Angeles Pulse Ox Last 24 Hr 97.4 F-98.6 F 101-109 18-20 112-124/60-74 98-99 Physical Exam: General: NAD, A&Ox3 HEENT: B/l strabismus Lungs: CTA bilaterally Heart: Irregular rate, S1S2 Abd: Soft, non-tender, non-distended. Normoactive bowel sounds Ext: B/l lower extremity edema. 2+ DP/PT bilaterally Neuro: No focal deficits CBCD WBC 6.2 K/mm3 (4.0-10.0) 02/24/17 05:35 RBC 3.08 M/mm3 (3.60-5.2) L 02/24/17 05:35 Hgb 8.4 GM/dL (10.7-15.3) L 02/24/17 05:35 Hct 25.6 % (32.4-45.2) L 02/24/17 05:35 MCV 83.0 fl (80-96) 02/24/17 05:35 MCHC 32.7 g/dl (32.0-36.0) 02/24/17 05:35 RDW 20.2 % (11.6-15.6) H 02/24/17 05:35 Plt Count 187 K/MM3 (134-434) 02/24/17 05:35 MPV 8.1 fl (7.5-11.1) 02/24/17 05:35 CMP Sodium 136 mmol/L (136-145) 02/24/17 05:35 Potassium 3.6 mmol/L (3.5-5.1) 02/23/17 05:40 Chloride 99 mmol/L (98-107) 02/24/17 05:35 Carbon Dioxide 21 mmol/L (21-32) 02/24/17 05:35 Anion Gap 16 (8-16) 02/24/17 05:35 BUN 9 mg/dL (7-18) 02/24/17 05:35 Creatinine 1.0 mg/dL (0.55-1.02) 02/24/17 05:35 Creat Clearance w eGFR 54.35 (>60) 02/24/17 05:35 Random Glucose 86 mg/dL (74-106) 02/24/17 05:35 Calcium 8.1 mg/dL (8.5-10.1) L 02/24/17 05:35 Total Bilirubin 0.6 mg/dL (0.2-1.0) D 02/24/17 05:35 AST 26 U/L (15-37) 02/24/17 05:35 ALT 20 U/L (12-78) 02/24/17 05:35 Alkaline Phosphatase 94 U/L (45-117) 02/24/17 05:35 Total Protein 5.3 g/dl (6.4-8.2) L 02/24/17 05:35 Albumin 2.5 g/dl (3.4-5.0) L 02/24/17 05:35 CARDIAC ENZYMES Creatine Kinase 57 IU/L (26-140) 02/14/17 10:58 Troponin I 0.20 ng/ml (0.00-0.05) H 02/15/17 05:15 Microbiology 02/14/17 11:45 Blood - Peripheral Venous Blood Culture - Final NO GROWTH AFTER 5 DAYS INCUBATION 02/14/17 12:15 Blood - Peripheral Venous Blood Culture - Final NO GROWTH AFTER 5 DAYS INCUBATION 02/14/17 15:54 Urine - Urine - Catheterized Urine Culture - Final NO GROWTH OBTAINED Assessment: This is a 71 year old female with PMHx of HTN, A.fib s/p ablation 2016, IDDM, RA, hypothyroidism who presented to the ED with nausea and vomiting x3 days. Plan: 1) Cardiology: A.fib with RVR - Conitnue Cardizem 90mg q8h - Continue Digoxin 0.125mg po dailiy - Restarted on Eliquis today - Appreciate cardiology consult Acute on chronic diastolic heart failure - Lasix 40mg IVP bid - Daily weights 2) Heme: Acute on chronic anemia - Multifactorial: elevated TSH, meds (methotrexate), infectious, GI loss - Ferritin wnl - S/p 1u PRBC 02/21 - Has reverse albumin/globulin ratio, f/u protein studies 3) GI: GI bleed - EGD/colonoscopy with no bleeding or source of bleeding identified - Capsule performed, awaiting results - Appreciate GI consult H.pylori - Discussed treatment with Dr. Goyal, who recommends holding off on starting treatment until the patient is evaluated by her pcp 4) Endocrine: DM - Continue to hold metformin while inpatient - BGM ACHS - ISS ACHS Hypothyroidism - TSH 16.3 - Continue Synthroid - Appreciate endocrine consult 5) Rheum: Rheumatoid arthritis - Continue Methotrexate - No need to restart home Prednisone dose as it is subtherapeutic dosing 6) ID: Lactic acidemia - Resolved 7) : DUARTE - Resolved 8) F/E/N: - Hyponatremia hypervolemia: resolved - Hypokalemia: replete - Diabetic/low sodium diet 9) Prophylaxis: - On Eliquis 10) Dispo: - Requires continued inpatient care CODE STATUS: FULL CODE Visit type - Emergency Visit Emergency Visit: Yes ED Registration Date: 02/14/17 Care time: The patient presented to the Emergency Department on the above date and was hospitalized for further evaluation of their emergent condition. - New Patient This patient is new to me today: No - Critical Care Critical Care patient: No
[2017-02-24] MEDS: APIXABAN 5 MG TABLET PO SCH ×2 (09:02→21:36)
[2017-02-24] MEDS ORDERED: POTASSIUM CHLORIDE TABS 20 MEQ TABLET.ER (FP) PO ONE (09:02)
[2017-02-24] MEDS: DIGOXIN 0.125 MG TABLET (FP) PO SCH (09:03)
[2017-02-24] MEDS: POLYETHYLENE GLYCOL 3350 119 GM BTL PO SCH (09:04)
[2017-02-24] MEDS: PANTOPRAZOLE SODIUM 100 ML IVPB SCH ×2 (09:04→21:36)
[2017-02-24] MEDS ORDERED: POTASSIUM CHLORIDE TABS 20 MEQ TABLET.ER (FP) PO SCH (10:00)
[2017-02-24] MEDS: KCL 10 MEQ IVPB 100 ML IVPB SCH ×3 (10:19→12:15)
--- NOTE | 2017-02-24 10:26 | PN ---
Progress Note, Physician Chief Complaint: Cardiology fu. Afib, Dyspnea History of Present Illness: 71 y.o. female with h/o NIDDM, hypothyroidism, HTN, RA on chronic steroids/MTX, interstitial lung disease/emphysema, H pylori gastritis diagnosed 12/2016 started on abx, Atrial fibrillation on Eliquis, anemia, syncope due to PAF and conversion pauses s/p PVI at [facility] by Dr Gaona 01/27/17 dcd on amiodarone, now admitted with nausea and vomiting post abx for h. pylori, lactic acidosis, poor po intake and atrial fibrillation with RVR. Echo 01/13/17 normal EF, diastolic dysfunction, mod MR mild TR trace to mild PI. Hospital course significant for Anemia and Guiac positive stool. sp endoscopy. Telemetry today HR 100-90 - Current Medication List Current Medications: Active Medications Acetaminophen (Tylenol -) 650 mg PO Q6H PRN PRN Reason: FEVER OR PAIN Apixaban (Eliquis -) 5 mg PO BID [facility] Last Admin: 02/24/17 09:02 Dose: 5 mg Digoxin (Lanoxin -) 0.125 mg PO DAILY [facility] Last Admin: 02/24/17 09:03 Dose: 0.125 mg Diltiazem HCl (Cardizem -) 90 mg PO Q6HPO [facility] Last Admin: 02/24/17 06:24 Dose: 90 mg Docusate Sodium (Colace -) 100 mg PO Q8H PRN PRN Reason: CONSTIPATION Furosemide (Lasix Injection -) 40 mg IVPUSH BID@0600,1400 [facility] Last Admin: 02/24/17 06:23 Dose: 40 mg Pantoprazole Sodium (Protonix 40mg Ivpb (Pre-Docked)) 100 mls @ 200 mls/hr IVPB BID [facility] Last Admin: 02/24/17 09:04 Dose: 200 mls/hr Potassium Chloride (Potassium Chloride 10 Meq Premix Ivpb -) 100 mls @ 100 mls/ hr IVPB Q60M [facility] Stop: 02/24/17 12:14 Insulin Aspart (Novolog Vial Sliding Scale -) 1 vial SQ ACHS [facility] PRN Reason: Protocol Last Admin: 02/24/17 06:23 Dose: Not Given Levothyroxine Sodium (Synthroid -) 112 mcg PO DAILY@0700 [facility] Last Admin: 02/24/17 06:24 Dose: 112 mcg Methotrexate (Mexate -) 12.5 mg PO Q7D@1000 [facility] Last Admin: 02/23/17 11:23 Dose: 12.5 mg Polyethylene Glycol (Miralax (For Daily Use) -) 17 gm PO DAILY [facility] Last Admin: 02/24/17 09:04 Dose: 17 gm Potassium Chloride (K-Dur -) 20 meq PO DAILY [facility] Last Admin: 02/24/17 09:02 Dose: 20 meq Senna (Senna -) 2 tab PO HS PRN PRN Reason: CONSTIPATION - Objective Vital Signs: Vital Signs Temperature 97.8 F 02/24/17 05:44 Pulse Rate 97 H 02/24/17 09:03 Respiratory Rate 20 02/24/17 05:44 Blood Pressure 118/64 02/24/17 05:44 O2 Sat by Pulse Oximetry (%) 98 02/23/17 21:00 Constitutional: Yes: Well Nourished, No Distress Eyes: Yes: WNL HENT: Yes: WNL Neck: Yes: WNL Cardiovascular: Yes: Pulse Irregular, S1, S2 Respiratory: Yes: CTA Bilaterally Gastrointestinal: Yes: Normal Bowel Sounds, Soft Edema: Yes Edema: LLE: 1+, RLE: 1+ Peripheral Pulses WNL: Yes Labs: CBC, BMP 02/24/17 05:35 02/24/17 05:35 INR, PTT INR 1.26 (0.82-1.09) H 02/23/17 05:40 Vital Signs Temp 97.8 F 02/24/17 05:44 Pulse 97 H 02/24/17 09:03 Resp 20 02/24/17 05:44 BP 118/64 02/24/17 05:44 Pulse Ox 98 02/23/17 21:00 Intake & Output 02/23/17 02/23/17 02/24/17 11:59 23:59 11:59 Weight 190 lb 0.6 oz 188 lb 3.2 oz Problem List - Problems (1) Atrial fibrillation with rapid ventricular response Assessment/Plan: S/P pulmonary vein isolation 01/27/17 CHADS2 score 3. Noted to have GUAIAC POSITIVE stools. EGD on colonoscopy on 02/22/17. No source of bleeding. -HR reasonable with mild tachycardia intermittently. COntinue with present rate control strategy. Continue synthroid for hypothyroidism K being repleted. Repeat K today after it has been supplemented. Add Magnesium chloride repletion. If bleeding has stopped, may need to consider repeat DCCV. Code(s): I48.91 - UNSPECIFIED ATRIAL FIBRILLATION (2) CHF exacerbation Assessment/Plan: Continue IV lasix. Please repeat PA/LAt CXR Repeat BNP Daily Wt's and monitor lytes. Will follow with you. Code(s): I50.9 - HEART FAILURE, UNSPECIFIED Qualifiers: Congestive heart failure type: diastolic Qualified Code(s): I50.33 - Acute on chronic diastolic (congestive) heart failure (3) Anemia Assessment/Plan: Mild reduction in H/H seen on labs today. Continue to follow daily. Code(s): D64.9 - ANEMIA, UNSPECIFIED Qualifiers: Anemia type: unspecified type Qualified Code(s): D64.9 - Anemia, unspecified (4) HTN (hypertension) Assessment/Plan: Controlled Code(s): I10 - ESSENTIAL (PRIMARY) HYPERTENSION Qualifiers: Hypertension type: essential hypertension Qualified Code(s): I10 - Essential (primary) hypertension
--- NOTE | 2017-02-24 10:48 | PN ---
Progress Note, Physician History of Present Illness: PULMONARY ALERT,FEELING BETTER,LESS DYSPNEIC WITH EXERTION,-CP - Current Medication List Current Medications: Active Medications Acetaminophen (Tylenol -) 650 mg PO Q6H PRN PRN Reason: FEVER OR PAIN Apixaban (Eliquis -) 5 mg PO BID [facility] Last Admin: 02/24/17 09:02 Dose: 5 mg Digoxin (Lanoxin -) 0.125 mg PO DAILY [facility] Last Admin: 02/24/17 09:03 Dose: 0.125 mg Diltiazem HCl (Cardizem -) 90 mg PO Q6HPO [facility] Last Admin: 02/24/17 06:24 Dose: 90 mg Docusate Sodium (Colace -) 100 mg PO Q8H PRN PRN Reason: CONSTIPATION Furosemide (Lasix Injection -) 40 mg IVPUSH BID@0600,1400 [facility] Last Admin: 02/24/17 06:23 Dose: 40 mg Pantoprazole Sodium (Protonix 40mg Ivpb (Pre-Docked)) 100 mls @ 200 mls/hr IVPB BID [facility] Last Admin: 02/24/17 09:04 Dose: 200 mls/hr Potassium Chloride (Potassium Chloride 10 Meq Premix Ivpb -) 100 mls @ 100 mls/ hr IVPB Q60M [facility] Stop: 02/24/17 12:14 Last Admin: 02/24/17 10:19 Dose: 100 mls/hr Insulin Aspart (Novolog Vial Sliding Scale -) 1 vial SQ ACHS [facility] PRN Reason: Protocol Last Admin: 02/24/17 06:23 Dose: Not Given Levothyroxine Sodium (Synthroid -) 112 mcg PO DAILY@0700 [facility] Last Admin: 02/24/17 06:24 Dose: 112 mcg Magnesium Chloride (Slow-Mag -) 64 mg PO DAILY [facility] Methotrexate (Mexate -) 12.5 mg PO Q7D@1000 [facility] Last Admin: 02/23/17 11:23 Dose: 12.5 mg Polyethylene Glycol (Miralax (For Daily Use) -) 17 gm PO DAILY [facility] Last Admin: 02/24/17 09:04 Dose: 17 gm Potassium Chloride (K-Dur -) 20 meq PO DAILY [facility] Last Admin: 02/24/17 09:02 Dose: 20 meq Senna (Senna -) 2 tab PO HS PRN PRN Reason: CONSTIPATION - Objective Vital Signs: Vital Signs Temperature 97.8 F 02/24/17 05:44 Pulse Rate 97 H 02/24/17 09:03 Respiratory Rate 20 02/24/17 05:44 Blood Pressure 118/64 02/24/17 05:44 O2 Sat by Pulse Oximetry (%) 98 02/23/17 21:00 Constitutional: Yes: Well Nourished, Calm Eyes: Yes: WNL HENT: Yes: WNL Neck: Yes: WNL Cardiovascular: Yes: Pulse Irregular, S1, S2 Respiratory: Yes: Diminished Gastrointestinal: Yes: Normal Bowel Sounds, Soft Extremities: Yes: WNL Edema: Yes Edema: LLE: 3+, RLE: 3+ Labs: CBC, BMP 02/24/17 05:35 02/24/17 05:35 INR, PTT INR 1.26 (0.82-1.09) H 02/23/17 05:40 Assessment/Plan ASSESSMENT AND PLAN: Syncope Atrial Fibrillation with RVR Recent AVN ablation Acute Kidney Injury improving Lactic Acidosis improving HTN DM R/O GI BLEED - PO cardizem - iv lasix - anticoagulation - protonix - transfuse prn - replete k DR HOWARD
[2017-02-24] MEDS: MAGNESIUM CL 64 MG TABLET.SA PO SCH (13:15)
[2017-02-24] MEDS ORDERED: PT OWN MED DRAWER 7, Y5N ONE (13:26)
--- NOTE | 2017-02-24 16:11 | PN ---
Progress Note, Physician History of Present Illness: patient doing well no new issues patient has u/s done - Current Medication List Current Medications: Active Medications Acetaminophen (Tylenol -) 650 mg PO Q6H PRN PRN Reason: FEVER OR PAIN Apixaban (Eliquis -) 5 mg PO BID [facility] Last Admin: 02/24/17 09:02 Dose: 5 mg Digoxin (Lanoxin -) 0.125 mg PO DAILY [facility] Last Admin: 02/24/17 09:03 Dose: 0.125 mg Diltiazem HCl (Cardizem -) 90 mg PO Q6HPO [facility] Last Admin: 02/24/17 12:15 Dose: 90 mg Docusate Sodium (Colace -) 100 mg PO Q8H PRN PRN Reason: CONSTIPATION Furosemide (Lasix Injection -) 40 mg IVPUSH BID@0600,1400 [facility] Last Admin: 02/24/17 13:14 Dose: 40 mg Pantoprazole Sodium (Protonix 40mg Ivpb (Pre-Docked)) 100 mls @ 200 mls/hr IVPB BID [facility] Last Admin: 02/24/17 09:04 Dose: 200 mls/hr Insulin Aspart (Novolog Vial Sliding Scale -) 1 vial SQ ACHS [facility] PRN Reason: Protocol Last Admin: 02/24/17 11:19 Dose: 2 units Levothyroxine Sodium (Synthroid -) 112 mcg PO DAILY@0700 [facility] Last Admin: 02/24/17 06:24 Dose: 112 mcg Magnesium Chloride (Slow-Mag -) 64 mg PO DAILY [facility] Last Admin: 02/24/17 13:15 Dose: 64 mg Methotrexate (Mexate -) 12.5 mg PO Q7D@1000 [facility] Last Admin: 02/23/17 11:23 Dose: 12.5 mg Polyethylene Glycol (Miralax (For Daily Use) -) 17 gm PO DAILY [facility] Last Admin: 02/24/17 09:04 Dose: 17 gm Potassium Chloride (K-Dur -) 20 meq PO DAILY [facility] Last Admin: 02/24/17 09:02 Dose: 20 meq Senna (Senna -) 2 tab PO HS PRN PRN Reason: CONSTIPATION - Objective Vital Signs: Vital Signs Temperature 98 F 02/24/17 14:00 Pulse Rate 108 H 02/24/17 14:00 Respiratory Rate 20 02/24/17 14:00 Blood Pressure 109/58 02/24/17 14:00 O2 Sat by Pulse Oximetry (%) 97 02/24/17 10:55 Constitutional: Yes: No Distress, Calm HENT: Yes: Atraumatic, Normocephalic Neck: Yes: Supple, Trachea Midline Cardiovascular: Yes: Pulse Irregular, S1, S2 Respiratory: Yes: Regular, CTA Bilaterally Gastrointestinal: Yes: Normal Bowel Sounds, Soft Musculoskeletal: Yes: WNL Extremities: Yes: WNL Neurological: Yes: Alert, Oriented Psychiatric: Yes: Alert, Oriented Labs: CBC, BMP 02/24/17 05:35 02/24/17 05:35 INR, PTT INR 1.26 (0.82-1.09) H 02/23/17 05:40 - ....Imaging Ultrasound: Report Reviewed, Image Reviewed Assessment/Plan Syncope Atrial Fibrillation with RVR Recent AVN ablation Acute Kidney Injury Lactic Acidosis HTN DM sepsis anemia plan doing well continue to monitor await final gi plan hematology plan
[2017-02-25] MEDS: dilTIAZem HCL 60 MG TABLET (FP) PO SCH ×4 (00:06→17:22)
[2017-02-25 00:07] LABS: ALBUMIN 2.8 g/dL (2.9-4.4); ALPHA-1-GLOBULIN 0.3 g/dL (0.0-0.4); BETA GLOBULIN 0.9 g/dL (0.7-1.3); GAMMA GLOBULIN 0.8 g/dL (0.4-1.8); GLOBULIN, TOTAL 2.9 g/dL (2.2-3.9); M-SPIKE Not Observed g/dL (Not Observed); TOTAL PROTEIN 5.7 g/dL (6.0-8.5)
[2017-02-25] MEDS: INSULIN SLIDING SCALE (NOVOLOG) 1 VIAL SQ SCH ×4 (06:31→21:43)
[2017-02-25] MEDS: FUROSEMIDE 40 MG/4 ML INJECTABLE VIAL IVPUSH SCH ×2 (06:34→13:22)
[2017-02-25] MEDS: LEVOTHYROXINE NA 112 MCG TABLET (FP) PO SCH (06:34)
[2017-02-25 08:04] LABS: BASOPHIL 0.9 % (0-2.0); EOSINOPHIL 1.5 % (0-4.5); MCH 27.4 pg (25.7-33.7); MCHC 33.2 g/dl (32.0-36.0); MEAN CELL VOLUME 82.7 fl (80-96); MEAN PLT VOLUME 7.9 fl (7.5-11.1); NEUTROPHILS 76.3 % (42.8-82.8); PLATELET COUNT 193 K/MM3 (134-434); RDW 19.5 % (11.6-15.6); WHITE BLOOD COUNT 5.4 K/mm3 (4.0-10.0)
[2017-02-25 08:26] LABS: CALCIUM 8.1 mg/dL (8.5-10.1)
[2017-02-25] MEDS ORDERED: PT OWN MED DRAWER 7, Y5N ONE (09:01)
--- NOTE | 2017-02-25 09:11 | PN ---
Progress Note (short form) - Note Progress Note: Subjective: The patient was seen and examined at the bedside, she reports feeling better today. Remains tachycardic F/u with cards for possible transfer for ablation Current Medications Generic Name Dose Route Start Last Admin Trade Name Freq PRN Reason Stop Dose Admin Acetaminophen 650 mg 02/15/17 19:49 Tylenol - PO Q6H PRN FEVER OR PAIN Apixaban 5 mg 02/24/17 10:00 02/24/17 21:36 Eliquis - PO 5 mg BID [facility] Administration Digoxin 0.125 mg 02/24/17 10:00 02/24/17 09:03 Lanoxin - PO 0.125 mg DAILY [facility] Administration Diltiazem HCl 90 mg 02/22/17 15:24 02/25/17 06:34 Cardizem - PO 90 mg Q6HPO [facility] Administration Docusate Sodium 100 mg 02/20/17 07:12 Colace - PO Q8H PRN CONSTIPATION Furosemide 40 mg 02/24/17 06:00 02/25/17 06:34 Lasix Injection - IVPUSH 40 mg BID@0600,1400 [facility] Administration Pantoprazole Sodium 100 mls @ 200 mls/hr 02/20/17 22:00 02/24/17 21:36 Protonix 40mg Ivpb (Pre-Docked) IVPB 200 mls/hr BID [facility] Administration Potassium Chloride 100 mls @ 100 mls/hr 02/25/17 09:00 Potassium Chloride 10 Meq Premix Ivpb - IVPB 02/25/17 11:59 Q60M [facility] Insulin Aspart 1 vial 02/15/17 22:00 02/25/17 06:31 Novolog Vial Sliding Scale - SQ Not Given ACHS [facility] Protocol Levothyroxine Sodium 112 mcg 02/16/17 07:00 02/25/17 06:34 Synthroid - PO 112 mcg DAILY@0700 [facility] Administration Magnesium Chloride 64 mg 02/24/17 10:45 02/24/17 13:15 Slow-Mag - PO 64 mg DAILY [facility] Administration Methotrexate 12.5 mg 02/16/17 13:00 02/23/17 11:23 Mexate - PO 12.5 mg Q7D@1000 [facility] Administration Polyethylene Glycol 17 gm 02/20/17 10:00 02/24/17 09:04 Miralax (For Daily Use) - PO 17 gm DAILY [facility] Administration Potassium Chloride 40 meq 02/25/17 08:58 K-Dur - PO DAILY [facility] Potassium Chloride 40 meq 02/25/17 14:00 K-Dur - PO 02/25/17 14:01 ONCE ONE Senna 2 tab 02/20/17 07:12 Senna - PO HS PRN CONSTIPATION Objective: Vital Signs Period Temp Pulse Resp BP Sys/Angeles Pulse Ox Last 24 Hr 97.8 F-99.0 F 81-114 20-20 109-124/54-67 96-97 Physical Exam: General: NAD, A&Ox3 HEENT: B/l strabismus Lungs: CTA bilaterally Heart: Irregular rate, S1S2 Abd: Soft, non-tender, non-distended. Normoactive bowel sounds Ext: B/l lower extremity edema. 2+ DP/PT bilaterally Neuro: No focal deficits CBCD WBC 5.4 K/mm3 (4.0-10.0) 02/25/17 05:38 RBC 2.98 M/mm3 (3.60-5.2) L 02/25/17 05:38 Hgb 8.2 GM/dL (10.7-15.3) L 02/25/17 05:38 Hct 24.7 % (32.4-45.2) L 02/25/17 05:38 MCV 82.7 fl (80-96) 02/25/17 05:38 MCHC 33.2 g/dl (32.0-36.0) 02/25/17 05:38 RDW 19.5 % (11.6-15.6) H 02/25/17 05:38 Plt Count 193 K/MM3 (134-434) 02/25/17 05:38 MPV 7.9 fl (7.5-11.1) 02/25/17 05:38 CMP Sodium 135 mmol/L (136-145) L 02/25/17 05:38 Potassium 2.9 mmol/L (3.5-5.1) L* 02/25/17 05:38 Chloride 99 mmol/L (98-107) 02/25/17 05:38 Carbon Dioxide 23 mmol/L (21-32) 02/25/17 05:38 Anion Gap 13 (8-16) 02/25/17 05:38 BUN 9 mg/dL (7-18) 02/25/17 05:38 Creatinine 1.0 mg/dL (0.55-1.02) 02/25/17 05:38 Creat Clearance w eGFR 54.35 (>60) 02/24/17 05:35 Random Glucose 105 mg/dL (74-106) D 02/25/17 05:38 Calcium 8.1 mg/dL (8.5-10.1) L 02/25/17 05:38 Total Bilirubin 0.6 mg/dL (0.2-1.0) D 02/24/17 05:35 AST 26 U/L (15-37) 02/24/17 05:35 ALT 20 U/L (12-78) 02/24/17 05:35 Alkaline Phosphatase 94 U/L (45-117) 02/24/17 05:35 Total Protein 5.3 g/dl (6.4-8.2) L 02/24/17 05:35 Albumin 2.5 g/dl (3.4-5.0) L 02/24/17 05:35 CARDIAC ENZYMES Creatine Kinase 57 IU/L (26-140) 02/14/17 10:58 Troponin I 0.20 ng/ml (0.00-0.05) H 02/15/17 05:15 Microbiology 02/14/17 11:45 Blood - Peripheral Venous Blood Culture - Final NO GROWTH AFTER 5 DAYS INCUBATION 02/14/17 12:15 Blood - Peripheral Venous Blood Culture - Final NO GROWTH AFTER 5 DAYS INCUBATION 02/14/17 15:54 Urine - Urine - Catheterized Urine Culture - Final NO GROWTH OBTAINED Assessment: This is a 71 year old female with PMHx of HTN, A.fib s/p ablation 2016, IDDM, RA, hypothyroidism who presented to the ED with nausea and vomiting x3 days. Plan: 1) Cardiology: A.fib with RVR - Conitnue Cardizem 90mg q8h - Continue Digoxin 0.125mg po dailiy - Continue Eliquis - Appreciate cardiology consult Acute on chronic diastolic heart failure - Lasix 40mg IVP bid - Daily weights 2) Heme: Acute on chronic anemia - Multifactorial: elevated TSH, meds (methotrexate), infectious, GI loss - Ferritin wnl - S/p 1u PRBC 02/21 - Has reverse albumin/globulin ratio, f/u protein studies - Appreciate hematology consult 3) GI: GI bleed - EGD/colonoscopy with no bleeding or source of bleeding identified - Capsule performed, awaiting results - Appreciate GI consult H.pylori - Discussed treatment with Dr. Goyal, who recommends holding off on starting treatment until the patient is evaluated by her pcp 4) Endocrine: DM - Continue to hold metformin while inpatient - BGM ACHS - ISS ACHS Hypothyroidism - TSH 16.3 - Continue Synthroid - Appreciate endocrine consult 5) Rheum: Rheumatoid arthritis - Continue Methotrexate - No need to restart home Prednisone dose as it is subtherapeutic dosing 6) ID: Lactic acidemia - Resolved 7) : DUARTE - Resolved 8) F/E/N: - Hyponatremia hypervolemia: resolved - Hypokalemia: replete - Diabetic/low sodium diet 9) Prophylaxis: - On Eliquis 10) Dispo: - Requires continued inpatient care CODE STATUS: FULL CODE Visit type - Emergency Visit Emergency Visit: Yes ED Registration Date: 02/14/17 Care time: The patient presented to the Emergency Department on the above date and was hospitalized for further evaluation of their emergent condition. - New Patient This patient is new to me today: No - Critical Care Critical Care patient: No
[2017-02-25] MEDS: PANTOPRAZOLE SODIUM 100 ML IVPB SCH ×2 (09:21→21:42)
[2017-02-25] MEDS: APIXABAN 5 MG TABLET PO SCH ×2 (09:22→21:42)
[2017-02-25] MEDS: MAGNESIUM CL 64 MG TABLET.SA PO SCH (09:22)
[2017-02-25] MEDS: DIGOXIN 0.125 MG TABLET (FP) PO SCH (09:22)
[2017-02-25] MEDS: POLYETHYLENE GLYCOL 3350 119 GM BTL PO SCH (09:23)
[2017-02-25] MEDS: KCL 10 MEQ IVPB 100 ML IVPB SCH ×4 (09:41→11:58)
[2017-02-25] MEDS: POTASSIUM CHLORIDE TABS 20 MEQ TABLET.ER (FP) PO SCH (09:43)
[2017-02-25 09:45] LABS: MAGNESIUM 1.6 mg/dL (1.8-2.4)
[2017-02-25] MEDS ORDERED: MAGNESIUM OXIDE 400 MG TABLET (FP) PO ONE (09:54)
--- NOTE | 2017-02-25 11:10 | PN ---
Progress Note, Physician History of Present Illness: PULMONARY ALERT,FEELING BETTER,LESS DYSPNEIC,-CP,STILL TACHYCARDIC - Current Medication List Current Medications: Active Medications Acetaminophen (Tylenol -) 650 mg PO Q6H PRN PRN Reason: FEVER OR PAIN Apixaban (Eliquis -) 5 mg PO BID [facility] Last Admin: 02/25/17 09:22 Dose: 5 mg Digoxin (Lanoxin -) 0.125 mg PO DAILY [facility] Last Admin: 02/25/17 09:22 Dose: 0.125 mg Diltiazem HCl (Cardizem -) 90 mg PO Q6HPO [facility] Last Admin: 02/25/17 06:34 Dose: 90 mg Docusate Sodium (Colace -) 100 mg PO Q8H PRN PRN Reason: CONSTIPATION Furosemide (Lasix Injection -) 40 mg IVPUSH BID@0600,1400 [facility] Last Admin: 02/25/17 06:34 Dose: 40 mg Pantoprazole Sodium (Protonix 40mg Ivpb (Pre-Docked)) 100 mls @ 200 mls/hr IVPB BID [facility] Last Admin: 02/25/17 09:21 Dose: 200 mls/hr Potassium Chloride (Potassium Chloride 10 Meq Premix Ivpb -) 100 mls @ 100 mls/ hr IVPB Q60M [facility] Stop: 02/25/17 12:44 Last Admin: 02/25/17 11:00 Dose: 100 mls/hr Insulin Aspart (Novolog Vial Sliding Scale -) 1 vial SQ ACHS [facility] PRN Reason: Protocol Last Admin: 02/25/17 06:31 Dose: Not Given Levothyroxine Sodium (Synthroid -) 112 mcg PO DAILY@0700 [facility] Last Admin: 02/25/17 06:34 Dose: 112 mcg Magnesium Chloride (Slow-Mag -) 64 mg PO DAILY [facility] Last Admin: 02/25/17 09:22 Dose: 64 mg Methotrexate (Mexate -) 12.5 mg PO Q7D@1000 [facility] Last Admin: 02/23/17 11:23 Dose: 12.5 mg Polyethylene Glycol (Miralax (For Daily Use) -) 17 gm PO DAILY [facility] Last Admin: 02/25/17 09:23 Dose: Not Given Potassium Chloride (K-Dur -) 40 meq PO DAILY [facility] Last Admin: 02/25/17 09:43 Dose: 40 meq Potassium Chloride (K-Dur -) 40 meq PO ONCE ONE Stop: 02/25/17 14:01 Senna (Senna -) 2 tab PO HS PRN PRN Reason: CONSTIPATION - Objective Vital Signs: Vital Signs Temperature 98.9 F 02/25/17 08:03 Pulse Rate 104 H 02/25/17 09:22 Respiratory Rate 20 02/25/17 08:06 Blood Pressure 117/62 02/25/17 08:03 O2 Sat by Pulse Oximetry (%) 96 02/24/17 20:40 Constitutional: Yes: Well Nourished, Calm Eyes: Yes: WNL HENT: Yes: WNL Neck: Yes: WNL Cardiovascular: Yes: Tachycardia, Pulse Irregular, S1, S2 Respiratory: Yes: Diminished Gastrointestinal: Yes: Normal Bowel Sounds, Soft Extremities: Yes: WNL Edema: Yes Edema: LLE: 3+, RLE: 3+ Labs: CBC, BMP 02/25/17 05:38 02/25/17 05:38 INR, PTT INR 1.26 (0.82-1.09) H 02/23/17 05:40 Assessment/Plan ASSESSMENT AND PLAN: Syncope Atrial Fibrillation with RVR Recent AVN ablation Acute Kidney Injury improving Lactic Acidosis improving HTN DM R/O GI BLEED - PO cardizem - iv lasix - anticoagulation - protonix - transfuse prn - replete k DR HOWARD
[2017-02-25] MEDS ORDERED: POTASSIUM CHLORIDE TABS 20 MEQ TABLET.ER (FP) PO ONE (14:00)
--- NOTE | 2017-02-25 14:57 | PN ---
Progress Note, Physician Chief Complaint: No dyspnea Still with edema. History of Present Illness: 71 y.o. female with h/o NIDDM, hypothyroidism, HTN, RA on chronic steroids/MTX, interstitial lung disease/emphysema, H pylori gastritis diagnosed 12/2016 started on abx, Atrial fibrillation on Eliquis, anemia, syncope due to PAF and conversion pauses s/p PVI at [facility] by Dr Gaona 01/27/17 dcd on amiodarone, now admitted with nausea and vomiting post abx for h. pylori, lactic acidosis, poor po intake and atrial fibrillation with RVR. Echo 01/13/17 normal EF, diastolic dysfunction, mod MR mild TR trace to mild PI. Hospital course significant for Anemia and Guiac positive stool. sp endoscopy. Telemetry today HR 110-118 - Current Medication List Current Medications: Active Medications Acetaminophen (Tylenol -) 650 mg PO Q6H PRN PRN Reason: FEVER OR PAIN Amiodarone HCl (Cordarone -) 200 mg PO DAILY [facility] Apixaban (Eliquis -) 5 mg PO BID [facility] Last Admin: 02/25/17 09:22 Dose: 5 mg Digoxin (Lanoxin -) 0.125 mg PO DAILY [facility] Last Admin: 02/25/17 09:22 Dose: 0.125 mg Diltiazem HCl (Cardizem -) 90 mg PO Q6HPO [facility] Last Admin: 02/25/17 11:58 Dose: 90 mg Docusate Sodium (Colace -) 100 mg PO Q8H PRN PRN Reason: CONSTIPATION Furosemide (Lasix Injection -) 40 mg IVPUSH BID@0600,1400 [facility] Last Admin: 02/25/17 13:22 Dose: 40 mg Pantoprazole Sodium (Protonix 40mg Ivpb (Pre-Docked)) 100 mls @ 200 mls/hr IVPB BID [facility] Last Admin: 02/25/17 09:21 Dose: 200 mls/hr Insulin Aspart (Novolog Vial Sliding Scale -) 1 vial SQ ACHS [facility] PRN Reason: Protocol Last Admin: 02/25/17 11:58 Dose: Not Given Levothyroxine Sodium (Synthroid -) 112 mcg PO DAILY@0700 [facility] Last Admin: 02/25/17 06:34 Dose: 112 mcg Magnesium Chloride (Slow-Mag -) 64 mg PO DAILY [facility] Last Admin: 02/25/17 09:22 Dose: 64 mg Methotrexate (Mexate -) 12.5 mg PO Q7D@1000 [facility] Last Admin: 02/23/17 11:23 Dose: 12.5 mg Polyethylene Glycol (Miralax (For Daily Use) -) 17 gm PO DAILY [facility] Last Admin: 02/25/17 09:23 Dose: Not Given Potassium Chloride (K-Dur -) 40 meq PO DAILY [facility] Last Admin: 02/25/17 09:43 Dose: 40 meq Senna (Senna -) 2 tab PO HS PRN PRN Reason: CONSTIPATION - Objective Vital Signs: Vital Signs Temperature 97.6 F 02/25/17 14:00 Pulse Rate 120 H 02/25/17 14:00 Respiratory Rate 20 02/25/17 14:00 Blood Pressure 140/75 02/25/17 14:00 O2 Sat by Pulse Oximetry (%) 96 02/24/17 20:40 Constitutional: Yes: No Distress Eyes: Yes: WNL HENT: Yes: WNL Neck: Yes: WNL Cardiovascular: Yes: Tachycardia, Pulse Irregular Respiratory: Yes: Regular, CTA Bilaterally Gastrointestinal: Yes: WNL Edema: Yes Edema: LLE: 1+, RLE: 1+ Labs: CBC, BMP 02/25/17 05:38 02/25/17 05:38 INR, PTT INR 1.26 (0.82-1.09) H 02/23/17 05:40 - ....Imaging Chest X-ray: Report Reviewed Problem List - Problems (1) Atrial fibrillation with rapid ventricular response Assessment/Plan: S/P pulmonary vein isolation 01/27/17 CHADS2 score 3. Noted to have GUAIAC POSITIVE stools. EGD on colonoscopy on 02/22/17. No source of bleeding. -HR continues to be mildly elevated despite multiple AVN blockers. She is not symptomatic. Resume Amiodarone 200mg qd-Her hypothyroidism was evaluated by endocrinology and thought to be due to poor synthroid compliance and not Amio. Stop Digoxin COntinue to aggressively replace K and Mg. Would give IV magnesium repletion. Once electrolyte imbalances corrected will likely transfer for LEANN [facility]V next week to [facility]. Code(s): I48.91 - UNSPECIFIED ATRIAL FIBRILLATION (2) CHF exacerbation Assessment/Plan: Continue IV lasix. Repeat BNP unchanged. Clinically improving weight, still volume up. Daily Wt's and monitor lytes. Will follow with you. Code(s): I50.9 - HEART FAILURE, UNSPECIFIED Qualifiers: Congestive heart failure type: diastolic Qualified Code(s): I50.33 - Acute on chronic diastolic (congestive) heart failure (3) Anemia Assessment/Plan: Continue to follow daily. Code(s): D64.9 - ANEMIA, UNSPECIFIED Qualifiers: Anemia type: unspecified type Qualified Code(s): D64.9 - Anemia, unspecified (4) HTN (hypertension) Code(s): I10 - ESSENTIAL (PRIMARY) HYPERTENSION Qualifiers: Hypertension type: essential hypertension Qualified Code(s): I10 - Essential (primary) hypertension
[2017-02-25] MEDS: AMIODARONE HCL 200 MG TABLET (FP) PO SCH (15:02)
--- NOTE | 2017-02-25 15:26 | PN ---
Progress Note, Physician History of Present Illness: stable no new issues - Current Medication List Current Medications: Active Medications Acetaminophen (Tylenol -) 650 mg PO Q6H PRN PRN Reason: FEVER OR PAIN Amiodarone HCl (Cordarone -) 200 mg PO DAILY [facility] Last Admin: 02/25/17 15:02 Dose: 200 mg Apixaban (Eliquis -) 5 mg PO BID [facility] Last Admin: 02/25/17 09:22 Dose: 5 mg Digoxin (Lanoxin -) 0.125 mg PO DAILY [facility] Last Admin: 02/25/17 09:22 Dose: 0.125 mg Diltiazem HCl (Cardizem -) 90 mg PO Q6HPO [facility] Last Admin: 02/25/17 11:58 Dose: 90 mg Docusate Sodium (Colace -) 100 mg PO Q8H PRN PRN Reason: CONSTIPATION Furosemide (Lasix Injection -) 40 mg IVPUSH BID@0600,1400 [facility] Last Admin: 02/25/17 13:22 Dose: 40 mg Pantoprazole Sodium (Protonix 40mg Ivpb (Pre-Docked)) 100 mls @ 200 mls/hr IVPB BID [facility] Last Admin: 02/25/17 09:21 Dose: 200 mls/hr Insulin Aspart (Novolog Vial Sliding Scale -) 1 vial SQ ACHS [facility] PRN Reason: Protocol Last Admin: 02/25/17 11:58 Dose: Not Given Levothyroxine Sodium (Synthroid -) 112 mcg PO DAILY@0700 [facility] Last Admin: 02/25/17 06:34 Dose: 112 mcg Magnesium Oxide (Mag-Ox -) 400 mg PO BID [facility] Methotrexate (Mexate -) 12.5 mg PO Q7D@1000 [facility] Last Admin: 02/23/17 11:23 Dose: 12.5 mg Polyethylene Glycol (Miralax (For Daily Use) -) 17 gm PO DAILY [facility] Last Admin: 02/25/17 09:23 Dose: Not Given Potassium Chloride (K-Dur -) 40 meq PO DAILY [facility] Last Admin: 02/25/17 09:43 Dose: 40 meq Senna (Senna -) 2 tab PO HS PRN PRN Reason: CONSTIPATION - Objective Vital Signs: Vital Signs Temperature 97.6 F 02/25/17 14:00 Pulse Rate 120 H 02/25/17 14:00 Respiratory Rate 20 02/25/17 14:00 Blood Pressure 140/75 02/25/17 14:00 O2 Sat by Pulse Oximetry (%) 96 02/24/17 20:40 Constitutional: Yes: No Distress, Calm Cardiovascular: Yes: Pulse Irregular Respiratory: Yes: Regular, CTA Bilaterally Gastrointestinal: Yes: Normal Bowel Sounds, Soft Musculoskeletal: Yes: WNL Extremities: Yes: WNL Neurological: Yes: Alert, Oriented Psychiatric: Yes: Alert, Oriented Labs: CBC, BMP 02/25/17 05:38 02/25/17 05:38 INR, PTT INR 1.26 (0.82-1.09) H 02/23/17 05:40 Assessment/Plan Syncope Atrial Fibrillation with RVR Recent AVN ablation Acute Kidney Injury Lactic Acidosis HTN DM sepsis anemia plan doing well continue to monitor patient stable final plan awaited
--- NOTE | 2017-02-25 15:56 | PN ---
Progress Note (short form) - Note Progress Note: Patient seen and examined Remains somewhat dyspneic on exertion Improving on ambulation in jesus. Heart rate seems better controlled Last Vital Signs Temp Pulse Resp BP Pulse Ox 97.6 F 120 H 20 140/75 96 02/25/17 14:00 02/25/17 14:00 02/25/17 14:00 02/25/17 14:00 02/24/17 20:40 HEENT: Widened palpebral fissure ; right eye laterally deviated Oropharynx: No thrush, No mucositis Neck: Supple Cor: RSR, Lungs: rales at bases Abd: Soft, Normal bowel sounds, No organomegaly Ext:LE edema Skin: No rashes, Integument intact CBC, BMP 02/25/17 05:38 02/25/17 05:38 Current Medications Generic Name Dose Route Start Last Admin Trade Name Freq PRN Reason Stop Dose Admin Acetaminophen 650 mg 02/15/17 19:49 Tylenol - PO Q6H PRN FEVER OR PAIN Amiodarone HCl 200 mg 02/25/17 14:45 02/25/17 15:02 Cordarone - PO 200 mg DAILY [facility] Administration Apixaban 5 mg 02/24/17 10:00 02/25/17 09:22 Eliquis - PO 5 mg BID [facility] Administration Digoxin 0.125 mg 02/24/17 10:00 02/25/17 09:22 Lanoxin - PO 0.125 mg DAILY [facility] Administration Diltiazem HCl 90 mg 02/22/17 15:24 02/25/17 11:58 Cardizem - PO 90 mg Q6HPO [facility] Administration Docusate Sodium 100 mg 02/20/17 07:12 Colace - PO Q8H PRN CONSTIPATION Furosemide 40 mg 02/24/17 06:00 02/25/17 13:22 Lasix Injection - IVPUSH 40 mg BID@0600,1400 [facility] Administration Pantoprazole Sodium 100 mls @ 200 mls/hr 02/20/17 22:00 02/25/17 09:21 Protonix 40mg Ivpb (Pre-Docked) IVPB 200 mls/hr BID [facility] Administration Insulin Aspart 1 vial 02/15/17 22:00 02/25/17 11:58 Novolog Vial Sliding Scale - SQ Not Given ACHS [facility] Protocol Levothyroxine Sodium 112 mcg 02/16/17 07:00 02/25/17 06:34 Synthroid - PO 112 mcg DAILY@0700 [facility] Administration Magnesium Oxide 400 mg 02/25/17 22:00 Mag-Ox - PO BID [facility] Methotrexate 12.5 mg 02/16/17 13:00 02/23/17 11:23 Mexate - PO 12.5 mg Q7D@1000 [facility] Administration Polyethylene Glycol 17 gm 02/20/17 10:00 02/25/17 09:23 Miralax (For Daily Use) - PO Not Given DAILY [facility] Potassium Chloride 40 meq 02/25/17 08:58 02/25/17 09:43 K-Dur - PO 40 meq DAILY [facility] Administration Senna 2 tab 02/20/17 07:12 Senna - PO HS PRN CONSTIPATION Impression: Arrhythmias Hypothyroid Rheumatoid arthritis A/c GI bleeding Anemia DM Volume overload Upper and lower endoscopy - without evidence of bleeding source. Anemia-- multifactorial Normal B-12, folate, Elevated TSH, compatible with hypothyroidism, Heme positive stool DUARTE on admission No "M" component Elevated haptoglobin - against hemolysis H. Pylorii infection MTX Ferritin-50 Chronic disease-R.A> Although there are multiple reasons for anemia, the fact that the patient has required 3 units of blood over a rather short period of time with no evidence of hemolysis would suggest a component of blood loss . The Fe++ studies pending have been done post transfusion and therefore will not be reliable.Would therefore suggest capsule endoscopy as outpatient since upper and lower endoscopy were non revealing for source of bleeding. Problem List - Problems (1) DUARTE (acute kidney injury) Code(s): N17.9 - ACUTE KIDNEY FAILURE, UNSPECIFIED (2) Anemia Code(s): D64.9 - ANEMIA, UNSPECIFIED Qualifiers: Anemia type: unspecified type Qualified Code(s): D64.9 - Anemia, unspecified
[2017-02-25] MEDS: MAGNESIUM OXIDE 400 MG TABLET (FP) PO SCH (21:42)
[2017-02-26] MEDS: dilTIAZem HCL 60 MG TABLET (FP) PO SCH ×5 (00:13→23:12)
[2017-02-26] MEDS: FUROSEMIDE 40 MG/4 ML INJECTABLE VIAL IVPUSH SCH ×2 (06:14→14:08)
[2017-02-26] MEDS: LEVOTHYROXINE NA 112 MCG TABLET (FP) PO SCH (06:14)
[2017-02-26] MEDS: INSULIN SLIDING SCALE (NOVOLOG) 1 VIAL SQ SCH ×4 (06:16→21:47)
[2017-02-26 07:53] LABS: MCH 27.4 pg (25.7-33.7); MCHC 32.4 g/dl (32.0-36.0); MEAN CELL VOLUME 84.5 fl (80-96); PLATELET COUNT 220 K/MM3 (134-434); RDW 19.9 % (11.6-15.6); WHITE BLOOD COUNT 6.7 K/mm3 (4.0-10.0)
[2017-02-26 08:21] LABS: ALBUMIN 2.8 g/dl (3.4-5.0); BILIRUBIN,TOTAL 0.8 mg/dL (0.2-1.0); CALCIUM 8.4 mg/dL (8.5-10.1); COCKROFT - GAULT 68.1615; MAGNESIUM 1.8 mg/dL (1.8-2.4)
[2017-02-26] MEDS ORDERED: PT OWN MED DRAWER 7, Y5N ONE (09:04)
[2017-02-26] MEDS: PANTOPRAZOLE SODIUM 100 ML IVPB SCH ×2 (09:29→21:47)
[2017-02-26] MEDS: DIGOXIN 0.125 MG TABLET (FP) PO SCH (09:30)
[2017-02-26] MEDS: POTASSIUM CHLORIDE TABS 20 MEQ TABLET.ER (FP) PO SCH (09:30)
[2017-02-26] MEDS: AMIODARONE HCL 200 MG TABLET (FP) PO SCH (09:30)
[2017-02-26] MEDS: MAGNESIUM OXIDE 400 MG TABLET (FP) PO SCH ×2 (09:30→21:46)
[2017-02-26] MEDS: APIXABAN 5 MG TABLET PO SCH ×2 (09:30→21:46)
[2017-02-26] MEDS: POLYETHYLENE GLYCOL 3350 119 GM BTL PO SCH (09:31)
--- NOTE | 2017-02-26 10:53 | PN ---
Progress Note (short form) - Note Progress Note: Subjective: The patient was seen and examined at the bedside, she states she would like to go home today. Plan for transfer to [facility] for LEANN DCCV once electrolytes corrected Current Medications Generic Name Dose Route Start Last Admin Trade Name Freq PRN Reason Stop Dose Admin Acetaminophen 650 mg 02/15/17 19:49 Tylenol - PO Q6H PRN FEVER OR PAIN Amiodarone HCl 200 mg 02/25/17 14:45 02/26/17 09:30 Cordarone - PO 200 mg DAILY [facility] Administration Apixaban 5 mg 02/24/17 10:00 02/26/17 09:30 Eliquis - PO 5 mg BID [facility] Administration Digoxin 0.125 mg 02/24/17 10:00 02/26/17 09:30 Lanoxin - PO 0.125 mg DAILY [facility] Administration Diltiazem HCl 90 mg 02/22/17 15:24 02/26/17 06:13 Cardizem - PO 90 mg Q6HPO [facility] Administration Docusate Sodium 100 mg 02/20/17 07:12 Colace - PO Q8H PRN CONSTIPATION Furosemide 40 mg 02/24/17 06:00 02/26/17 06:14 Lasix Injection - IVPUSH 40 mg BID@0600,1400 [facility] Administration Pantoprazole Sodium 100 mls @ 200 mls/hr 02/20/17 22:00 02/26/17 09:29 Protonix 40mg Ivpb (Pre-Docked) IVPB 200 mls/hr BID [facility] Administration Insulin Aspart 1 vial 02/15/17 22:00 02/26/17 06:16 Novolog Vial Sliding Scale - SQ Not Given ACHS [facility] Protocol Levothyroxine Sodium 112 mcg 02/16/17 07:00 02/26/17 06:14 Synthroid - PO 112 mcg DAILY@0700 [facility] Administration Magnesium Oxide 400 mg 02/25/17 22:00 02/26/17 09:30 Mag-Ox - PO 400 mg BID [facility] Administration Methotrexate 12.5 mg 02/16/17 13:00 02/23/17 11:23 Mexate - PO 12.5 mg Q7D@1000 [facility] Administration Polyethylene Glycol 17 gm 02/20/17 10:00 02/26/17 09:31 Miralax (For Daily Use) - PO Not Given DAILY [facility] Potassium Chloride 40 meq 02/25/17 08:58 02/26/17 09:30 K-Dur - PO 40 meq DAILY [facility] Administration Senna 2 tab 02/20/17 07:12 Senna - PO HS PRN CONSTIPATION Objective: Vital Signs Period Temp Pulse Resp BP Sys/Angeles Pulse Ox Last 24 Hr 97 F-98.4 F 69-120 20-20 110-147/61-79 96 Physical Exam: General: NAD, A&Ox3 HEENT: B/l strabismus Lungs: CTA bilaterally Heart: Irregular rate, S1S2 Abd: Soft, non-tender, non-distended. Normoactive bowel sounds Ext: B/l lower extremity edema. 2+ DP/PT bilaterally Neuro: No focal deficits CBCD WBC 6.7 K/mm3 (4.0-10.0) 02/26/17 06:00 RBC 3.12 M/mm3 (3.60-5.2) L 02/26/17 06:00 Hgb 8.5 GM/dL (10.7-15.3) L 02/26/17 06:00 Hct 26.4 % (32.4-45.2) L 02/26/17 06:00 MCV 84.5 fl (80-96) 02/26/17 06:00 MCHC 32.4 g/dl (32.0-36.0) 02/26/17 06:00 RDW 19.9 % (11.6-15.6) H 02/26/17 06:00 Plt Count 220 K/MM3 (134-434) 02/26/17 06:00 MPV 8.0 fl (7.5-11.1) 02/26/17 06:00 CMP Sodium 135 mmol/L (136-145) L 02/26/17 06:00 Potassium 3.7 mmol/L (3.5-5.1) D 02/26/17 06:00 Chloride 98 mmol/L (98-107) 02/26/17 06:00 Carbon Dioxide 24 mmol/L (21-32) 02/26/17 06:00 Anion Gap 13 (8-16) 02/26/17 06:00 BUN 11 mg/dL (7-18) D 02/26/17 06:00 Creatinine 1.0 mg/dL (0.55-1.02) 02/26/17 06:00 Creat Clearance w eGFR 54.35 (>60) 02/26/17 06:00 Random Glucose 109 mg/dL (74-106) H 02/26/17 06:00 Calcium 8.4 mg/dL (8.5-10.1) L 02/26/17 06:00 Total Bilirubin 0.8 mg/dL (0.2-1.0) D 02/26/17 06:00 AST 30 U/L (15-37) 02/26/17 06:00 ALT 24 U/L (12-78) 02/26/17 06:00 Alkaline Phosphatase 105 U/L (45-117) 02/26/17 06:00 Total Protein 6.0 g/dl (6.4-8.2) L 02/26/17 06:00 Albumin 2.8 g/dl (3.4-5.0) L 02/26/17 06:00 CARDIAC ENZYMES Creatine Kinase 57 IU/L (26-140) 02/14/17 10:58 Troponin I 0.20 ng/ml (0.00-0.05) H 02/15/17 05:15 Microbiology 02/14/17 11:45 Blood - Peripheral Venous Blood Culture - Final NO GROWTH AFTER 5 DAYS INCUBATION 02/14/17 12:15 Blood - Peripheral Venous Blood Culture - Final NO GROWTH AFTER 5 DAYS INCUBATION 02/14/17 15:54 Urine - Urine - Catheterized Urine Culture - Final NO GROWTH OBTAINED Assessment: This is a 71 year old female with PMHx of HTN, A.fib s/p ablation 2016, IDDM, RA, hypothyroidism who presented to the ED with nausea and vomiting x3 days. Plan: 1) Cardiology: A.fib with RVR - HR has improved, now in 90s - Resumed amiodarone 200mg daily (02/25) - Continue Cardizem 90mg q6h - Discontinue Digoxin per cards - Continue Eliquis - Transfer to [facility] next week for LEANN DCCV - Appreciate cardiology consult Acute on chronic diastolic heart failure - Lasix 40mg IVP bid - Daily weights 2) Heme: Anemia - Multifactorial: elevated TSH, meds (methotrexate), infectious, GI loss - Ferritin wnl - S/p 1u PRBC 02/21 - Has reverse albumin/globulin ratio, f/u protein studies - Appreciate hematology consult 3) GI: GI bleed - EGD/colonoscopy with no bleeding or source of bleeding identified - Capsule endoscopy per GI - F/u GI for further recommendations H.pylori - Discussed treatment with Dr. Goyal, who recommends holding off on starting treatment until the patient is evaluated by her pcp 4) Endocrine: DM - Continue to hold metformin while inpatient - BGM ACHS - ISS ACHS Hypothyroidism - TSH 16.3 - Continue Synthroid - Appreciate endocrine consult 5) Rheum: Rheumatoid arthritis - Continue Methotrexate - No need to restart home Prednisone dose as it is subtherapeutic dosing 6) ID: Lactic acidemia - Resolved 7) : DUARTE - Resolved 8) F/E/N: - Hyponatremia hypervolemia: resolved - Hypokalemia: resolved, continue potassium supplement daily - Diabetic/low sodium diet 9) Prophylaxis: - On Eliquis 10) Dispo: - Requires continued inpatient care CODE STATUS: FULL CODE Visit type - Emergency Visit Emergency Visit: Yes ED Registration Date: 02/14/17 Care time: The patient presented to the Emergency Department on the above date and was hospitalized for further evaluation of their emergent condition. - New Patient This patient is new to me today: No - Critical Care Critical Care patient: No
--- NOTE | 2017-02-26 12:35 | PN ---
Progress Note, Physician Chief Complaint: comfortable History of Present Illness: 71 y.o. female with h/o NIDDM, hypothyroidism, HTN, RA on chronic steroids/MTX, interstitial lung disease/emphysema, H pylori gastritis diagnosed 12/2016 started on abx, Atrial fibrillation on Eliquis, anemia, syncope due to PAF and conversion pauses s/p PVI at [facility] by Dr Gaona 01/27/17 dcd on amiodarone, now admitted with nausea and vomiting post abx for h. pylori, lactic acidosis, poor po intake and atrial fibrillation with RVR. Echo 01/13/17 normal EF, diastolic dysfunction, mod MR mild TR trace to mild PI. Hospital course significant for Anemia and Guiac positive stool. sp endoscopy. tele now nsr. - Current Medication List Current Medications: Active Medications Acetaminophen (Tylenol -) 650 mg PO Q6H PRN PRN Reason: FEVER OR PAIN Amiodarone HCl (Cordarone -) 200 mg PO DAILY [facility] Last Admin: 02/26/17 09:30 Dose: 200 mg Apixaban (Eliquis -) 5 mg PO BID [facility] Last Admin: 02/26/17 09:30 Dose: 5 mg Diltiazem HCl (Cardizem -) 90 mg PO Q6HPO [facility] Last Admin: 02/26/17 11:49 Dose: 90 mg Docusate Sodium (Colace -) 100 mg PO Q8H PRN PRN Reason: CONSTIPATION Furosemide (Lasix Injection -) 40 mg IVPUSH BID@0600,1400 [facility] Last Admin: 02/26/17 06:14 Dose: 40 mg Pantoprazole Sodium (Protonix 40mg Ivpb (Pre-Docked)) 100 mls @ 200 mls/hr IVPB BID [facility] Last Admin: 02/26/17 09:29 Dose: 200 mls/hr Insulin Aspart (Novolog Vial Sliding Scale -) 1 vial SQ ACHS [facility] PRN Reason: Protocol Last Admin: 02/26/17 11:50 Dose: Not Given Levothyroxine Sodium (Synthroid -) 112 mcg PO DAILY@0700 [facility] Last Admin: 02/26/17 06:14 Dose: 112 mcg Magnesium Oxide (Mag-Ox -) 400 mg PO BID [facility] Last Admin: 02/26/17 09:30 Dose: 400 mg Methotrexate (Mexate -) 12.5 mg PO Q7D@1000 [facility] Last Admin: 02/23/17 11:23 Dose: 12.5 mg Polyethylene Glycol (Miralax (For Daily Use) -) 17 gm PO DAILY [facility] Last Admin: 02/26/17 09:31 Dose: Not Given Potassium Chloride (K-Dur -) 40 meq PO DAILY [facility] Last Admin: 02/26/17 09:30 Dose: 40 meq Senna (Senna -) 2 tab PO HS PRN PRN Reason: CONSTIPATION - Objective Vital Signs: Vital Signs Temperature 98.2 F 02/26/17 05:51 Pulse Rate 90 02/26/17 10:00 Respiratory Rate 20 02/26/17 10:00 Blood Pressure 136/65 02/26/17 10:00 O2 Sat by Pulse Oximetry (%) 96 02/26/17 09:00 Constitutional: Yes: Well Nourished, No Distress Eyes: Yes: WNL HENT: Yes: WNL Neck: Yes: WNL Cardiovascular: Yes: Regular Rate and Rhythm Respiratory: Yes: WNL Gastrointestinal: Yes: WNL, Normal Bowel Sounds Musculoskeletal: Yes: WNL Extremities: Yes: WNL Edema: No Peripheral Pulses WNL: Yes Labs: CBC, BMP 02/26/17 06:00 02/26/17 06:00 INR, PTT INR 1.26 (0.82-1.09) H 02/23/17 05:40 Problem List - Problems (1) Atrial fibrillation with rapid ventricular response Assessment/Plan: S/P pulmonary vein isolation 01/27/17 CHADS2 score 3. Noted to have GUAIAC POSITIVE stools. EGD on colonoscopy on 02/22/17. No source of bleeding. -HR continues to be mildly elevated despite multiple AVN blockers. She is not symptomatic. Resume Amiodarone 200mg qd-Her hypothyroidism was evaluated by endocrinology and thought to be due to poor synthroid compliance and not Amio. Stop Digoxin Continue to aggressively replace K and Mg. Would give IV magnesium repletion. Once electrolyte imbalances corrected will likely transfer for LEANN DCCV next week to [facility]. Code(s): I48.91 - UNSPECIFIED ATRIAL FIBRILLATION (2) CHF exacerbation Assessment/Plan: still elevated pro bnp Add spironolactone. continue IV lasix. Code(s): I50.9 - HEART FAILURE, UNSPECIFIED Qualifiers: Congestive heart failure type: diastolic Qualified Code(s): I50.33 - Acute on chronic diastolic (congestive) heart failure
--- NOTE | 2017-02-26 13:33 | PN ---
Progress Note (short form) - Note Progress Note: Overall better. No CP or SOB. For transfer to [facility]. Intake & Output 02/23/17 02/24/17 02/25/17 02/26/17 23:59 23:59 23:59 23:59 Intake Total 0 200 650 120 Balance 0 200 650 120 Weight 190 lb 0.6 oz 188 lb 3.2 oz 187 lb 190 lb Last Vital Signs Temp Pulse Resp BP Pulse Ox 98.2 F 90 20 136/65 96 02/26/17 05:51 02/26/17 10:00 02/26/17 10:00 02/26/17 10:00 02/26/17 09:00 Active Medications Acetaminophen (Tylenol -) 650 mg PO Q6H PRN PRN Reason: FEVER OR PAIN Amiodarone HCl (Cordarone -) 200 mg PO DAILY [facility] Last Admin: 02/26/17 09:30 Dose: 200 mg Apixaban (Eliquis -) 5 mg PO BID [facility] Last Admin: 02/26/17 09:30 Dose: 5 mg Diltiazem HCl (Cardizem -) 90 mg PO Q6HPO [facility] Last Admin: 02/26/17 11:49 Dose: 90 mg Docusate Sodium (Colace -) 100 mg PO Q8H PRN PRN Reason: CONSTIPATION Furosemide (Lasix Injection -) 40 mg IVPUSH BID@0600,1400 [facility] Last Admin: 02/26/17 06:14 Dose: 40 mg Pantoprazole Sodium (Protonix 40mg Ivpb (Pre-Docked)) 100 mls @ 200 mls/hr IVPB BID [facility] Last Admin: 02/26/17 09:29 Dose: 200 mls/hr Insulin Aspart (Novolog Vial Sliding Scale -) 1 vial SQ ACHS [facility] PRN Reason: Protocol Last Admin: 02/26/17 11:50 Dose: Not Given Levothyroxine Sodium (Synthroid -) 112 mcg PO DAILY@0700 [facility] Last Admin: 02/26/17 06:14 Dose: 112 mcg Magnesium Oxide (Mag-Ox -) 400 mg PO BID [facility] Last Admin: 02/26/17 09:30 Dose: 400 mg Methotrexate (Mexate -) 12.5 mg PO Q7D@1000 [facility] Last Admin: 02/23/17 11:23 Dose: 12.5 mg Polyethylene Glycol (Miralax (For Daily Use) -) 17 gm PO DAILY [facility] Last Admin: 02/26/17 09:31 Dose: Not Given Senna (Senna -) 2 tab PO HS PRN PRN Reason: CONSTIPATION Spironolactone (Aldactone -) 25 mg PO BID [facility] Constitutional: Yes: NAD Eyes: Yes: WNL HENT: Yes: WNL Neck: Yes: WNL Cardiovascular: Yes: Tachycardia, Pulse Irregular, S1, S2 Respiratory: Yes: Diminished Gastrointestinal: Yes: Normal Bowel Sounds, Soft Extremities: Yes: WNL Edema: Yes Edema: LLE: 3+, RLE: 3+ Labs: Laboratory Results - last 24 hr 02/25/17 02/26/17 02/26/17 21:31 05:42 06:00 WBC 6.7 RBC 3.12 L Hgb 8.5 L Hct 26.4 L MCV 84.5 MCHC 32.4 RDW 19.9 H Plt Count 220 MPV 8.0 Sodium Potassium Chloride Carbon Dioxide Anion Gap BUN Creatinine Creat Clearance w eGFR POC Glucometer 176 125 Random Glucose Calcium Magnesium Total Bilirubin AST ALT Alkaline Phosphatase Total Protein Albumin 02/26/17 02/26/17 06:00 11:49 WBC RBC Hgb Hct MCV MCHC RDW Plt Count MPV Sodium 135 L Potassium 3.7 D Chloride 98 Carbon Dioxide 24 Anion Gap 13 BUN 11 D Creatinine 1.0 Creat Clearance w eGFR 54.35 POC Glucometer 145 Random Glucose 109 H Calcium 8.4 L Magnesium 1.8 Total Bilirubin 0.8 D AST 30 ALT 24 Alkaline Phosphatase 105 Total Protein 6.0 L Albumin 2.8 L Assessment/Plan ASSESSMENT AND PLAN: Syncope Atrial Fibrillation with RVR Recent AVN ablation Acute Kidney Injury improving Lactic Acidosis improving HTN DM (?) GI BLEED - Cardizem - Lasix - AC - protonix - Normal transfusion thresholds Dr Lay
--- NOTE | 2017-02-26 15:11 | PN ---
Progress Note, Physician History of Present Illness: stable no new issues - Current Medication List Current Medications: Active Medications Acetaminophen (Tylenol -) 650 mg PO Q6H PRN PRN Reason: FEVER OR PAIN Amiodarone HCl (Cordarone -) 200 mg PO DAILY [facility] Last Admin: 02/26/17 09:30 Dose: 200 mg Apixaban (Eliquis -) 5 mg PO BID [facility] Last Admin: 02/26/17 09:30 Dose: 5 mg Diltiazem HCl (Cardizem -) 90 mg PO Q6HPO [facility] Last Admin: 02/26/17 11:49 Dose: 90 mg Docusate Sodium (Colace -) 100 mg PO Q8H PRN PRN Reason: CONSTIPATION Furosemide (Lasix Injection -) 40 mg IVPUSH BID@0600,1400 [facility] Last Admin: 02/26/17 14:08 Dose: 40 mg Pantoprazole Sodium (Protonix 40mg Ivpb (Pre-Docked)) 100 mls @ 200 mls/hr IVPB BID [facility] Last Admin: 02/26/17 09:29 Dose: 200 mls/hr Insulin Aspart (Novolog Vial Sliding Scale -) 1 vial SQ ACHS [facility] PRN Reason: Protocol Last Admin: 02/26/17 11:50 Dose: Not Given Levothyroxine Sodium (Synthroid -) 112 mcg PO DAILY@0700 [facility] Last Admin: 02/26/17 06:14 Dose: 112 mcg Magnesium Oxide (Mag-Ox -) 400 mg PO BID [facility] Last Admin: 02/26/17 09:30 Dose: 400 mg Methotrexate (Mexate -) 12.5 mg PO Q7D@1000 [facility] Last Admin: 02/23/17 11:23 Dose: 12.5 mg Polyethylene Glycol (Miralax (For Daily Use) -) 17 gm PO DAILY [facility] Last Admin: 02/26/17 09:31 Dose: Not Given Senna (Senna -) 2 tab PO HS PRN PRN Reason: CONSTIPATION Spironolactone (Aldactone -) 25 mg PO BID [facility] - Objective Vital Signs: Vital Signs Temperature 98.2 F 02/26/17 05:51 Pulse Rate 90 02/26/17 10:00 Respiratory Rate 20 02/26/17 10:00 Blood Pressure 136/65 02/26/17 10:00 O2 Sat by Pulse Oximetry (%) 96 02/26/17 09:00 Constitutional: Yes: No Distress, Calm Cardiovascular: Yes: Pulse Irregular, S1, S2 Respiratory: Yes: Regular, CTA Bilaterally Musculoskeletal: Yes: WNL Extremities: Yes: WNL Neurological: Yes: Alert, Oriented Psychiatric: Yes: Alert, Oriented Labs: CBC, BMP 02/26/17 06:00 02/26/17 06:00 INR, PTT INR 1.26 (0.82-1.09) H 02/23/17 05:40 Assessment/Plan Syncope Atrial Fibrillation with RVR Recent AVN ablation Acute Kidney Injury Lactic Acidosis HTN DM sepsis anemia plan doing well continue to monitor patient stable final plan awaited bin
[2017-02-26] MEDS: SPIRONOLACTONE 25 MG TABLET (FP) PO SCH (21:46)
[2017-02-27] MEDS: INSULIN SLIDING SCALE (NOVOLOG) 1 VIAL SQ SCH ×4 (06:18→21:28)
[2017-02-27] MEDS: dilTIAZem HCL 60 MG TABLET (FP) PO SCH ×2 (06:24→11:01)
[2017-02-27] MEDS: FUROSEMIDE 40 MG/4 ML INJECTABLE VIAL IVPUSH SCH (06:24)
[2017-02-27] MEDS: LEVOTHYROXINE NA 112 MCG TABLET (FP) PO SCH (06:24)
[2017-02-27 08:56] LABS: CALCIUM 8.6 mg/dL (8.5-10.1); COCKROFT - GAULT 68.5185; MAGNESIUM 1.8 mg/dL (1.8-2.4)
[2017-02-27] MEDS: APIXABAN 5 MG TABLET PO SCH ×2 (09:16→21:28)
[2017-02-27] MEDS: MAGNESIUM OXIDE 400 MG TABLET (FP) PO SCH ×2 (09:16→21:28)
[2017-02-27] MEDS: SPIRONOLACTONE 25 MG TABLET (FP) PO SCH ×2 (09:16→21:28)
[2017-02-27] MEDS: AMIODARONE HCL 200 MG TABLET (FP) PO SCH (09:16)
[2017-02-27] MEDS: PANTOPRAZOLE SODIUM 100 ML IVPB SCH (09:17)
[2017-02-27] MEDS: POLYETHYLENE GLYCOL 3350 119 GM BTL PO SCH (09:17)
--- NOTE | 2017-02-27 10:33 | PN ---
Progress Note, Physician Chief Complaint: no complaints telemetry with af rate controlled. History of Present Illness: 71 y.o. female with h/o NIDDM, hypothyroidism, HTN, RA on chronic steroids/MTX, interstitial lung disease/emphysema, H pylori gastritis diagnosed 12/2016 started on abx, Atrial fibrillation on Eliquis, anemia, syncope due to PAF and conversion pauses s/p PVI at [facility] by Dr Gaona 01/27/17 dcd on amiodarone, now admitted with nausea and vomiting post abx for h. pylori, lactic acidosis, poor po intake and atrial fibrillation with RVR. Echo 01/13/17 normal EF, diastolic dysfunction, mod MR mild TR trace to mild PI. Hospital course significant for Anemia and Guiac positive stool. sp endoscopy. tele now nsr, some atrial fib with controlled VR. - Current Medication List Current Medications: Active Medications Acetaminophen (Tylenol -) 650 mg PO Q6H PRN PRN Reason: FEVER OR PAIN Amiodarone HCl (Cordarone -) 200 mg PO DAILY [facility] Last Admin: 02/27/17 09:16 Dose: 200 mg Apixaban (Eliquis -) 5 mg PO BID [facility] Last Admin: 02/27/17 09:16 Dose: 5 mg Diltiazem HCl (Cardizem -) 90 mg PO Q6HPO [facility] Last Admin: 02/27/17 06:24 Dose: 90 mg Docusate Sodium (Colace -) 100 mg PO Q8H PRN PRN Reason: CONSTIPATION Furosemide (Lasix Injection -) 40 mg IVPUSH BID@0600,1400 [facility] Last Admin: 02/27/17 06:24 Dose: 40 mg Pantoprazole Sodium (Protonix 40mg Ivpb (Pre-Docked)) 100 mls @ 200 mls/hr IVPB BID [facility] Last Admin: 02/27/17 09:17 Dose: 200 mls/hr Insulin Aspart (Novolog Vial Sliding Scale -) 1 vial SQ ACHS [facility] PRN Reason: Protocol Last Admin: 02/27/17 06:18 Dose: Not Given Levothyroxine Sodium (Synthroid -) 112 mcg PO DAILY@0700 [facility] Last Admin: 02/27/17 06:24 Dose: 112 mcg Magnesium Oxide (Mag-Ox -) 400 mg PO BID [facility] Last Admin: 02/27/17 09:16 Dose: 400 mg Methotrexate (Mexate -) 12.5 mg PO Q7D@1000 [facility] Last Admin: 02/23/17 11:23 Dose: 12.5 mg Polyethylene Glycol (Miralax (For Daily Use) -) 17 gm PO DAILY [facility] Last Admin: 02/27/17 09:17 Dose: Not Given Senna (Senna -) 2 tab PO HS PRN PRN Reason: CONSTIPATION Spironolactone (Aldactone -) 25 mg PO BID [facility] Last Admin: 02/27/17 09:16 Dose: 25 mg - Objective Vital Signs: Vital Signs Temperature 98.3 F 02/27/17 09:51 Pulse Rate 74 02/27/17 09:51 Respiratory Rate 18 02/27/17 09:51 Blood Pressure 120/72 02/27/17 09:51 O2 Sat by Pulse Oximetry (%) 95 02/27/17 06:00 Constitutional: Yes: Well Nourished, No Distress Eyes: Yes: WNL HENT: Yes: WNL Neck: Yes: WNL Cardiovascular: Yes: Pulse Irregular, S1, S2 Respiratory: Yes: WNL, CTA Bilaterally Gastrointestinal: Yes: Normal Bowel Sounds, Soft Edema: No Peripheral Pulses WNL: Yes Labs: CBC, BMP 02/26/17 06:00 02/27/17 06:00 INR, PTT INR 1.26 (0.82-1.09) H 02/23/17 05:40 Problem List - Problems (1) Atrial fibrillation with rapid ventricular response Assessment/Plan: S/P pulmonary vein isolation 01/27/17 CHADS2 score 3. Noted to have GUAIAC POSITIVE stools. EGD on colonoscopy on 02/22/17. No source of bleeding. -HR continues to be mildly elevated despite multiple AVN blockers. She is not symptomatic. Resume Amiodarone 200mg qd-Her hypothyroidism was evaluated by endocrinology and thought to be due to poor synthroid compliance and not Amio. Stop Digoxin Continue to aggressively replace K and Mg. Would give IV magnesium repletion. Rates are controlled at this point. Would defer LEANN and DCCV if stable today and start DC planning. Code(s): I48.91 - UNSPECIFIED ATRIAL FIBRILLATION (2) CHF exacerbation Assessment/Plan: still elevated pro bnp Added spironolactone. continue IV lasix. follow daily wts and I/O. symptomatically improved. Code(s): I50.9 - HEART FAILURE, UNSPECIFIED Qualifiers: Congestive heart failure type: diastolic Qualified Code(s): I50.33 - Acute on chronic diastolic (congestive) heart failure
[2017-02-27] MEDS ORDERED: POTASSIUM CHLORIDE ORAL LIQUID 20 MEQ/15 ML PO ONE (12:13)
--- NOTE | 2017-02-27 12:24 | PN ---
Physical Exam: SUBJECTIVE: Patient seen and examined. She is very tired today she did not sleep well overnight. OBJECTIVE: Vital Signs Period Temp Pulse Resp BP Sys/[place] Pulse Ox Last 24 Hr 97.8 F-98.5 F 64-78 18-20 112-131/53-80 94-95 PE Neuro: alert, awake, cn 2-12 intact HEENT: R eye amblyopia Pulm: CTAB CV: s1 s2 irregular rate and rhythm no mrg Abd: s nt nd + bs Ext: warm, dry, b/l edema L>R +2 Laboratory Results - last 24 hr 02/27/17 02/27/17 02/27/17 05:59 06:00 10:46 Sodium 133 L Potassium 3.9 Chloride 96 L Carbon Dioxide 24 Anion Gap 13 BUN 12 Creatinine 1.0 POC Glucometer 134 169 Random Glucose 124 H Calcium 8.6 Magnesium 1.8 Active Medications Generic Name Dose Route Start Last Admin Trade Name Freq PRN Reason Stop Dose Admin Acetaminophen 650 mg 02/15/17 19:49 Tylenol - PO Q6H PRN FEVER OR PAIN Amiodarone HCl 200 mg 02/25/17 14:45 02/27/17 09:16 Cordarone - PO 200 mg DAILY [facility] Administration Apixaban 5 mg 02/24/17 10:00 02/27/17 09:16 Eliquis - PO 5 mg BID [facility] Administration Diltiazem HCl 90 mg 02/22/17 15:24 02/27/17 11:01 Cardizem - PO 90 mg Q6HPO [facility] Administration Docusate Sodium 100 mg 02/20/17 07:12 Colace - PO Q8H PRN CONSTIPATION Furosemide 40 mg 02/24/17 06:00 02/27/17 06:24 Lasix Injection - IVPUSH 40 mg BID@0600,1400 [facility] Administration Insulin Aspart 1 vial 02/15/17 22:00 02/27/17 11:02 Novolog Vial Sliding Scale - SQ Not Given ACHS [facility] Protocol Levothyroxine Sodium 112 mcg 02/16/17 07:00 02/27/17 06:24 Synthroid - PO 112 mcg DAILY@0700 [facility] Administration Magnesium Oxide 400 mg 02/25/17 22:00 02/27/17 09:16 Mag-Ox - PO 400 mg BID [facility] Administration Methotrexate 12.5 mg 02/16/17 13:00 02/23/17 11:23 Mexate - PO 12.5 mg Q7D@1000 [facility] Administration Pantoprazole Sodium 40 mg 02/27/17 22:00 Protonix - PO BID [facility] Polyethylene Glycol 17 gm 02/20/17 10:00 02/27/17 09:17 Miralax (For Daily Use) - PO Not Given DAILY [facility] Potassium Chloride 20 meq 02/27/17 12:13 Potassium Chloride Oral Liquid PO 02/27/17 12:14 ONCE ONE Senna 2 tab 02/20/17 07:12 Senna - PO HS PRN CONSTIPATION Spironolactone 25 mg 02/26/17 22:00 02/27/17 09:16 Aldactone - PO 25 mg BID [facility] Administration Assessment: 71 year old female with PMHx of HTN, A.fib s/p ablation 12/2016, IDDM , RA, hypothyroidism admitted with nausea and vomiting x3 days, found to have AFib with RVR and lactic acidemia. Plan: 1. A.fib with RVR - HR improved with amiodarone 200mg daily - Continue Cardizem 90mg q6h; will transition to CD - Continue Eliquis 2. Acute on chronic diastolic heart failure - Start aldactone 5mg BID - Lasix 40mg IV BID - Daily weights 3. Anemia - Multifactorial: elevated TSH, meds (methotrexate), infectious, GI loss - No M spike, no hemolysis with elevated haptaglobin - S/p 1uPRBC 02/21 - Will need capsule study as outpt, will discuss with GI 4. GI Bleed - EGD/colonoscopy with no bleeding or source of bleeding identified - Capsule endoscopy per GI as outpt 5. H.pylori - Discussed treatment with Dr. Goyal, who recommends holding off on starting treatment until the patient is evaluated by her pcp 6. DM II - AM sugars controlled - Hold metformin while inpatient - BGM, ISS ACHS 7. Hypothyroidism - Repeat TSH tomorrow - TSH 16.3 - Continue Synthroid 8. Rheumatoid arthritis - Continue Methotrexate - Do not restart Prednisone, as it is subtherapeutic dosing 9. Lactic acidemia - Resolved 10. DUARTE - Resolved 11. DVT ppx - On Eliquis 12. Hypomagnesemia/Hypokalemia - Repleted - Will give additional gm of mg and 20meq potassium Visit type - Emergency Visit Emergency Visit: Yes ED Registration Date: 02/14/17 Care time: The patient presented to the Emergency Department on the above date and was hospitalized for further evaluation of their emergent condition. - New Patient This patient is new to me today: No - Critical Care Critical Care patient: No
[2017-02-27] MEDS ORDERED: MAGNESIUM SULF 50% (8.12 MEQ/2 ML-1 GM VIAL) IVPB ONE (12:54)
[2017-02-27] MEDS: FUROSEMIDE 40 MG TABLET (FP) PO SCH (13:29)
--- NOTE | 2017-02-27 14:08 | PN ---
Progress Note (short form) - Note Progress Note: Overall better. No CP or SOB. at the bedside. The patient does snore and there are concerns for Sleep Apnea. Intake & Output 02/24/17 02/25/17 02/26/17 02/27/17 23:59 23:59 23:59 23:59 Intake Total 200 650 780 270 Balance 200 650 780 270 Weight 188 lb 3.2 oz 187 lb 190 lb 191 lb Last Vital Signs Temp Pulse Resp BP Pulse Ox 98.3 F 74 18 120/72 95 02/27/17 09:51 02/27/17 09:51 02/27/17 09:51 02/27/17 09:51 02/27/17 06:00 Active Medications Acetaminophen (Tylenol -) 650 mg PO Q6H PRN PRN Reason: FEVER OR PAIN Amiodarone HCl (Cordarone -) 200 mg PO DAILY [facility] Last Admin: 02/27/17 09:16 Dose: 200 mg Apixaban (Eliquis -) 5 mg PO BID [facility] Last Admin: 02/27/17 09:16 Dose: 5 mg Diltiazem HCl (Cardizem Cd -) 180 mg PO ONCE ONE Stop: 02/27/17 18:01 Diltiazem HCl (Cardizem Cd -) 360 mg PO DAILY [facility] Docusate Sodium (Colace -) 100 mg PO Q8H PRN PRN Reason: CONSTIPATION Furosemide (Lasix -) 40 mg PO BID@0600,1400 [facility] Last Admin: 02/27/17 13:29 Dose: 40 mg Insulin Aspart (Novolog Vial Sliding Scale -) 1 vial SQ ACHS [facility] PRN Reason: Protocol Last Admin: 02/27/17 11:02 Dose: Not Given Levothyroxine Sodium (Synthroid -) 112 mcg PO DAILY@0700 [facility] Last Admin: 02/27/17 06:24 Dose: 112 mcg Magnesium Oxide (Mag-Ox -) 400 mg PO BID [facility] Last Admin: 02/27/17 09:16 Dose: 400 mg Methotrexate (Mexate -) 12.5 mg PO Q7D@1000 [facility] Last Admin: 02/23/17 11:23 Dose: 12.5 mg Pantoprazole Sodium (Protonix -) 40 mg PO BID [facility] Polyethylene Glycol (Miralax (For Daily Use) -) 17 gm PO DAILY [facility] Last Admin: 02/27/17 09:17 Dose: Not Given Senna (Senna -) 2 tab PO HS PRN PRN Reason: CONSTIPATION Spironolactone (Aldactone -) 25 mg PO BID [facility] Last Admin: 02/27/17 09:16 Dose: 25 mg Constitutional: Yes: NAD Eyes: Yes: WNL HENT: Yes: WNL Neck: Yes: WNL Cardiovascular: Yes: Tachycardia, Pulse Irregular, S1, S2 Respiratory: Yes: Diminished Gastrointestinal: Yes: Normal Bowel Sounds, Soft Extremities: Yes: WNL Edema: Yes Edema: LLE: 3+, RLE: 3+ Labs: Laboratory Results - last 24 hr 02/26/17 02/26/17 02/27/17 17:11 21:40 05:59 Sodium Potassium Chloride Carbon Dioxide Anion Gap BUN Creatinine POC Glucometer 182 186 134 Random Glucose Calcium Magnesium 02/27/17 02/27/17 06:00 10:46 Sodium 133 L Potassium 3.9 Chloride 96 L Carbon Dioxide 24 Anion Gap 13 BUN 12 Creatinine 1.0 POC Glucometer 169 Random Glucose 124 H Calcium 8.6 Magnesium 1.8 Assessment/Plan Syncope Atrial Fibrillation with RVR Recent AVN ablation Acute Kidney Injury improving Lactic Acidosis improving HTN DM (?) GI BLEED Concern for Obstructive Sleep Apnea - Cardizem - Lasix - AC - protonix - Normal transfusion thresholds - Will benefit from sleep apnea workup after discharge Dr Lay
--- NOTE | 2017-02-27 17:33 | PN ---
Progress Note, Physician History of Present Illness: stable no new issues patient doing well - Current Medication List Current Medications: Active Medications Acetaminophen (Tylenol -) 650 mg PO Q6H PRN PRN Reason: FEVER OR PAIN Amiodarone HCl (Cordarone -) 200 mg PO DAILY [facility] Last Admin: 02/27/17 09:16 Dose: 200 mg Apixaban (Eliquis -) 5 mg PO BID [facility] Last Admin: 02/27/17 09:16 Dose: 5 mg Diltiazem HCl (Cardizem Cd -) 180 mg PO ONCE ONE Stop: 02/27/17 18:01 Last Admin: 02/27/17 17:24 Dose: 180 mg Diltiazem HCl (Cardizem Cd -) 360 mg PO DAILY [facility] Docusate Sodium (Colace -) 100 mg PO Q8H PRN PRN Reason: CONSTIPATION Furosemide (Lasix -) 40 mg PO BID@0600,1400 [facility] Last Admin: 02/27/17 13:29 Dose: 40 mg Insulin Aspart (Novolog Vial Sliding Scale -) 1 vial SQ ACHS [facility] PRN Reason: Protocol Last Admin: 02/27/17 16:20 Dose: Not Given Levothyroxine Sodium (Synthroid -) 112 mcg PO DAILY@0700 [facility] Last Admin: 02/27/17 06:24 Dose: 112 mcg Magnesium Oxide (Mag-Ox -) 400 mg PO BID [facility] Last Admin: 02/27/17 09:16 Dose: 400 mg Methotrexate (Mexate -) 12.5 mg PO Q7D@1000 [facility] Last Admin: 02/23/17 11:23 Dose: 12.5 mg Pantoprazole Sodium (Protonix -) 40 mg PO BID [facility] Polyethylene Glycol (Miralax (For Daily Use) -) 17 gm PO DAILY [facility] Last Admin: 02/27/17 09:17 Dose: Not Given Senna (Senna -) 2 tab PO HS PRN PRN Reason: CONSTIPATION Spironolactone (Aldactone -) 25 mg PO BID [facility] Last Admin: 02/27/17 09:16 Dose: 25 mg - Objective Vital Signs: Vital Signs Temperature 98 F 02/27/17 14:07 Pulse Rate 70 02/27/17 14:07 Respiratory Rate 18 02/27/17 14:07 Blood Pressure 125/52 02/27/17 14:07 O2 Sat by Pulse Oximetry (%) 95 02/27/17 06:00 Constitutional: Yes: No Distress, Calm Cardiovascular: Yes: Pulse Irregular, S1, S2 Respiratory: Yes: Regular, CTA Bilaterally Gastrointestinal: Yes: Normal Bowel Sounds, Soft Musculoskeletal: Yes: WNL Extremities: Yes: WNL Neurological: Yes: Alert, Oriented Psychiatric: Yes: Alert, Oriented Labs: CBC, BMP 02/26/17 06:00 02/27/17 06:00 INR, PTT INR 1.26 (0.82-1.09) H 02/23/17 05:40 Assessment/Plan Syncope Atrial Fibrillation with RVR Recent AVN ablation Acute Kidney Injury Lactic Acidosis HTN DM sepsis anemia plan doing well continue to monitor patient stable final plan awaited cardio monitoring
[2017-02-27] MEDS: PANTOPRAZOLE 40 MG TABLET (FP) PO SCH (21:28)
[2017-02-28] MEDS: INSULIN SLIDING SCALE (NOVOLOG) 1 VIAL SQ SCH ×4 (06:31→21:46)
[2017-02-28] MEDS: FUROSEMIDE 40 MG TABLET (FP) PO SCH ×2 (06:35→13:45)
[2017-02-28] MEDS: LEVOTHYROXINE NA 112 MCG TABLET (FP) PO SCH (06:35)
[2017-02-28] MEDS ORDERED: LEVOTHYROXINE NA 125 MCG TABLET (FP) PO SCH (07:00)
[2017-02-28 08:15] LABS: CALCIUM 8.3 mg/dL (8.5-10.1)
--- NOTE | 2017-02-28 09:02 | PN ---
Progress Note, Physician Chief Complaint: no complaints telemetry with af rate controlled. History of Present Illness: 71 y.o. female with h/o NIDDM, hypothyroidism, HTN, RA on chronic steroids/MTX, interstitial lung disease/emphysema, H pylori gastritis diagnosed 12/2016 started on abx, Atrial fibrillation on Eliquis, anemia, syncope due to PAF and conversion pauses s/p PVI at [facility] by Dr Gaona 01/27/17 dcd on amiodarone, now admitted with nausea and vomiting post abx for h. pylori, lactic acidosis, poor po intake and atrial fibrillation with RVR. Echo 01/13/17 normal EF, diastolic dysfunction, mod MR mild TR trace to mild PI. Hospital course significant for Anemia and Guiac positive stool. sp endoscopy. tele now nsr, some atrial fib with controlled VR. - Current Medication List Current Medications: Active Medications Acetaminophen (Tylenol -) 650 mg PO Q6H PRN PRN Reason: FEVER OR PAIN Amiodarone HCl (Cordarone -) 200 mg PO DAILY [facility] Last Admin: 02/27/17 09:16 Dose: 200 mg Apixaban (Eliquis -) 5 mg PO BID [facility] Last Admin: 02/27/17 21:28 Dose: 5 mg Diltiazem HCl (Cardizem Cd -) 360 mg PO DAILY [facility] Docusate Sodium (Colace -) 100 mg PO Q8H PRN PRN Reason: CONSTIPATION Furosemide (Lasix -) 40 mg PO BID@0600,1400 [facility] Last Admin: 02/28/17 06:35 Dose: 40 mg Insulin Aspart (Novolog Vial Sliding Scale -) 1 vial SQ ACHS [facility] PRN Reason: Protocol Last Admin: 02/28/17 06:31 Dose: Not Given Levothyroxine Sodium (Synthroid -) 112 mcg PO DAILY@0700 [facility] Last Admin: 02/28/17 06:35 Dose: 112 mcg Magnesium Oxide (Mag-Ox -) 400 mg PO BID [facility] Last Admin: 02/27/17 21:28 Dose: 400 mg Methotrexate (Mexate -) 12.5 mg PO Q7D@1000 [facility] Last Admin: 02/23/17 11:23 Dose: 12.5 mg Pantoprazole Sodium (Protonix -) 40 mg PO BID [facility] Last Admin: 02/27/17 21:28 Dose: 40 mg Polyethylene Glycol (Miralax (For Daily Use) -) 17 gm PO DAILY [facility] Last Admin: 02/27/17 09:17 Dose: Not Given Senna (Senna -) 2 tab PO HS PRN PRN Reason: CONSTIPATION Spironolactone (Aldactone -) 25 mg PO BID [facility] Last Admin: 02/27/17 21:28 Dose: 25 mg - Objective Vital Signs: Vital Signs Temperature 97.3 F L 02/28/17 06:00 Pulse Rate 76 02/28/17 06:00 Respiratory Rate 18 02/28/17 06:00 Blood Pressure 101/49 02/28/17 06:00 O2 Sat by Pulse Oximetry (%) 96 02/28/17 06:00 Constitutional: Yes: Well Nourished, No Distress Eyes: Yes: WNL HENT: Yes: WNL Neck: Yes: WNL Cardiovascular: Yes: Pulse Irregular Respiratory: Yes: CTA Bilaterally Gastrointestinal: Yes: Normal Bowel Sounds, Soft Extremities: Yes: WNL Edema: No Peripheral Pulses WNL: Yes Labs: CBC, BMP 02/28/17 05:35 INR, PTT INR 1.26 (0.82-1.09) H 02/23/17 05:40 Problem List - Problems (1) Atrial fibrillation with rapid ventricular response Assessment/Plan: S/P pulmonary vein isolation 01/27/17 CHADS2 score 3. Noted to have GUAIAC POSITIVE stools. EGD on colonoscopy on 02/22/17. No source of bleeding. -HR continues to be mildly elevated despite multiple AVN blockers. She is not symptomatic. Resume Amiodarone 200mg qd-Her hypothyroidism was evaluated by endocrinology and thought to be due to poor synthroid compliance and not Amio. Stop Digoxin Continue to aggressively replace K and Mg. Would give IV magnesium repletion. Rates are controlled at this point. Would defer LEANN and DCCV if stable today and start DC planning. outpatient fu with us 2 weeks. Code(s): I48.91 - UNSPECIFIED ATRIAL FIBRILLATION (2) CHF exacerbation Assessment/Plan: Added spironolactone. continue IV lasix. follow daily wts and I/O. symptomatically improved. stable for outpatient fu. Code(s): I50.9 - HEART FAILURE, UNSPECIFIED Qualifiers: Congestive heart failure type: diastolic Qualified Code(s): I50.33 - Acute on chronic diastolic (congestive) heart failure
[2017-02-28 09:06] LABS: EOSINOPHIL 2.6 % (0-4.5); MCH 27.4 pg (25.7-33.7); MCHC 32.6 g/dl (32.0-36.0); MEAN CELL VOLUME 83.3 fl (80-96); MEAN PLT VOLUME 7.8 fl (7.5-11.1); PLATELET COUNT 240 K/MM3 (134-434); WHITE BLOOD COUNT 6.8 K/mm3 (4.0-10.0)
[2017-02-28 09:07] LABS: BASOPHIL 1.1 % (0-2.0)
[2017-02-28] MEDS: AMIODARONE HCL 200 MG TABLET (FP) PO SCH (09:18)
[2017-02-28] MEDS: PANTOPRAZOLE 40 MG TABLET (FP) PO SCH (09:18)
[2017-02-28] MEDS: APIXABAN 5 MG TABLET PO SCH ×2 (09:18→21:46)
[2017-02-28] MEDS: MAGNESIUM OXIDE 400 MG TABLET (FP) PO SCH ×2 (09:19→21:46)
[2017-02-28] MEDS: SPIRONOLACTONE 25 MG TABLET (FP) PO SCH ×2 (09:21→21:46)
[2017-02-28] MEDS: POLYETHYLENE GLYCOL 3350 119 GM BTL PO SCH (09:24)
[2017-02-28] MEDS ORDERED: INSULIN (NOVOLOG) ASPART 100 UNITS/ML 10ML VIAL ONE (12:09)
--- NOTE | 2017-02-28 12:40 | PN ---
Progress Note, Physician History of Present Illness: pulmonary alert,nad,+lisa,-cp - Current Medication List Current Medications: Active Medications Acetaminophen (Tylenol -) 650 mg PO Q6H PRN PRN Reason: FEVER OR PAIN Amiodarone HCl (Cordarone -) 200 mg PO DAILY [facility] Last Admin: 02/28/17 09:18 Dose: 200 mg Apixaban (Eliquis -) 5 mg PO BID [facility] Last Admin: 02/28/17 09:18 Dose: 5 mg Diltiazem HCl (Cardizem Cd -) 360 mg PO DAILY [facility] Last Admin: 02/28/17 09:19 Dose: 360 mg Docusate Sodium (Colace -) 100 mg PO Q8H PRN PRN Reason: CONSTIPATION Furosemide (Lasix -) 40 mg PO BID@0600,1400 [facility] Last Admin: 02/28/17 06:35 Dose: 40 mg Insulin Aspart (Novolog Vial Sliding Scale -) 1 vial SQ ACHS [facility] PRN Reason: Protocol Last Admin: 02/28/17 12:13 Dose: Not Given Levothyroxine Sodium (Synthroid -) 112 mcg PO DAILY@0700 [facility] Last Admin: 02/28/17 06:35 Dose: 112 mcg Magnesium Oxide (Mag-Ox -) 400 mg PO BID [facility] Last Admin: 02/28/17 09:19 Dose: 400 mg Methotrexate (Mexate -) 12.5 mg PO Q7D@1000 [facility] Last Admin: 02/23/17 11:23 Dose: 12.5 mg Pantoprazole Sodium (Protonix -) 40 mg PO BID [facility] Last Admin: 02/28/17 09:18 Dose: 40 mg Polyethylene Glycol (Miralax (For Daily Use) -) 17 gm PO DAILY [facility] Last Admin: 02/28/17 09:24 Dose: Not Given Senna (Senna -) 2 tab PO HS PRN PRN Reason: CONSTIPATION Spironolactone (Aldactone -) 25 mg PO BID [facility] Last Admin: 02/28/17 09:21 Dose: 25 mg - Objective Vital Signs: Vital Signs Temperature 97.3 F L 02/28/17 06:00 Pulse Rate 77 02/28/17 09:54 Respiratory Rate 18 02/28/17 09:54 Blood Pressure 104/54 02/28/17 09:54 O2 Sat by Pulse Oximetry (%) 96 02/28/17 09:00 Constitutional: Yes: Well Nourished, No Distress, Calm Eyes: Yes: WNL HENT: Yes: WNL Neck: Yes: WNL Cardiovascular: Yes: Pulse Irregular, S1, S2 Respiratory: Yes: Diminished Gastrointestinal: Yes: Normal Bowel Sounds, Soft Extremities: Yes: WNL Edema: LLE: 3+, RLE: 3+ Labs: CBC, BMP 02/28/17 05:35 02/28/17 05:35 INR, PTT INR 1.26 (0.82-1.09) H 02/23/17 05:40 Assessment/Plan ASSESSMENT AND PLAN: Syncope Atrial Fibrillation with RVR Recent AVN ablation Acute Kidney Injury improving Lactic Acidosis improving HTN DM Anemia R/O GI BLEED - PO cardizem - iv lasix - anticoagulation - protonix - transfuse prn - sleep studies outpatient DR HOWARD
--- NOTE | 2017-02-28 13:02 | PN ---
Progress Note (short form) - Note Progress Note: Feels better awaiting blood transfusion BGM stable Less CONTI Vital Signs Period Temp Pulse Resp BP Sys/Angeles Pulse Ox Last 24 Hr 97.3 F-98.0 F 67-77 18-20 101-132/49-78 96-97 PE: AOx3 HEENT: PERRL, EOMI Neck: supple, No JVD Lungs: CTA Abd: Benign CVS: S1S2 irregular EXt: +edema Neuro: No focal deficit CBC,CMP WBC 6.8 K/mm3 (4.0-10.0) 02/28/17 05:35 RBC 2.84 M/mm3 (3.60-5.2) L 02/28/17 05:35 Hgb 7.8 GM/dL (10.7-15.3) L 02/28/17 05:35 Hct 23.8 % (32.4-45.2) L 02/28/17 05:35 MCV 83.3 fl (80-96) 02/28/17 05:35 MCHC 32.6 g/dl (32.0-36.0) 02/28/17 05:35 RDW 19.0 % (11.6-15.6) H 02/28/17 05:35 Plt Count 240 K/MM3 (134-434) 02/28/17 05:35 MPV 7.8 fl (7.5-11.1) 02/28/17 05:35 Neutrophils % 75.0 % (42.8-82.8) 02/28/17 05:35 Lymphocytes % 15.7 % (8-40) 02/28/17 05:35 Monocytes % 5.6 % (3.8-10.2) 02/28/17 05:35 Eosinophils % 2.6 % (0-4.5) 02/28/17 05:35 Basophils % 1.1 % (0-2.0) 02/28/17 05:35 Differential Comment Slide scanned 02/14/17 10:58 Platelet Estimate Adequate (NORMAL) 02/14/17 10:58 Platelet Comment Mod large plts 02/14/17 10:58 Polychromasia 1+ 02/16/17 05:15 Hypochromic-Microcytic 2+ 02/16/17 05:15 Poikilocytosis 1+ 02/14/17 10:58 Basophilic Stippling Occ 02/14/17 10:58 Anisocytosis 2+ 02/14/17 10:58 Microcytosis Few 02/16/17 05:15 Macrocytosis 1+ 02/16/17 05:15 Tear Drop Cells Occ 02/14/17 10:58 Ovalocytes 2+ 02/14/17 10:58 Schistocytes Occ 02/14/17 10:58 Retic Count 4.93 % (0.5-1.5) H 02/23/17 05:40 Haptoglobin 268 mg/dL (34-200) H 02/23/17 05:40 Sodium 133 mmol/L (136-145) L 02/28/17 05:35 Potassium 3.9 mmol/L (3.5-5.1) 02/28/17 05:35 Chloride 98 mmol/L (98-107) 02/28/17 05:35 Carbon Dioxide 25 mmol/L (21-32) 02/28/17 05:35 Anion Gap 10 (8-16) 02/28/17 05:35 BUN 13 mg/dL (7-18) 02/28/17 05:35 Creatinine 1.0 mg/dL (0.55-1.02) 02/28/17 05:35 Creat Clearance w eGFR 54.35 (>60) 02/26/17 06:00 POC Glucometer 138 UNITS (()) 02/28/17 12:04 Random Glucose 113 mg/dL (74-106) H 02/28/17 05:35 Hemoglobin A1c % 7.7 % (4.8-6.0) H 02/21/17 06:18 Lactic Acid 2.006 mmol/L (0.4-2.0) H* 02/15/17 21:45 Calcium 8.3 mg/dL (8.5-10.1) L 02/28/17 05:35 Magnesium 1.8 mg/dL (1.8-2.4) 02/27/17 06:00 Ferritin 50.899 ng/ml (6.9-282.5) 02/22/17 18:11 Total Bilirubin 0.8 mg/dL (0.2-1.0) D 02/26/17 06:00 AST 30 U/L (15-37) 02/26/17 06:00 ALT 24 U/L (12-78) 02/26/17 06:00 Alkaline Phosphatase 105 U/L (45-117) 02/26/17 06:00 LD Total 146 U/L (84-246) 02/23/17 05:40 Creatine Kinase 57 IU/L (26-140) 02/14/17 10:58 Troponin I 0.20 ng/ml (0.00-0.05) H 02/15/17 05:15 B-Natriuretic Peptide 1564.63 pg/ml (5-125) H 02/25/17 05:38 Serum Total Protein 5.7 g/dL (6.0-8.5) L 02/23/17 05:40 Total Protein 6.0 g/dl (6.4-8.2) L 02/26/17 06:00 Albumin 2.8 g/dl (3.4-5.0) L 02/26/17 06:00 Globulin Cancelled 02/23/17 05:40 Albumin/Globulin Ratio Cancelled 02/23/17 05:40 Ffkcq-5-Ntejtunfn 0.3 g/dL (0.0-0.4) 02/23/17 05:40 Xtdhp-3-Ycngvimoj 0.8 g/dL (0.4-1.0) 02/23/17 05:40 Beta Globulins 0.9 g/dL (0.7-1.3) 02/23/17 05:40 Gamma Globulins 0.8 g/dL (0.4-1.8) 02/23/17 05:40 Vitamin B12 1410 pg/ml (180-914) H 02/22/17 18:11 Serum Folate 15 ng/ml (3.1-17.5) 02/22/17 18:11 TSH 16.30 uIU/ml (0.358-3.74) H D 02/18/17 05:35 Free T4 1.34 ng/dl (0.76-1.46) 02/17/17 05:30 Free T3 1.1 pg/ml (2.0-4.4) L 02/17/17 05:30 Current Medications Generic Name Dose Route Start Last Admin Trade Name Freq PRN Reason Stop Dose Admin Acetaminophen 650 mg 02/15/17 19:49 Tylenol - PO Q6H PRN FEVER OR PAIN Amiodarone HCl 200 mg 02/25/17 14:45 02/28/17 09:18 Cordarone - PO 200 mg DAILY [facility] Administration Apixaban 5 mg 02/24/17 10:00 02/28/17 09:18 Eliquis - PO 5 mg BID [facility] Administration Diltiazem HCl 360 mg 02/28/17 10:00 02/28/17 09:19 Cardizem Cd - PO 360 mg DAILY [facility] Administration Docusate Sodium 100 mg 02/20/17 07:12 Colace - PO Q8H PRN CONSTIPATION Furosemide 40 mg 02/27/17 14:00 02/28/17 06:35 Lasix - PO 40 mg BID@0600,1400 [facility] Administration Insulin Aspart 1 vial 02/15/17 22:00 02/28/17 12:13 Novolog Vial Sliding Scale - SQ Not Given ACHS [facility] Protocol Levothyroxine Sodium 112 mcg 02/16/17 07:00 02/28/17 06:35 Synthroid - PO 112 mcg DAILY@0700 [facility] Administration Magnesium Oxide 400 mg 02/25/17 22:00 02/28/17 09:19 Mag-Ox - PO 400 mg BID [facility] Administration Methotrexate 12.5 mg 02/16/17 13:00 02/23/17 11:23 Mexate - PO 12.5 mg Q7D@1000 [facility] Administration Pantoprazole Sodium 40 mg 02/27/17 22:00 02/28/17 09:18 Protonix - PO 40 mg BID [facility] Administration Polyethylene Glycol 17 gm 02/20/17 10:00 02/28/17 09:24 Miralax (For Daily Use) - PO Not Given DAILY [facility] Senna 2 tab 02/20/17 07:12 Senna - PO HS PRN CONSTIPATION Spironolactone 25 mg 02/26/17 22:00 02/28/17 09:21 Aldactone - PO 25 mg BID [facility] Administration AP: HYPothyroidism:Probably sec to malabsorption: AFIB RA DM: BGM acceptable in hospital, A1c however 7.7. Will need to adjust antidiabetic medications after discharge BGM QACHS Novolog SS coverage TSH 16.3 down from 17 Continue LT4 112 for now. Rpt TFT today to monitor trend. Will increase dose if TSH worse. Amiodarone Methorexate Eliquis on hold Will f/U Problem List - Problems (1) Atrial fibrillation with rapid ventricular response Code(s): I48.91 - UNSPECIFIED ATRIAL FIBRILLATION (2) DM (diabetes mellitus) Code(s): E11.9 - TYPE 2 DIABETES MELLITUS WITHOUT COMPLICATIONS Qualifiers: Diabetes mellitus type: type 2 Diabetes mellitus complication status: without complication Diabetes mellitus long term acute care registered nurse insulin use: without long term acute care registered nurse use Qualified Code(s): E11.9 - Type 2 diabetes mellitus without complications (3) Hypothyroidism Code(s): E03.9 - HYPOTHYROIDISM, UNSPECIFIED Qualifiers: Hypothyroidism type: unspecified Qualified Code(s): E03.9 - Hypothyroidism, unspecified (4) Nausea and vomiting Code(s): R11.2 - NAUSEA WITH VOMITING, UNSPECIFIED
[2017-02-28 13:34] LABS: THYROID STIMULATING HORMONE 42.3 uIU/ml (0.358-3.74)
--- NOTE | 2017-02-28 15:46 | PN ---
GI Progress Note Subjective: Called because H/H came down no overt bleeding path from procedures: EGD neg for h. pylori, colon: SSA's removed as well as TA - Objective Vital Signs: Vital Signs Temperature 97.6 F 02/28/17 14:00 Pulse Rate 70 02/28/17 14:00 Respiratory Rate 20 02/28/17 14:00 Blood Pressure 102/50 02/28/17 14:00 O2 Sat by Pulse Oximetry (%) 96 02/28/17 09:00 Constitutional: Calm Cardiovascular: Yes: Regular Rate and Rhythm Respiratory: Yes: CTA Bilaterally Gastrointestinal Inspection: No: Distention ...Auscultate: Yes: Normoactive Bowel Sounds ...Palpate: No: Tenderness ...Rectal Exam: Yes: Other (Light brown stool, no melena or gross blood) Labs: CBC, BMP 02/28/17 05:35 02/28/17 05:35 INR, PTT INR 1.26 (0.82-1.09) H 02/23/17 05:40 Problem List - Problems (1) Anemia Assessment/Plan: No overt / gross bleeding that would be expected in a post polypectomy bleed. Light brown stool on exam today. Monitor for active bleeding. Heme eval No need for high dose BID PPI Code(s): D64.9 - ANEMIA, UNSPECIFIED Qualifiers: Anemia type: unspecified type Qualified Code(s): D64.9 - Anemia, unspecified
--- NOTE | 2017-02-28 16:15 | PN ---
Physical Exam: SUBJECTIVE: Patient seen and examined. She was ambulating the halls wit her without issue last night. She feels well, denies melena or bleeding. Event: - Acute drop in hgb, transfuse 1units OBJECTIVE: Vital Signs Period Temp Pulse Resp BP Sys/Angeles Pulse Ox Last 24 Hr 97.3 F-98.0 F 67-77 18-20 101-132/49-78 96-97 PE Neuro: alert, awake, cn 2-12 intact HEENT: R eye amblyopia Pulm: CTAB CV: s1 s2 irregular rate and rhythm no mrg Abd: s nt nd + bs Ext: warm, dry, b/l edema L>R +2 Laboratory Results - last 24 hr 02/23/17 02/25/17 02/25/17 05:40 17:03 17:06 WBC RBC Hgb Hct MCV MCHC RDW Plt Count MPV Neutrophils % Lymphocytes % Monocytes % Eosinophils % Basophils % Sodium Potassium Chloride Carbon Dioxide Anion Gap BUN Creatinine POC Glucometer 148 201 Random Glucose Calcium Iron TNP TSH Blood Type Antibody Screen Crossmatch 02/28/17 02/28/17 02/28/17 05:35 05:35 05:35 WBC 6.8 RBC 2.84 L Hgb 7.8 L Hct 23.8 L MCV 83.3 MCHC 32.6 RDW 19.0 H Plt Count 240 MPV 7.8 Neutrophils % 75.0 Lymphocytes % 15.7 Monocytes % 5.6 Eosinophils % 2.6 Basophils % 1.1 Sodium 133 L Potassium 3.9 Chloride 98 Carbon Dioxide 25 Anion Gap 10 BUN 13 Creatinine 1.0 POC Glucometer Random Glucose 113 H Calcium 8.3 L Iron TSH 42.30 H D Cancelled Blood Type Antibody Screen Crossmatch Generic Name Dose Route Start Last Admin Trade Name Freq PRN Reason Stop Dose Admin Acetaminophen 650 mg 02/15/17 19:49 Tylenol - PO Q6H PRN FEVER OR PAIN Amiodarone HCl 200 mg 02/25/17 14:45 02/28/17 09:18 Cordarone - PO 200 mg DAILY [facility] Administration Apixaban 5 mg 02/24/17 10:00 02/28/17 09:18 Eliquis - PO 5 mg BID [facility] Administration Diltiazem HCl 360 mg 02/28/17 10:00 02/28/17 09:19 Cardizem Cd - PO 360 mg DAILY [facility] Administration Docusate Sodium 100 mg 02/20/17 07:12 Colace - PO Q8H PRN CONSTIPATION Furosemide 40 mg 02/27/17 14:00 02/28/17 13:45 Lasix - PO 40 mg BID@0600,1400 [facility] Administration Insulin Aspart 1 vial 02/15/17 22:00 02/28/17 12:13 Novolog Vial Sliding Scale - SQ Not Given ACHS [facility] Protocol Levothyroxine Sodium 112 mcg 02/16/17 07:00 02/28/17 06:35 Synthroid - PO 112 mcg DAILY@0700 [facility] Administration Magnesium Oxide 400 mg 02/25/17 22:00 02/28/17 09:19 Mag-Ox - PO 400 mg BID [facility] Administration Methotrexate 12.5 mg 02/16/17 13:00 02/23/17 11:23 Mexate - PO 12.5 mg Q7D@1000 [facility] Administration Polyethylene Glycol 17 gm 02/20/17 10:00 02/28/17 09:24 Miralax (For Daily Use) - PO Not Given DAILY [facility] Ranitidine HCl 150 mg 03/01/17 10:00 Zantac - PO DAILY [facility] Senna 2 tab 02/20/17 07:12 Senna - PO HS PRN CONSTIP[facility] Spironolactone 25 mg 02/26/17 22:00 02/28/17 09:21 Aldactone - PO 25 mg BID [facility] Administration Assessment: 71 year old female with PMHx of HTN, A.fib s/p ablation 12/2016, IDDM , RA, hypothyroidism admitted with nausea and vomiting x3 days, found to have AFib with RVR and lactic acidemia. Plan: 1. Acute blood lose Anemia - Hgb down to 7.8 - Transfuse 1UPRBC now - Multifactorial: elevated TSH, meds (methotrexate), infectious, GI loss - No M spike, no hemolysis with elevated haptaglobin - S/p 1uPRBC 02/21 2. Hypothyroidism - Repeat TSH elevated 42 - Increase Synthroid 125mcg 3. GI Bleed - D/w GI no GI source of bleeding - EGD/colonoscopy with polypectomy, no bleeding or source of bleeding identified , EGD negative for H pylori - Capsule endoscopy per GI as outpt 4. A.fib with RVR - Rate Controlled - Continue Amiodarone 200mg daily - Cardizem Cardizem 360 CD daily - Continue Eliquis 5 BID 5. Acute on chronic diastolic heart failure - Aldactone 25mg BID - PO Lasix 40mg BID 6. H.pylori - EGD negative for h pylori, will d/w Dr. Goyal, may not need txt 7. DM II - BGM, ISS ACHS - Hold Metformin 8. Rheumatoid arthritis - Continue Methotrexate - Do not restart Prednisone, as it is subtherapeutic dosing 9. Lactic acidemia - Resolved 10. DUARTE - Resolved 11. DVT ppx - On Eliquis Visit type - Emergency Visit Emergency Visit: Yes ED Registration Date: 02/14/17 Care time: The patient presented to the Emergency Department on the above date and was hospitalized for further evaluation of their emergent condition. - New Patient This patient is new to me today: No - Critical Care Critical Care patient: No
--- NOTE | 2017-02-28 18:01 | PN ---
Progress Note, Physician History of Present Illness: stable no new issues - Current Medication List Current Medications: Active Medications Acetaminophen (Tylenol -) 650 mg PO Q6H PRN PRN Reason: FEVER OR PAIN Amiodarone HCl (Cordarone -) 200 mg PO DAILY [facility] BEDS [facility] Last Admin: 02/28/17 09:18 Dose: 200 mg Apixaban (Eliquis -) 5 mg PO BID [facility]S [facility]CLUDE 234 BEDS AT [facility] Last Admin: 02/28/17 09:18 Dose: 5 mg Diltiazem HCl (Cardizem Cd -) 360 mg PO DAILY [facility] 234 B[facility]S [facility] Last Admin: 02/28/17 09:19 Dose: 360 mg Docusate Sodium (Colace -) 100 mg PO Q8H PRN PRN Reason: CONSTIPATION Furosemide (Lasix -) 40 mg PO BID@0600,1400 [facility] 234 BEDS AT [facility] Last Admin: 02/28/17 13:45 Dose: 40 mg Insulin Aspart (Novolog Vial Sliding Scale -) 1 vial SQ ACHS [facility] 234 B[facility]S AT [facility] PRN Reason: Protocol Last Admin: 02/28/17 17:36 Dose: Not Given Levothyroxine Sodium (Synthroid -) 125 mcg PO DAILY@0700 [facility] 234 BEDS AT [facility] Magnesium Oxide (Mag-Ox -) 400 mg PO BID [facility]S [facility]CLUDE 234 BEDS AT [facility] Last Admin: 02/28/17 09:19 Dose: 400 mg Methotrexate (Mexate -) 12.5 mg PO Q7D@1000 [facility] 234 B[facility]S [facility] Last Admin: 02/23/17 11:23 Dose: 12.5 mg Polyethylene Glycol (Miralax (For Daily Use) -) 17 gm PO DAILY [facility] 234 BEDS [facility] Last Admin: 02/28/17 09:24 Dose: Not Given Ranitidine HCl (Zantac -) 150 mg PO DAILY [facility] 234 B[facility]S [facility] Senna (Senna -) 2 tab PO HS PRN PRN Reason: CONSTIPATION Spironolactone (Aldactone -) 25 mg PO BID [facility] 234 BEDS AT [facility] Last Admin: 02/28/17 09:21 Dose: 25 mg - Objective Vital Signs: Vital Signs Temperature 97.6 F 02/28/17 14:00 Pulse Rate 70 02/28/17 14:00 Respiratory Rate 20 02/28/17 14:00 Blood Pressure 102/50 02/28/17 14:00 O2 Sat by Pulse Oximetry (%) 96 02/28/17 09:00 Constitutional: Yes: No Distress, Calm Cardiovascular: Yes: Pulse Irregular Respiratory: Yes: Regular, CTA Bilaterally Gastrointestinal: Yes: Normal Bowel Sounds, Soft Musculoskeletal: Yes: WNL Extremities: Yes: WNL Neurological: Yes: Alert, Oriented Psychiatric: Yes: Alert Labs: CBC, BMP 02/28/17 05:35 02/28/17 05:35 INR, PTT INR 1.26 (0.82-1.09) H 02/23/17 05:40 Assessment/Plan Syncope Atrial Fibrillation with RVR Recent AVN ablation Acute Kidney Injury Lactic Acidosis HTN DM sepsis anemia plan doing well continue to monitor patient stable final plan awaited cardio monitoring
[2017-02-28 19:00] LABS: MCH 27.9 pg (25.7-33.7); MCHC 33.3 g/dl (32.0-36.0); MEAN CELL VOLUME 83.7 fl (80-96); MEAN PLT VOLUME 7.9 fl (7.5-11.1); PLATELET COUNT 282 K/MM3 (134-434); RDW 19.2 % (11.6-15.6); WHITE BLOOD COUNT 8.6 K/mm3 (4.0-10.0)
--- NOTE | 2017-02-28 21:32 | PN ---
Progress Note (short form) - Note Progress Note: Patient seen and examined feels well Last Vital Signs Temp Pulse Resp BP Pulse Ox 97.6 F 86 19 123/57 96 02/28/17 18:00 02/28/17 18:00 02/28/17 18:00 02/28/17 18:00 02/28/17 09:00 Cor: RSR, No murmurs, No gallops Lungs: Clear to P&A Abd: Soft, Normal bowel sounds, No organomegaly Ext:No significant edema Abnormal Lab Results 02/28/17 02/28/17 02/28/17 05:35 05:35 10:10 RBC 2.84 L Hgb 7.8 L Hct 23.8 L RDW 19.0 H Sodium 133 L Random Glucose 113 H Calcium 8.3 L TSH 42.30 H D Crossmatch See Detail 02/28/17 18:30 RBC 3.34 L Hgb 9.3 L D Hct 28.0 L D RDW 19.2 H Sodium Random Glucose Calcium TSH Crossmatch Current Medications Generic Name Dose Route Start Last Admin Trade Name Freq PRN Reason Stop Dose Admin Acetaminophen 650 mg 02/15/17 19:49 Tylenol - PO Q6H PRN FEVER OR PAIN Amiodarone HCl 200 mg 02/25/17 14:45 02/28/17 09:18 Cordarone - PO 200 mg DAILY [facility] Administration Apixaban 5 mg 02/24/17 10:00 02/28/17 09:18 Eliquis - PO 5 mg BID [facility] Administration Diltiazem HCl 360 mg 02/28/17 10:00 02/28/17 09:19 Cardizem Cd - PO 360 mg DAILY [facility] Administration Docusate Sodium 100 mg 02/20/17 07:12 Colace - PO Q8H PRN CONSTIPATION Furosemide 40 mg 02/27/17 14:00 02/28/17 13:45 Lasix - PO 40 mg BID@0600,1400 [facility] Administration Insulin Aspart 1 vial 02/15/17 22:00 02/28/17 17:36 Novolog Vial Sliding Scale - SQ Not Given ACHS [facility] Protocol Levothyroxine Sodium 125 mcg 03/01/17 07:00 Synthroid - PO DAILY@0700 [facility] Magnesium Oxide 400 mg 02/25/17 22:00 02/28/17 09:19 Mag-Ox - PO 400 mg BID [facility] Administration Methotrexate 12.5 mg 02/16/17 13:00 02/23/17 11:23 Mexate - PO 12.5 mg Q7D@1000 [facility] Administration Polyethylene Glycol 17 gm 02/20/17 10:00 02/28/17 09:24 Miralax (For Daily Use) - PO Not Given DAILY [facility] Ranitidine HCl 150 mg 03/01/17 10:00 Zantac - PO DAILY [facility] Senna 2 tab 02/20/17 07:12 Senna - PO HS PRN CONSTIPATION Spironolactone 25 mg 02/26/17 22:00 02/28/17 09:21 Aldactone - PO 25 mg BID [facility] Administration a/p 71 y/o patient with anemia---chronic disease + ? blood loss normocytic but mcv has been dropping hence suspect iron deficiency egd/colonoscopy unrevealing u/s--fatty liver/ascites stool occult + ? capsule and gi f/./u as out patient ferritin 50 hypothyroid with low ft3. now on synthroid. TSH-45 b12/folate/ldh/haptoglobin --nl protein studies show no M S pike ChecK ESR/CRP
[2017-03-01] MEDS: INSULIN SLIDING SCALE (NOVOLOG) 1 VIAL SQ SCH ×2 (06:28→12:57)
[2017-03-01] MEDS: FUROSEMIDE 40 MG TABLET (FP) PO SCH ×2 (06:32→14:06)
[2017-03-01] MEDS ORDERED: LEVOTHYROXINE NA 125 MCG TABLET (FP) PO SCH (07:00)
[2017-03-01 07:46] LABS: BASOPHIL 1.2 % (0-2.0); EOSINOPHIL 1.9 % (0-4.5); MCH 27.8 pg (25.7-33.7); MCHC 33.1 g/dl (32.0-36.0); MEAN CELL VOLUME 83.8 fl (80-96); MEAN PLT VOLUME 7.7 fl (7.5-11.1); NEUTROPHILS 74.5 % (42.8-82.8); PLATELET COUNT 221 K/MM3 (134-434); RDW 18.7 % (11.6-15.6); WHITE BLOOD COUNT 5.9 K/mm3 (4.0-10.0)
[2017-03-01 07:48] LABS: COCKROFT - GAULT 67.813
[2017-03-01 08:46] LABS: C-REACTIVE PROTEIN 3.3 MG/DL (0.00-0.3)
--- NOTE | 2017-03-01 09:07 | PN ---
Progress Note (short form) - Note Progress Note: Denies any complaints Vital Signs Period Temp Pulse Resp BP Sys/Angeles Pulse Ox Last 24 Hr 97.6 F-98 F 70-86 18-93 102-123/50-62 100 PE: AOx3 HEENT: PERRL, EOMI Neck: supple, No JVD Lungs: CTA Abd: Benign CVS: S1S2 irregular EXt: +edema Neuro: No focal deficit CBC,CMP WBC 5.9 K/mm3 (4.0-10.0) D 03/01/17 05:35 RBC 3.22 M/mm3 (3.60-5.2) L 03/01/17 05:35 Hgb 9.0 GM/dL (10.7-15.3) L 03/01/17 05:35 Hct 27.0 % (32.4-45.2) L 03/01/17 05:35 MCV 83.8 fl (80-96) 03/01/17 05:35 MCHC 33.1 g/dl (32.0-36.0) 03/01/17 05:35 RDW 18.7 % (11.6-15.6) H 03/01/17 05:35 Plt Count 221 K/MM3 (134-434) D 03/01/17 05:35 MPV 7.7 fl (7.5-11.1) 03/01/17 05:35 Neutrophils % 74.5 % (42.8-82.8) 03/01/17 05:35 Lymphocytes % 15.9 % (8-40) 03/01/17 05:35 Monocytes % 6.5 % (3.8-10.2) 03/01/17 05:35 Eosinophils % 1.9 % (0-4.5) 03/01/17 05:35 Basophils % 1.2 % (0-2.0) 03/01/17 05:35 Differential Comment Slide scanned 02/14/17 10:58 Platelet Estimate Adequate (NORMAL) 02/14/17 10:58 Platelet Comment Mod large plts 02/14/17 10:58 Polychromasia 1+ 02/16/17 05:15 Hypochromic-Microcytic 2+ 02/16/17 05:15 Poikilocytosis 1+ 02/14/17 10:58 Basophilic Stippling Occ 02/14/17 10:58 Anisocytosis 2+ 02/14/17 10:58 Microcytosis Few 02/16/17 05:15 Macrocytosis 1+ 02/16/17 05:15 Tear Drop Cells Occ 02/14/17 10:58 Ovalocytes 2+ 02/14/17 10:58 Schistocytes Occ 02/14/17 10:58 Retic Count 4.93 % (0.5-1.5) H 02/23/17 05:40 Haptoglobin 268 mg/dL (34-200) H 02/23/17 05:40 Sodium 134 mmol/L (136-145) L 03/01/17 05:35 Potassium 3.3 mmol/L (3.5-5.1) L 03/01/17 05:35 Chloride 96 mmol/L (98-107) L 03/01/17 05:35 Carbon Dioxide 27 mmol/L (21-32) 03/01/17 05:35 Anion Gap 11 (8-16) 03/01/17 05:35 BUN 11 mg/dL (7-18) 03/01/17 05:35 Creatinine 1.0 mg/dL (0.55-1.02) 03/01/17 05:35 Creat Clearance w eGFR 54.35 (>60) 02/26/17 06:00 POC Glucometer 113 UNITS (()) 03/01/17 05:11 Random Glucose 102 mg/dL (74-106) 03/01/17 05:35 Hemoglobin A1c % 7.7 % (4.8-6.0) H 02/21/17 06:18 Lactic Acid 2.006 mmol/L (0.4-2.0) H* 02/15/17 21:45 Calcium 8.0 mg/dL (8.5-10.1) L 03/01/17 05:35 Magnesium 1.8 mg/dL (1.8-2.4) 02/27/17 06:00 Iron TNP 02/23/17 05:40 Ferritin 50.899 ng/ml (6.9-282.5) 02/22/17 18:11 Total Bilirubin 0.8 mg/dL (0.2-1.0) D 02/26/17 06:00 AST 30 U/L (15-37) 02/26/17 06:00 ALT 24 U/L (12-78) 02/26/17 06:00 Alkaline Phosphatase 105 U/L (45-117) 02/26/17 06:00 LD Total 146 U/L (84-246) 02/23/17 05:40 Creatine Kinase 57 IU/L (26-140) 02/14/17 10:58 Troponin I 0.20 ng/ml (0.00-0.05) H 02/15/17 05:15 C-Reactive Protein 3.3 MG/DL (0.00-0.3) H 03/01/17 05:35 B-Natriuretic Peptide 1564.63 pg/ml (5-125) H 02/25/17 05:38 Serum Total Protein 5.7 g/dL (6.0-8.5) L 02/23/17 05:40 Total Protein 6.0 g/dl (6.4-8.2) L 02/26/17 06:00 Albumin 2.8 g/dl (3.4-5.0) L 02/26/17 06:00 Globulin Cancelled 02/23/17 05:40 Albumin/Globulin Ratio Cancelled 02/23/17 05:40 Cikkd-3-Useouzwyl 0.3 g/dL (0.0-0.4) 02/23/17 05:40 Yuidh-8-Txytqkhyt 0.8 g/dL (0.4-1.0) 02/23/17 05:40 Beta Globulins 0.9 g/dL (0.7-1.3) 02/23/17 05:40 Gamma Globulins 0.8 g/dL (0.4-1.8) 02/23/17 05:40 Vitamin B12 1410 pg/ml (180-914) H 02/22/17 18:11 Serum Folate 15 ng/ml (3.1-17.5) 02/22/17 18:11 TSH 42.30 uIU/ml (0.358-3.74) H D 02/28/17 05:35 Free T4 1.34 ng/dl (0.76-1.46) 02/17/17 05:30 Free T3 1.1 pg/ml (2.0-4.4) L 02/17/17 05:30 Current Medications Generic Name Dose Route Start Last Admin Trade Name Freq PRN Reason Stop Dose Admin Acetaminophen 650 mg 02/15/17 19:49 Tylenol - PO Q6H PRN FEVER OR PAIN Amiodarone HCl 200 mg 02/25/17 14:45 02/28/17 09:18 Cordarone - PO 200 mg DAILY [facility] Administration Apixaban 5 mg 02/24/17 10:00 02/28/17 21:46 Eliquis - PO 5 mg BID [facility] Administration Diltiazem HCl 360 mg 02/28/17 10:00 02/28/17 09:19 Cardizem Cd - PO 360 mg DAILY [facility] Administration Docusate Sodium 100 mg 02/20/17 07:12 Colace - PO Q8H PRN CONSTIPATION Furosemide 40 mg 02/27/17 14:00 03/01/17 06:32 Lasix - PO 40 mg BID@0600,1400 [facility] Administration Insulin Aspart 1 vial 02/15/17 22:00 03/01/17 06:28 Novolog Vial Sliding Scale - SQ Not Given ACHS [facility] Protocol Levothyroxine Sodium 125 mcg 03/01/17 07:00 03/01/17 06:32 Synthroid - PO 125 mcg DAILY@0700 [facility] Administration Magnesium Oxide 400 mg 02/25/17 22:00 02/28/17 21:46 Mag-Ox - PO 400 mg BID [facility] Administration Methotrexate 12.5 mg 02/16/17 13:00 02/23/17 11:23 Mexate - PO 12.5 mg Q7D@1000 [facility] Administration Polyethylene Glycol 17 gm 02/20/17 10:00 02/28/17 09:24 Miralax (For Daily Use) - PO Not Given DAILY [facility] Ranitidine HCl 150 mg 03/01/17 10:00 Zantac - PO DAILY [facility] Senna 2 tab 02/20/17 07:12 Senna - PO HS PRN CONSTIPATION Spironolactone 25 mg 02/26/17 22:00 02/28/17 21:46 Aldactone - PO 25 mg BID [facility] Administration AP: HYPothyroidism:Probably sec to malabsorption, Amiodarone effect can't be ruled out. Discussed with patient need to take LT4 in empty stomach at least one hour before any food or drink except water. AFIB RA DM: BGM acceptable in hospital, A1c however 7.7. Will need to adjust antidiabetic medications after discharge BGM QACHS Novolog SS coverage TSH 42 Agree with increase of LT4 125 for now. Will increase dose gradually. Rpt TFT today to monitor trend. Will increase dose if TSH worse. Amiodarone Methorexate Eliquis on hold Will f/U Problem List - Problems (1) Atrial fibrillation with rapid ventricular response Code(s): I48.91 - UNSPECIFIED ATRIAL FIBRILLATION (2) DM (diabetes mellitus) Code(s): E11.9 - TYPE 2 DIABETES MELLITUS WITHOUT COMPLICATIONS Qualifiers: Diabetes mellitus type: type 2 Diabetes mellitus complication status: without complication Diabetes mellitus [facility] insulin use: without [facility] use Qualified Code(s): E11.9 - Type 2 diabetes mellitus without complications (3) Hypothyroidism Code(s): E03.9 - HYPOTHYROIDISM, UNSPECIFIED Qualifiers: Hypothyroidism type: unspecified Qualified Code(s): E03.9 - Hypothyroidism, unspecified (4) Nausea and vomiting Code(s): R11.2 - NAUSEA WITH VOMITING, UNSPECIFIED
[2017-03-01] MEDS: SPIRONOLACTONE 25 MG TABLET (FP) PO SCH (09:14)
[2017-03-01] MEDS: AMIODARONE HCL 200 MG TABLET (FP) PO SCH (09:15)
[2017-03-01] MEDS: MAGNESIUM OXIDE 400 MG TABLET (FP) PO SCH (09:15)
[2017-03-01] MEDS: APIXABAN 5 MG TABLET PO SCH (09:15)
[2017-03-01] MEDS: POLYETHYLENE GLYCOL 3350 119 GM BTL PO SCH (09:16)
--- NOTE | 2017-03-01 09:34 | PN ---
Progress Note, Physician History of Present Illness: patient doing well no complaints had received a transfusion saira is on the case - Current Medication List Current Medications: Active Medications Acetaminophen (Tylenol -) 650 mg PO Q6H PRN PRN Reason: FEVER OR PAIN Amiodarone HCl (Cordarone -) 200 mg PO DAILY [facility] Last Admin: 03/01/17 09:15 Dose: 200 mg Apixaban (Eliquis -) 5 mg PO BID [facility] Last Admin: 03/01/17 09:15 Dose: 5 mg Diltiazem HCl (Cardizem Cd -) 360 mg PO DAILY [facility] Last Admin: 03/01/17 09:15 Dose: 360 mg Docusate Sodium (Colace -) 100 mg PO Q8H PRN PRN Reason: CONSTIPATION Furosemide (Lasix -) 40 mg PO BID@0600,1400 [facility] Last Admin: 03/01/17 06:32 Dose: 40 mg Insulin Aspart (Novolog Vial Sliding Scale -) 1 vial SQ ACHS [facility] PRN Reason: Protocol Last Admin: 03/01/17 06:28 Dose: Not Given Levothyroxine Sodium (Synthroid -) 125 mcg PO DAILY@0700 [facility] Last Admin: 03/01/17 06:32 Dose: 125 mcg Magnesium Oxide (Mag-Ox -) 400 mg PO BID [facility] Last Admin: 03/01/17 09:15 Dose: 400 mg Methotrexate (Mexate -) 12.5 mg PO Q7D@1000 [facility] Last Admin: 02/23/17 11:23 Dose: 12.5 mg Polyethylene Glycol (Miralax (For Daily Use) -) 17 gm PO DAILY [facility] Last Admin: 03/01/17 09:16 Dose: Not Given Ranitidine HCl (Zantac -) 150 mg PO DAILY [facility] Last Admin: 03/01/17 09:15 Dose: 150 mg Senna (Senna -) 2 tab PO HS PRN PRN Reason: CONSTIPATION Spironolactone (Aldactone -) 25 mg PO BID [facility] Last Admin: 03/01/17 09:14 Dose: 25 mg - Objective Vital Signs: Vital Signs Temperature 97.7 F 03/01/17 02:00 Pulse Rate 86 02/28/17 22:00 Respiratory Rate 93 H 03/01/17 02:00 Blood Pressure 112/59 03/01/17 02:00 O2 Sat by Pulse Oximetry (%) 100 02/28/17 21:00 Constitutional: Yes: No Distress, Calm Cardiovascular: Yes: Pulse Irregular Respiratory: Yes: Regular, CTA Bilaterally Gastrointestinal: Yes: Normal Bowel Sounds, Soft Musculoskeletal: Yes: WNL Extremities: Yes: WNL Neurological: Yes: Alert, Oriented Psychiatric: Yes: Alert, Oriented Labs: CBC, BMP 03/01/17 05:35 03/01/17 05:35 INR, PTT INR 1.26 (0.82-1.09) H 02/23/17 05:40 Assessment/Plan Syncope Atrial Fibrillation with RVR Recent AVN ablation Acute Kidney Injury Lactic Acidosis HTN DM sepsis anemia plan doing well continue to monitor patient stable patient need to go to gi and complete her hpylori treatment
[2017-03-01] MEDS ORDERED: RANITIDINE HCL 150 MG TABLET (FP) PO SCH (10:00)
--- NOTE | 2017-03-01 11:26 | PN ---
Progress Note, Physician History of Present Illness: pulmonary alert,nad,laying in bed,-sob. - Current Medication List Current Medications: Active Medications Acetaminophen (Tylenol -) 650 mg PO Q6H PRN PRN Reason: FEVER OR PAIN Amiodarone HCl (Cordarone -) 200 mg PO DAILY [facility] Last Admin: 03/01/17 09:15 Dose: 200 mg Apixaban (Eliquis -) 5 mg PO BID [facility] Last Admin: 03/01/17 09:15 Dose: 5 mg Diltiazem HCl (Cardizem Cd -) 360 mg PO DAILY [facility] Last Admin: 03/01/17 09:15 Dose: 360 mg Docusate Sodium (Colace -) 100 mg PO Q8H PRN PRN Reason: CONSTIPATION Furosemide (Lasix -) 40 mg PO BID@0600,1400 [facility] Last Admin: 03/01/17 06:32 Dose: 40 mg Insulin Aspart (Novolog Vial Sliding Scale -) 1 vial SQ ACHS [facility] PRN Reason: Protocol Last Admin: 03/01/17 06:28 Dose: Not Given Levothyroxine Sodium (Synthroid -) 125 mcg PO DAILY@0700 [facility] Last Admin: 03/01/17 06:32 Dose: 125 mcg Magnesium Oxide (Mag-Ox -) 400 mg PO BID [facility] Last Admin: 03/01/17 09:15 Dose: 400 mg Methotrexate (Mexate -) 12.5 mg PO Q7D@1000 [facility] Last Admin: 02/23/17 11:23 Dose: 12.5 mg Polyethylene Glycol (Miralax (For Daily Use) -) 17 gm PO DAILY [facility] Last Admin: 03/01/17 09:16 Dose: Not Given Ranitidine HCl (Zantac -) 150 mg PO DAILY [facility] Last Admin: 03/01/17 09:15 Dose: 150 mg Senna (Senna -) 2 tab PO HS PRN PRN Reason: CONSTIPATION Spironolactone (Aldactone -) 25 mg PO BID [facility] Last Admin: 03/01/17 09:14 Dose: 25 mg - Objective Vital Signs: Vital Signs Temperature 97.7 F 03/01/17 02:00 Pulse Rate 86 02/28/17 22:00 Respiratory Rate 93 H 03/01/17 02:00 Blood Pressure 112/59 03/01/17 02:00 O2 Sat by Pulse Oximetry (%) 100 02/28/17 21:00 Constitutional: Yes: Well Nourished, Calm Eyes: Yes: WNL HENT: Yes: WNL Neck: Yes: WNL Cardiovascular: Yes: Pulse Irregular, S1, S2 Respiratory: Yes: Diminished Gastrointestinal: Yes: Normal Bowel Sounds, Soft Extremities: Yes: WNL Edema: Yes Labs: CBC, BMP 03/01/17 05:35 03/01/17 05:35 INR, PTT INR 1.26 (0.82-1.09) H 02/23/17 05:40 Assessment/Plan ASSESSMENT AND PLAN: Syncope Atrial Fibrillation with RVR Recent AVN ablation Acute Kidney Injury improving Lactic Acidosis improving HTN DM Anemia R/O GI BLEED - PO cardizem - iv lasix,aldactone - anticoagulation - protonix - transfuse prn - sleep studies outpatient DR HOWARD
[2017-03-01 11:53] VITALS: PULSE 92
[2017-03-01 14:42] VITALS: BP 102/55; TEMP 98.3
[2017-03-01] MEDS ORDERED: POTASSIUM CHLORIDE ORAL LIQUID 20 MEQ/15 ML PO ONE (14:45)
[2017-03-01] MEDS ORDERED: CEPHALEXIN MONOHYDRATE 500 MG CAPSULE (UD) PO ONE (15:32)
[2017-03-02 08:08] LABS: SERUM IRON 48 ug/dL (27-139); TOTAL IRON BINDING CAPACITY 311 ug/dL (250-450); UIBC 263 ug/dL (118-369)
--- NOTE | 2017-05-01 10:38 | DS ---
Physical Exam: SUBJECTIVE: Patient seen and examined. No acute issues. OBJECTIVE: Last Vital Signs Temp Pulse Resp BP Pulse Ox 98.3 F 92 H 20 102/55 100 03/01/17 14:41 03/01/17 14:41 03/01/17 14:41 03/01/17 14:41 02/28/17 21:00 PE Neuro: alert, awake, cn 2-12 intact HEENT: R eye amblyopia Pulm: CTAB CV: s1 s2 irregular rate and rhythm no mrg Abd: s nt nd + bs Ext: warm, dry, b/l edema L>R +2 HOSPITAL COURSE: Date of Admission:02/14/17 Date of Discharge: 03/01/17 Minutes to complete discharge: 36 Discharge Summary Reason For Visit: ATRIAL FIBRILLATION W/RAPID VENTRICULAR RESPONSE Current Active Problems DUARTE (acute kidney injury) (Acute) Anemia (Acute) DM (diabetes mellitus) (Acute) DVT prophylaxis (Acute) HTN (hypertension) (Acute) Hypochloremia (Acute) Hypothyroidism (Acute) Orthostatic dizziness (Acute) Rheumatoid arthritis (Acute) Hospital Course: Initial Hospital Course: Briefly, this 71 year old female with PMH of DM, Hypothyroidism, RA, chronic anemia & Atrial fibrillation s/p recent ablation presented to [facility] ED with nausea & vomiting for 3 days. Patient had a recent endoscopy and was started on triple therapy for H Pylori 4 days ago. Patient stated abdominal pain , nausea & vomiting started around that time. She has had very limited oral intake of food or liquids since then. In ED, patient was found to be in Atrial fibrillation with RVR at ~150. She had a lactic acid of 6, sodium of 125 and creatinine 1.8 (baseline is 1.0). Patient was given Cardizem and IVF were started as well. In ED, patient had episode of syncope (or possibly, but less likely, seizure) and was given Ativan. Patient was started on Zosyn/Metronidazole in ED. Subsequent Hospital Course/Progress Note/Discharge Summary by a/p: Assessment: 71 year old female with PMHx of HTN, A.fib s/p ablation 12/2016, IDDM , RA, hypothyroidism admitted with nausea and vomiting x3 days, found to have AFib with RVR started on dilt gtt and lactic acidemia. Plan: 1. Acute blood lose Anemia - Transfused packed cells, 02/21, 02/28 - Multifactorial: elevated TSH, meds (methotrexate), infectious, GI loss - No M spike, no hemolysis with elevated haptaglobin - Heme follow up in office 2. Hypothyroidism - Repeat TSH elevated 42 - Increased Synthroid 125mcg, monitor in 4 weeks - Endocrine office f/u 3. GI Bleed - D/w GI no GI source of bleeding - EGD/colonoscopy with polypectomy, no bleeding or source of bleeding identified , EGD negative for H pylori - Capsule endoscopy per GI as outpt 4. A.fib with RVR - Rate Controlled - Amiodarone 200mg daily - Cardizem 360 CD daily - Eliquis 5 BID 5. Acute on chronic diastolic heart failure - Aldactone 25mg BID - PO Lasix 40mg BID 6. H.pylori - EGD negative for h pylori, follow up with GI 7. DM II - Resume metformin 8. Rheumatoid arthritis - Continue Methotrexate - Do not restart Prednisone, as it is subtherapeutic dosing 9. Lactic acidemia - Resolved - Possible GI source vs nausea/vomiting/dehydration - S/p abx course 10. DUARTE - Resolved 11. DVT ppx - On Eliquis Dispo: - Home with VNS, GI and cardiology follow up - Meds as above Condition: Stable - Instructions Diet, Activity, Other Instructions: Please return to the ED for any new, persistent, or worsening symptoms. Follow up with your PCP in 1 week Take medications as directed on home discharge medication list Follow up with Dr. Kaur ([facility]) in 2 week, take iron supplements as directed with vit C Follow up with Dr. Ortiz (Gastroenterology) in 1 week for capsule study to see if there is any other source of bleeding Follow up with Dr. Patino (cardiology) in 2 weeks for continued work up on your heart Follow up in 1 month with Endocrine doctor (Dr. Gordillo) to continue monitoring your thyroid levels. Note: You will now be taking a new dose of synthroid 125mcg daily. Referrals: Reggie Francisco DO [Staff Physician] - 1 Week (Capsule study) Curtis Lay MD [Staff Physician] - 3 Weeks (Make appt for a sleep study , will need to observe your for obstructive sleep apnea ) Santi Kaur MD [Staff Physician] - 2 Weeks (Follow up iron studies ) Kallie Bedoya MD [Staff Physician] - 1 Month (Follow up and repeat Thyroid levels ) Barber Patino MD [Staff Physician] - 2 Weeks (Follow up heart rhythm and volume status ) Disposition: VNS/HOME HEALTH CARE - Home Medications Comprehensive Discharge Medication List: Ambulatory Orders Apixaban [Eliquis] 5 mg PO BID 02/14/17 Folic Acid 1 mg PO DAILY 02/14/17 Metformin HCl 1,000 mg PO BID 02/14/17 Methotrexate [Mexate -] 12.5 mg PO Q7D 02/14/17 Amiodarone HCl 200 mg PO DAILY #30 tablet 03/01/17 Ascorbic Acid [Vitamin C] 100 mg PO TID #90 tablet 03/01/17 Cephalexin [Keflex] 500 mg PO BID #9 capsule 03/01/17 Diltiazem Cd [Cardizem Cd -] 360 mg PO DAILY #60 cap.cd.24h 03/01/17 Ferrous Sulfate [Feosol] 325 mg PO TID #90 tablet 03/01/17 Furosemide [Lasix] 40 mg PO BID #60 tablet 03/01/17 Levothyroxine [Synthroid -] 125 mcg PO DAILY #30 tablet 03/01/17 Ranitidine [Zantac -] 150 mg PO DAILY #30 tablet 03/01/17 Spironolactone [Aldactone -] 25 mg PO BID #60 tablet 03/01/17 This patient is new to me today: No Emergency Visit: Yes ED Registration Date: 02/14/17 Care time: The patient presented to the Emergency Department on the above date and was hospitalized for further evaluation of their emergent condition. Critical Care patient: No - Discharge Referral Referred to [facility] Med P.C.: No
== END 2017-03-01 15:00 | disposition home health service (06) | DRG 871 ==
LOC: FER 10:30 → JICU 20:45 → J4W 02-17 17:57
PROVIDERS: ADMIT Internal Medicine; ATTEND Nurse Practitioner Acute Care
PROC: 30233N1 Transfusion of Nonautologous Red Blood Cells into Peripheral Vein, Percutaneous Approach (ICD-10-PCS; 2017-02-21)
PROC: 0DBN8ZX Excision of Sigmoid Colon, Via Natural or Artificial Opening Endoscopic, Diagnostic (ICD-10-PCS; 2017-02-22)
PROC: 0DBH8ZX Excision of Cecum, Via Natural or Artificial Opening Endoscopic, Diagnostic (ICD-10-PCS; 2017-02-22)
PROC: 0DBK8ZX Excision of Ascending Colon, Via Natural or Artificial Opening Endoscopic, Diagnostic (ICD-10-PCS; 2017-02-22)
PROC: 0DBL8ZX Excision of Transverse Colon, Via Natural or Artificial Opening Endoscopic, Diagnostic (ICD-10-PCS; 2017-02-22)
PROC: 0DBM8ZX Excision of Descending Colon, Via Natural or Artificial Opening Endoscopic, Diagnostic (ICD-10-PCS; 2017-02-22)
PROC: 0DB68ZX Excision of Stomach, Via Natural or Artificial Opening Endoscopic, Diagnostic (ICD-10-PCS; principal; 2017-02-22 11:00)
DX: A41.9 Sepsis, unspecified organism (principal); I50.33 Acute on chronic diastolic (congestive) heart failure; E87.1 Hypo-osmolality and hyponatremia; E87.2 Acidosis; N17.9 Acute kidney failure, unspecified; J84.9 Interstitial pulmonary disease, unspecified; D62 Acute posthemorrhagic anemia; K92.2 Gastrointestinal hemorrhage, unspecified; I48.0 Paroxysmal atrial fibrillation; Z87.891 Personal history of nicotine dependence; E03.9 Hypothyroidism, unspecified; E87.6 Hypokalemia; I11.0 Hypertensive heart disease with heart failure; E11.9 Type 2 diabetes mellitus without complications; Z79.84 Long term (current) use of oral hypoglycemic drugs; E86.1 Hypovolemia; E86.0 Dehydration; M06.9 Rheumatoid arthritis, unspecified; R55 Syncope and collapse; Z79.01 Long term (current) use of anticoagulants; R11.2 Nausea with vomiting, unspecified; K57.90 Diverticulosis of intestine, part unspecified, without perforation or abscess without bleeding; K64.8 Other hemorrhoids; D12.5 Benign neoplasm of sigmoid colon; D12.4 Benign neoplasm of descending colon; D12.3 Benign neoplasm of transverse colon; D12.2 Benign neoplasm of ascending colon; D12.0 Benign neoplasm of cecum; E87.8 Other disorders of electrolyte and fluid balance, not elsewhere classified; E83.42 Hypomagnesemia; R56.9 Unspecified convulsions
CPT/HCPCS: 36415; 36430; 70450-TC; 71010-TC; 71020-TC; 74000-TC; 74176-TC; 76700-TC; 80048; 80053; 81003; 81015; 82272; 82550; 82607; 82728; 82746; 82784; 83010; 83036; 83540; 83550; 83605; 83615; 83735; 83880; 84155; 84165; 84439; 84443; 84481; 84484; 85025; 85027; 85044; 85610; 85651; 85730; 86140; 86334; 86850; 86880; 86900; 86901; 86922; 87040; 87086; 88305-TC; 88342-TC; 93005; 93010; 94640; 94761; 97116-GP; 97162-GP; 99285-25; J8610; P9038; P9058